=== PATIENT | male | born 1940 | race Caucasian/White ===

== ENCOUNTER → 2017-12-19 13:54 | Outpatient (CLI) | payer MEDICARE, OTHER, SELFPAY ==
--- NOTE | 2017-12-19 13:59 | CDU_ITS ---
Reason For Study: left carotid bruit Rt. Velocities/BP Lt. Velocities/BP Prox CCA 83.3/19.9 cm/sec. Prox CCA 85.6/28.3 cm/sec. Mid CCA 76.2/19.3 cm/sec. Mid CCA 76.8/21.7 cm/sec. Dist CCA 86.2/23.5 cm/sec. Dist CCA 83.8/25.2 cm/sec. Prox ICA 140/37.7 cm/sec. Prox ICA 73.3/24.0 cm/sec. Mid ICA 159/44.2 cm/sec. Mid ICA 142/48.7 cm/sec. Dist ICA 161/48.1 cm/sec. Dist ICA 139/47.1 cm/sec. Rt. ICA/CCA = 2.1. Lt. ICA/CCA = 1.8. Prox ECA 175/18.7 cm/sec. Prox ECA 297/29.9 cm/sec. Rt. Vert. 66.8/22.8 cm/sec. Lt. Vert. 66.8/25.2 cm/sec. Right Extracranial There is heterogeneous, irregular atherosclerotic plaque noted in the right common carotid artery. There is heterogeneous, irregular atherosclerotic plaque noted in the right internal carotid artery. There is heterogeneous, irregular atherosclerotic plaque noted in the right external carotid artery. Antegrade flow is noted in the right vertebral artery. Left Extracranial There is homogeneous, smooth atherosclerotic plaque noted in the left common carotid artery. There is homogeneous, smooth atherosclerotic plaque noted in the left internal carotid artery. There is homogeneous, smooth atherosclerotic plaque noted in the left external carotid artery. Antegrade flow is noted in the left vertebral artery. Procedure Carotid Duplex 96171. The exam was diagnostic. Exam performed in department. 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 Moderate disease right external carotid Widely patent left common carotid and proximal internal carotid with 50-69% stenosis of the internal carotid Severe stenosis left external carotid Patent and antegrade vertebrals bilaterally. Ordering Physician: Ward Pederson Performed By: Bill Nunez RVT
== END ==
PROVIDERS: Family Provider Family Medicine; PCP Family Medicine; Visit Provider Family Medicine
DX: R09.89 Other specified symptoms and signs involving the circulatory and respiratory systems (principal)
CPT/HCPCS: 93880

== ENCOUNTER 2017-12-24 09:31 | Emergency (ER) | payer MEDICARE, OTHER, SELFPAY ==
[2017-12-24 09:33] VITALS: BP 151/79; PULSE 76; RESP 16; TEMP 36.5; O2SAT 99; BMI 24.9
--- NOTE | 2017-12-24 09:43 | RAD_ITS ---
STUDY: X-RAY - LEFT HAND, ATTENTION THUMB FINGER REASON FOR EXAM: Male, 77 years old. Injury TECHNIQUE: 4 view(s) of the finger were obtained. COMPARISON: None. FINDINGS: There is irregularity of the lateral aspect of the first metacarpal head probably degenerative. Normal metacarpophalangeal joint. Normal proximal phalanx. Normal middle phalanx. Normal distal phalanx. There is a well-defined bony density on the dorsal aspect of the interphalangeal joint which could be due to old injury. There is no demonstrated acute fracture. RAD/Finger(s) Min 2 Views IMPRESSION: No demonstrated acute osseous injury. Electronically Signed: Adan Cobb MD at 10:34 EDT Tel , Service support ,
--- NOTE | 2017-12-24 10:39 | ED.DCSUM_ITS ---
- ER Visit Summary Date of Service: 12/24/17 Chief Complaint: [Laceration left thumb] History of Present Illness: The patient is a 77 M [presents to the emergency department after sustaining a laceration to his left thumb this morning. Patient was using a table saw to cut a piece of chair he would when he accidentally lacerated his left thumb. Patient is right-hand dominant. Patient is up-to-date on tetanus. Patient is not on any blood thinners other than a baby aspirin.] Physical Examination: [Left thumb-patient has a 4 cm flap-like laceration over the pulp of the thumb. Patient neurovascularly intact. There does not appear to be any bony involvement. There is no trauma to the nail. Small amount of venous oozing noted from the wound.] Test Results: [X-rays of the left thumb were obtained which did not show any osseous injury and there was no evidence of foreign body.] Emergency Department Course and Treatment: [Laceration repair-wound sterilely draped and prepped. Using 1% lidocaine a total of 8 cc used to perform a digital block. Wound was cleansed with Shur-Clens and irrigated with copious saline. The wound edges were quite irregular however using 5-0 nylon a total of 14 single interrupted sutures placed with good wound edge approximation. Patient tolerated procedure well. Clean dressing applied. Patient was given 1 dose of Keflex.] Treatment Plan: [Patient to follow-up with primary care physician in 10 days for suture removal. Patient will be given Keflex for 7 days.] Disposition: [Discharged to home in stable condition. Patient advised to return if increasing pain, redness, swelling, or condition should worsen in any way.] Impression: [Left thumb laceration 4 cm -simple repair] This note was generated with [employer] dictation software. It may contain incorrect words, spelling, and punctuation that were not noted in review of the chart prior to signing ED Disposition - Plan for ED Patient: Chief Complaint: Laceration Referrals: Ward Pederson MD [Primary Care Provider] -
--- NOTE | 2017-12-24 10:39 | ED.DEP ---
ED Disposition - Plan for ED Patient: Chief Complaint: Laceration Instructions: ED Laceration Hand Prescriptions: Cephalexin [Keflex] 500 mg PO Q8 #21 cap Referrals: Ward Pederson MD [Primary Care Provider] - 10-14 Days suture removal
[2017-12-24 10:44] VITALS: BP 147/60; PULSE 57; RESP 18; O2SAT 98
[2017-12-24] MEDS: Cephalexin 250 MG Capsule 500 MG PO (10:46)
== END 2017-12-24 10:56 | disposition home or self-care (01) ==
PROVIDERS: Emergency Provider Emergency Medicine; Family Provider Family Medicine; PCP Family Medicine
DX: S61.012A Laceration without foreign body of left thumb without damage to nail, initial encounter (principal); W27.0XXA Contact with workbench tool, initial encounter; Y93.9 Activity, unspecified; Y92.9 Unspecified place or not applicable; I25.10 Atherosclerotic heart disease of native coronary artery without angina pectoris; E78.00 Pure hypercholesterolemia, unspecified; I10 Essential (primary) hypertension; Z95.1 Presence of aortocoronary bypass graft; Z96.651 Presence of right artificial knee joint; Z79.82 Long term (current) use of aspirin; Z79.899 Other long term (current) drug therapy; Z72.0 Tobacco use
CPT/HCPCS: 12002; 73140; 99283

== ENCOUNTER → 2018-01-22 07:55 | Outpatient (CLI) | payer MEDICARE, OTHER, SELFPAY ==
--- NOTE | 2018-01-22 07:56 | AAAS_ITS ---
Reason For Study: AAA Aorta Measurements Aorta Doppler Measurements Proximal aorta measures1.82cm x 1.80cm. in cross-Peak systolic flow velocities within the proximal sectional axis. aorta measure 81 cm/sec. Proximal aorta measures1.63cm. in longitudinal Peak systolic flow velocities within the mid axis. aorta measure 85 cm/sec. Mid aorta measures1.45cm x 1.45cm. in cross- Peak systolic flow velocities within the distal sectional axis. aorta measure 99 cm/sec. Mid aorta measures1.45cm. in longitudinal axis. Distal aorta measures1.48cm x 1.57cm. in cross- sectional axis. Distal aorta measures1.47cm. in longitudinal axis. Left Iliac Artery Left iliac artery measures 1.27cm x 1.24 cm. in the cross-sectional axis. Left iliac artery measures 1.13 cm. in the longitudinal axis. Peak systolic velocity in the left iliac artery measures 100 cm/sec. Right Iliac Artery Right iliac artery measures 1.03cm x 1.05 cm. in the cross-sectional axis. Right iliac artery measures 1.07 cm. in the longitudinal axis. Peak systolic velocity in the right iliac artery measures 88 cm/sec. Procedure Exam performed in department. Interpretation Summary Maximal aortic dimension 1.82 x 1.8 cm proximally with normal flow Left iliac 1.27 x 1.24cm with normal velocity Right iliac 1.03 x 1.05cm with normal velocity Ordering Physician: Asif Torres Referring Physician: Ward Pederson Performed By: Cheli Fernández, TRACEE, RVT
== END ==
PROVIDERS: Family Provider Family Medicine; PCP Family Medicine; Visit Provider Surgery
DX: I71.4 Abdominal aortic aneurysm, without rupture (principal)
CPT/HCPCS: 76706

== ENCOUNTER → 2018-03-08 14:23 | Outpatient (CLI) | payer MEDICARE, OTHER, SELFPAY ==
[2018-03-08 17:05] LABS: Absolute Lymphocyte Count 1.69 X10^3/ul (0.83-4.51); Absolute Neutrophil Count 3.9 X10^3/uL (2.0-7.7); Basophil# 0.03 X10^3/uL; Basophil% 0.5 % (0-1); Eosinophil# 0.15 X10^3/uL; Eosinophils% 2.5 % (0-5); Hematocrit 33.5 % (40-54); Hemoglobin 11.4 g/dl (13.0-16.5); Lymphocyte # 1.69 X10^3/ul (4.0); Lymphocyte % 27.8 % (19-41); Mean Corpuscular Hgb 31.3 pg (27.0-32.0); Mean Platelet Vol. 10.3 fl (6.2-12.0); Monocyte# 0.35 X10^3/uL; Monocyte% 5.8 % (0-10); Neutrophil # 3.85 X10^3/uL (2.7-7.7); Neutrophil % 63.4 % (47-70); Platelet Count 214 K/mm3 (150-450); RBC Distribution Width CV 12.5 % (11.6-14.6); Red Blood Count 3.64 M/mm3 (4.6-6.2); White Blood Count 6.1 K/mm3 (4.4-11.0)
[2018-03-08 17:13] LABS: POSITIVE COUNT NO; POSITIVE DIFFERENTIAL NO; POSITIVE MORPHOLOGY NO
[2018-03-08 17:37] LABS: Vitamin B12 342 pg/mL (211-911)
[2018-03-08 17:49] LABS: ALB/GLOB Ratio 1.2 RATIO (0.9-2.4); AST(SGOT) 20 U/L (15-37); Alanine Aminotransfer ALT/SGPT 28 U/L (16-61); Albumin, Serum 4.2 g/dL (3.2-5.0); Alkaline Phosphatase 74 U/L (45-117); Anion Gap 9 (5-15); BUN 25 mg/dL (7-18); BUN/Creat Ratio 14.5 RATIO (10-20); Calcium,Total 8.9 mg/dL (8.5-10.1); Chloride 111 mmol/L (98-107); Creatinine, Serum 1.72 mg/dL (0.70-1.30); EST Glomerular Filtration Rate 41 mL/min (>60); Est Glom Filt Rate - Afr Amer 50 mL/min (>60); Globulin 3.5 g/dL (2.2-4.2); Glucose 77 mg/dL (74-106); Potassium 4.7 mmol/L (3.5-5.1); Protein, Total 7.7 g/dL (6.4-8.2); Sodium Level 141 mmol/L (136-145); Thyroid Stim Hormone (TSH) 1.18 uIU/mL (0.358-3.74)
[2018-03-09 05:02] LABS: Rapid Plasmin Reagin (RPR) NONREACTIVE (NONREACTIVE)
[2018-03-12 09:07] LABS: Hep C Antibodies <0.1 s/co ratio (0.0-0.9)
== END ==
PROVIDERS: Family Provider Family Medicine; PCP Family Medicine; Visit Provider Family Medicine Geriatric Medicine
DX: G30.9 Alzheimer's disease, unspecified (principal); I10 Essential (primary) hypertension; Z13.89 Encounter for screening for other disorder
CPT/HCPCS: 80053; 82607; 82746; 84443; 85025; 86592; 86803

== ENCOUNTER → 2018-03-13 10:45 | Outpatient (CLI) | payer MEDICARE, OTHER, SELFPAY ==
[2018-03-13 14:29] LABS: Homocysteine 16.3 umol/L (3.2-10.7)
== END ==
PROVIDERS: Family Provider Family Medicine; PCP Family Medicine; Visit Provider Family Medicine Geriatric Medicine
DX: E53.8 Deficiency of other specified B group vitamins (principal)
CPT/HCPCS: 36415; 83090; 83921

== ENCOUNTER → 2018-03-23 06:25 | Outpatient (CLI) | payer MEDICARE, OTHER, SELFPAY ==
--- NOTE | 2018-03-23 06:31 | CT_ITS ---
STUDY: LOW DOSE CT LUNG CANCER SCREENING REASON FOR EXAM: Male, 78 years old. Hx tobacco use, smoked less than 1 pack/day x 40 years, 185lbs, 3 vessel CABG, hypertension. RADIATION DOSAGE (If Supplied By Facility): CTDIvol = ( 3.02 ) mGy, DLP = ( 106.84 ) mGycm TECHNIQUE: No contrast was administered. Low dose technique was utilized (average mAS-38 and kVp 120). 1.25 mm axial source images with a slice interval of 1.25-mm were reconstructed in lung windows. 2.5 mm axial source images with a slice interval of 2.5-mm were reconstructed in lung windows. 5.0 mm axial source images with a slice interval of 5.0-mm were reconstructed in soft tissue windows. Nodule measured using lung windows on PACS and/or independent workstation with automated measurement of minimum and maximum diameter. Nodule measurement reported as average diameter rounded to the nearest whole number. Growth is defined as an increase ins size of greater than 1.5 mm. COMPARISON: None. NODULES: Calcified nodule is seen in the right middle lobe image #161 measures 5 mm consistent with benign granuloma. Segmental atelectasis are noted in the right and left lung bases. There is no demonstrated pleural abnormality. Normal heart and pericardium. Normal mediastinum. Normal hilar regions. Normal unenhanced pulmonary arteries. Normal aorta arch and descending thoracic aorta. There is demineralization of the thoracic spine. There is no demonstrated abnormality of the visualized upper abdomen. CT/Low Dose CT Lung Screening IMPRESSION: Lung-RADS category 2. Recommendation: Routine screening CT scan in one year. IMPORTANT NOTES FOR USE: ACR Lung-RADS Version 1.0 Assessment Categories Release Date: December 30, 2013 Category: Coded 0-4 bases on nodule(s) with highest degree of suspicion. Negative screen is defined as categories 1 and 2; a positive screen is defined as categories 3 and 4. Category 3 and 4A nodules that are unchanged on interval CT should be coded as category 2, and individuals returned to screening in 12 months. Category 4X: Category 3 or 4 nodules with additional imaging findings that increase the suspicion of lung cancer, such as spiculation, GGN that doubles in size in 1 year, enlarged lymph notes, etc. Category Modifiers: S (significant finding unrelated to lung cancer) and C (prior history of treated lung cancer) may be added to the 0-4 Lung-RADS Electronically Signed: Danny Lea MD at 8:14 EDT Tel , Service support ,
--- NOTE | 2018-03-23 06:31 | CT_ITS ---
STUDY: CT BRAIN WITHOUT CONTRAST REASON FOR EXAM: Male, 78 years old. Alzheimer's disease, hypertension, CABG. RADIATION DOSAGE (If Supplied By Facility): CTDIvol = ( 44.99 ) mGy, DLP = ( 745.49 ) mGycm TECHNIQUE: Transaxial CT imaging of the brain was performed without administration of intravenous contrast material. Individualized dose optimization techniques were used for this CT. COMPARISON: None. FINDINGS: Normal soft tissue structures. Normal calvarium. There is mild cerebral atrophy with widening of the extra-axial spaces and ventricular dilatation. There are areas of decreased attenuation within the white matter tracts of the supratentorial brain, consistent with microvascular disease changes. Normal basal ganglia and thalami. Normal brainstem. Normal cerebellum. There is no intracranial hemorrhage. There are no findings of an acute ischemic infarction. Normal visualized paranasal sinuses. CT/Brain/Head without Contrast IMPRESSION: Chronic involutional changes of the brain. Electronically Signed: Danny Lea MD at 7:48 EDT Tel , Service support ,
== END ==
PROVIDERS: Family Provider Family Medicine; PCP Family Medicine; Visit Provider Family Medicine Geriatric Medicine
DX: G30.9 Alzheimer's disease, unspecified (principal); Z87.891 Personal history of nicotine dependence
CPT/HCPCS: 70450; G0297

== ENCOUNTER → 2018-09-10 14:55 | Outpatient (CLI) | payer MEDICARE, OTHER, SELFPAY ==
[2018-01-03 15:22] VITALS: BMI 27.7
[2018-09-10 17:52] LABS: Absolute Lymphocyte Count 1.86 X10^3/ul (0.83-4.51); Basophil# 0.03 X10^3/uL; Basophil% 0.4 % (0-1); Eosinophil# 0.13 X10^3/uL; Eosinophils% 1.7 % (0-5); Hematocrit 37.1 % (40-54); Hemoglobin 12.6 g/dl (13.0-16.5); Lymphocyte # 1.86 X10^3/ul (4.0); Lymphocyte % 24.7 % (19-41); Mean Corpuscular Hgb 31.7 pg (27.0-32.0); Mean Corpuscular Volume 93.5 fL (80-94); Mean Platelet Vol. 9.9 fl (6.2-12.0); Monocyte# 0.52 X10^3/uL; Monocyte% 6.9 % (0-10); Neutrophil # 4.97 X10^3/uL (2.7-7.7); Neutrophil % 66.2 % (47-70); Platelet Count 204 K/mm3 (150-450); RBC Distribution Width CV 12.5 % (11.6-14.6); RBC Distribution Width SD 41.9 fl (35.1-43.9); Red Blood Count 3.97 M/mm3 (4.6-6.2); White Blood Count 7.5 K/mm3 (4.4-11.0)
[2018-09-10 18:13] LABS: Vitamin D,25 Hydroxy 31.6 ng/mL (29.95-100.01)
[2018-09-10 18:18] LABS: ALB/GLOB Ratio 1.3 RATIO (0.9-2.4); AST(SGOT) 24 U/L (15-37); Alanine Aminotransfer ALT/SGPT 54 U/L (16-61); Albumin, Serum 4.3 g/dL (3.2-5.0); Alkaline Phosphatase 70 U/L (45-117); Anion Gap 9 (5-15); BUN 31 mg/dL (7-18); BUN/Creat Ratio 16.6 RATIO (10-20); Calcium,Total 8.7 mg/dL (8.5-10.1); Chloride 107 mmol/L (98-107); Creatinine, Serum 1.87 mg/dL (0.70-1.30); EST Glomerular Filtration Rate 37 mL/min (>60); Est Glom Filt Rate - Afr Amer 45 mL/min (>60); Globulin 3.2 g/dL (2.2-4.2); Glucose 91 mg/dL (74-106); POSITIVE COUNT NO; POSITIVE DIFFERENTIAL NO; POSITIVE MORPHOLOGY NO; Potassium 4.6 mmol/L (3.5-5.1); Protein, Total 7.5 g/dL (6.4-8.2); Sodium Level 136 mmol/L (136-145); Thyroid Stim Hormone (TSH) 1.51 uIU/mL (0.358-3.74)
== END ==
PROVIDERS: Visit Provider Family Medicine Geriatric Medicine
DX: E55.9 Vitamin D deficiency, unspecified (principal); F52.8 Other sexual dysfunction not due to a substance or known physiological condition; I10 Essential (primary) hypertension
CPT/HCPCS: 36415; 80053; 82306; 84403; 84443; 85025

== ENCOUNTER → 2019-03-12 | Outpatient (CLI) | payer MEDICARE, OTHER, SELFPAY ==
[2019-03-12 12:56] LABS: Absolute Lymphocyte Count 1.59 X10^3/ul (0.83-4.51); Absolute Neutrophil Count 3.3 X10^3/uL (2.0-7.7); Basophil# 0.01 X10^3/uL; Basophil% 0.2 % (0-1); Eosinophil# 0.14 X10^3/uL; Eosinophils% 2.6 % (0-5); Hematocrit 33.4 % (40-54); Hemoglobin 11.3 g/dl (13.0-16.5); Lymphocyte # 1.59 X10^3/ul (4.0); Lymphocyte % 29.9 % (19-41); Mean Corp Hgb Conc 33.8 g/gl (32-36); Mean Corpuscular Hgb 30.7 pg (27.0-32.0); Mean Corpuscular Volume 90.8 fL (80-94); Mean Platelet Vol. 9.8 fl (6.2-12.0); Monocyte# 0.28 X10^3/uL; Monocyte% 5.3 % (0-10); Platelet Count 205 K/mm3 (150-450); RBC Distribution Width CV 12.6 % (11.6-14.6); RBC Distribution Width SD 41.7 fl (35.1-43.9); Red Blood Count 3.68 M/mm3 (4.6-6.2); White Blood Count 5.3 K/mm3 (4.4-11.0)
[2019-03-12 12:59] LABS: Vitamin D,25 Hydroxy 34.7 ng/mL (29.95-100.01)
[2019-03-12 13:06] LABS: ALB/GLOB Ratio 1.3 RATIO (0.9-2.4); AST(SGOT) 22 U/L (15-37); Alanine Aminotransfer ALT/SGPT 33 U/L (16-61); Albumin, Serum 4.1 g/dL (3.2-5.0); Alkaline Phosphatase 76 U/L (45-117); Anion Gap 8 (5-15); BUN 24 mg/dL (7-18); BUN/Creat Ratio 14.1 RATIO (10-20); Calcium,Total 8.8 mg/dL (8.5-10.1); Chloride 109 mmol/L (98-107); EST Glomerular Filtration Rate 42 mL/min (>60); Est Glom Filt Rate - Afr Amer 51 mL/min (>60); Globulin 3.1 g/dL (2.2-4.2); Glucose 98 mg/dL (74-106); Potassium 4.9 mmol/L (3.5-5.1); Protein, Total 7.2 g/dL (6.4-8.2); Sodium Level 139 mmol/L (136-145); Thyroid Stim Hormone (TSH) 1.33 uIU/mL (0.358-3.74)
[2019-03-12 13:07] LABS: POSITIVE COUNT NO; POSITIVE DIFFERENTIAL NO
[2019-03-12 13:08] LABS: POSITIVE MORPHOLOGY NO
== END | disposition home or self-care (01) ==
LOC: POLAB3 10:27
PROVIDERS: Visit Provider Family Medicine Geriatric Medicine
DX: E55.9 Vitamin D deficiency, unspecified (principal); F52.8 Other sexual dysfunction not due to a substance or known physiological condition; I10 Essential (primary) hypertension
CPT/HCPCS: 36415; 80053; 82306; 84403; 84443; 85025

== ENCOUNTER → 2019-03-19 | Outpatient (CLI) | payer MEDICARE, OTHER, SELFPAY ==
--- NOTE | 2019-03-19 | TISS_PTH ---
PATIENT: АННА GONCALVES LOC: [facility] U#:[id number] AGE/SX: 79/M ROOM: RE03/19/[address]: Dr. 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 Perineural invasion is not seen. LEIGH ANN:coleen 03/20/19 COMMENT Case has been reviewed in consultation with Dr. Urrutia who concurs with the above diagnosis. IDC:AM MICROSCOPIC DESCRIPTION Slides are reviewed. GROSS DESCRIPTION Received in fixative is one container labeled with the patient's name and designated right posterior ear. The specimen consists of a discoid fragment of light singh shaved skin measuring 1.2 x 1 x 0.1 cm. The specimen is inked, serially sectioned and totally submitted in one cassette. / AM:coleen 03/19/19 TC:0 CPT: 20150
== END | disposition home or self-care (01) ==
LOC: LABSPEC 12:55
PROVIDERS: Family Provider Family Medicine Geriatric Medicine; PCP Family Medicine Geriatric Medicine; Referring Provider Family Medicine Geriatric Medicine; Visit Provider Family Medicine Geriatric Medicine
DX: C44.222 Squamous cell carcinoma of skin of right ear and external auricular canal (principal)
CPT/HCPCS: 88305

== ENCOUNTER → 2019-09-10 13:13 | Outpatient (CLI) | payer MEDICARE, OTHER, SELFPAY ==
[2019-09-10 14:05] LABS: Absolute Lymphocyte Count 1.31 X10^3/uL (0.83-4.51); Absolute Neutrophil Count 3.7 X10^3/uL (2.0-7.7); Basophil# 0.02 X10^3/uL; Basophil% 0.4 % (0-1); Eosinophils% 3.5 % (0-5); Hematocrit 32.9 % (40-54); Hemoglobin 10.8 g/dL (13.0-16.5); Lymphocyte # 1.31 X10^3/ul (4.0); Lymphocyte % 23.1 % (19-41); Mean Corp Hgb Conc 32.8 g/dL (32-36); Mean Corpuscular Hgb 30.9 pg (27.0-32.0); Mean Corpuscular Volume 94.3 fL (80-94); Mean Platelet Vol. 9.9 fl (6.2-12.0); Monocyte# 0.41 X10^3/uL; Monocyte% 7.2 % (0-10); NRBC Flagged by Analyzer 0 % (0-5); Neutrophil % 65.4 % (47-70); Platelet Count 211 K/mm3 (150-450); RBC Distribution Width CV 12.1 % (11.6-14.6); RBC Distribution Width SD 41.7 fl (35.1-43.9); Red Blood Count 3.49 M/mm3 (4.6-6.2); White Blood Count 5.7 K/mm3 (4.4-11.0)
[2019-09-10 14:26] LABS: Vitamin D,25 Hydroxy 38.7 ng/mL (29.95-100.01)
[2019-09-10 14:32] LABS: ALB/GLOB Ratio 1.1 RATIO (0.9-2.4); AST(SGOT) 22 U/L (15-37); Alanine Aminotransfer ALT/SGPT 34 U/L (16-61); Albumin, Serum 3.9 g/dL (3.2-5.0); Alkaline Phosphatase 84 U/L (45-117); Anion Gap 3 (5-15); BUN 33 mg/dL (7-18); BUN/Creat Ratio 16.3 RATIO (10-20); Calcium,Total 9.3 mg/dL (8.5-10.1); Chloride 110 mmol/L (98-107); Creatinine, Serum 2.02 mg/dL (0.70-1.30); EST Glomerular Filtration Rate 34 mL/min (>60); Est Glom Filt Rate - Afr Amer 41 mL/min (>60); Globulin 3.4 g/dL (2.2-4.2); Glucose 98 mg/dL (74-106); Potassium 5.5 mmol/L (3.5-5.1); Protein, Total 7.3 g/dL (6.4-8.2); Sodium Level 138 mmol/L (136-145); Thyroid Stim Hormone (TSH) 2.04 uIU/mL (0.358-3.74)
== END ==
PROVIDERS: Family Provider Family Medicine Geriatric Medicine; PCP Family Medicine Geriatric Medicine; Visit Provider Family Medicine Geriatric Medicine
DX: E55.9 Vitamin D deficiency, unspecified (principal); I10 Essential (primary) hypertension; F52.8 Other sexual dysfunction not due to a substance or known physiological condition
CPT/HCPCS: 36415; 80053; 82306; 84403; 84443; 85025

== ENCOUNTER → 2019-10-15 13:15 | Outpatient (CLI) | payer MEDICARE, OTHER, SELFPAY ==
[2018-01-03 15:22] VITALS: BMI 27.7
[2019-10-15 17:36] LABS: Anion Gap 5 (5-15); BUN 31 mg/dL (7-18); Calcium,Total 8.8 mg/dL (8.5-10.1); Chloride 110 mmol/L (98-107); Creatinine, Serum 1.63 mg/dL (0.70-1.30); EST Glomerular Filtration Rate 44 mL/min (>60); Est Glom Filt Rate - Afr Amer 53 mL/min (>60); Glucose 113 mg/dL (74-106); Potassium 4.3 mmol/L (3.5-5.1); Sodium Level 138 mmol/L (136-145)
== END ==
PROVIDERS: Family Provider Family Medicine Geriatric Medicine; PCP Family Medicine Geriatric Medicine; Visit Provider Family Medicine Geriatric Medicine
DX: I10 Essential (primary) hypertension (principal)
CPT/HCPCS: 36415; 80048

== ENCOUNTER → 2019-11-13 14:19 | Outpatient (CLI) | payer MEDICARE, OTHER, SELFPAY ==
[2018-01-03 15:22] VITALS: BMI 27.7
[2019-11-13 17:56] LABS: Protein, Urine (Random) 54.1 mg/dL (<11.9); Protein:Creat Ratio 611 mg/g CRE (0-200)
== END ==
PROVIDERS: PCP Family Medicine Geriatric Medicine; Visit Provider Internal Medicine Nephrology
DX: N18.3 Chronic kidney disease, stage 3 (moderate) (principal)
CPT/HCPCS: 82570; 84156

== ENCOUNTER → 2019-12-25 10:50 | Outpatient (CLI) | payer MEDICARE, OTHER, SELFPAY ==
--- NOTE | 2019-12-25 12:25 | NEURO ---
NCS and/or EMG Patient Report Ordering Doctor: Geraldo Joseph Chi DATE OF SERVICE: 12/25/19 Dallin Cortes is a 79-year-old male who presents for electrodiagnostic testing of the upper limbs. He reports progressively worsening numbness and tingling in both hands. Electrodiagnostic findings: Median motor nerve demonstrates prolonged distal latency with normal amplitude and conduction velocity on the left side. Right median motor nerve demonstrates prolonged distal latency with reduced amplitude and conduction velocity. Ulnar motor response is normal bilaterally. Prolonged median sensory latency at the wrist bilaterally. Prolonged right median palmar latency. Ulnar and radial sensory responses within normal limits on needle EMG, muscles tested in upper limb showed no evidence of denervation with normal motor unit action potentials. Electrodiagnostic impression: This is an abnormal study in the upper limbs 1. Electrodiagnostic findings demonstrate bilateral median mononeuropathy. This is consistent with a mild left carpal tunnel syndrome and a moderate to advanced right carpal tunnel syndrome. If there are any further questions, please do not hesitate to contact me
== END ==
PROVIDERS: Family Provider Family Medicine Geriatric Medicine; PCP Family Medicine Geriatric Medicine; Referring Provider Family Medicine Geriatric Medicine; Visit Provider Family Medicine Geriatric Medicine
DX: R20.2 Paresthesia of skin (principal)
CPT/HCPCS: 95886; 95912

== ENCOUNTER → 2020-02-21 08:36 | Outpatient (CLI) | payer MEDICARE, OTHER, SELFPAY ==
--- NOTE | 2020-02-21 08:43 | CDU_ITS ---
Reason For Study: Stenosis Rt. Velocities/BP Lt. Velocities/BP Prox CCA 85.2/14.7 cm/sec. Prox CCA 77.7/20 cm/sec. Mid CCA 69.5/17.3 cm/sec. Mid CCA 70.4/17.6 cm/sec. Dist CCA 83.9/18.6 cm/sec. Dist CCA 74.1/16.3 cm/sec. Bulb, 133.9/22.5 cm/sec. Prox ICA 117.4/35.3 cm/sec. Prox ICA 91.9/15.2 cm/sec. Mid ICA 182.8/44.5 cm/sec. Mid ICA 197.6/42.2 cm/sec. Dist ICA 104.7/29.8 cm/sec. Dist ICA 176.9/31.9 cm/sec. Lt. ICA/CCA = 2.47. Rt. ICA/CCA = 2.36. Prox ECA 87.6/11.4 cm/sec. Prox ECA 207.9/7.4 cm/sec. Lt. Vert. 79.1/18.8 cm/sec. Rt. Vert. 51.2/8 cm/sec. Right Extracranial There is heterogeneous, irregular atherosclerotic plaque noted in the right common carotid artery. There is heterogeneous, irregular atherosclerotic plaque noted in the right internal carotid artery. There is heterogeneous, irregular atherosclerotic plaque noted in the right external carotid artery. Antegrade flow is noted in the right vertebral artery. There is heterogeneous, irregular atherosclerotic plaque noted in the right bulb. Left Extracranial There is homogeneous, smooth atherosclerotic plaque noted in the left common carotid artery. There is homogeneous, irregular atherosclerotic plaque noted in the left internal carotid artery. There is homogeneous, smooth atherosclerotic plaque noted in the left external carotid artery. Antegrade flow is noted in the left vertebral artery. Procedure Carotid Duplex [id number]. Exam performed in department. Interpretation Summary Irregular calcific plaque with shadowing at the proximal right external carotid with extensive plaque lining the right internal carotid. 50-69% stenosis right internal carotid with particular stenosis in the mid internal carotid. Irregular plaque with possibility of ulceration present. >50% stenosis right external carotid Images appear consistent with postoperative changes of the left carotid bulb and proximal internal carotid. Homogeneous plaque within the left carotid bulb 50-69% stenosis left internal carotid <50% stenosis left external carotid Patent and antegrade vertebrals bilaterally Ordering Physician: Geraldo Joseph Referring Physician: Geraldo Joseph Chi Performed By: Ana Laura Venegas RVT
--- NOTE | 2020-02-21 08:44 | ART_ITS ---
Reason For Study: PAOD Procedure A bilateral lower extremity continuous wave Doppler with analog waveform analysis and ankle brachial indexes. Left Segmental Pressures Left brachial= 177mmHg. Left posterior tibial artery = 202mmHg. Left dorsalis pedis artery = 178mmHg. The left dorsalis pedis waveforms are triphasic. The left posterior tibial artery waveforms are triphasic. Right Segmental Pressures Right brachial= 172mmHg. Right posterior tibial artery = 174mmHg. Right dorsalis pedis artery = 172mmHg. The right dorsalis pedis waveforms are biphasic. The right posterior tibial artery waveforms are triphasic. Indices The right ankle brachial index by the dorsalis pedis is 0.97. The right ankle brachial index by the posterior tibial artery is 0.98. The left ankle brachial index by the dorsalis pedis is 1.01. The left ankle brachial index by the posterior tibial artery is 1.14. 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 Biphasic waveform involving the right dorsalis pedis suggests disease involving the tibialis anterior. Normal left lower extremity resting indices and triphasic waveforms Ordering Physician: Geraldo Joseph Referring Physician: Geraldo Joseph Chi Performed By: Ana Laura Venegas RVT and Student
--- NOTE | 2020-02-21 09:16 | ART_ITS ---
Reason For Study: PAOD Procedure A bilateral upper extremity continuous wave Doppler with analog waveform analysis and wrist brachial indexes. Left Segmental Pressures Left brachial= 176mmHg. Left ulnar= 209mmHg. Left radial= 214mmHg. The left radial waveforms are triphasic. The left ulnar waveforms are triphasic. Right Segmental Pressures Right brachial= 167mmHg. Right ulnar= 201mmHg. Right radial= 186mmHg. The right radial waveforms are triphasic. The right ulnar waveforms are triphasic. Indices Right wrist brachial index by the radial artery is 1.06. Right wrist brachial index by the ulnar artery is 1.14. Left wrist brachial index by the radial artery is 1.22. Left wrist brachial index by the ulnar artery is 1.19. Interpretation Summary Resting ankle-brachial indices appear bilaterally normal. Bilateral upper extremity radial and ulnar Doppler waveforms are normal and triphasic Ordering Physician: Geraldo Joseph Referring Physician: Geraldo Joseph Chi Performed By: Ana Laura Venegas RVT
== END ==
PROVIDERS: PCP Family Medicine Geriatric Medicine; Referring Provider Family Medicine Geriatric Medicine; Visit Provider Family Medicine Geriatric Medicine
DX: I65.23 Occlusion and stenosis of bilateral carotid arteries (principal); I73.9 Peripheral vascular disease, unspecified
CPT/HCPCS: 93880; 93922

== ENCOUNTER → 2020-03-17 11:13 | Outpatient (CLI) | payer MEDICARE, OTHER, SELFPAY ==
[2020-03-17 12:13] LABS: Absolute Lymphocyte Count 1.42 X10^3/uL (0.83-4.51); Absolute Neutrophil Count 3.3 X10^3/uL (2.0-7.7); Basophil# 0.03 X10^3/uL; Basophil% 0.6 % (0-1); Eosinophils% 1.9 % (0-5); Hematocrit 32.4 % (40-54); Hemoglobin 10.5 g/dL (13.0-16.5); Lymphocyte # 1.42 X10^3/ul (4.0); Lymphocyte % 26.9 % (19-41); Mean Corp Hgb Conc 32.4 g/dL (32-36); Mean Corpuscular Hgb 31.6 pg (27.0-32.0); Mean Corpuscular Volume 97.6 fL (80-94); Monocyte# 0.39 X10^3/uL; Monocyte% 7.4 % (0-10); NRBC Flagged by Analyzer 0 % (0-5); Neutrophil # 3.32 X10^3/uL (2.7-7.7); Neutrophil % 62.8 % (47-70); Platelet Count 178 K/mm3 (150-450); RBC Distribution Width CV 13.3 % (11.6-14.6); RBC Distribution Width SD 47.5 fl (35.1-43.9); Red Blood Count 3.32 M/mm3 (4.6-6.2); White Blood Count 5.3 K/mm3 (4.4-11.0)
[2020-03-17 12:28] LABS: Vitamin D,25 Hydroxy 62.5 ng/mL
[2020-03-17 12:34] LABS: ALB/GLOB Ratio 1.2 RATIO (0.9-2.4); AST(SGOT) 17 U/L (15-37); Alanine Aminotransfer ALT/SGPT 29 U/L (16-61); Albumin, Serum 3.8 g/dL (3.2-5.0); Alkaline Phosphatase 63 U/L (45-117); Anion Gap 4 (5-15); BUN 26 mg/dL (7-18); BUN/Creat Ratio 13.1 RATIO (10-20); Calcium,Total 8.6 mg/dL (8.5-10.1); Chloride 111 mmol/L (98-107); Creatinine, Serum 1.99 mg/dL (0.70-1.30); EST Glomerular Filtration Rate 35 mL/min (>60); Est Glom Filt Rate - Afr Amer 42 mL/min (>60); Globulin 3.1 g/dL (2.2-4.2); Glucose 101 mg/dL (74-106); Potassium 4.6 mmol/L (3.5-5.1); Protein, Total 6.9 g/dL (6.4-8.2); Sodium Level 139 mmol/L (136-145); Thyroid Stim Hormone (TSH) 1.01 uIU/mL (0.358-3.74)
== END ==
PROVIDERS: PCP Family Medicine Geriatric Medicine; Visit Provider Family Medicine Geriatric Medicine
DX: I10 Essential (primary) hypertension (principal); E55.9 Vitamin D deficiency, unspecified; F52.8 Other sexual dysfunction not due to a substance or known physiological condition
CPT/HCPCS: 36415; 80053; 82306; 84403; 84443; 85025

== ENCOUNTER → 2020-04-28 08:35 | Outpatient (CLI) | payer MEDICARE, OTHER, SELFPAY ==
[2018-01-03 15:22] VITALS: BMI 27.7
[2020-03-23 08:04] VITALS: BMI 24.4
--- NOTE | 2020-04-28 08:53 | RDU_ITS ---
Reason For Study: hypertensive disorder Right Renal Artery Left Renal Artery Right renal artery ostium Left renal artery ostium 305.7/74.2 129.9/20.2 RSV/EDV. PSV/EDV. Right renal artery proximal Left renal artery proximal PSV/EDV 116.7/24.6 PSV/EDV. 199.3/38.6 . Right renal artery mid 158.4/18.0 Left renal artery mid 129.3/15.1 PSV/EDV. PSV/EDV . Right renal artery distal Left renal artery distal 140.3/21.7 135.0/16.3 PSV/EDV. PSV/EDV. Right RAR 1.7. Left RAR 3.3. Right Renal Parenchyma Left Renal Parenchyma Upper Pole Medula 47.8/10.2 Left upper pole medulla 47.1/7.6 PSV/EDV. PSV/EDV . Right upper pole medulla EDR .21 . Left upper pole medulla EDR .16 . Right upper pole medulla R.I. .79 . Left upper pole medulla R.I. .84 . Upper Jamari Cortx 37.3/8.1 PSV/EDV. UP Cortex 21.4/4.9 PSV/EDV. Right upper pole cortex EDR .22 . Left upper pole cortex EDR .23 . Right upper pole cortex R.I. .78 . Left upper pole cortex R.I. .77 . Right lower Pole medulla 52.9/9.0 Left lower Pole medulla 39.9/6.1 PSV/EDV . PSV/EDV . Right lower pole medulla EDR .17 . Left lower pole medulla EDR .15 . Right lower pole medulla R.I. .83 . Left lower pole medulla R.I. .85 . Lower Pole Cortex 31.9/9.0 PSV/EDV. Lower Pole Cortx 19.0/5.5 PSV/EDV. Right lower pole cortex EDR .28 . Left lower pole cortex EDR .29 . Right lower pole cortex R.I. .72 . Left lower pole cortex R.I. .71 . Right Renal Hilar Left Renal Hilar Right Hilar avg 22.6/8.1 PSV/EDV. LT Hilar avg 89.7/14.5 PSV/EDV . Right hilar acceleration time 60.0 Left hilar acceleration time 80.0 m/sec. m/sec. Right Renal Dimensions Left Renal Dimensions Right kidney size 11.5 cm . Left kidney size 11.6 cm . Right cortical dimension 1.66 cm . Left cortical dimension 1.69 cm . Aorta Proximal abdominal aorta 2.03 x 2.0 cm . Proximal abdominal aorta peak systolic velocity is 92.6 cm/sec . Distal abdominal aorta 1.43 x 1.47 cm . Distal abdominal aorta peak systolic velocity is 97.0 cm/sec . Normal renal veins bilat. Very difficult study due to bowel gas. Difficult to image renal arteries. Interpretation Summary Dimensions of the intra-abdominal aorta appear normal, without evidence of aneurysmal dilatation. Right renal artery velocities are normal. Left renal artery velocities are elevated. Acceleration times are normal bilaterally. Renal-aortic ratios are also bilaterally normal. There is no evidence of significant renal artery stenosis on the right. There is evidence of mild-moderate stenosis in the ostial and proximal segments of the left renal artery. Renovascular resistance appears to be bilaterally elevated . The right cortical dimension is increased. The left cortical dimension is increased. Kidneys appear normal in size bilaterally. Ordering Physician: Rebeca Cuevas Performed By: Bill Nunez RVT
[2020-04-28 10:02] LABS: Hematocrit 33.4 % (40-54); Hemoglobin 10.9 g/dL (13.0-16.5); Mean Corp Hgb Conc 32.6 g/dL (32-36); Mean Corpuscular Hgb 31.5 pg (27.0-32.0); Mean Corpuscular Volume 96.5 fL (80-94); Mean Platelet Vol. 9.9 fl (6.2-12.0); Platelet Count 220 K/mm3 (150-450); RBC Distribution Width CV 11.9 % (11.6-14.6); RBC Distribution Width SD 42.3 fl (35.1-43.9); Red Blood Count 3.46 M/mm3 (4.6-6.2); White Blood Count 6.1 K/mm3 (4.4-11.0)
[2020-04-28 11:06] LABS: Albumin, Serum 3.7 g/dL (3.2-5.0); BUN 17 mg/dL (7-18); BUN/Creat Ratio 9.6 RATIO (10-20); Calcium,Total 8.4 mg/dL (8.5-10.1); Chloride 111 mmol/L (98-107); Creatinine, Serum 1.78 mg/dL (0.70-1.30); EST Glomerular Filtration Rate 40 mL/min (>60); Est Glom Filt Rate - Afr Amer 48 mL/min (>60); Ferritin 264 ng/mL (26-388); Glucose 94 mg/dL (74-106); Iron 63 ug/dL (65-175); Iron Binding Capacity,Total 319 ug/dL (250-450); Potassium 4.2 mmol/L (3.5-5.1); Sodium Level 140 mmol/L (136-145)
== END ==
PROVIDERS: PCP Family Medicine Geriatric Medicine; Referring Provider Internal Medicine Nephrology; Visit Provider Internal Medicine Nephrology
DX: N17.9 Acute kidney failure, unspecified (principal); D64.9 Anemia, unspecified; D63.8 Anemia in other chronic diseases classified elsewhere
CPT/HCPCS: 36415; 80069; 82728; 83540; 83550; 85027; 93975

== ENCOUNTER → 2020-07-27 11:04 | Outpatient (CLI) | payer MEDICARE, OTHER, SELFPAY ==
[2020-03-23 08:04] VITALS: BMI 24.4
[2020-05-14 09:10] VITALS: BMI 24.4
[2020-07-27 11:39] LABS: Hematocrit 35.7 % (40-54); Hemoglobin 11.5 g/dL (13.0-16.5); Mean Corp Hgb Conc 32.2 g/dL (32-36); Mean Corpuscular Hgb 30.8 pg (27.0-32.0); Mean Corpuscular Volume 95.7 fL (80-94); Mean Platelet Vol. 9.7 fl (6.2-12.0); Platelet Count 184 K/mm3 (150-450); RBC Distribution Width CV 12.1 % (11.6-14.6); RBC Distribution Width SD 42.7 fl (35.1-43.9); Red Blood Count 3.73 M/mm3 (4.6-6.2); White Blood Count 5.7 K/mm3 (4.4-11.0)
[2020-07-27 11:50] LABS: Protein, Urine (Random) 14.6 mg/dL (<11.9); Protein:Creat Ratio 197 mg/g CRE (0-200)
[2020-07-27 12:23] LABS: BUN 23 mg/dL (7-18); BUN/Creat Ratio 11.2 RATIO (10-20); Chloride 108 mmol/L (98-107); Creatinine, Serum 2.06 mg/dL (0.70-1.30); EST Glomerular Filtration Rate 33 mL/min (>60); Est Glom Filt Rate - Afr Amer 40 mL/min (>60); Ferritin 230 ng/mL (26-388); Glucose 96 mg/dL (74-106); Iron 67 ug/dL (65-175); Iron Binding Capacity,Total 279 ug/dL (250-450); Phosphorus 2.8 mg/dL (2.5-4.9); Potassium 4.2 mmol/L (3.5-5.1); Sodium Level 138 mmol/L (136-145)
== END ==
PROVIDERS: PCP Family Medicine Geriatric Medicine; Visit Provider Internal Medicine Nephrology
DX: N17.9 Acute kidney failure, unspecified (principal); N18.30 Chronic kidney disease, stage 3 unspecified; D63.8 Anemia in other chronic diseases classified elsewhere; R80.9 Proteinuria, unspecified
CPT/HCPCS: 36415; 80069; 82570; 82728; 83540; 83550; 84156; 85027

== ENCOUNTER → 2020-09-16 10:45 | Outpatient (CLI) | payer MEDICARE, OTHER, SELFPAY ==
[2020-05-14 09:10] VITALS: BMI 24.4
[2020-09-16 12:14] LABS: Absolute Lymphocyte Count 1.45 X10^3/uL (0.83-4.51); Absolute Neutrophil Count 3.2 X10^3/uL (2.0-7.7); Basophil# 0.02 X10^3/uL; Basophil% 0.4 % (0-1); Eosinophil# 0.21 X10^3/uL; Eosinophils% 4.1 % (0-5); Hematocrit 33.4 % (40-54); Hemoglobin 11.4 g/dL (13.0-16.5); Lymphocyte # 1.45 X10^3/ul (4.0); Mean Corp Hgb Conc 34.1 g/dL (32-36); Mean Corpuscular Hgb 31.4 pg (27.0-32.0); Monocyte# 0.32 X10^3/uL; Monocyte% 6.2 % (0-10); NRBC Flagged by Analyzer 0 % (0-5); Neutrophil # 3.17 X10^3/uL (2.7-7.7); Neutrophil % 61.1 % (47-70); Platelet Count 204 K/mm3 (150-450); RBC Distribution Width CV 12.1 % (11.6-14.6); RBC Distribution Width SD 40.9 fl (35.1-43.9); Red Blood Count 3.63 M/mm3 (4.6-6.2); White Blood Count 5.2 K/mm3 (4.4-11.0)
[2020-09-16 12:32] LABS: ALB/GLOB Ratio 1.2 RATIO (0.9-2.4); AST(SGOT) 22 U/L (15-37); Alanine Aminotransfer ALT/SGPT 30 U/L (16-61); Albumin, Serum 3.8 g/dL (3.2-5.0); Alkaline Phosphatase 62 U/L (45-117); Anion Gap 5 (5-15); BUN 24 mg/dL (7-18); BUN/Creat Ratio 12.3 RATIO (10-20); Calcium,Total 8.9 mg/dL (8.5-10.1); Chloride 110 mmol/L (98-107); Creatinine, Serum 1.95 mg/dL (0.70-1.30); EST Glomerular Filtration Rate 36 mL/min (>60); Est Glom Filt Rate - Afr Amer 43 mL/min (>60); Globulin 3.3 g/dL (2.2-4.2); Glucose 114 mg/dL (74-106); Potassium 4.2 mmol/L (3.5-5.1); Protein, Total 7.1 g/dL (6.4-8.2); Sodium Level 138 mmol/L (136-145); Thyroid Stim Hormone (TSH) 1.31 uIU/mL (0.358-3.74)
[2020-09-16 12:48] LABS: Vitamin D,25 Hydroxy 53.2 ng/mL
== END ==
PROVIDERS: PCP Family Medicine Geriatric Medicine; Visit Provider Family Medicine Geriatric Medicine
DX: I10 Essential (primary) hypertension (principal); E55.9 Vitamin D deficiency, unspecified; F52.8 Other sexual dysfunction not due to a substance or known physiological condition
CPT/HCPCS: 36415; 80053; 82306; 84403; 84443; 85025

== ENCOUNTER 2020-09-29 06:44 | Day surgery (SDC) | payer MEDICARE, OTHER, SELFPAY ==
[2020-05-14 09:10] VITALS: BMI 24.4
[2020-09-29 07:32] VITALS: BP 169/61; PULSE 59; RESP 16; TEMP 36.3; O2SAT 99; BMI 27.3
[2020-09-29] MEDS: Lactated Ringers 1,000 ML 100 ML IV (07:43)
--- NOTE | 2020-09-29 07:54 | HP.PCM_ITS ---
History and Physical Date of Admission: 09/29/20 Intake Intake Visit Reasons: LEFT WRIST Accompanied by: daughter Is patient in pain?: Yes Allergies No Known Allergies Allergy (Verified 05/14/20 09:11) Medications amlodipine 5 mg tablet 5 mg PO DAILY 03/23/20 [History Confirmed 09/23/20] doxepin 50 mg capsule 50 mg PO DAILY 03/23/20 [History Confirmed 09/23/20] losartan 100 mg tablet 100 mg PO DAILY 03/23/20 [History Confirmed 09/23/20] rivastigmine 9.5 mg TRANSDERMAL DAILY 03/23/20 [History Confirmed 09/23/20] cholecalciferol (vitamin D3) 10 mcg (400 unit) capsule 10 mcg PO DAILY 05/14/20 [History Confirmed 09/23/20] melatonin 10 mg capsule 20 mg PO HS cap 05/14/20 [History Confirmed 09/23/20] memantine 10 mg tablet 10 mg PO BID tab 05/14/20 [History Confirmed 09/23/20] multivitamin 1 tab PO DAILY 05/14/20 [History Confirmed 09/23/20] atorvastatin 40 mg tablet tab PO 09/23/20 [History Confirmed 09/23/20] divalproex 500 mg tablet,delayed release tab PO 09/23/20 [History Confirmed 09/23/20] ferrous sulfate 325 mg (65 mg iron) tablet 325 mg PO DAILY 09/23/20 [History Confirmed 09/23/20] sildenafil 100 mg tablet ea PO 09/23/20 [History Confirmed 09/23/20] [facility] Medical History (Updated 05/14/20 @ 09:[address] Asif Torres MD) Renal artery stenosis (Acute) Peripheral arterial occlusive disease (Acute) Carotid artery disease (Acute) HTN (hypertension) (Chronic) CAD (coronary artery disease) (Acute) Surgical History H/O cataract extraction (Acute) History of back surgery (Acute) History of knee replacement, total (Acute) H/O carotid endarterectomy (Acute) H/O heart artery stent (Acute) Family History Mother Diabetes Heart disease Hypertension Father Diabetes Kidney disease Social History (Updated 09/23/20 @ 11:[address] Tapan Flowers ) Smoking Status: Current every day smoker alcohol intake: current alcohol intake frequency: holidays/special occasions only substance use type: does not use caffeine: Yes what type of physical activity do you participate in: none frequency: does not exercise HPI LEFT WRIST: Details: Parts of this documentation were recorded by a scribe, this documentation accurately reflects the service provided and the decisions made by me, Dr. Tapan Flowers DO 09/23/20 0801Rishabh GONCALVES is a 80 year old M NEW patient here today for left wrist pain. He states he has had this pain for a few years. Referred by Dr. Joseph. Dr. Joseph has given him a injection in the left and right wrist which he states was helpful for about 1 year. He then had an EMG in 12/2019 which showed mild left carpal tunnel syndrome and a moderate to advanced right carpal tunnel syndrome. He states that the right hand is not very bad at this time. He states that he has a hard time holding pens and he has numbness and tingling in his BL 1st 2nd and 3rd fingers. He has been wearing a coper fit wrist sleeve at night which is not helpful. ROS Musc Denies joint pain, Denies joint swelling, Reports numbness, Denies radiating pain into limb, Reports tingling Skin/Breast Denies redness, Denies lesions, Denies itching, Denies rash, Denies skin swelling Neuro Yes numbness, Yes tingling Ortho Exam General General: Yes no acute distress Neurologic: Yes alert, Yes oriented x3 Psychologic: Yes reasonable and appropriate Right Wrist/Hand Skin/Wound: No Swelling, No Ecchymosis, Yes capillary refill normal Right Wrist: Yes Durken's Test, Phalen's and Thenar Atrophy; no Tinel's WRIST: significant thenar atrophy There is stiffness of the finger joints with some hypertrophy of the joints no sign of infection Left Wrist/Hand Skin/Wound: No Swelling, No Ecchymosis, Yes capillary refill normal, No erythema Left Wrist: Yes Durken's Test, Yes Phalen's and Yes Thenar Atrophy (mild); no Tinel's WRIST: stiffness of MP of 2nd and 3rd digits No thenar atrophy positive provocative maneuvers reproducing symptoms Supplemental Info 12/25/2019 EMG bilateral upper extremities 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 Bilateral carpal tunnel syndrome G56.03 Plan Patient educated that the EMG shows that he does have carpal tunnel syndrome of the BL wrists. Educated that the study shows that the right hand is actually worse then the left but his symptoms are worse in the left. Treatment options are do nothing or steroid injectionNight bracing with firm braces or carpal tunnel release. Educated that the carpal tunnel release releases the nerve and prevents worsening of carpal tunnel syndrome and there is a chance that the numbness may not subside after surgery. Patient educated that if he goes with conservative treatment options then the Disease can progress and worsen. Recommended a right carpal tunnel release at this time d/t the atrophy of the right handAnd already permanent damage resulting. Reviewed the pre-operative plans with the patient. Risks and benefits of the procedure were fully explaine d, including but not limited to infection, neurovascular injury, continued pain, arthritis, stiffness, need for further surgery, re-injury, DVT, PE, general risks of anesthesia, and loss of limb or life. The patient understands all the risks and does wish to proceed with written consent for right carpal tunnel release, left carpal tunnel injection, brace at this time. Follow up 2 weeks post op or sooner if pain, swelling, numbness or associated symptoms, or concerns develop. All questions answered. Patient in agreement of plan. Will forward a copy to Dr. Joseph. Thank you for this consultation Coding Level of Care Code 63051 Diagnoses Bilateral carpal tunnel syndrome G56.03 I have re-examined the patient. There are no clinical changes since date of exam Procedure Criteria Procedure Type: Elective COVID Risk Discussion: The surgeon/proceduralist and patient have discussed in detail the risk of exposure to and/or potential harm posed by the COVID-19 virus with having a surgery/procedure at this time versus the risk of delaying the surgery/procedure . It is not possible to know either the risk of delaying the surgery or procedure or chance of getting an infection with perfect accuracy, but a joint decision was made between the patient and the surgeon/proceduralist to proceed at this time with the scheduled surgery/procedure as indicated on the consent form.
[2020-09-29] MEDS: Cefazolin 2 GM in 0.9% Normal Saline 100 ML IV (08:15)
[2020-09-29] MEDS: Bupiv/Epi 0.5% Mpf 30 ML Vial (08:23)
[2020-09-29] MEDS: MethylPREDNISolone Acetate 40 MG/ML Vial IM (08:37)
[2020-09-29] MEDS: Bupivacaine Mpf 0.5% 30 ML VIAL (08:37)
--- NOTE | 2020-09-29 08:39 | DCINST_ITS ---
Discharge Diet: No Restrictions Call your doctor if you observe: Shortness of breath, Chest pain Additional Instructions: Ice and elevate operative extremity next 72 hours. Keep dressing on clean and dry for 48 hours then may remove and allow warm soapy water to rinse over incision but do not submerge until sutures are out. Then apply bandaid over incision and change daily. encourage finger range of motion. Not lift more than 1/2 pound. Allergies/Adverse Reactions: Allergies No Known Allergies Allergy (Verified 09/25/20 09:07) Medications to take at Discharge amlodipine 5 mg tablet 5 mg PO DAILY 03/23/20 doxepin 50 mg capsule 50 mg PO QHS 03/23/20 losartan 100 mg tablet 100 mg PO DAILY 03/23/20 rivastigmine 9.5 mg TRANSDERMAL DAILY 03/23/20 cholecalciferol (vitamin D3) 10 mcg (400 unit) capsule 10 mcg PO DAILY 05/14/20 memantine 10 mg tablet 10 mg PO BID tab 05/14/20 multivitamin 1 tab PO DAILY 05/14/20 ferrous sulfate 325 mg (65 mg iron) tablet 325 mg PO DAILY 09/23/20 Primary Care Physician: Geraldo Joseph Chi, MD [Primary Care Provider] - Test Results: Test results from this visit will be discussed in further detail at your follow- up appointment, if applicable. Please Follow Up With: Tapan Flowers DO - 2 weeks
--- NOTE | 2020-09-29 08:40 | OP.PCM_ITS ---
Report of Operation Date of Procedure: 09/29/20 Description of Surgical Findings:: Preoperative diagnosis; right carpal tunnel syndrome Postoperative diagnosis; same Procedure: Right open carpal tunnel release Anesthesia: Local with MAC Tourniquet time; [10] minutes 250 mm Hg Complications: None Indication for procedure; This is a 80-year-old no with long-standing symptoms consistent with carpal tunnel syndrome advanced degree with thenar wasting the patient did have electrodiagnostic evidence of this and has failed conservative treatment. Risks benefits and alternatives were reviewed including risks of bleeding infection nerve artery tissue damage need for further surgery and continued pain and symptoms, hypersensitivity to scar and Pillar pain. Procedure; The patient was met in the preoperative holding area the operative extremity was identified by both patient and physician and was marked the p atient was met by anesthesia and brought back to the operating room and transferred to the operating table in the supine position. Aanesthesia was started. A well-padded tourniquet was placed on the operative upper extremity. The patient was prepped and draped in the usual sterile fashion. A timeout was called to ensure the proper patient procedure and extremity were being contemplated. 0.5 percent Marcaine with epinephrine was injected into the incisional area. An Esmarch was used to exsanguinate the extremity. The tourniquet was inflated to 250 mmHg. A midline incision was made with a 15 blade scalpel between the thenar and hypothenar eminence. This was carried down through the skin and subcutaneous tissue. Alejandro retractors were then used, a deep blade scalpel was used to make a deep incision in the palmar aponeurosis. The alejandro retractors were then placed deep to this and the transverse carpal ligament was identified a perforation was made with a scalpel and a Littler scissors were used to complete the release of the transverse carpal ligament distally under direct visualization with the tips facing ulnarly until the perivascular fat was reached. Then turning our attention proximally using a tension slide technique the proximal extent of the transverse carpal ligament was released . There was noted to be significant thickening of the transverse carpal ligament with flattening of the median nerve. The wound was thoroughly irrigated and was closed with 4-0 nylon vertical mattress stitches. Dressing was applied in the form of xeroform 4 x 4, web roll and an delmis wrap. Tourniquet was let down there is no intraoperative complications patient tolerated the procedure well and was transferred to the PACU. All counts were correct.
[2020-09-29 08:45] VITALS: BP 124/74; BP 169/61; PULSE 59; RESP 16; TEMP 36.2; O2SAT 99
[2020-09-29 08:50] VITALS: BP 118/79; BP 169/61; PULSE 58; RESP 16; O2SAT 99
[2020-09-29 08:55] VITALS: BP 147/71; BP 169/61; PULSE 51; RESP 16; O2SAT 100
[2020-09-29 09:00] VITALS: BP 137/77; BP 169/61; PULSE 50; RESP 16; TEMP 36.1; O2SAT 99
[2020-09-29 09:57] VITALS: BP 169/61
== END 2020-09-29 09:58 | disposition home or self-care (01) ==
LOC: SDC 06:45 → AC 06:46
PROVIDERS: PCP Family Medicine Geriatric Medicine; Referring Provider Orthopaedic Surgery; Visit Provider Orthopaedic Surgery
PROC: (CPT 64721; principal; 2020-09-29 10:00)
DX: G56.03 Carpal tunnel syndrome, bilateral upper limbs (principal); Z20.822 Contact with and (suspected) exposure to COVID-19; I12.9 Hypertensive chronic kidney disease with stage 1 through stage 4 chronic kidney disease, or unspecified chronic kidney disease; N18.30 Chronic kidney disease, stage 3 unspecified; I25.10 Atherosclerotic heart disease of native coronary artery without angina pectoris; D64.9 Anemia, unspecified; F17.200 Nicotine dependence, unspecified, uncomplicated; Z79.899 Other long term (current) drug therapy; Z95.1 Presence of aortocoronary bypass graft; Z95.5 Presence of coronary angioplasty implant and graft
CPT/HCPCS: 64721; 87426; C9803; J7120; J2405

== ENCOUNTER → 2021-01-14 09:58 | Outpatient (CLI) | payer MEDICARE, OTHER, SELFPAY ==
[2020-05-14 09:10] VITALS: BMI 24.4
[2021-01-14 12:29] LABS: Hematocrit 35.9 % (40-54); Hemoglobin 11.7 g/dL (13.0-16.5); Mean Corp Hgb Conc 32.6 g/dL (32-36); Mean Corpuscular Hgb 30.5 pg (27.0-32.0); Mean Corpuscular Volume 93.5 fL (80-94); Mean Platelet Vol. 9.8 fl (6.2-12.0); Platelet Count 207 K/mm3 (150-450); RBC Distribution Width CV 12.3 % (11.6-14.6); RBC Distribution Width SD 42.3 fl (35.1-43.9); Red Blood Count 3.84 M/mm3 (4.6-6.2); White Blood Count 5.4 K/mm3 (4.4-11.0)
[2021-01-14 12:45] LABS: Albumin, Serum 3.9 g/dL (3.2-5.0); BUN 22 mg/dL (7-18); BUN/Creat Ratio 10.9 RATIO (10-20); Calcium,Total 8.8 mg/dL (8.5-10.1); Chloride 108 mmol/L (98-107); Creatinine, Serum 2.01 mg/dL (0.70-1.30); EST Glomerular Filtration Rate 34 mL/min (>60); Est Glom Filt Rate - Afr Amer 41 mL/min (>60); Ferritin 234 ng/mL (26-388); Glucose 106 mg/dL (74-106); Iron 94 ug/dL (65-175); Iron Binding Capacity,Total 256 ug/dL (250-450); PERCENT IRON SATURATION 36.7 % (15.0-55.0); Phosphorus 2.5 mg/dL (2.5-4.9); Potassium 4.4 mmol/L (3.5-5.1); Sodium Level 137 mmol/L (136-145)
[2021-01-14 12:49] LABS: PTHIN 86.6 pg/mL (18.4-80.1)
== END ==
PROVIDERS: PCP Family Medicine Geriatric Medicine; Visit Provider Internal Medicine Nephrology
DX: N18.32 Chronic kidney disease, stage 3b (principal); D50.9 Iron deficiency anemia, unspecified
CPT/HCPCS: 36415; 80069; 82728; 83540; 83550; 83970; 85027

== ENCOUNTER → 2021-03-10 09:25 | Outpatient (CLI) | payer MEDICARE, OTHER, SELFPAY ==
[2021-01-22 09:09] VITALS: BMI 24.4
--- NOTE | 2021-03-10 09:29 | CDU_ITS ---
Reason For Study: Carotid Stenosis Rt. Velocities/BP Lt. Velocities/BP Prox CCA 79/16 cm/sec. Prox CCA 86/20 cm/sec. Mid CCA 75/16 cm/sec. Mid CCA 80/19 cm/sec. Dist CCA 86/13 cm/sec. Dist CCA 72/15 cm/sec. Prox ICA 131/16 cm/sec. Prox ICA 109/29 cm/sec. Mid ICA 296/67 cm/sec. Mid ICA 186/41 cm/sec. Dist ICA 167/35 cm/sec. Dist ICA 124/29 cm/sec. Rt. ICA/CCA = 3.9. Lt. ICA/CCA = 2.3. Prox ECA 293/25 cm/sec. Prox ECA 410/23 cm/sec. Rt. Vert. 74/9 cm/sec. Lt. Vert. 100/16 cm/sec. Right Extracranial There is heterogeneous, irregular atherosclerotic plaque noted in the right common carotid artery. There is heterogeneous, irregular atherosclerotic plaque noted in the right internal carotid artery. There is heterogeneous, irregular atherosclerotic plaque noted in the right external carotid artery. Antegrade flow is noted in the right vertebral artery. Left Extracranial There is heterogeneous, irregular atherosclerotic plaque noted in the left common carotid artery. There is heterogeneous, irregular atherosclerotic plaque noted in the left internal carotid artery. There is heterogeneous, irregular atherosclerotic plaque noted in the left external carotid artery. Antegrade flow is noted in the left vertebral artery. Procedure Carotid Duplex 76226. This is a Carotid Duplex examination using B-mode, color flow and specral Doppler. Prelim given to Ewa BOUCHER. Exam performed in department. VL/Carotid Duplex Ultrasound Interpretation Summary Irregular calcific plaque right common carotid and proximal internal and ultrasonic hand solderer al carotid arteries. Greater than 70% stenosis right internal carotid artery Greater than 50% stenosis right external carotid artery Irregular calcific plaque left carotid bulb and proximal internal carotid arter y 50 to 69% stenosis left internal carotid artery Greater than 50% stenosis left external carotid artery Patent and antegrade vertebral arteries bilaterally Findings suggest progression of right internal carotid artery stenosis from the previous examination of February 21, 2020 Ordering Physician: Asif Torres Referring Physician: Geraldo Joseph Chi Performed By: Cheli Fernández, TRACEE, RVT
== END ==
PROVIDERS: PCP Family Medicine Geriatric Medicine; Referring Provider Surgery; Visit Provider Surgery
DX: I65.23 Occlusion and stenosis of bilateral carotid arteries (principal)
CPT/HCPCS: 93880

== ENCOUNTER → 2021-03-18 09:02 | Outpatient (CLI) | payer MEDICARE, OTHER, SELFPAY ==
[2021-03-15 05:58] VITALS: BMI 24.4
[2021-03-18 12:22] LABS: Absolute Lymphocyte Count 1.37 X10^3/uL (0.83-4.51); Absolute Neutrophil Count 3.5 X10^3/uL (2.0-7.7); Basophil# 0.03 X10^3/uL; Basophil% 0.6 % (0-1); Eosinophil# 0.18 X10^3/uL; Eosinophils% 3.3 % (0-5); Hematocrit 33.2 % (40-54); Hemoglobin 11.1 g/dL (13.0-16.5); Lymphocyte # 1.37 X10^3/ul (0.83-4.51); Lymphocyte % 25.1 % (19-41); Mean Corp Hgb Conc 33.4 g/dL (32-36); Mean Corpuscular Hgb 31.4 pg (27.0-32.0); Mean Corpuscular Volume 93.8 fL (80-94); Mean Platelet Vol. 10.4 fl (6.2-12.0); Monocyte# 0.37 X10^3/uL; Monocyte% 6.8 % (0-10); NRBC Flagged by Analyzer 0 % (0-5); Neutrophil # 3.48 X10^3/uL (2.7-7.7); Neutrophil % 63.8 % (47-70); Platelet Count 200 K/mm3 (150-450); RBC Distribution Width CV 11.9 % (11.6-14.6); RBC Distribution Width SD 40.9 fl (35.1-43.9); Red Blood Count 3.54 M/mm3 (4.6-6.2); White Blood Count 5.5 K/mm3 (4.4-11.0)
[2021-03-18 12:40] LABS: Vitamin D,25 Hydroxy 67.2 ng/mL
[2021-03-18 12:42] LABS: ALB/GLOB Ratio 1.1 RATIO (0.9-2.4); AST(SGOT) 21 U/L (15-37); Alanine Aminotransfer ALT/SGPT 24 U/L (16-61); Albumin, Serum 3.8 g/dL (3.2-5.0); Alkaline Phosphatase 66 U/L (45-117); Anion Gap 6 (5-15); BUN 22 mg/dL (7-18); BUN/Creat Ratio 11.2 RATIO (10-20); Calcium,Total 8.7 mg/dL (8.5-10.1); Chloride 109 mmol/L (98-107); Creatinine, Serum 1.96 mg/dL (0.70-1.30); EST Glomerular Filtration Rate 35 mL/min (>60); Est Glom Filt Rate - Afr Amer 43 mL/min (>60); Globulin 3.4 g/dL (2.2-4.2); Glucose 111 mg/dL (74-106); Potassium 4.4 mmol/L (3.5-5.1); Protein, Total 7.2 g/dL (6.4-8.2); Sodium Level 137 mmol/L (136-145); Thyroid Stim Hormone (TSH) 1.57 uIU/mL (0.358-3.74)
== END ==
PROVIDERS: PCP Family Medicine Geriatric Medicine; Visit Provider Family Medicine Geriatric Medicine
DX: I10 Essential (primary) hypertension (principal); E55.9 Vitamin D deficiency, unspecified
CPT/HCPCS: 36415; 80053; 82306; 84443; 85025

== ENCOUNTER → 2021-05-04 | Outpatient (CLI) | payer MEDICARE, OTHER, SELFPAY ==
[2021-05-04 15:08] LABS: M R Staph aureus DNA By PCR Negative (Negative); Probe Check PASS; Specimen Processing Control PASS; Staph aureus DNA By PCR POSITIVE (Negative)
== END | disposition home or self-care (01) ==
LOC: LABSPEC 12:38
PROVIDERS: PCP Family Medicine Geriatric Medicine; Referring Provider Family Medicine Geriatric Medicine; Visit Provider Family Medicine Geriatric Medicine
DX: L03.119 Cellulitis of unspecified part of limb (principal)
CPT/HCPCS: 87070; 87077; 87186; 87205; 87640

== ENCOUNTER → 2021-07-07 10:09 | Outpatient (CLI) | payer MEDICARE, OTHER, SELFPAY ==
[2021-01-22 09:09] VITALS: BMI 24.4
[2021-07-07 10:45] LABS: Hematocrit 32.9 % (40-54); Hemoglobin 11.2 g/dL (13.0-16.5); Mean Corpuscular Hgb 32.1 pg (27.0-32.0); Mean Corpuscular Volume 94.3 fL (80-94); Mean Platelet Vol. 9.6 fl (6.2-12.0); Platelet Count 199 K/mm3 (150-450); RBC Distribution Width CV 12.4 % (11.6-14.6); RBC Distribution Width SD 43.1 fl (35.1-43.9); Red Blood Count 3.49 M/mm3 (4.6-6.2); White Blood Count 6.4 K/mm3 (4.4-11.0)
[2021-07-07 11:00] LABS: PTHIN 73.7 pg/mL (18.4-80.1)
[2021-07-07 11:07] LABS: BUN 21 mg/dL (7-18); BUN/Creat Ratio 11.3 RATIO (10-20); Calcium,Total 9.4 mg/dL (8.5-10.1); Chloride 108 mmol/L (98-107); Creatinine, Serum 1.86 mg/dL (0.70-1.30); EST Glomerular Filtration Rate 37 mL/min (>60); Est Glom Filt Rate - Afr Amer 45 mL/min (>60); Ferritin 311 ng/mL (26-388); Glucose 98 mg/dL (74-106); Iron 116 ug/dL (65-175); Iron Binding Capacity,Total 307 ug/dL (250-450); Phosphorus 3.6 mg/dL (2.5-4.9); Potassium 4.5 mmol/L (3.5-5.1); Sodium Level 137 mmol/L (136-145)
== END ==
PROVIDERS: PCP Family Medicine Geriatric Medicine; Referring Provider Internal Medicine Nephrology; Visit Provider Internal Medicine Nephrology
DX: N18.32 Chronic kidney disease, stage 3b (principal); D50.9 Iron deficiency anemia, unspecified
CPT/HCPCS: 36415; 80069; 82728; 83540; 83550; 83970; 85027

== ENCOUNTER 2021-09-22 10:17 | Outpatient (CLI) | payer MEDICARE, OTHER, SELFPAY ==
[2021-09-22 12:02] LABS: Absolute Lymphocyte Count 1.54 X10^3/uL (0.83-4.51); Basophil# 0.05 X10^3/uL; Basophil% 0.8 % (0-1); Eosinophil# 0.32 X10^3/uL; Eosinophils% 5.1 % (0-5); Hematocrit 33.8 % (40-54); Hemoglobin 11.3 g/dL (13.0-16.5); Lymphocyte # 1.54 X10^3/ul (0.83-4.51); Lymphocyte % 24.3 % (19-41); Mean Corp Hgb Conc 33.4 g/dL (32-36); Mean Corpuscular Hgb 31.7 pg (27.0-32.0); Mean Corpuscular Volume 94.9 fL (80-94); Mean Platelet Vol. 9.9 fl (6.2-12.0); Monocyte# 0.44 X10^3/uL; NRBC Flagged by Analyzer 0 % (0-5); Neutrophil # 3.97 X10^3/uL (2.7-7.7); Neutrophil % 62.6 % (47-70); Platelet Count 219 K/mm3 (150-450); RBC Distribution Width CV 11.9 % (11.6-14.6); RBC Distribution Width SD 41.3 fl (35.1-43.9); Red Blood Count 3.56 M/mm3 (4.6-6.2); White Blood Count 6.3 K/mm3 (4.4-11.0)
[2021-09-22 12:22] LABS: Vitamin D,25 Hydroxy 44.8 ng/mL
[2021-09-22 12:29] LABS: ALB/GLOB Ratio 1.2 RATIO (0.9-2.4); AST(SGOT) 22 U/L (15-37); Alanine Aminotransfer ALT/SGPT 38 U/L (16-61); Alkaline Phosphatase 67 U/L (45-117); Anion Gap 4 (5-15); BUN 26 mg/dL (7-18); BUN/Creat Ratio 10.9 RATIO (10-20); Calcium,Total 9.4 mg/dL (8.5-10.1); Chloride 109 mmol/L (98-107); Creatinine, Serum 2.38 mg/dL (0.70-1.30); EST Glomerular Filtration Rate 28 mL/min (>60); Est Glom Filt Rate - Afr Amer 34 mL/min (>60); Globulin 3.4 g/dL (2.2-4.2); Glucose 102 mg/dL (74-106); Protein, Total 7.4 g/dL (6.4-8.2); Sodium Level 140 mmol/L (136-145); Thyroid Stim Hormone (TSH) 1.22 uIU/mL (0.358-3.74)
== END 2021-09-22 23:59 | disposition short-term general hospital (02) ==
LOC: POLAB3 10:18
PROVIDERS: PCP Family Medicine Geriatric Medicine; Visit Provider Family Medicine Geriatric Medicine
DX: E55.9 Vitamin D deficiency, unspecified (principal); F52.8 Other sexual dysfunction not due to a substance or known physiological condition; I10 Essential (primary) hypertension
CPT/HCPCS: 36415; 80053; 82306; 84403; 84443; 85025

== ENCOUNTER 2022-01-11 12:17 | Day surgery (SDC) | payer MEDICARE, OTHER, SELFPAY ==
[2022-01-11] VITALS (7 sets, daily range): BP systolic 138–168; BP diastolic 54–82; PULSE 51–71; RESP 16; TEMP 35.8–37.1; O2SAT 95–100; BMI 25.6
[2022-01-11] MEDS: Lactated Ringers 1,000 ML 15 ML IV (13:02)
[2022-01-11] MEDS: Cefazolin 2 GM in 0.9% Normal Saline 100 ML IV (14:27)
[2022-01-11] MEDS: Lidocaine 1% /Epi 1:100 (50ml) 50 ML VIAL (14:54)
--- NOTE | 2022-01-11 15:01 | PCM.HP.BLA ---
History and Physical Date of Admission: 01/11/22 Date of Service: 12/29/21 MR#:[id number]:[id number]: АННА GONCALVES [facility] #:[id number]:[id number] Provider:Dr. Tapan Flowers DOAge/Sex: 81/M [facility] [place] Intake Intake Visit Reasons: LEFT HAND Allergies No Known Allergies Allergy (Verified 12/29/21 14:21) Medications amlodipine 5 mg tablet 5 mg PO DAILY 03/23/20 [History Confirmed 12/29/21] doxepin 50 mg capsule 50 mg PO QHS 03/23/20 [History Confirmed 12/29/21] losartan 100 mg tablet 100 mg PO DAILY 03/23/20 [History Confirmed 12/29/21] rivastigmine 9.5 mg/24 hour transdermal patch 9.5 mg TD DAILY 03/23/20 [History Confirmed 12/29/21] cholecalciferol (vitamin D3) 10 mcg (400 unit) capsule 10 mcg PO DAILY 05/14/20 [History Confirmed 12/29/21] memantine 10 mg tablet 10 mg PO BID tab 05/14/20 [History Confirmed 12/29/21] multivitamin 1 tab PO DAILY 05/14/20 [History Confirmed 12/29/21] atorvastatin 40 mg tablet 40 mg PO QHS 12/29/21 [History Confirmed 12/29/21] [facility] Medical History (Updated 12/29/21 @ 16:[address] Tapan Flowers DO) CAD (coronary artery disease) Carotid artery disease HTN (hypertension) Peripheral arterial occlusive disease Renal artery stenosis Surgical History H/O carotid endarterectomy H/O cataract extraction H/O heart artery stent History of back surgery History of knee replacement, total Family History Mother Diabetes Heart disease Hypertension Father Diabetes Kidney disease Social History Smoking Status: Current every day smoker alcohol intake: current alcohol intake frequency: holidays/special occasions only substance use type: does not use caffeine: Yes what type of physical activity do you participate in: none frequency: does not exercise HPI LEFT HAND Details: Parts of this documentation were recorded by a scribe, this documentation accurately reflects the service provided and the decisions made by me, Dr. Tapan Flowers DO 12/29/21 0892. АННА GONCALVES is a 81 year old M here today for left hand pain. Pt states his hand pain keeps him up at night time. Pain is mostly in his thumb, pointer finger, and middle fingers are the worst. Pt states he has been using Voltaren gel, wearing a fingerless glove, and another glove over top which is ineffective. Pt also states he has numbness and tingling in his hand. Pt denies any injuries or surgeries. He did have an EMG in 2019 of the left hand as well. Pt states he had right CTR. Ortho Exam General General: Yes no acute distress Neurologic: Yes alert and Yes oriented x3 Psychologic: Yes reasonable and appropriate Left Wrist/Hand Left Wrist: Yes Durken's Test and Yes Phalen's; No Tinel's and No Thenar Atrophy WRIST: 45 wrist flexion 40 extension 85 supination 88 pronation 2cm tip to palm full extension of fingers Left Elbow Skin/Wound: No eccymosis, No erythema and No Swelling Test: No Tinel's ELBOW: direct compression hyperflexion is negative at the elbow Supplemental Info R Coding Level of Care Code Off vis,est,level 3 Diagnoses Left carpal tunnel syndrome G56.02 Assessment and Plan Assessment and Plan (1) Left carpal tunnel syndrome: Status: Acute Plan - Dr. Tapan Flowers, DO: reviewed patients EMG from 2019 and patient educated that he did have mild carpal tunnel at that time which has more than likely progressed. Recommended a carpal tunnel release. Reviewed the pre-operative plans with the patient. He states it feels just like his right hand did prior to his surgery and he is very happy with the right hand. Risks and benefits of the procedure were fully explained, including but not limited to infection, neurovascular injury, continued pain, arthritis, stiffness, need for further surgery, re-injury, DVT, PE, general risks of anesthesia, and loss of limb or life. The patient understands all the risks and does wish to proceed with written consent for left carpal tunnel release. He can still have symptoms after surgery, the goal of surgery is to prevent the symptoms from worsening. Do not take any ibuprofen or aleve 7 days prior to surgery. Will need medial clearence from Dr. Joseph. Follow up 2 weeks post op or sooner if pain, swelling, numbness or associated symptoms, or concerns develop. All questions answered. Patient in agreement of plan. 12/29/21 1602<Electronically signed by Tapan Flowers DO>Date Tapan Flowers DO I have re-examined the patient. There are no clinical changes since date of exam
--- NOTE | 2022-01-11 15:02 | PCM.OPRPT ---
Report of Operation Date of Procedure: 01/11/22 Description of Surgical Findings:: Preoperative diagnosis; left carpal tunnel syndrome Postoperative diagnosis; same Procedure: Left open carpal tunnel release Anesthesia: Local with MAC Tourniquet time; 10 minutes 250 mm Hg Complications: None Indication for procedure; This is a 81-year-old male with long-standing symptoms consistent with carpal tunnel syndrome the patient did have electrodiagnostic evidence of this and has failed conservative treatment. Risks benefits and alternatives were reviewed including risks of bleeding infection nerve artery tissue damage need for further surgery and continued pain and symptoms, hypersensitivity to scar and Pillar pain. Procedure; The patient was met in the preoperative holding area the operative extremity was identified by both patient and physician and was marked the patient was met by anesthesia and brought back to the operating room and transferred to the operating table in the supine position. Anesthesia was started. A well-padded tourniquet was placed on the operative upper extremity. The patient was prepped and draped in the usual sterile fashion. A timeout was called to ensure the proper patient procedure and extremity were being contemplated. 0.5 percent lidocaine with epinephrine was injected into the incisional area. An Esmarch was used to exsanguinate the extremity. The tourniquet was inflated to 250 mmHg. A midline incision was made with a 15 blade scalpel between the thenar and hypothenar eminence. This was carried down through the skin and subcutaneous tissue. Alejandro retractors were then used, a deep blade scalpel was used to make a deep incision in the palmar aponeurosis. The alejandro retractors were then placed deep to this and the transverse carpal ligament was identified a perforation was made with a scalpel and a Littler scissors were used to complete the release of the transverse carpal ligament distally under direct visualization with the tips facing ulnarly until the perivascular fat was reached. Then turning our attention proximally using a tension slide technique the proximal extent of the transverse carpal ligament was released . There was noted to be hourglass configuration to the median nerve and hypertrophy of the transverse carpal ligament without other findings. The wound was thoroughly irrigated and was closed with 4-0 nylon vertical mattress stitches. Dressing was applied in the form of xeroform 4 x 4, web roll and an delmis wrap. Tourniquet was let down there is no intraoperative complications patient tolerated the procedure well and was transferred to the PACU. All counts were correct.
--- NOTE | 2022-01-11 15:03 | EX.PCM.DISCH ---
Discharge Instructions Dressing / Incision Additional Dressing/Incision Instructions:: Ice and elevate operative extremity next 72 hours. Keep dressing on clean and dry for 48 hours then may remove and allow warm soapy water to rinse over incision but do not submerge until sutures are out. Then apply bandaid over incision and change daily. encourage finger range of motion. Not lift more than 1/2 pound. Minimize narcotic use only as needed and directed, may use OTC NSAID and Tylenol to supplement/substitute for pain control. Follow Up Care Please Follow Up With: Tapan Flowers DO When: 2 weeks Test Results: Test results from this visit will be discussed in further detail at your follow-up appointment, if applicable. Discharge Plan Admission Primary Reason for Your Visit: Left carpal tunnel Attending Provider: Tapan Flowers Primary Care Provider: Geraldo Joseph Chi Discharge Orders/Prescriptions Prescriptions: New oxycodone 5 mg tablet 2.5 - 5 mg PO Q4H PRN (Reason: pain) 5 Days Qty: 10 RF: 0 No Action losartan 100 mg tablet 100 mg PO DAILY RF: 0 doxepin 50 mg capsule 50 mg PO QHS RF: 0 amlodipine 5 mg tablet 5 mg PO DAILY RF: 0 memantine 10 mg tablet 10 mg PO BID RF: 0 cholecalciferol (vitamin D3) 10 mcg (400 unit) capsule 10 mcg PO DAILY RF: 0 multivitamin Tablet 1 tab PO DAILY RF: 0 lidocaine 5 % Adhesive Patch,Medicated 1 patch TOPICAL PRN PRN (Reason: Pain) RF: 0 melatonin 10 mg Tablet 10 mg PO QHS RF: 0 Referrals / Follow Up: Geraldo Joseph Chi, MD [Primary Care Provider] - Disposition Disposition (needs filled in before D/C Order can be placed): Home, Self Care
== END 2022-01-11 16:34 | disposition home or self-care (01) ==
LOC: SDC 12:18 → AC 12:18
PROVIDERS: PCP Family Medicine Geriatric Medicine; Referring Provider Orthopaedic Surgery; Visit Provider Orthopaedic Surgery
PROC: (CPT 64721; principal; 2022-01-11 13:55)
DX: G56.02 Carpal tunnel syndrome, left upper limb (principal); I10 Essential (primary) hypertension; I25.10 Atherosclerotic heart disease of native coronary artery without angina pectoris; F17.200 Nicotine dependence, unspecified, uncomplicated; Z79.899 Other long term (current) drug therapy; Z95.5 Presence of coronary angioplasty implant and graft
CPT/HCPCS: 64721; 01810; 87426; C9803; J7120; J2405

== ENCOUNTER → 2022-03-24 | Outpatient (CLI) | payer MEDICARE, OTHER, SELFPAY ==
[2022-03-24 12:34] LABS: Absolute Lymphocyte Count 1.57 X10^3/uL (0.83-4.51); Absolute Neutrophil Count 3.3 X10^3/uL (2.0-7.7); Basophil# 0.04 X10^3/uL; Basophil% 0.7 % (0-1); Eosinophil# 0.17 X10^3/uL; Hematocrit 32.2 % (40-54); Hemoglobin 10.5 g/dL (13.0-16.5); Lymphocyte # 1.57 X10^3/ul (0.83-4.51); Lymphocyte % 28.1 % (19-41); Mean Corp Hgb Conc 32.6 g/dL (32-36); Mean Corpuscular Hgb 31.5 pg (27.0-32.0); Mean Corpuscular Volume 96.7 fL (80-94); Mean Platelet Vol. 10.4 fl (6.2-12.0); Monocyte# 0.44 X10^3/uL; Monocyte% 7.9 % (0-10); NRBC Flagged by Analyzer 0 % (0-5); Neutrophil # 3.34 X10^3/uL (2.7-7.7); Neutrophil % 59.9 % (47-70); Platelet Count 195 K/mm3 (150-450); RBC Distribution Width CV 12.1 % (11.6-14.6); Red Blood Count 3.33 M/mm3 (4.6-6.2); White Blood Count 5.6 K/mm3 (4.4-11.0)
[2022-03-24 12:49] LABS: Vitamin D,25 Hydroxy 59.9 ng/mL
[2022-03-24 13:14] LABS: ALB/GLOB Ratio 1.2 RATIO (0.9-2.4); AST(SGOT) 21 U/L (15-37); Alanine Aminotransfer ALT/SGPT 29 U/L (16-61); Albumin, Serum 4.1 g/dL (3.2-5.0); Alkaline Phosphatase 83 U/L (45-117); Anion Gap 5 (5-15); BUN 22 mg/dL (7-18); BUN/Creat Ratio 10.1 RATIO (10-20); Chloride 109 mmol/L (98-107); Creatinine, Serum 2.18 mg/dL (0.70-1.30); EST Glomerular Filtration Rate 31 mL/min (>60); Est Glom Filt Rate - Afr Amer 38 mL/min (>60); Globulin 3.3 g/dL (2.2-4.2); Glucose 101 mg/dL (74-106); Potassium 4.9 mmol/L (3.5-5.1); Protein, Total 7.4 g/dL (6.4-8.2); Sodium Level 138 mmol/L (136-145); Thyroid Stim Hormone (TSH) 1.32 uIU/mL (0.358-3.74); Uric Acid 6.3 mg/dL (3.5-7.2)
== END | disposition home or self-care (01) ==
PROVIDERS: PCP Family Medicine Geriatric Medicine; Visit Provider Family Medicine Geriatric Medicine
DX: I10 Essential (primary) hypertension (principal); E55.9 Vitamin D deficiency, unspecified; M10.9 Gout, unspecified
CPT/HCPCS: 36415; 80053; 82306; 84443; 84550; 85025

== ENCOUNTER → 2022-07-21 | Outpatient (CLI) | payer MEDICARE, OTHER, SELFPAY ==
[2022-07-21 17:15] LABS: Absolute Lymphocyte Count 1.52 X10^3/uL (0.83-4.51); Absolute Neutrophil Count 4.3 X10^3/uL (2.0-7.7); Basophil# 0.05 X10^3/uL; Basophil% 0.8 % (0-1); Eosinophils% 3.1 % (0-5); Hemoglobin 10.8 g/dL (13.0-16.5); Lymphocyte # 1.52 X10^3/ul (0.83-4.51); Lymphocyte % 23.6 % (19-41); Mean Corp Hgb Conc 32.7 g/dL (32-36); Mean Corpuscular Hgb 31.4 pg (27.0-32.0); Mean Corpuscular Volume 95.9 fL (80-94); Mean Platelet Vol. 10.1 fl (6.2-12.0); Monocyte# 0.37 X10^3/uL; Monocyte% 5.7 % (0-10); NRBC Flagged by Analyzer 0 % (0-5); Neutrophil # 4.29 X10^3/uL (2.7-7.7); Neutrophil % 66.5 % (47-70); Platelet Count 221 K/mm3 (150-450); RBC Distribution Width CV 12.4 % (11.6-14.6); RBC Distribution Width SD 43.3 fl (35.1-43.9); Red Blood Count 3.44 M/mm3 (4.6-6.2); White Blood Count 6.5 K/mm3 (4.4-11.0)
[2022-07-21 17:37] LABS: Anion Gap 6 (5-15); BUN 24 mg/dL (7-18); BUN/Creat Ratio 11.5 RATIO (10-20); Calcium,Total 8.7 mg/dL (8.5-10.1); Chloride 109 mmol/L (98-107); Creatinine, Serum 2.08 mg/dL (0.70-1.30); EST Glomerular Filtration Rate 33 mL/min (>60); Est Glom Filt Rate - Afr Amer 40 mL/min (>60); Glucose 111 mg/dL (74-106); Potassium 4.6 mmol/L (3.5-5.1); Sodium Level 141 mmol/L (136-145)
[2022-07-23 22:40] LABS: CPK Total, Creatine Kinase 161 U/L (39-308)
[2022-07-24 07:49] LABS: Myoglobin, Serum 142 ng/mL (28-72)
== END | disposition home or self-care (01) ==
LOC: POLAB3 15:11
PROVIDERS: PCP Family Medicine Geriatric Medicine; Visit Provider Family Medicine Geriatric Medicine
DX: R07.9 Chest pain, unspecified (principal)
CPT/HCPCS: 36415; 80048; 82550; 83874; 85025

== ENCOUNTER → 2022-08-11 | Outpatient (CLI) | payer MEDICARE, OTHER, SELFPAY ==
--- NOTE | 2022-08-11 06:55 | ECHOCS_ITS ---
Reason For Study: tachycardia Procedure This was a 2D Doppler, Color Flow transthoracic echocardiogram. The study was technically difficult. Due to body habitus. Contrast injection was performed. Exam performed in department. Left Ventricle Normal LV size. The estimated ejection fraction is 70 %. Normal diastololic function. No regional wall motion abnormalities noted. Right Ventricle Normal RV size. Normal systolic function. Atria The left atrium is mildly enlarged. Normal right atrium. No doppler evidence for ASD. Mitral Valve There is no mitral valve stenosis. Trivial mitral valve insufficiency. Tricuspid Valve There is no tricuspid stenosis. No tricuspid valve insufficiency. Unable to estimate RV systolic pressure due to insufficient tricuspid regurgitant envelope. Aortic Valve Aortic sclerosis, no stenosis. There is no aortic stenosis. No aortic valve insufficiency. Pulmonic Valve There is no pulmonic valvular stenosis. No pulmonic valve insufficiency. Great Vessels Normal aortic root. Pericardium/Pleural No pericardial effusion. Medication Diluted definity 4.0ml given slow IV push to enhance endocardial definition. MMode/2D Measurements & Calculations LVIDd: 4.6 cm IVSd: 1.1 cm Ao root diam: 3.5 cm LVIDs: 3.0 cm LVPWd: 0.95 cm RVDd: 2.8 cm FS: 34.0 % LAV(MOD-bp): 81.3 ml LA A4 area: 23.6 cm2 LA dimension(2D): 4.3 cm LAV(MOD-bp) Indexed: 39.0 ml/m2 LAV(MOD-sp2): 89.6 ml LAV(MOD-sp4): 74.6 ml RA A4 area: 17.3 cm2 Time Measurements MV dec time: 0.23 sec Doppler Measurements & Calculations MV E max art: 87.4 cm/sec Lat Peak E' Art: 8.3 cm/sec Med Peak E' Art: 9.4 cm/sec MV A max art: 70.6 cm/sec E/E' lat: 10.5 E/E' med: 9.3 MV E/A: 1.2 MV dec slope: 383.2 cm/sec2 Ao V2 max: 142.4 cm/sec LV V1 max: 143.4 cm/sec Ao max P.1 mmHg LV V1 max P.3 mmHg Ao V2 mean: 91.4 cm/sec Ao mean P.9 mmHg Ao V2 VTI: 32.4 cm PA V2 max: 112.7 cm/sec ECHO/Echo Complete W/ Contrast Interpretation Summary The estimated ejection fraction is 70 %. Trivial mitral valve insufficiency. The left atrium is mildly enlarged. Ordering Physician: Geraldo Joseph Chi Referring Physician: Geraldo Joseph Chi Performed By: Di Whittington RDCS, RVT
--- NOTE | 2022-08-11 15:10 | STRESSREP_ITS ---
Stress Test Report Date: 08/11/2022 Procedure: Exercise tolerance test/imaging study Indications: Tachycardia Consent: Per the patient Procedure: The patient exercised on a Grover protocol for 4 minutes and 34 seconds achieving a peak heart rate of 127 bpm (90% predicted maximal heart rate) with a peak blood pressure 190/78 mmHg and a peak MET capacity of 7 METs. The baseline ECG demonstrated normal sinus rhythm . The peak exercise ECG demonstrated sinus tachycardia with frequent PVCs and about [address] depression in the inferior and lateral leads. EKG during recovery revealed return of ST segments to baseline The functional capacity was considered average for age. There was [no complaint of chest discomfort during exercise or recovery]. The examination was discontinued secondary to leg fatigue. Impression: 1. Technically adequate (percent predicted maximal heart rate greater than 85%) exercise tolerance test 2. Stress test is positive for exercise-induced EKG changes of ischemia 3. The test test is negative for exercise-induced chest pain 4. Functional capacity is average for age 5. Nuclear images pending Myocardial perfusion imaging study: Technique: The patient was injected with 10.7 mCi of technetium 99m Cardiolite and subsequently rest SPECT Cardiolite nuclear imaging was obtained in the hori zontal long, vertical long, and short axis views. The patient exercised on a Grover protocol. Please see above for details. The patient was injected with 32.3 mCi of technetium 99m Cardiolite and subsequently stress SPECT Cardiolite nuclear imaging was obtained in the horizontal long, vertical long, and short axis views. A gated Cardiolite study at peak stress was obtained. Interpretation: Rest and stress SPECT Cardiolite nuclear imaging status post realignment, normalization, and attenuation correction, demonstrates normal myocardial radioisotope uptake at rest. On the stress images there is mild decrease in radioisotope uptake in the distal anterior wall suggestive of ischemia in this region. The gated Cardiolite study demonstrates no significant regional wall motion abnormalities. The reported LVEF is 60%. Impression: 1. There is evidence of mild ischemia involving the distal anterior wall. No evidence of significant infarction. 2. The gated Cardiolite study reports an LVEF of 60%. This note was generated with [employer] software. It may contain incorrect words, spelling, and punctuation that were not noted in checking the note before signing.
== END | disposition home or self-care (01) ==
LOC: CVS 06:53
PROVIDERS: PCP Family Medicine Geriatric Medicine; Visit Provider Family Medicine Geriatric Medicine
DX: R06.02 Shortness of breath (principal); R00.0 Tachycardia, unspecified
CPT/HCPCS: 78452; 93017; 93306; A9500; Q9957; A4216; C8929

== ENCOUNTER → 2022-09-15 | Outpatient (CLI) | payer MEDICARE, OTHER, SELFPAY ==
[2022-09-15 10:41] LABS: Absolute Lymphocyte Count 1.96 X10^3/uL (0.83-4.51); Absolute Neutrophil Count 5.8 X10^3/uL (2.0-7.7); Basophil# 0.07 X10^3/uL; Basophil% 0.8 % (0-1); Eosinophil# 0.32 X10^3/uL; Eosinophils% 3.7 % (0-5); Hematocrit 35.2 % (40-54); Hemoglobin 11.7 g/dL (13.0-16.5); Lymphocyte # 1.96 X10^3/ul (0.83-4.51); Lymphocyte % 22.5 % (19-41); Mean Corp Hgb Conc 33.2 g/dL (32-36); Mean Corpuscular Hgb 31.5 pg (27.0-32.0); Mean Corpuscular Volume 94.6 fL (80-94); Mean Platelet Vol. 9.6 fl (6.2-12.0); Monocyte# 0.57 X10^3/uL; Monocyte% 6.6 % (0-10); NRBC Flagged by Analyzer 0 % (0-5); Neutrophil # 5.76 X10^3/uL (2.7-7.7); Neutrophil % 66.2 % (47-70); Platelet Count 251 K/mm3 (150-450); RBC Distribution Width SD 41.9 fl (35.1-43.9); Red Blood Count 3.72 M/mm3 (4.6-6.2); White Blood Count 8.7 K/mm3 (4.4-11.0)
[2022-09-15 10:56] LABS: Vitamin D,25 Hydroxy 51.4 ng/mL
[2022-09-15 11:03] LABS: ALB/GLOB Ratio 1.2 RATIO (0.9-2.4); AST(SGOT) 20 U/L (15-37); Alanine Aminotransfer ALT/SGPT 25 U/L (16-61); Albumin, Serum 4.4 g/dL (3.2-5.0); Alkaline Phosphatase 77 U/L (45-117); Anion Gap 5 (5-15); BUN 27 mg/dL (7-18); BUN/Creat Ratio 11.8 RATIO (10-20); Calcium,Total 9.5 mg/dL (8.5-10.1); Chloride 110 mmol/L (98-107); Creatinine, Serum 2.29 mg/dL (0.70-1.30); EST Glomerular Filtration Rate 29 mL/min (>60); Est Glom Filt Rate - Afr Amer 36 mL/min (>60); Globulin 3.7 g/dL (2.2-4.2); Glucose 111 mg/dL (74-106); Potassium 4.5 mmol/L (3.5-5.1); Protein, Total 8.1 g/dL (6.4-8.2); Sodium Level 138 mmol/L (136-145); Thyroid Stim Hormone (TSH) 1.75 uIU/mL (0.358-3.74)
== END | disposition home or self-care (01) ==
LOC: POLAB3 09:03
PROVIDERS: PCP Family Medicine Geriatric Medicine; Visit Provider Family Medicine Geriatric Medicine
DX: I10 Essential (primary) hypertension (principal); E55.9 Vitamin D deficiency, unspecified
CPT/HCPCS: 36415; 80053; 82306; 84443; 85025

== ENCOUNTER → 2022-10-19 | Outpatient (CLI) | payer MEDICARE, OTHER, SELFPAY ==
[2022-10-19 13:04] LABS: Hematocrit 31.1 % (40-54); Hemoglobin 10.4 g/dL (13.0-16.5); Mean Corp Hgb Conc 33.4 g/dL (32-36); Mean Corpuscular Hgb 31.6 pg (27.0-32.0); Mean Corpuscular Volume 94.5 fL (80-94); Mean Platelet Vol. 10.1 fl (6.2-12.0); Platelet Count 184 K/mm3 (150-450); RBC Distribution Width CV 12.1 % (11.6-14.6); Red Blood Count 3.29 M/mm3 (4.6-6.2); White Blood Count 5.4 K/mm3 (4.4-11.0)
[2022-10-19 13:38] LABS: Albumin, Serum 3.9 g/dL (3.2-5.0); BUN 21 mg/dL (7-18); BUN/Creat Ratio 9.9 RATIO (10-20); Calcium,Total 8.7 mg/dL (8.5-10.1); Chloride 111 mmol/L (98-107); Creatinine, Serum 2.13 mg/dL (0.70-1.30); EST Glomerular Filtration Rate 32 mL/min (>60); Est Glom Filt Rate - Afr Amer 39 mL/min (>60); Ferritin 361 ng/mL (26-388); Glucose 121 mg/dL (74-106); Iron 64 ug/dL (65-175); Iron Binding Capacity,Total 239 ug/dL (250-450); PERCENT IRON SATURATION 26.8 % (15.0-55.0); Phosphorus 3.5 mg/dL (2.5-4.9); Potassium 4.7 mmol/L (3.5-5.1); Sodium Level 142 mmol/L (136-145)
[2022-10-19 13:45] LABS: PTHIN 113.6 pg/mL (18.4-80.1)
== END | disposition home or self-care (01) ==
PROVIDERS: PCP Family Medicine Geriatric Medicine; Visit Provider Internal Medicine Nephrology
DX: N18.32 Chronic kidney disease, stage 3b (principal)
CPT/HCPCS: 36415; 80069; 82728; 83540; 83550; 83970; 85027

== ENCOUNTER 2022-11-23 09:42 | Day surgery (SDC) | payer MEDICARE, OTHER, SELFPAY ==
--- NOTE | 2022-11-16 10:45 | RAD_ITS ---
STUDY: X-RAY CHEST REASON FOR EXAM: Male, 82 years old. Fever and cough TECHNIQUE: PA and 2 lateral views of the chest. COMPARISON: None. FINDINGS: The lungs are clear and expanded. There is no demonstrated pleural abnormality. Sternal cerclage wires and vascular clips are present from a prior sternotomy and coronary artery bypass graft procedure (CABG). Normal mediastinum and laquita. Normal visualized pulmonary arteries. Normal visualized aortic arch and descending thoracic aorta. There are diffuse degenerative changes of the visualized thoracic spine. Normal visualized ribs, clavicles, and shoulders. There is no demonstrated abnormality of the visualized soft tissue structures of the upper abdomen. RAD/Chest PA and Lateral IMPRESSION: No acute pulmonary process Electronically Signed: Marvin Oropeza MD at 11:10 EDT ,
[2022-11-16 12:34] LABS: Absolute Lymphocyte Count 1.65 X10^3/uL (0.83-4.51); Absolute Neutrophil Count 4.4 X10^3/uL (2.0-7.7); Basophil# 0.05 X10^3/uL; Basophil% 0.7 % (0-1); Eosinophil# 0.23 X10^3/uL; Eosinophils% 3.4 % (0-5); Hematocrit 33.9 % (40-54); Hemoglobin 11.2 g/dL (13.0-16.5); Lymphocyte # 1.65 X10^3/ul (0.83-4.51); Lymphocyte % 24.4 % (19-41); Mean Corpuscular Hgb 31.3 pg (27.0-32.0); Mean Corpuscular Volume 94.7 fL (80-94); Mean Platelet Vol. 9.9 fl (6.2-12.0); Monocyte# 0.41 X10^3/uL; Monocyte% 6.1 % (0-10); NRBC Flagged by Analyzer 0 % (0-5); Neutrophil # 4.42 X10^3/uL (2.7-7.7); Neutrophil % 65.3 % (47-70); Platelet Count 223 K/mm3 (150-450); RBC Distribution Width CV 12.4 % (11.6-14.6); RBC Distribution Width SD 42.5 fl (35.1-43.9); Red Blood Count 3.58 M/mm3 (4.6-6.2); White Blood Count 6.8 K/mm3 (4.4-11.0)
[2022-11-16 13:12] LABS: AST(SGOT) 21 U/L (15-37); Alanine Aminotransfer ALT/SGPT 27 U/L (16-61); Albumin, Serum 4.2 g/dL (3.2-5.0); Alkaline Phosphatase 67 U/L (45-117); Anion Gap 8 (5-15); BUN 22 mg/dL (7-18); BUN/Creat Ratio 10.1 RATIO (10-20); Bilirubin, Direct 0.12 mg/dL (0.00-0.30); Calcium,Total 9.1 mg/dL (8.5-10.1); Chloride 109 mmol/L (98-107); Cholesterol 126 mg/dL (200); Creatinine, Serum 2.17 mg/dL (0.70-1.30); EST Glomerular Filtration Rate 31 mL/min (>60); Est Glom Filt Rate - Afr Amer 38 mL/min (>60); Globulin 3.2 g/dL (2.2-4.2); Glucose 91 mg/dL (74-106); High Density Lipoprotein 40 mg/dL; Potassium 4.3 mmol/L (3.5-5.1); Protein, Total 7.4 g/dL (6.4-8.2); Sodium Level 140 mmol/L (136-145); Triglycerides 137 mg/dL; Very Low Density Lipoprotein 27 mg/dL (5-40)
[2022-11-22 07:20] VITALS: BMI 25.2
--- NOTE | 2022-11-23 12:38 | CL.D_ITS ---
Patient Name: АННА GONCALVES Study Date: 11/23/2022 Performing: Jay Uriostegui MD Ht: 72 inches 182.88 cm : 1940 Wt: 186 lbs 84.37 kg Age: 82 Gender: male BSA: 2.07 PROCEDURE(S) PERFORMED DC04-(64812)LHC/COR/CABG CLINICAL PROFILE AND INDICATIONS Indications: Suspected CAD Heart Failure: None Stress/Imaging Date: 08/11/22Stress Test with SPECT MPI: Positive Intermediate Risk CAD Presentations: Stable angina. CONCLUSIONS Triple-vessel disease status post coronary bypass surgery with VELIZ to LAD patent, saphenous vein graft to obtuse marginal branch patent, and saphenous vein graft to the right coronary artery patent. Preserved left ventricular systolic function noted. RECOMMENDATIONS Medical therapy and aggressively treat blood pressure. DESCRIPTION OF PROCEDURE The patient arrived to the procedure lab. The risks and benefits of the procedure as well as a full description of our services here and current unavailability of surgical backup were fully explained to the patient and/or their significant other prior to the catheterization. The Timeout was completed, verifying the correct patient and procedure. The patient's procedural site was prepped and draped in the usual fashion. Local anesthetic was given subcutaneously to left radial region with Lidocaine 2%. Using a modified Seldinger technique, arterial access was obtained via the left radial artery, a 6 Fr fistula sheath was inserted. Left internal mammary artery graft to the LAD selective angiography was performed in multiple views using a 5 Fr. IM catheter. Left Coronary Artery selective angiography was performed in multiple views using a 5 Fr. JL3.5 catheter. Right Coronary Artery selective angiography was then performed in multiple views using a 5 Fr. JR 4 catheter. Saphenous Vein graft to the OM 1 selective angiography was performed in multiple views using a 5 Fr. AR MOD catheter. Saphenous Vein graft to the RCA selective angiography was performed in multiple views using a 5 Fr. AR MOD catheter.The arterial sheath was flushed and pulled and a TR Band was applied for hemostasis CORONARY ANGIOGRAPHY DOMINANCE: Right Dominant LEFT HEART ASSESSMENT Left Ventricular Ejection Fraction: by Echo 70 % Normal LV wall motion Normal Left Ventricular systolic function LEFT MAIN: Distal 90% stenosis LEFT ANTERIOR DESCENDING ARTERY: PROX LAD: is occluded DIAGONAL 1: Proximal - Mild luminal irregularities less than 30% CIRCUMFLEX ARTERY: PROX CIRC: is occluded RIGHT CORONARY ARTERY: Dominant vessel with moderately severe mid segment disease and then the vessel continues to the posterior descending artery and a posterolateral vessel with collateral filling via the saphenous vein graft GRAFTS: VELIZ graft to the Mid LAD is patent Saphenous Vein graft to the 1st OM is patent Saphenous Vein graft to the RCA Is patent and then continues to fill the posterolateral vessel. COMPLICATIONS No Complications PROCEDURE MEDICATIONS Fentanyl 50 mcg IV Versed 1 mg IV Oxygen: 2 L/min via nasal cannula Heparin given IA 11/23/2022 11:58:27 Verapamil 2.5mg, Ntg 100mcgs, 3000 units of Heparin given IA 11/23/2022 11:58:27 IV Fluids: .9 NaCl IV started @ 100 ml/hr 11/23/2022 10:34:58 IV Fluids: .9 NaCl increased to 150 ml/hr 11/23/2022 12:33:34 SUMMARY OF HEMODYNAMIC DATA Time AIR REST ECG 10:13:07 AO 161/58 (93) SA 12:09:55 Signed By Jay Uriostegui MD On 11/23/2022 12:37:18 Jay Uriostegui MD
== END 2022-11-23 14:15 | disposition home or self-care (01) ==
PROVIDERS: PCP Family Medicine Geriatric Medicine; Referring Provider Internal Medicine Cardiovascular Disease; Visit Provider Internal Medicine Cardiovascular Disease
DX: I25.119 Atherosclerotic heart disease of native coronary artery with unspecified angina pectoris (principal); Z95.1 Presence of aortocoronary bypass graft; Z95.5 Presence of coronary angioplasty implant and graft; F17.210 Nicotine dependence, cigarettes, uncomplicated; I10 Essential (primary) hypertension; E78.5 Hyperlipidemia, unspecified; R94.39 Abnormal result of other cardiovascular function study
CPT/HCPCS: 36415; 71046; 80048; 80061; 80076; 85025; 93455; 99152; 99153; C1894; J7040; C1769; Q9967

== ENCOUNTER → 2023-02-03 | Outpatient (CLI) | payer MEDICARE, OTHER, SELFPAY ==
--- NOTE | 2023-02-03 12:22 | RAD_ITS ---
INDICATION: CELLULITIS OF FINGER R HAND EXAMINATION/TECHNIQUE: X-RAY - RIGHT XR Hand Min 3 Views 4 VIEWS COMPARISON: FINDINGS: SOFT TISSUES: No soft tissue swelling or gas. No radiopaque foreign body. BONES/JOINTS: No acute fracture or subluxation.. Normal alignment. There are degenerative changes throughout the wrist and hand. No sclerotic or destructive changes observed. RAD/Hand Min 3 Views IMPRESSION: Degenerative changes. Electronically Signed: Yolanda Crowley MD at 13:24 EDT ,
== END | disposition home or self-care (01) ==
LOC: RAD 12:15
PROVIDERS: PCP Family Medicine Geriatric Medicine; Referring Provider Family Medicine Geriatric Medicine; Visit Provider Family Medicine Geriatric Medicine
DX: L03.011 Cellulitis of right finger (principal); M79.5 Residual foreign body in soft tissue; M79.644 Pain in right finger(s)
CPT/HCPCS: 73130

== ENCOUNTER → 2023-03-30 | Outpatient (CLI) | payer MEDICARE, OTHER, SELFPAY ==
[2023-03-30 15:30] LABS: Absolute Lymphocyte Count 1.37 X10^3/uL (0.83-4.51); Absolute Neutrophil Count 6.7 X10^3/uL (2.0-7.7); Basophil# 0.05 X10^3/uL; Basophil% 0.6 % (0-1); Eosinophil# 0.13 X10^3/uL; Eosinophils% 1.5 % (0-5); Hemoglobin 9.5 g/dL (13.0-16.5); Lymphocyte # 1.37 X10^3/ul (0.83-4.51); Lymphocyte % 15.7 % (19-41); Mean Corp Hgb Conc 32.8 g/dL (32-36); Mean Corpuscular Hgb 31.1 pg (27.0-32.0); Mean Corpuscular Volume 95.1 fL (80-94); Mean Platelet Vol. 10.5 fl (6.2-12.0); Monocyte# 0.42 X10^3/uL; Monocyte% 4.8 % (0-10); NRBC Flagged by Analyzer 0 % (0-5); Neutrophil # 6.73 X10^3/uL (2.7-7.7); Neutrophil % 77.1 % (47-70); Platelet Count 249 K/mm3 (150-450); RBC Distribution Width CV 12.9 % (11.6-14.6); RBC Distribution Width SD 44.4 fl (35.1-43.9); Red Blood Count 3.05 M/mm3 (4.6-6.2); White Blood Count 8.7 K/mm3 (4.4-11.0)
[2023-03-30 15:44] LABS: Vitamin D,25 Hydroxy 54.6 ng/mL
[2023-03-30 15:53] LABS: AST(SGOT) 22 U/L (15-37); Alanine Aminotransfer ALT/SGPT 27 U/L (16-61); Albumin, Serum 3.6 g/dL (3.2-5.0); Alkaline Phosphatase 75 U/L (45-117); Anion Gap 6 (5-15); BUN 20 mg/dL (7-18); BUN/Creat Ratio 10.2 RATIO (10-20); Calcium,Total 8.6 mg/dL (8.5-10.1); Chloride 109 mmol/L (98-107); Creatinine, Serum 1.97 mg/dL (0.70-1.30); EST Glomerular Filtration Rate 35 mL/min (>60); Est Glom Filt Rate - Afr Amer 42 mL/min (>60); Globulin 3.6 g/dL (2.2-4.2); Glucose 120 mg/dL (74-106); Potassium 4.1 mmol/L (3.5-5.1); Protein, Total 7.2 g/dL (6.4-8.2); Sodium Level 140 mmol/L (136-145); Thyroid Stim Hormone (TSH) 1.08 uIU/mL (0.358-3.74)
== END | disposition home or self-care (01) ==
PROVIDERS: PCP Family Medicine Geriatric Medicine; Visit Provider Family Medicine Geriatric Medicine
DX: I10 Essential (primary) hypertension (principal); E55.9 Vitamin D deficiency, unspecified
CPT/HCPCS: 36415; 80053; 82306; 84443; 85025

== ENCOUNTER → 2023-04-03 | Outpatient (CLI) | payer MEDICARE, OTHER, SELFPAY ==
[2023-04-03 12:36] LABS: Absolute Lymphocyte Count 1.26 X10^3/uL (0.83-4.51); Absolute Neutrophil Count 3.5 X10^3/uL (2.0-7.7); Basophil# 0.03 X10^3/uL; Basophil% 0.6 % (0-1); Eosinophil# 0.16 X10^3/uL; Hemoglobin 9.9 g/dL (13.0-16.5); Lymphocyte # 1.26 X10^3/ul (0.83-4.51); Lymphocyte % 23.8 % (19-41); Mean Corp Hgb Conc 31.9 g/dL (32-36); Mean Corpuscular Hgb 30.6 pg (27.0-32.0); Mean Corpuscular Volume 95.7 fL (80-94); Mean Platelet Vol. 10.6 fl (6.2-12.0); Monocyte# 0.35 X10^3/uL; Monocyte% 6.6 % (0-10); NRBC Flagged by Analyzer 0 % (0-5); Neutrophil # 3.47 X10^3/uL (2.7-7.7); Neutrophil % 65.6 % (47-70); Platelet Count 213 K/mm3 (150-450); RBC Distribution Width CV 12.7 % (11.6-14.6); RBC Distribution Width SD 44.8 fl (35.1-43.9); RET-HE 32.6 pg (30-35); Red Blood Count 3.24 M/mm3 (4.6-6.2); White Blood Count 5.3 K/mm3 (4.4-11.0)
[2023-04-03 12:52] LABS: Vitamin B12 488 pg/mL (211-911)
[2023-04-03 14:56] LABS: Ferritin 502 ng/mL (26-388); Iron 80 ug/dL (65-175); Iron Binding Capacity,Total 227 ug/dL (250-450)
== END | disposition home or self-care (01) ==
PROVIDERS: PCP Family Medicine Geriatric Medicine; Visit Provider Family Medicine Geriatric Medicine
DX: D50.9 Iron deficiency anemia, unspecified (principal)
CPT/HCPCS: 36415; 82607; 82728; 82746; 83540; 83550; 85025; 85045

== ENCOUNTER → 2023-04-18 | Outpatient (CLI) | payer MEDICARE, OTHER, SELFPAY ==
[2023-04-18 12:46] LABS: Hematocrit 32.5 % (40-54); Hemoglobin 10.2 g/dL (13.0-16.5); Mean Corp Hgb Conc 31.4 g/dL (32-36); Mean Corpuscular Hgb 30.7 pg (27.0-32.0); Mean Corpuscular Volume 97.9 fL (80-94); Mean Platelet Vol. 10.3 fl (6.2-12.0); Platelet Count 232 K/mm3 (150-450); RBC Distribution Width CV 13.3 % (11.6-14.6); Red Blood Count 3.32 M/mm3 (4.6-6.2)
[2023-04-18 13:30] LABS: BUN 22 mg/dL (7-18); BUN/Creat Ratio 10.3 RATIO (10-20); Calcium,Total 8.8 mg/dL (8.5-10.1); Chloride 109 mmol/L (98-107); Creatinine, Serum 2.13 mg/dL (0.70-1.30); EST Glomerular Filtration Rate 32 mL/min (>60); Est Glom Filt Rate - Afr Amer 39 mL/min (>60); Ferritin 412 ng/mL (26-388); Glucose 117 mg/dL (74-106); Iron 55 ug/dL (65-175); Iron Binding Capacity,Total 277 ug/dL (250-450); Phosphorus 3.6 mg/dL (2.5-4.9); Potassium 4.5 mmol/L (3.5-5.1); Sodium Level 138 mmol/L (136-145)
== END | disposition home or self-care (01) ==
LOC: POLAB3 09:17
PROVIDERS: PCP Family Medicine Geriatric Medicine; Visit Provider Internal Medicine Nephrology
DX: N18.32 Chronic kidney disease, stage 3b (principal); D50.9 Iron deficiency anemia, unspecified
CPT/HCPCS: 36415; 80069; 82728; 83540; 83550; 85027

== ENCOUNTER → 2023-09-26 | Outpatient (CLI) | payer MEDICARE, SELFPAY ==
--- NOTE | 2023-09-26 12:49 | CDU_ITS ---
Reason For Study: Carotid artery disease Rt. Velocities/BP Lt. Velocities/BP Prox CCA 40/6.9 cm/sec. Prox CCA 75.3/20.3 cm/sec. Mid CCA 39/7.8 cm/sec. Mid CCA 71.8/18.6 cm/sec. Dist CCA 34.3/6.4 cm/sec. Dist CCA 70/18.6 cm/sec. Right ICA, No Flow. Prox ICA 118.2/26.2 cm/sec. Prox ECA 152.1/15.2 cm/sec. Mid ICA 279/65.6 cm/sec. Rt. Vert. 45.6/11.6 cm/sec. Dist ICA 179.6/37.1 cm/sec. Lt. ICA/CCA = 3.89. Prox ECA 82.5/7.8 cm/sec. Lt. Vert. 372.8/94.2 cm/sec. Right Extracranial There is heterogeneous, irregular atherosclerotic plaque noted in the right common carotid artery. There is heterogeneous, irregular atherosclerotic plaque noted in the right internal carotid artery. The right internal carotid artery is occluded. There is heterogeneous, irregular atherosclerotic plaque noted in the right external carotid artery. Antegrade flow is noted in the right vertebral artery. Left Extracranial There is heterogeneous, irregular atherosclerotic plaque noted in the left common carotid artery. There is heterogeneous, irregular atherosclerotic plaque noted in the left internal carotid artery. There is heterogeneous, irregular atherosclerotic plaque noted in the left external carotid artery. Antegrade flow is noted in the left vertebral artery. Procedure Carotid Duplex 38471. This is a Carotid Duplex examination using B-mode, color flow and specral Doppler. Preliminary report given to Dieudonne KATE. Exam performed in department. VL/Carotid Duplex Ultrasound Interpretation Summary Significant irregular calcific plaque with shadowing involving the right analytics intern al carotid artery with no flow identified in the internal carotid Less than 50% stenosis right external carotid Irregular calcific plaque at the proximal left internal carotid artery with gre ater than 70% stenosis Less than 50% stenosis left external carotid artery Patent and antegrade right vertebral artery Greater than 50% stenosis left vertebral artery From a previous examination of March 10, 2021 there is new occlusion of the right internal carotid artery and increased stenosis of the left internal carotid artery from previous ly 50 to 69% stenosis to now greater than 70% stenosis. Increased stenosis involving the left vertebral artery as well Ordering Physician: Dieudonne Fernández Referring Physician: Geraldo Joseph Chi Performed By: Ana Laura Venegas RVT
--- OUTSIDE RECORDS SUMMARY | 2023-09-26 13:18 | XMS RPT_ITS | CCD ---
Author Name Unknown Address [address] [place] [address] Organization [facility] Results Test Name Value Interpretation Reference Range Facil ity Progress note 03-25-2021 Note Date & Type Note Facility 03-25-2021 Note HNO ID: [id number] Author: Adam Farr MD Service: Vascular Surgery Author Type: Physician Type: Progress Notes Filed: 03/29/2021 8:54 AM Note Text: NAME: DALLIN CORTES CLINIC NO: [id number] DATE OF SERVICE: 03/25/2021 DATE OF : 1940 It was my pleasure to see Dallin Cortes in consultation today. Physical Examination: He has good pulses in his femoral, popliteal and down his legs. He has no other abnormalities on his review of systems and is otherwise quite healthy. I talked with he, his and his daughter. We also discussed that he has had some early onset Alzheimer's. Otherwise, I reviewed and updated his history. There was nothing else contributory on his review of systems. He has not symptomatic from his heart. We talked about currently, with a less than 80% recurrent stenosis, which is our threshold to treat, his stroke risk is less than 1% per year. He should have his hypercholesterolemia treated to get his fasting low-density lipoprotein, or LDL, to less than 70. I have recommended that he start a baby aspirin a day. I am going to ask his practitioner check an EKG to make sure he is not in AFib. I bet he probably had AFib after his open heart and it has never been deleted from his chart. I do not think he is in AFib now. If he is in AFib, he should probably be on an oral anticoagulant to help that. Based on the fact that he has not changed criteria, but has a little bit increase in his velocity, I am going to recommend he sees me in one year's time with another carotid ultrasound. Impression: Bilateral recurrent carotid stenosis 60-79%, tighter on the right than left. The right is probably closer to 70% and the left is probably closer to 60%. Plan: 1. I will see him one year with a carotid duplex. 2. Have his PCP check an EKG to make sure he is not in AFib. If so, consider an oral anticoagulant. 3. Follow-up with his mixed hyperlipidemia to get his goal LDL to less than 70. Adam Farr M.D. SPL/089 Audio #: [id number] Date Dictated: 03/25/2021 09:25:44 Date Typed: 03/26/2021 09:23:25 Date Revised: 03/26/2021 09:36:28 [facility] Progress note 03-25-2021 Note Date & Type Note Facility 03-25-2021 Note HNO ID: [id number] Author: Adam Farr MD Service: ? Author Type: Physician Type: Progress Notes Filed: 03/25/2021 9:34 AM Note Text: Heart, V[facility] DEPARTMENT OF VASCULAR SURGERY OUTPATIENT VISIT DATE March 25, 2021 OUTPATIENT VISIT TYPE CONSULTATION SERVICE DATE: 03/25/2021 SERVICE TIME: 8:01 AM PRIMARY CARE PHYSICIAN: Geraldo Joseph MD REFERRING PROVIDER: Asif Torres [address] [facility] [address] Consult requested for an opinion regarding the evaluation and treatment of the above. My final impression and recommendations will be communicated back to the requesting physician by way of the shared medical record or letter via [place] mail. CHIEF COMPLAINT: carotid disease HISTORY OF PRESENT ILLNESS: Vascular consultation at the request of Dr. Asif Torres. A copy of this consultation note will be provided to the requesting physician by way of shared Medical record or letter to requesting physician via [place] mail. Mr. Cortes is a 81 year old male who is seen today for recurrent carotid aso R CEA 2004 L CEA 2013. Hx CABG. Outside carotid c/w R 60-79% and L 60-79% stenosis no tia, cva or amarosis. PAST MEDICAL HISTORY Diagnosis Date - Atrial fibrillation (HCC) - Bilateral carotid artery stenosis 03/25/2021 - CAD (coronary artery disease) - CKD (chronic kidney disease) stage 3, GFR 30-59 ml/min ([facility]) - Coronary artery disease involving coronary bypass graft of [place] heart without angina pectoris 03/25/2021 - Hypercholesterolemia - Hypertension - Insomnia - PVD (peripheral vascular disease) ([facility]) 03/25/2021 - Testicular hypogonadism PAST SURGICAL HISTORY Procedure Laterality Date - Excision, basal cell cancer Face, Dr> Ousmane Torres - PAST SURGICAL HISTORY OF CABG TRIPLE - PAST SURGICAL HISTORY OF Back Surgery x 2 - PAST SURGICAL HISTORY OF Right 2004 CEA - PAST SURGICAL HISTORY OF Left 2013 cea - TOTAL KNEE REPLACEMENT Right 12/2014 - TRANSCATH STENT INIT VESSEL,PERCUT Transcath stent init vessel percut SOCIAL HISTORY: Social History Tobacco Use - Smoking status: Current Every Day Smoker Packs/day: 1.00 Years: 50.00 Pack years: 50.00 Types: Cigarettes - Smokeless tobacco: Never Used - Tobacco comment: Pt has cut back to 3/4 pack daily. Substance Use Topics - Alcohol use: Yes Comment: socially - Drug use: No FAMILY HISTORY Problem Relation Age of Onset - Diabetes Mother - Lipids Mother - Hypertension Mother - Kidney Disease Father - Heart Father - other (Lung Cancer) Sister - Diabetes Sister MEDICATIONS: rivastigmine (RIVASTIGMINE) 9.5 mg/24 hour patch Apply 1 Patch as directed once daily. memantine (NAMENDA) 10 mg tablet Take 10 mg by mouth twice daily. losartan (COZAAR) 50 mg tablet Take 50 mg by mouth once daily. amLODIPine (NORVASC) 5 mg tablet Take by mouth once daily. doxepin capsule 50 mg Take 50 mg by mouth daily at bedtime. ferrous sulfate (IRON) 325 mg (65 mg iron) tablet Take 325 mg by mouth twice daily with meals. multivit-min/FA/lycopen/lutein (CENTRUM SILVER MEN ORAL) Take by mouth once daily. atorvastatin (LIPITOR) 40 mg tablet Take 40 mg by mouth once daily. naproxen-diphenhydramine (ALEVE PM) 220-25 mg tab Take 1 tablet by mouth at bedtime as needed. sildenafil citrate(VIAGRA 100 MG TAB) Take one(1) tablet 30-60 minutes before sexual intercourse as needed. pyridoxine, vitamin B6, (VITAMIN B6) 100 mg tablet Take 1 tablet by mouth once daily. donepezil (ARICEPT) 10 mg tablet Take 10 mg by mouth once daily. mirtazapine (REMERON) 15 mg tablet Take 15 mg by mouth daily at bedtime. valsartan (DIOVAN) 160 mg tablet Take 160 mg by mouth once daily. zolpidem tartrate(AMBIEN CR 12.5 MG TAB) Take one(1) tablet daily at bedtime. rosuvastatin calcium(CRESTOR 10 MG TAB) Take one(1) tablet daily. valsartan/hydrochlorothiazide(DIOVAN HCT 160 MG-25 MG TAB) Take one(1) tablet daily. ASPIRIN 81 MG TAB Take one(1) tablet daily. TYLENOL PM 25 MG-500 MG TAB Take one(1) tablet daily at bedtime. ALLERGIES: ALLERGIES Allergen Reactions - Pollen - Seasonal [Other] REVIEW of SYSTEM: Constitutional: No weight loss, malaise or fevers. HEENT: Negative for frequent or significant headaches Respiratory: Negative for cough, wheezing, or shortness of breath Cardiovascular: Negative for chest pain, leg swelling or palpitations Gatrointestinal: Negative for abdominal discomfort, blood in stools or black stools or change in bowel habits Genitourinary: No history of dysuria, frequency, or incontinence Musculoskeletal: Negative for joint pain or swelling, back pain or muscle pain Endocrine: Negative for cold or heat intolerance, polyuria, polydipsia and goiter Hematology/Lymphatic: Negative for prolonged bleeding, bruising easily or swollen nodes Neurologic: No history or headaches, syncope, paralysis, seizures or tremors Integumentary: Negative for l (more content not included)... [facility] Progress note 03-17-2021 Note Date & Type Note Facility 03-17-2021 Note HNO ID: [id number] Author: Jessica Mims Coord Service: ? Author Type: ? Type: Progress Notes Filed: 03/17/2021 12:23 PM Note Text: Dallin Cortes appointments have been scheduled accordingly. Patient has been notified via telephone and appointment schedule ([employer] tracking [id number] Jessica Mims Coord March 17, 2021 12:21 PM [facility] Summary Purpose Family History No Family History Records Found Advance Directives No Advanced Directives Records Found Additional Source Comments (unrecognized sect ion and content) No Status Records Found INFORMATION SOURCE (unrecogn ized section and content) FOR RECORDS PERTAINING TO PATIENTS WHO ARE OR HAVE BEEN ENROLLED IN A CHEMICAL DEPENDENCY/SUBSTANCEABUSE PROGRAM, SOME INFORMATION MAY BE OMITTED. This clinical summary was aggregated from multiple sources. Caution should be exercised in using it in the provision of clinical care. This summary normalizes information from multiple sources, and as a consequence, information in this document may materially change the coding, format and clinical context of patient data. In addition, data may be omitted in some cases. CLINICAL DECISIONS SHOULD BE BASED ON THE PRIMARY CLINICAL RECORDS. [facility]. provides no warranty or guarantee of the accuracy or completeness of information in this document.
== END | disposition home or self-care (01) ==
LOC: CVS 12:49
PROVIDERS: PCP Family Medicine Geriatric Medicine; Referring Provider Nurse Practitioner Family; Visit Provider Nurse Practitioner Family
DX: I65.23 Occlusion and stenosis of bilateral carotid arteries (principal); I10 Essential (primary) hypertension; E78.5 Hyperlipidemia, unspecified; Z95.1 Presence of aortocoronary bypass graft
CPT/HCPCS: 93880

== ENCOUNTER → 2023-10-03 | Outpatient (CLI) | payer MEDICARE, SELFPAY ==
--- OUTSIDE RECORDS SUMMARY | 2023-10-03 11:10 | XMS RPT_ITS | CCD ---
Author Name Unknown Address [address] [place] [address] Organization [facility] Care Team Providers Care Master Sonar Technician Name Role Phone GERALDO JO[facility]PH [facility] Primary [facility] Unavailable ADAM FARR Attending Unavailable [facility]ALDO [facility] Unavailable Allergies Allergy Classification Reported Allergen(s) Allergy Type Date of Onset Reaction(s) Facility (1 source) Poll[place]; Translations: [POLLEN] Propensity to adverse reactions (disorder) 7 [facility] Repository (1 source) OTHER; Translations: [OTHER] Propensity to adverse reactions (disorder) 7 [facility] Rep[facility] Problems Problem Classification Problem Date Documented Da te Episodic/Chronic Disorders of lipid metabolism (1 source) Mixed hyperlipidemia; Translations: [Mixed hyperlipidemia] Onset: 03-25-2021 Chronic Essential hypertension (1 source) Essential (primary) hypertension; Translations: [Essential hypertension, benign] Onset: 05-23-2006 Chronic Occlusion or stenosis of precerebral arteries (3 sources) Occlusion and stenosis of bilateral carotid arteries; Translations: [Occlusion and stenosis of right carotid artery] Onset: 10-02-2023 Chronic Other circulatory disease (1 source) Unspecified disorder of circulatory system; Translations: [Vasculopathy] Onset: 10-02-2023 Episodic Results Test Name Value Interpretation Reference Range Facil ity Encounters Encounter Date Encounter Type Care Provider Facility Start: 10-02-2023 End: 10-02-2023 ambulatory GERALDO JORGEOK Facility:[facility] Payers Date Payer Category Payer Medicare [id number] Progress note 10-02-2023 Note Date & Type Note Facility 10-02-2023 Note HNO ID: [id number] Author: ADAM FARR MD Service: ? Author Type: Physician Type: Progress Notes Filed: 10/02/2023 11:35 Note Text: Bilateral recurrent carotid stenosis 60-79%, tighter on the right than left. The right is probably closer to 70% and the left is probably closer to 60%. Seen in March 2021 and requested one year f/u. Since last visit he has not returned in over a year. he had Duplex 09/26/23 at [place] showing SHANDA now occluded and LICA still 60-70%. [facility] [place] DEPARTMENT OF VASCULAR SURGERY OUTPATIENT VISIT DATE October 02, 2023 OUTPATIENT VISIT TYPE ESTABLISHED SERVICE DATE: 10/02/2023 SERVICE TIME: 11:02 AM PRIMARY CARE PHYSICIAN: Geraldo Joseph MD HISTORY OF PRESENT ILLNESS: Mr. Cortes is a 83 year old male who presents today for a vascular surgery follow-up visit. PAST MEDICAL HISTORY Diagnosis Date Alzheimer's disease ([facility]) Atrial fibrillation ([facility]) Bilateral carotid artery stenosis 03/25/2021 CAD (coronary artery disease) Carotid disease, bilateral ([facility]) CKD (chronic kidney disease) stage 3, GFR 30-59 ml/min ([facility]) Coronary artery disease involving coronary bypass graft of [place] heart without angina pectoris 03/25/2021 Hypercholesterolemia Hypertension Insomnia Left carotid stenosis 03/25/2021 PVD (peripheral vascular disease) ([facility]) 03/25/2021 Right carotid artery occlusion 10/02/2023 Testicular hypogonadism PAST SURGICAL HISTORY Procedure Laterality Date Excision, basal cell cancer Face, Dr> Ousmane Torres PAST SURGICAL HISTORY OF 2013 CABG TRIPLE PAST SURGICAL HISTORY OF Back Surgery x 2 PAST SURGICAL HISTORY OF Right 1998 CEA PAST SURGICAL HISTORY OF Left 2013 cea TOTAL KNEE REPLACEMENT Right 12/2014 TRANSCATH STENT INIT VESSEL,PERCUT Transcath stent init vessel percut SOCIAL HISTORY Social History Tobacco Use Smoking status: Every Day Packs/day: 1.00 Years: 50.00 Additional pack years: 0.00 Total pack years: 50.00 Types: Cigarettes Smokeless tobacco: Never Tobacco comments: Pt has cut back to 3/4 pack daily. Substance Use Topics Alcohol use: Yes Comment: socially Drug use: No MEDICATIONS: clopidogrel (PLAVIX) 75 mg tablet Take 1 tablet by mouth every afternoon. metoprolol succinate ER (TOPROL XL) 25 mg 24 hr tablet Take 1 tablet by mouth every afternoon. Lactase 3,000 unit chew Take by mouth. cetirizine (ZYRTEC) 10 mg tablet Take by mouth. rivastigmine (RIVASTIGMINE) 9.5 mg/24 hour patch Apply [...] tablet by mouth at bedtime as needed. ASPIRIN 81 MG TAB Take by mouth. TYLENOL PM 25 MG-500 MG TAB Take by mouth. pyridoxine, vitamin B6, (VITAMIN B6) 100 mg tablet Take 1 tablet by mouth once daily. (Patient not taking: Reported on 03/25/2021) donepezil (ARICEPT) 10 mg tablet Take 10 mg by mouth once daily. (Patient not taking: Reported on 03/25/2021) mirtazapine (REMERON) 15 mg tablet Take 15 mg by mouth daily at bedtime. (Patient not taking: Reported on 03/25/2021 ) valsartan (DIOVAN) 160 mg tablet Take 160 mg by mouth once daily. (Patient not taking: Reported on 03/25/2021 ) zolpidem tartrate(AMBIEN CR 12.5 MG TAB) Take one(1) tablet daily at bedtime. (Patient not taking: No sig reported) sildenafil citrate(VIAGRA 100 MG TAB) Take one(1) tablet 30-60 minutes before sexual intercourse as needed. rosuvastatin calcium(CRESTOR 10 MG TAB) Take one(1) tablet daily. valsartan/hydrochlorothiazide(DIOVAN HCT 160 MG-25 MG TAB) Take one(1) tablet daily. (Patient not taking: Reported on 03/25/2021) ALLERGIES: ALLERGIES Allergen Reactions Pollen Seasonal [Other] Diagnostic tests reviewed for today's visit: Most recent imaging Dr. Adam Farr MD notified with the results. RIGHT SIDE Common carotid artery: Plaque visualized without evidence of hemodynamically significant stenosis. Internal carotid artery: Occluded. External carotid artery: Elevated velocities and plaque noted. Vertebral artery: Patent and antegrade flow noted. Abnormal signal suggests more proximal stenosis. Innominate artery: Turbulent flow noted; unable to rule out more proximal stenosis. Subclavian artery: 50-99% stenosis. LEFT SIDE Common carotid artery: Plaque visualized without evidence of hemodynamically significant stenosis. Internal carotid artery: 60-79% stenosis. Findings may be over (more content not included)... [facility] Progress note 10-02-2023 Note Date & Type Note Facility 10-02-2023 Note HNO ID: [id number] Author: ?, ?, ? Service: ? Author Type: ? Type: Progress Notes Filed: 10/02/2023 11:37 Note Text: Summary: RESEARCH DOCUMENTATION OF INFORMED CONSENT Study TItle: Risk Assessment of Stroke Using Non-Invasive Ultrasonic Backscatter from Carotid Plaque (RUNUP) IRB#: [id number] PI: Adenike Marie, PhD Phone#: [phone] COORDINATOR/Research Nurse/Thermal Molder: Lee Dye, PhD or Juani Mena or [phone] Pager: [phone] Discussed above research protocol with the subject. (Consent form had been previously sent to patient and it was reviewed prior to visit). The research purpose, requirements and follow up procedures were reviewed and the importance of follow up compliance was stressed. The risks, benefits, alternatives, privacy, confidentiality and costs were discussed. Subject has read and understands the study procedures and requirements. Subject demonstrated understanding of the research study and their questions were addressed and answered. Subject has AGREED to proceed with trial participation. Copy of the signed consent was provided to the subject. Inclusion and Exclusion Criteria for CEA Group: Inclusion Criteria A patient is eligible for the study if all of the following criteria are met: - Age greater than or equal to 40years - 40% or greater carotid stenosis as determined by duplex ultrasound - Evidence of carotid plaque Exclusion Criteria and Contraindications A patient is not eligible for the study if any one of the following is present: - Prior surgery or intervention involving the carotid artery (including CEA and SIRISHA) - Non-atherosclerotic vascular disease (e.g. fibromuscular dysplasia or systemic vasculitis) - Unable to provide informed consent - Unable to understand Kyrgyz language. Research Ultrasound performed following standard of care ultrasound. Amanda Mohan [facility] Summary Purpose Family History No Family History [...] BE BASED ON THE PRIMARY CLINICAL RECORDS. [employer] [facility]. provides no warranty or guarantee of the accuracy or completeness of information in this document.
[2023-10-03 11:22] LABS: Absolute Lymphocyte Count 1.59 X10^3/uL (0.83-4.51); Basophil# 0.06 X10^3/uL; Basophil% 0.7 % (0-1); Eosinophil# 0.43 X10^3/uL; Hematocrit 30.2 % (40-54); Hemoglobin 10.1 g/dL (13.0-16.5); Lymphocyte # 1.59 X10^3/ul (0.83-4.51); Lymphocyte % 18.6 % (19-41); Mean Corp Hgb Conc 33.4 g/dL (32-36); Mean Corpuscular Hgb 31.6 pg (27.0-32.0); Mean Corpuscular Volume 94.4 fL (80-94); Mean Platelet Vol. 10.2 fl (6.2-12.0); Monocyte# 0.45 X10^3/uL; Monocyte% 5.3 % (0-10); NRBC Flagged by Analyzer 0 % (0-5); Neutrophil # 6.01 X10^3/uL (2.7-7.7); Neutrophil % 70.2 % (47-70); Platelet Count 226 K/mm3 (150-450); RBC Distribution Width CV 12.2 % (11.6-14.6); White Blood Count 8.6 K/mm3 (4.4-11.0)
[2023-10-03 11:42] LABS: ALB/GLOB Ratio 1.2 RATIO (0.9-2.4); AST(SGOT) 12 U/L (15-37); Alanine Aminotransfer ALT/SGPT 20 U/L (16-61); Alkaline Phosphatase 83 U/L (45-117); Anion Gap 4 (5-15); BUN 47 mg/dL (7-18); BUN/Creat Ratio 12.6 RATIO (10-20); Calcium,Total 8.8 mg/dL (8.5-10.1); Chloride 109 mmol/L (98-107); Creatinine, Serum 3.73 mg/dL (0.70-1.30); EST Glomerular Filtration Rate 17 mL/min (>60); Est Glom Filt Rate - Afr Amer 20 mL/min (>60); Globulin 3.2 g/dL (2.2-4.2); Glucose 103 mg/dL (74-106); Potassium 4.3 mmol/L (3.5-5.1); Protein, Total 7.2 g/dL (6.4-8.2); Sodium Level 135 mmol/L (136-145); Thyroid Stim Hormone (TSH) 1.04 uIU/mL (0.358-3.74)
[2023-10-03 12:44] LABS: Vitamin D,25 Hydroxy 83.8 ng/mL
== END | disposition home or self-care (01) ==
LOC: POLAB3 10:31
PROVIDERS: PCP Family Medicine Geriatric Medicine; Visit Provider Family Medicine Geriatric Medicine
DX: I10 Essential (primary) hypertension (principal); E55.9 Vitamin D deficiency, unspecified
CPT/HCPCS: 36415; 80053; 82306; 84443; 85025

== ENCOUNTER → 2023-10-04 | Outpatient (CLI) | payer MEDICARE, SELFPAY ==
--- NOTE | 2023-10-04 17:19 | US_ITS ---
INDICATION: CK EXAMINATION: Ultrasound US Kidney(s) complete (eg, kidneys and bladder) TECHNIQUE: Hagen scale and color doppler images were obtained of the kidneys. COMPARISON: FINDINGS: RIGHT KIDNEY: 10.3 x 4.4 x 5.4 cm. The cortex is 15 mm. There is no hydronephrosis. No shadowing calculus, focal lesion or perinephric collection is demonstrated. LEFT KIDNEY: 11.8 x 4.1 x 5.1 cm. The cortex is 12 mm. There is no hydronephrosis. No shadowing calculus, focal lesion or perinephric collection is demonstrated. URINARY BLADDER: Incompletely distended with a volume 92 cc. Postvoid volume is 23 cc. US/Kidney and Bladder IMPRESSION: Post void residual of the urinary bladder. Electronically Signed: Ramírez Almeida DO at 18:37 EST ,
--- OUTSIDE RECORDS SUMMARY | 2023-10-04 17:20 | XMS RPT_ITS | CCD ---
Author Name Unknown Address [address] [place] [address] Organization [facility] Care Team Providers Care Cotton Dispatcher Name Role Phone [facility] Unavailable ADAM FARR Attending Unavailable GERALDO [facility] Unavailable Allergies Allergy Classification Reported Allergen(s) Allergy Type Date of Onset Reaction(s) Facility (1 source) Pollen; Translations: [POLLEN] Propensity to adverse reactions (disorder) 7 [facility] Repository (1 source) OTHER; Translations: [OTHER] Propensity to adverse reactions (disorder) 7 [facility] Repository Problems Problem Classification Problem Date Documented [...] Start: 10-02-2023 End: 10-02-2023 ambulatory GERALDO JORGEOK Facility:[facility] Payers Date Payer Category Payer Medicare [id number] Progress note 10-02-2023 Note Date & Type Note Facility 10-02-2023 Note HNO ID: [id number] Author: ADAM FARR MD Service: ? Author [...] a year. he had Duplex 09/26/23 at [place] showing SHANDA now occluded and LICA still 60-70%. Heart , Vascular and Thoracic [place] DEPARTMENT OF VASCULAR SURGERY OUTPATIENT VISIT DATE October 02, 2023 OUTPATIENT VISIT TYPE ESTABLISHED SERVICE DATE: 10/02/2023 SERVICE TIME: 11:02 AM PRIMARY CARE PHYSICIAN: Geraldo Joseph MD HISTORY OF PRESENT ILLNESS: Mr. Cortes is a 83 year old male who presents today for a vascular surgery follow-up visit. PAST MEDICAL HISTORY Diagnosis Date Alzheimer's disease ([facility]) Atrial fibrillation ([facility]) Bilateral carotid artery stenosis 03/25/2021 CAD (coronary artery disease) Carotid disease, bilateral ([facility]) CKD (chronic kidney disease) stage 3, GFR 30-59 ml/min ([facility]) Coronary artery disease involving coronary bypass graft of [place] heart without angina pectoris 03/25/2021 Hypercholesterolemia Hypertension Insomnia Left carotid stenosis 03/25/2021 PVD (peripheral vascular disease) ([facility]) 03/25/2021 Right carotid artery occlusion 10/02/2023 Testicular [...] may be over (more content not included)... [facility] Progress note 10-02-2023 Note Date & Type Note Facility 10-02-2023 Note HNO ID: [id number] Author: ?, ?, ? Service: ? Author Type: ? Type: Progress Notes Filed: 10/02/2023 11:37 Note Text: Summary: RESEARCH DOCUMENTATION OF INFORMED CONSENT Study TItle: Risk Assessment of Stroke Using Non-Invasive Ultrasonic Backscatter from Carotid Plaque (RUNUP) IRB#: [id number] PI: Adenike Marie, PhD Phone#: [phone] COORDINATOR/Research Nurse/Rehab Tech: Lee Dye, PhD or Juani Mena or [phone] Pager: [phone] Discussed above research protocol with the subject. [...] provide informed consent - Unable to understand Tajik language. Research Ultrasound performed following standard of care ultrasound. Amanda Mohan [facility] Summary Purpose Family History No Family [...] BE BASED ON THE PRIMARY CLINICAL RECORDS. [employer] [facility]. provides no warranty or guarantee of the accuracy or completeness of information in this document.
== END | disposition home or self-care (01) ==
PROVIDERS: PCP Family Medicine Geriatric Medicine; Referring Provider Family Medicine Geriatric Medicine; Visit Provider Family Medicine Geriatric Medicine
DX: N18.31 Chronic kidney disease, stage 3a (principal)
CPT/HCPCS: 76770

== ENCOUNTER 2023-10-05 10:18 | Emergency (ER) | payer MEDICARE, SELFPAY ==
[2023-10-05 10:19] VITALS: BP 147/56; PULSE 81; RESP 16; TEMP 36.5; O2SAT 100; BMI 25.2
--- NOTE | 2023-10-05 11:06 | EX.ED.DYSGE1 ---
HPI History of Present Illness Chief Complaint: Abn Labs Informant: patient and family Narrative Narrative: Patient comes in with intermittent diarrhea and some elevated creatinine above his baseline. The patient states he has had some off-and-on diarrhea. He cannot eat cheese because of lactose intolerance. Sometimes he forgets to take the Lactaid tablet. His daughter states she thinks he had a bit of a viral type illness last week where he had some diarrhea and was not eating as much. He saw his doctor couple days ago but was not having diarrhea at that time. They did blood work that showed elevated creatinine. His normal creatinine is a little over 2 and he was up to 3.73. They did a renal ultrasound yesterday. I reviewed the results of his outpatient renal ultrasound yesterday that is not showing any acute abnormality. Patient has never had pain with this. No blood with this. He states he is eating and drinking fine and has never had nausea. He feels good. He did not want to come in the hospital but was convinced by his family. [facility] Medical History Alcohol use Alzheimer disease Anemia Arthritis Asthma Atherosclerosis of coronary artery of [place] heart without angina pectoris Carotid artery disease Essential hypertension Forgetfulness Hyperlipidemia Injury of back Insomnia Iron deficiency Left carpal tunnel syndrome Peripheral arterial occlusive disease Racing heart beat Renal artery stenosis Smoker Stage 3a chronic kidney disease (CKD) Vitamin D deficiency Wears dentures Wears glasses Home Medications doxepin 50 mg capsule 50 mg PO QHS 03/23/20 [History Last Taken Unknown] multivitamin 1 tab PO DAILY 05/14/20 [History Last Taken 01/11/22] lidocaine 5 % topical patch 1 patch topical PRN PRN Pain 01/05/22 [History Last Taken Unknown] aspirin 81 mg tablet,delayed release 81 mg PO DAILY 11/03/22 [History Last Taken 11/23/22] atorvastatin 40 mg tablet 40 mg PO DAILY 11/03/22 [History Last Taken Unknown] cholecalciferol (vitamin D3) 125 mcg (5,000 unit) capsule 125 mcg PO DAILY 11/03/22 [History Last Taken Unknown] lactase 3,000 unit tablet (Lactaid) 3,000 unit PO ONCE 11/03/22 [History Last Taken Unknown] losartan 50 mg tablet 50 mg PO DAILY 11/03/22 [History Last Taken 11/23/22] ascorbic acid (vitamin C) 500 mg tablet (Vitamin C) 500 mg PO DAILY 09/14/23 [History Last Taken Unknown] cetirizine 10 mg tablet (All Day Allergy (cetirizine)) 10 mg PO DAILY PRN 09/14/23 [History Last Taken Unknown] melatonin 5 mg tablet 5 mg PO HS PRN 09/14/23 [History Last Taken Unknown] memantine 10 mg tablet 20 mg PO QPM 09/14/23 [History Last Taken Unknown] polysaccharide iron complex 150 mg iron capsule (iFerex 150) 150 mg PO DAILY 09/14/23 [History Last Taken Unknown] amlodipine 10 mg tablet See Rx Instructions .Route .COMPLEX #90 tabs 09/22/23 [Rx Last Taken Unknown] metoprolol succinate 25 mg tablet,extended release 24 hr (Toprol XL) 25 mg PO DAILY #90 tabs 09/22/23 [Rx Last Taken Unknown] clopidogrel 75 mg tablet (Plavix) 75 mg PO QDAY #30 tabs 09/26/23 [Rx Last Taken Unknown] rivastigmine tartrate 4.5 mg capsule mg 10/05/23 [History Last Taken Unknown] Allergy/AdvReac Type Severity Reaction Status Date / Time No Known Allergies Allergy Verified 10/05/23 10:21 Family History Mother Diabetes Heart disease Hypertension Myocardial infarction Father Diabetes Kidney disease Myocardial infarction Heart failure Sister Diabetes Cancer Lung Heart disease Scleroderma Surgical History H/O carotid endarterectomy H/O cataract extraction History of back surgery History of cardiac catheterization History of carpal tunnel surgery of right wrist History of coronary artery bypass surgery (12/16/13) History of coronary artery stent placement (~1995) History of knee replacement, total History of lumbar laminectomy Social History Smoking Status: Current every day smoker tobacco type: cigarettes alcohol intake: current alcohol intake frequency: holidays/special occasions only substance use type: does not use caffeine: Yes Type: coffee Number of servings: 4 what type of physical activity do you participate in: none frequency: does not exercise ROS ROS ED ROS Narrative A complete review of systems was performed and is negative except as documented in the history of present illness. Some specific details below. Constitutional: No recent fevers or chills. He does not feel bad or have any malaise. EYE: No visual complaints or pain. ENT: No difficulty swallowing. No swelling. No pain. No GERD. CV: No chest pain or palpitations. Respiratory: No dyspnea. No hemoptysis. No difficulty taking breaths. GI: Please see history of present illness. : No frequency dysuria or hematuria. He denies any change in his urine. Musculoskeletal: No recent trauma. No pains. Skin: No rash. Nondiaphoretic. Neuro: No weakness or numbness. Endocrine: No polyuria or polydipsia. EXAM Physical Exam Narrative Exam Narrative: CONSTITUTIONAL: Patient is nontoxic in appearance. The patient looks comfortable. HEENT: No notable trauma. Mucous membranes do look mildly dry. No exudate ulcers or lesions. EYES: No conjunctival injection. No proptosis. CARDIOVASCULAR: Regular rate. Regular rhythm. He does have a 1?2/6 systolic murmur. Well-healed median sternotomy scar. No JVD. He is not tachycardic but does take metoprolol. RESPIRATORY: No respiratory distress. Breathing is unlabored. No wheezes. No rhonchi. No rales. No pain with a deep breath. GASTROINTESTINAL: Not distended. Bowel sounds are normal. No tenderness. No guarding. No rebound. No palpable mass. No bruit. Overall very benign abdomen GENITOURINARY: No tenderness over the bladder. No CVA tenderness. MUSCULOSKELETAL: Atraumatic. No peripheral edema. NEUROLOGICAL: Patient is alert and appropriate. No focal deficit noted. SKIN: No noted rashes. No diaphoresis. PSYCHIATRIC: Patient is calm. Mood is appropriate. Const Vital Signs: 10/05/23 10:19 10/05/23 10:18 Temperature 97.7 F L Temperature Source Temporal Pulse Rate 81 Respiratory Rate 16 Respiratory Effort Normal Non-Labored Respiratory Pattern Normal Blood Pressure 147/56 H Blood Pressure Mean 86 Pulse Ox 100 Oxygen Delivery Method Room Air [facility] MDM Narrative Medical decision making narrative: Patient's CBC shows mild anemia. White count platelets are normal though. Patient's electrolytes show minimally elevated chloride. His creatinine is elevated at 3.19. This is fair amount above his baseline and does represent acute kidney injury. However, it is lower than his tract from 2 days ago. It does show improvement. Patient's glucose level is minimally up at 116. I rechecked the patient. He is gotten a little bit of fluids. No episodes of diarrhea here. It sounds like he had worse diarrhea before and it is improved. It is now only if he eats cheese. He forgets sometimes to take Lactaid tablets before eating cheese. I think we can get him home. He does not want to stay in the hospital. Although he has an ZANDRA, it is improving from outpatient. Lab Data Attestation: I reviewed the patient's lab results. Labs: Laboratory Results - last 24 hr 10/05/23 11:07 WBC 7.7 RBC 3.21 L Hgb 10.2 L Hct 30.8 L MCV 96.0 H MCH 31.8 MCHC 33.1 RDW Std Deviation 42.4 RDW Coeff of Gabriel 12.1 Plt Count 209 MPV 10.0 Immature Gran % (Auto) 0.300 Neut % (Auto) 72.5 H Lymph % (Auto) 15.1 L [place] % (Auto) 5.8 Eos % (Auto) 5.7 H Baso % (Auto) 0.6 Absolute Neuts (auto) 5.6 Absolute Lymphs (auto) 1.16 Nucleated RBC % 0 Sodium 139 Potassium 5.0 Chloride 113 H Carbon Dioxide 23.0 Anion Gap 3 L BUN 44 H Creatinine 3.19 H Estim Creat Clear Calc 19.93 Est GFR (MDRD) Af Amer 24 L Est GFR (MDRD) Non-Af 20 L BUN/Creatinine Ratio 13.8 Glucose 116 H Calcium 9.2 Discharge Plan Triage Chief Complaint: Abn Labs ED Provider: Carlos Dave Dx/Rx/DC Orders Clinical Impression: ZANDRA (acute kidney injury), Hx of diarrhea, Dehydration Instructions: ED Dehydration (Adult) Prescriptions: No Action doxepin 50 mg capsule 50 mg PO QHS memantine 10 mg tablet 20 mg PO QPM multivitamin Tablet 1 tab PO DAILY cholecalciferol (vitamin D3) 125 mcg (5,000 unit) capsule 125 mcg PO DAILY aspirin 81 mg tablet,delayed release (DR/EC) 81 mg PO DAILY atorvastatin 40 mg tablet 40 mg PO DAILY Patient Comments: TAKE 1 TABLET BY MOUTH ONCE DAILY FOR 30 DAYS TAKE AT BEDTIME lactase [Lactaid] 3,000 unit tablet 3,000 unit PO ONCE Rx Instructions: administer with meals and/or snacks losartan 50 mg tablet 50 mg PO DAILY cetirizine [All Day Allergy (cetirizine)] 10 mg tablet 10 mg PO DAILY PRN polysaccharide iron complex [iFerex 150] 150 mg iron capsule 150 mg PO DAILY ascorbic acid (vitamin C) [Vitamin C] 500 mg tablet 500 mg PO DAILY melatonin 5 mg tablet 5 mg PO HS PRN lidocaine 5 % Adhesive Patch,Medicated 1 patch TOPICAL PRN PRN (Reason: Pain) rivastigmine tartrate 4.5 mg capsule metoprolol succinate [Toprol XL] 25 mg tablet extended release 24 hr 25 mg PO DAILY Qty: 90 3RF amlodipine 10 mg tablet See Rx Instructions .ROUTE .COMPLEX Qty: 90 3RF Dose Instruction: TAKE 1 TABLET BY MOUTH EVERY DAY Rx Instructions: TAKE 1 TABLET BY MOUTH EVERY DAY clopidogrel [Plavix] 75 mg tablet 75 mg PO QDAY Qty: 30 11RF Primary Care Provider: Geraldo Joseph Chi Referrals: Geraldo Joseph Chi, MD [Primary Care Provider] - 3-5 Days Disposition Disposition: Home, Self Care
[2023-10-05] MEDS: 0.9% Normal Saline (1000mL) 1,000 ML 1000 ML IV (11:13)
[2023-10-05 11:18] LABS: Absolute Lymphocyte Count 1.16 X10^3/uL (0.83-4.51); Absolute Neutrophil Count 5.6 X10^3/uL (2.0-7.7); Basophil# 0.05 X10^3/uL; Basophil% 0.6 % (0-1); Eosinophil# 0.44 X10^3/uL; Eosinophils% 5.7 % (0-5); Hematocrit 30.8 % (40-54); Hemoglobin 10.2 g/dL (13.0-16.5); Lymphocyte # 1.16 X10^3/ul (0.83-4.51); Lymphocyte % 15.1 % (19-41); Mean Corp Hgb Conc 33.1 g/dL (32-36); Mean Corpuscular Hgb 31.8 pg (27.0-32.0); Monocyte# 0.45 X10^3/uL; Monocyte% 5.8 % (0-10); NRBC Flagged by Analyzer 0 % (0-5); Neutrophil # 5.58 X10^3/uL (2.7-7.7); Neutrophil % 72.5 % (47-70); Platelet Count 209 K/mm3 (150-450); RBC Distribution Width CV 12.1 % (11.6-14.6); RBC Distribution Width SD 42.4 fl (35.1-43.9); Red Blood Count 3.21 M/mm3 (4.6-6.2); White Blood Count 7.7 K/mm3 (4.4-11.0)
[2023-10-05 11:32] LABS: Anion Gap 3 (5-15); BUN 44 mg/dL (7-18); BUN/Creat Ratio 13.8 RATIO (10-20); Calcium,Total 9.2 mg/dL (8.5-10.1); Chloride 113 mmol/L (98-107); Creatinine, Serum 3.19 mg/dL (0.70-1.30); EST Glomerular Filtration Rate 20 mL/min (>60); Est Glom Filt Rate - Afr Amer 24 mL/min (>60); Estimated Creatinine Clearance 19.93 ml/min; Glucose 116 mg/dL (74-106); Sodium Level 139 mmol/L (136-145)
[2023-10-05 12:18] VITALS: RESP 18
--- OUTSIDE RECORDS SUMMARY | 2023-10-05 13:27 | XMS RPT_ITS | CCD ---
Author Name Unknown Address [address] [place] [address] Organization [facility] Care Team Providers Care Roll Tube Setter Name Role Phone [facility]ALDO JO[facility]PH [facility] Unavailable ADAM FARR Attending Unavailable G[facility] Unavailable Allergies Allergy Classification Reported Allergen(s) Allergy Type Date of Onset Reaction(s) Facility (1 source) Pollen; Translations: [POLLEN] Propensity to adverse reactions (disorder) 7 [facility] Repository (1 source) OTHER; Translations: [OTHER] Propensity to adverse reactions (disorder) 7 [facility] Repository Problems Problem Classification Problem Date Documented [...] Start: 10-02-2023 End: 10-02-2023 ambulatory GERALDO JORGEOK Facility:[facility] Payers Date Payer Category Payer Medicare [id number] Progress note 10-02-2023 Note Date & Type Note Facility 10-02-2023 Note HNO ID: [id number] Author: ADAM FARR MD Service: ? Author [...] a year. he had Duplex 09/26/23 at [place] showing SHANDA now occluded and LICA still 60-70%. [facility] V[facility] Thor[facility] [place] DEPARTMENT OF VASCULAR SURGERY OUTPATIENT VISIT DATE October 02, 2023 OUTPATIENT VISIT TYPE ESTABLISHED SERVICE DATE: 10/02/2023 SERVICE TIME: 11:02 AM PRIMARY CARE PHYSICIAN: Geraldo Joseph MD HISTORY OF PRESENT ILLNESS: Mr. Cortes is a 83 year old male who presents today for a vascular surgery follow-up visit. PAST MEDICAL HISTORY Diagnosis Date Alzheimer's disease ([facility]) Atrial fibrillation ([facility]) Bilateral carotid artery stenosis 03/25/2021 CAD (coronary artery disease) Carotid disease, bilateral ([facility]) CKD (chronic kidney disease) stage 3, GFR 30-59 ml/min ([facility]) Coronary artery disease involving coronary bypass graft of [place] heart without angina pectoris 03/25/2021 Hypercholesterolemia Hypertension Insomnia Left carotid stenosis 03/25/2021 PVD (peripheral vascular disease) ([facility]) 03/25/2021 Right carotid artery occlusion [...] may be over (more content not included)... [facility] Progress note 10-02-2023 Note Date & Type Note Facility 10-02-2023 Note HNO ID: [id number] Author: ?, ?, ? Service: ? Author Type: ? Type: Progress Notes Filed: 10/02/2023 11:37 Note Text: Summary: RESEARCH DOCUMENTATION OF INFORMED CONSENT Study TItle: Risk Assessment of Stroke Using Non-Invasive Ultrasonic Backscatter from Carotid Plaque ([facility]UP) IRB#: [id number] PI: Adenike Marie, PhD Phone#: [phone] COORDINATOR/Research Nurse/Plumbing Inspector: Lee Dye, PhD or Juani Mena or [phone] Pager: [phone] Discussed above research protocol with the subject. [...] provide informed consent - Unable to understand Mongolian language. Research Ultrasound performed following standard of care ultrasound. Amanda Mohan [facility] Summary Purpose Family History No Family [...] BE BASED ON THE PRIMARY CLINICAL RECORDS. [employer] [facility]. provides no warranty or guarantee of the accuracy or completeness of information in this document.
== END 2023-10-05 13:04 | disposition home or self-care (01) ==
PROVIDERS: Emergency Provider Emergency Medicine; PCP Family Medicine Geriatric Medicine; Visit Provider Emergency Medicine
DX: N17.9 Acute kidney failure, unspecified (principal); G30.9 Alzheimer's disease, unspecified; F02.80 Dementia in other diseases classified elsewhere, unspecified severity, without behavioral disturbance, psychotic disturbance, mood disturbance, and anxiety; N18.31 Chronic kidney disease, stage 3a; R19.7 Diarrhea, unspecified; E73.9 Lactose intolerance, unspecified; I12.9 Hypertensive chronic kidney disease with stage 1 through stage 4 chronic kidney disease, or unspecified chronic kidney disease; E86.0 Dehydration; D64.9 Anemia, unspecified; I25.10 Atherosclerotic heart disease of native coronary artery without angina pectoris; E78.5 Hyperlipidemia, unspecified; F17.210 Nicotine dependence, cigarettes, uncomplicated; Z79.82 Long term (current) use of aspirin; Z79.899 Other long term (current) drug therapy; Z95.1 Presence of aortocoronary bypass graft; Z95.5 Presence of coronary angioplasty implant and graft
CPT/HCPCS: 80048; 85025; 96360; 99283; J7030; A4216

== ENCOUNTER → 2023-10-12 | Outpatient (CLI) | payer MEDICARE, SELFPAY ==
[2023-10-12 10:34] LABS: Absolute Lymphocyte Count 1.15 X10^3/uL (0.83-4.51); Absolute Neutrophil Count 5.8 X10^3/uL (2.0-7.7); Basophil# 0.07 X10^3/uL; Basophil% 0.9 % (0-1); Eosinophils% 2.6 % (0-5); Hematocrit 30.1 % (40-54); Lymphocyte # 1.15 X10^3/ul (0.83-4.51); Lymphocyte % 15.1 % (19-41); Mean Corp Hgb Conc 33.2 g/dL (32-36); Mean Corpuscular Hgb 31.8 pg (27.0-32.0); Mean Corpuscular Volume 95.9 fL (80-94); Mean Platelet Vol. 9.9 fl (6.2-12.0); Monocyte# 0.41 X10^3/uL; Monocyte% 5.4 % (0-10); NRBC Flagged by Analyzer 0 % (0-5); Neutrophil # 5.75 X10^3/uL (2.7-7.7); Neutrophil % 75.6 % (47-70); Platelet Count 211 K/mm3 (150-450); RBC Distribution Width SD 41.6 fl (35.1-43.9); Red Blood Count 3.14 M/mm3 (4.6-6.2); White Blood Count 7.6 K/mm3 (4.4-11.0)
--- OUTSIDE RECORDS SUMMARY | 2023-10-12 11:18 | XMS RPT_ITS | CCD ---
Author Name Unknown Address [address] [place] [address] Organization [facility] Care Team Providers Care Home Manager Name Role Phone [facility]DO [facility] Unavailable ADAM FARR Attending Unavailable [facility]DO [facility] Unavailable Allergies Allergy Classification Reported Allergen(s) Allergy Type Date of Onset Reaction(s) Facility (1 source) Pollen; Translations: [POLLEN] Propensity to adverse reactions (disorder) 7 [facility] Repository (1 source) OTHER; Translations: [OTHER] Propensity to adverse reactions (disorder) 7 [facility] Repository Problems Problem Classification Problem [...] Start: 10-02-2023 End: 10-02-2023 ambulatory GERALDO JORGEOK Facility:[facility] Payers Date Payer Category Payer Medicare [id number] Progress note 10-02-2023 Note Date & Type Note Facility 10-02-2023 Note HNO ID: [id number] Author: ADAM FARR MD Service: ? Author [...] a year. he had Duplex 09/26/23 at [place] showing SHANDA now occluded and LICA still 60-70%. Heart , Vascular and Thoracic [place] DEPARTMENT OF VASCULAR SURGERY OUTPATIENT VISIT DATE October 02, 2023 OUTPATIENT VISIT TYPE ESTABLISHED SERVICE DATE: 10/02/2023 SERVICE TIME: 11:02 AM PRIMARY CARE PHYSICIAN: Geraldo Joseph MD HISTORY OF PRESENT ILLNESS: Mr. Cortes is a 83 year old male who presents today for a vascular surgery follow-up visit. PAST MEDICAL HISTORY Diagnosis Date Alzheimer's disease ([facility]) Atrial fibrillation ([facility]) Bilateral carotid artery stenosis 03/25/2021 CAD (coronary artery disease) Carotid disease, bilateral ([facility]) CKD (chronic kidney disease) stage 3, GFR 30-59 ml/min ([facility]) Coronary artery disease involving coronary bypass graft of [place] heart without angina pectoris 03/25/2021 Hypercholesterolemia Hypertension Insomnia Left carotid stenosis 03/25/2021 PVD (peripheral vascular disease) ([facility]) 03/25/2021 Right carotid artery occlusion 10/02/2023 Testicular [...] may be over (more content not included)... [facility] Progress note 10-02-2023 Note Date & Type Note Facility 10-02-2023 Note HNO ID: [id number] Author: ?, ?, ? Service: ? Author Type: ? Type: Progress Notes Filed: 10/02/2023 11:37 Note Text: Summary: RESEARCH DOCUMENTATION OF INFORMED CONSENT Study TItle: Risk Assessment of Stroke Using Non-Invasive Ultrasonic Backscatter from Carotid Plaque ([facility]UP) IRB#: [id number] PI: Adenike Marie, PhD Phone#: [phone] COORDINATOR/Research Nurse/Oil Well Perforator Operator: Lee Dye, PhD or Juani Mena or [phone] Pager: [phone] Discussed above research protocol with the subject. [...] provide informed consent - Unable to understand [place]ish language. Research Ultrasound performed following standard of care ultrasound. Amanda Mohan [facility] Summary Purpose Family History No Family [...] BE BASED ON THE PRIMARY CLINICAL RECORDS. [employer] [facility]. provides no warranty or guarantee of the accuracy or completeness of information in this document.
[2023-10-12 11:35] LABS: Anion Gap 7 (5-15); BUN 26 mg/dL (7-18); BUN/Creat Ratio 9.9 RATIO (10-20); Calcium,Total 9.4 mg/dL (8.5-10.1); Chloride 109 mmol/L (98-107); Creatinine, Serum 2.62 mg/dL (0.70-1.30); EST Glomerular Filtration Rate 25 mL/min (>60); Est Glom Filt Rate - Afr Amer 30 mL/min (>60); Glucose 107 mg/dL (74-106); Sodium Level 138 mmol/L (136-145)
== END | disposition home or self-care (01) ==
LOC: POLAB3 09:56
PROVIDERS: PCP Family Medicine Geriatric Medicine; Visit Provider Family Medicine Geriatric Medicine
DX: D64.9 Anemia, unspecified (principal); E78.5 Hyperlipidemia, unspecified
CPT/HCPCS: 36415; 80048; 85025

== ENCOUNTER → 2024-04-02 | Outpatient (CLI) | payer MEDICARE, SELFPAY ==
[2024-04-02 10:25] LABS: Absolute Lymphocyte Count 1.57 X10^3/uL (0.83-4.51); Absolute Neutrophil Count 4.6 X10^3/uL (2.0-7.7); Basophil# 0.04 X10^3/uL; Basophil% 0.6 % (0-1); Eosinophil# 0.28 X10^3/uL; Hematocrit 28.6 % (40-54); Hemoglobin 9.5 g/dL (13.0-16.5); Lymphocyte # 1.57 X10^3/ul (0.83-4.51); Lymphocyte % 22.5 % (19-41); Mean Corp Hgb Conc 33.2 g/dL (32-36); Mean Corpuscular Hgb 32.1 pg (27.0-32.0); Mean Corpuscular Volume 96.6 fL (80-94); Mean Platelet Vol. 9.3 fl (6.2-12.0); Monocyte# 0.46 X10^3/uL; Monocyte% 6.6 % (0-10); NRBC Flagged by Analyzer 0 % (0-5); Neutrophil % 65.9 % (47-70); Platelet Count 237 K/mm3 (150-450); RBC Distribution Width CV 11.9 % (11.6-14.6); RBC Distribution Width SD 41.6 fl (35.1-43.9); Red Blood Count 2.96 M/mm3 (4.6-6.2)
[2024-04-02 10:45] LABS: PTHIN 87.1 pg/mL (18.4-80.1)
[2024-04-02 10:47] LABS: Phosphorus 3.6 mg/dL (2.5-4.9)
[2024-04-02 10:51] LABS: Vitamin D,25 Hydroxy 91.5 ng/mL
[2024-04-02 10:55] LABS: ALB/GLOB Ratio 1.3 RATIO (0.9-2.4); AST(SGOT) 14 U/L (15-37); Alanine Aminotransfer ALT/SGPT 11 U/L (16-61); Albumin, Serum 3.9 g/dL (3.2-5.0); Alkaline Phosphatase 76 U/L (45-117); Anion Gap 7 (5-15); BUN 27 mg/dL (7-18); BUN/Creat Ratio 8.9 RATIO (10-20); Calcium,Total 9.1 mg/dL (8.5-10.1); Chloride 107 mmol/L (98-107); Creatinine, Serum 3.03 mg/dL (0.70-1.30); EST Glomerular Filtration Rate 21 mL/min (>60); Est Glom Filt Rate - Afr Amer 26 mL/min (>60); Globulin 3.1 g/dL (2.2-4.2); Glucose 122 mg/dL (74-106); Sodium Level 139 mmol/L (136-145); Thyroid Stim Hormone (TSH) 1.55 uIU/mL (0.358-3.74)
== END | disposition home or self-care (01) ==
LOC: POLAB3 10:05
PROVIDERS: Internal Medicine Nephrology; PCP Family Medicine Geriatric Medicine; Visit Provider Family Medicine Geriatric Medicine
DX: I12.9 Hypertensive chronic kidney disease with stage 1 through stage 4 chronic kidney disease, or unspecified chronic kidney disease (principal); N18.32 Chronic kidney disease, stage 3b; E55.9 Vitamin D deficiency, unspecified
CPT/HCPCS: 36415; 80053; 82306; 83970; 84100; 84443; 85025

== ENCOUNTER 2024-05-19 03:29 | Emergency (ER) | payer MEDICARE, SELFPAY ==
[2024-05-19 03:30] VITALS: BP 160/69; PULSE 70; RESP 18; TEMP 36.7; O2SAT 98; BMI 23.9
[2024-05-19 03:38] VITALS: O2SAT 97
--- NOTE | 2024-05-19 03:53 | CT_ITS ---
EXAM: CT HEAD WITHOUT INTRAVENOUS CONTRAST CLINICAL INDICATION: head injury TECHNIQUE: Multiple axial images were obtained of the head without intravenous contrast. CTDIvol = ( 44.99 ) mGy, DLP = ( 832.67 ) mGycm This CT exam was performed using one or more of the following dose reduction techniques: automated exposure control, adjustment of the mA and/or kV according to patient size, and/or use of iterative reconstruction technique. COMPARISON: No relevant prior studies available. FINDINGS: BRAIN AND EXTRA-AXIAL SPACES: Periventricular small vessel ischemic change. No midline shift or hydrocephalus. Diffuse parenchymal atrophy. Posterior fossa structures are unremarkable. Basal cisterns are patent. No acute intracranial hemorrhage, mass effect or edema. No evidence of acute cortical stroke. BONES/JOINTS: Unremarkable. No discrete lytic or blastic abnormalities. VASCULATURE: Atherosclerotic calcifications of the carotid siphons and vertebrobasilar arteries. SINUSES: Unremarkable as visualized. Clear. MASTOID AIR CELLS: Visualized sinuses and mastoid air cells are clear. ORBITS: Visualized globes, extraocular muscles, optic nerves and retrobulbar fat appear unremarkable. CT/Brain/Head without Contrast IMPRESSION: 1. No evidence of acute intracranial pathology. 2. Diffuse involutional changes and chronic ischemic small vessel white matter disease. AIDOC was utilized to assist in identifying pertinent positive findings. Electronically Signed: Adalberto Garcia MD at 5:02 EDT ,
--- NOTE | 2024-05-19 03:53 | CT_ITS ---
EXAM: CT CERVICAL SPINE WITHOUT INTRAVENOUS CONTRAST CLINICAL INDICATION: pain TECHNIQUE: Helically acquired images were obtained of the cervical spine without intravenous contrast. 2D reformatted images were reviewed. CTDIvol = ( 18.78 ) mGy, DLP = ( 432.67 ) mGycm This CT exam was performed using one or more of the following dose reduction techniques: automated exposure control, adjustment of the mA and/or kV according to patient size, and/or use of iterative reconstruction technique. COMPARISON: No relevant prior studies available. FINDINGS: VERTEBRAE: Acute nondisplaced fracture involving the right C7 lateral mass/posterior elements. No traumatic subluxation. No discrete lytic or blastic abnormality. Normal craniocervical junction and cervicothoracic junction. No evidence of acute or healing fracture or malalignment. DISCS/SPINAL CANAL/NEURAL FORAMINA: Multilevel spine degenerative changes with degenerative disc disease worse at C5-6. No critical central canal stenosis. SOFT TISSUES: Unremarkable. No prevertebral soft tissue swelling. VASCULATURE: Atherosclerotic calcifications of the internal carotid arteries of the neck. LYMPH NODES: Unremarkable. No cervical adenopathy. LUNG APICES: Unremarkable as visualized. Clear. PLEURAL SPACE: Unremarkable. No significant effusion. No or apical pneumothorax. CT/Spine Cervical without Contras IMPRESSION: 1. Acute nondisplaced fracture involving the right C7 lateral mass/posterior elements. No other acute or healing fracture or malalignment. 2. Multilevel spine degenerative changes with degenerative disc disease worse at C5-6. AIDOC was utilized to assist in identifying pertinent positive findings. Electronically Signed: Adalberto Garcia MD at 5:09 EDT ,
--- NOTE | 2024-05-19 03:53 | RAD_ITS ---
EXAM: XR LEFT RIBS AND AP CHEST, 3 OR MORE VIEWS CLINICAL INDICATION: pain TECHNIQUE: Frontal and oblique views of the left ribs and frontal view of the chest. COMPARISON: PA lateral chest 11/16/2022 FINDINGS: LUNGS AND PLEURAL SPACES: Unremarkable. No consolidation or edema. No pneumothorax. No effusion. HEART: Unremarkable. Cardiac silhouette not enlarged. MEDIASTINUM: Surgical changes of the mediastinum. BONES/JOINTS: Unremarkable. No evidence of displaced rib fractures. RAD/Ribs Uni Min 3V w/PA Chest IMPRESSION: No acute findings in the chest or left ribs. Electronically Signed: Adam Morales MD at 5:15 EDT ,
--- NOTE | 2024-05-19 04:23 | RAD_ITS ---
EXAM: XR LEFT SHOULDER COMPLETE, 2 OR MORE VIEWS CLINICAL INDICATION: pain TECHNIQUE: Two or more views of the left shoulder. COMPARISON: No relevant prior studies available. FINDINGS: BONES/JOINTS: Up to moderate degenerative changes of the acromioclavicular joint and glenohumeral joint. Diffuse osteopenia. Type II acromion. Intact appearing sternotomy wires. No sclerotic or destructive changes observed. No subacromial enthesophyte. No acute or healing fracture or malalignment. SOFT TISSUES: Surgical clips at the base of the left neck. No radiopaque foreign body. No soft tissue gas or any other focal soft tissue abnormalities. RAD/Shoulder min 2 Views IMPRESSION: No acute or healing fracture or malalignment Electronically Signed: Adalberto Garcia MD at 4:55 EDT ,
--- NOTE | 2024-05-19 04:23 | RAD_ITS ---
EXAM: XR PELVIS, 1 OR 2 VIEWS CLINICAL INDICATION: pain TECHNIQUE: Frontal view of the pelvis. COMPARISON: No relevant prior studies available. FINDINGS: Prominent atherosclerotic calcifications of the common femoral arteries. Phlebolith in the pelvis. Lower lumbar spine posterior decompression and L3-L5 posterior osteometallic fusion with no gross complications. Incompletely imaged nonspecific bowel gas pattern with gas-filled small bowel identified. No acute or healing fracture or malalignment. No other unusual lytic or sclerotic lesions of bone. 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 RAD/Pelvis 1 or 2 Views IMPRESSION: 1. No acute or healing fracture or malalignment. 2. Incompletely imaged nonspecific bowel gas pattern with bowel ileus not excluded. Consider acute abdominal series if concerned. Electronically Signed: Adalberto Garcia MD at 5:00 EDT ,
[2024-05-19 05:29] VITALS: PULSE 60; RESP 18; O2SAT 99
[2024-05-19] MEDS: oxyCODONE 5 MG Tablet PO (05:44)
[2024-05-19 06:22] VITALS: BP 152/59; PULSE 65; RESP 18; O2SAT 99
[2024-05-19] MEDS: LORazepam 2 MG/ML Syringe 0.5 MG IV (06:22)
[2024-05-19] MEDS: Morphine 2 MG/ML Syringe IV (06:23)
[2024-05-19] MEDS: Ondansetron 4 MG/2 ML Vial IV (06:25)
--- NOTE | 2024-05-19 06:30 | NURSING ---
ISAIAH BURDEN ER TO ER NURSE TO NURSE [phone]
--- NOTE | 2024-05-19 06:31 | EDS_ITS ---
HPI History of Present Illness Chief Complaint: Fall Informant: patient and spouse/S.O. Narrative Narrative: Patient is an 84-year-old male with past medical history of hypertension hyperlipidemia and dementia. He is a DNR DNI. states that they were sleeping when he must of got up in the middle the night and he was walking and fell down the stairs. She states she awoke to the thud of the patient falling. She states she found him laying on his left side at the bottom of the stairs. She states he was awake and at his baseline mental status but just complaining of shoulder pain and the inability to get back up. states that she believes he fell down 12 steps and that these were carpeted. She states he does not take any blood thinner or have a history of bleeding disorder however because of the trauma there is concern for underlying injury and he was brought in for evaluation [facility] Medical History Anemia in chronic kidney disease (CKD) Racing heart beat Hyperlipidemia Stage 3a chronic kidney disease (CKD) Essential hypertension Atherosclerosis of coronary artery of [place] heart without angina pectoris Iron deficiency Insomnia Vitamin D deficiency Alzheimer disease Anemia Wears glasses Wears dentures Forgetfulness Alcohol use Arthritis Injury of back Asthma Smoker Left carpal tunnel syndrome Renal artery stenosis Peripheral arterial occlusive disease Carotid artery disease Home Medications ?Medication ?Instructions ?Recorded ?Last Taken ?Type doxepin 50 mg capsule 50 mg PO QHS 03/23/20 10/04/23 History lidocaine 5 % topical patch 1 patch topical PRN PRN Pain 01/05/22 10/04/23 History atorvastatin 40 mg tablet 40 mg PO QHS 11/03/22 10/04/23 History lactase 3,000 unit tablet (Lactaid) 3,000 unit PO ONCE 11/03/22 10/05/23 History losartan 50 mg tablet 50 mg PO DAILY 11/03/22 10/04/23 History ascorbic acid (vitamin C) 500 mg 500 mg PO DAILY 09/14/23 10/04/23 History tablet (Vitamin C) cetirizine 10 mg tablet (All Day 10 mg PO DAILY PRN allergy 09/14/23 10/04/23 History Allergy (cetirizine)) memantine 10 mg tablet 10 mg PO BID 09/14/23 10/04/23 History polysaccharide iron complex 150 mg 150 mg PO DAILY 09/14/23 10/04/23 History iron capsule (iFerex 150) metoprolol succinate 25 mg 25 mg PO DAILY #90 tabs 09/22/23 10/04/23 Rx tablet,extended release 24 hr (Toprol XL) rivastigmine tartrate 4.5 mg 9 mg PO QHS 10/05/23 Unknown History capsule amlodipine 10 mg tablet 5 mg .Route .COMPLEX 04/08/24 Unknown History ferrous sulfate 325 mg (65 mg 325 mg PO DAILY 04/08/24 Unknown History iron) tablet,delayed release sildenafil 100 mg tablet 100 mg PO DAILY 04/08/24 Unknown History cholecalciferol (vitamin D3) 25 25 mcg PO DAILY 04/09/24 Unknown History mcg (1,000 unit) capsule clopidogrel 75 mg tablet (Plavix) 75 mg PO DAILY 04/09/24 Unknown History lactase 9,000 unit tablet (Lactose 9,000 unit PO ONCE 04/09/24 Unknown History Fast Acting Relief) melatonin 5 mg capsule 5 mg PO QHS 04/09/24 Unknown History aspirin 81 mg chewable tablet 1 tab PO DAILY 05/19/24 Unknown History (Aspirin Childrens) Allergy/AdvReac Type Severity Reaction Status Date / Time No Known Allergies Allergy Verified 05/19/24 03:33 Family History Mother Diabetes Heart disease Hypertension Myocardial infarction Father Diabetes Kidney disease Myocardial infarction Heart failure Sister Diabetes Cancer Lung Heart disease Scleroderma Surgical History History of coronary artery stent placement (~1995) History of coronary artery bypass surgery (12/16/13) History of lumbar laminectomy History of cardiac catheterization History of carpal tunnel surgery of right wrist H/O cataract extraction History of back surgery History of knee replacement, total H/O carotid endarterectomy Social History Smoking Status: Current every day smoker tobacco type: cigarettes Tobacco: How many years used: 50 alcohol intake: current alcohol intake frequency: holidays/special occasions only substance use type: does not use caffeine: Yes Type: coffee Number of servings: 4 what type of physical activity do you participate in: none frequency: does not exercise ROS ROS ED Constitutional Constitutional ED: Denies chills or fever(s) Eyes Eyes: Denies blurry vision, change in vision or diplopia ENT ENT ED: Denies sore throat Cardiovascular Cardiovascular: Denies chest pain Respiratory/Chest Respiratory/Chest: Denies cough or dyspnea Gastrointestinal Gastrointestinal: Denies abdominal pain, diarrhea, nausea or vomiting Genitourinary Genitourinary ED: Denies dysuria Musculoskeletal Musculoskeletal: Reports back pain and other Details: Positive left shoulder pain Integumentary Reports Abrasions Neurologic Neurologic: Denies headache(s), paresthesias or weakness Hematologic/Lymphatic Hematologic/Lymphatic: Denies easy bleeding or easy bruising EXAM Physical Exam Const Vital Signs: 05/19/24 03:30 05/19/24 03:38 05/19/24 05:29 Temperature 98.1 F Temperature Source Oral Pulse Rate 70 60 Respiratory Rate 18 18 Respiratory Effort Normal Non-Labored Respiratory Depth Normal Respiratory Pattern Normal Blood Pressure 160/69 H Blood Pressure Mean 99 Pulse Ox 98 97 99 Oxygen Delivery Method Room Air Room Air Room Air 05/19/24 06:22 Temperature Temperature Source Pulse Rate 65 Respiratory Rate 18 Respiratory Effort Respiratory Depth Respiratory Pattern Blood Pressure 152/59 H Blood Pressure Mean 90 Pulse Ox 99 Oxygen Delivery Method Positive well nourished and well developed General Appearance ED: well developed HEENT HEENT Narrative: Patient has a superficial dermal layer linear abrasion along the left parietal portion of his scalp with minimal ooze of blood and no retained foreign body. There is a small surrounding one by one hematoma. Otherwise no signs of depressed or basilar skull fracture. No septal hematoma Eyes PERRL and EOMs intact bilaterally Eyes Narrative: No hyphema noted Neck supple Neck Narrative: No bony deformity or step-off of the cervical spine no midline tenderness to palpation Chest Wall Chest Narrative: There is pain on palpation along the left scapula and posterior rib cage rib regions 4-6 without bony deformity or crepitance, Resp normal respiratory effort and clear to auscultation bilaterally Cardio regular rate and regular rhythm GI normal to inspection, nondistended, normoactive bowel sounds, non-tender, non- distended and no masses GI Narrative: No voluntary guarding or rigidity or pulsatile mass Auscultation: normoactive bowel sounds Palpation: soft Back/Spine Back/Spine Narrative: No bony deformity or step-off of the thoracic or lumbar spine no midline tenderness to palpation. Extremity Extremity Narrative: Pelvis is stable there is no shortening or external rotation of either lower extremity Bilateral upper extremities are neurovascularly intact; AIN/PIN are intact and normal. There is no obvious bony deformity or joint effusion or sulcus sign noted of the left shoulder. There is diffuse pain on palpation. However patient still has full active and passive range of motion. Compartments are soft and compressible going against compartment syndrome Neuro CN's II-XII intact bilaterally and no sensory deficits noted Neuro Narrative: Patient is at his baseline mental status with history of dementia without focal neurologic findings Sensorium / Orientation: alert Psych mental status grossly normal Skin Skin Narrative: Hematoma and superficial abrasion/laceration along the scalp as documented above MDM MDM MDM Narrative Medical decision making narrative: Patient presented to the ER hypertensive but has a past medical history of this and at his baseline mental status with history of dementia. Based on the patient's fall down approximately 12 stairs there is concern for traumatic brain injury such as skull fracture versus traumatic subarachnoid or subdural hemorrhage. There is concern for cervical compression fracture or spondylolisthesis. With pain in the left shoulder and posterior back there is concern for rib fracture versus pneumothorax versus shoulder fracture or dislocation. Secondary to this multiple imaging studies were obtained. Imaging revealed a C7 right lateral mass/posterior elements fracture. Based on the cervical fracture on CT scan he was placed in a c-collar and the case was discussed with neurosurgeon Dr. Jimenez. He feels that based on the patient's trauma and fracture he would be better served at a trauma center. The plan of care was discussed with the patient and his and they are agreeable to a transfer for further evaluation of his cervical fracture. Therefore [facility] was contacted and the case was discussed with Dr. White. She agrees to accept the patient at this time based on his cervical spine injury. As he is hemodynamically stable and neurovascularly intact he can go by ground transport and there is no need for emergent [facility]. History & Record Review Discussion w/independent historian: Patient and Significant other Radiography Diagnostic Testing: Clinical Impression(s) from Imaging Studies Brain CT 05/19/24 03:53 IMPRESSION: 1. No evidence of acute intracranial pathology. 2. Diffuse involutional changes and chronic ischemic small vessel white matter disease. [facility] was utilized to assist in identifying pertinent positive findings. Electronically Signed: Adalberto Garcia MD at 5:02 EDT , Cervical Spine CT 05/19/24 03:53 IMPRESSION: 1. Acute nondisplaced fracture involving the right C7 lateral mass/posterior elements. No other acute or healing fracture or malalignment. 2. Multilevel spine degenerative changes with degenerative disc disease worse at C5-6. [facility] was utilized to assist in identifying pertinent positive findings. Electronically Signed: Adalberto Garcia MD at 5:09 EDT , Ribs w/Chest X-Ray 05/19/24 03:53 IMPRESSION: No acute findings in the chest or left ribs. Electronically Signed: Adam Morales MD at 5:15 EDT , Pelvis X-Ray 05/19/24 04:23 IMPRESSION: 1. No acute or healing fracture or malalignment. 2. Incompletely imaged nonspecific bowel gas pattern with bowel ileus not excluded. Consider acute abdominal series if concerned. Electronically Signed: Adalberto Garcia MD at 5:00 EDT , Shoulder X-Ray 05/19/24 04:23 IMPRESSION: No acute or healing fracture or malalignment Electronically Signed: Adalberto Garcia MD at 4:55 EDT , 1 view pelvis x-ray as interpreted by the emergency medicine physician reveals no acute fracture or dislocation Left shoulder x-ray as interpreted by the emergency medicine physician reveals no acute fracture dislocation or joint effusion Left rib series with 1 view chest as interpreted by the emergency medicine physician reveals no acute rib fracture or pneumothorax Management Discussion w/another healthcare provider: Donor Specialist Discharge Plan Triage Chief Complaint: Fall ED Provider: Adalberto Welch Dx/Rx/DC Orders Clinical Impression: Closed C7 fracture, Essential hypertension, Hyperlipidemia, Dementia Prescriptions: No Action doxepin 50 mg capsule 50 mg PO QHS memantine 10 mg tablet 10 mg PO BID atorvastatin 40 mg tablet 40 mg PO QHS lactase [Lactaid] 3,000 unit tablet 3,000 unit PO ONCE Rx Instructions: administer with meals and/or snacks losartan 50 mg tablet 50 mg PO DAILY cetirizine [All Day Allergy (cetirizine)] 10 mg tablet 10 mg PO DAILY PRN (Reason: allergy) polysaccharide iron complex [iFerex 150] 150 mg iron capsule 150 mg PO DAILY ascorbic acid (vitamin C) [Vitamin C] 500 mg tablet 500 mg PO DAILY clopidogrel [Plavix] 75 mg tablet 75 mg PO DAILY lactase [Lactose Fast Acting Relief] 9,000 unit tablet 9,000 unit PO ONCE Rx Instructions: administer with meals and/or snacks cholecalciferol (vitamin D3) 25 mcg (1,000 unit) capsule 25 mcg PO DAILY melatonin 5 mg capsule 5 mg PO QHS sildenafil 100 mg tablet 100 mg PO DAILY ferrous sulfate 325 mg (65 mg iron) tablet,delayed release (DR/EC) 325 mg PO DAILY amlodipine 10 mg tablet 5 mg .ROUTE .COMPLEX Rx Instructions: 5 mg; lidocaine 5 % Adhesive Patch,Medicated 1 patch TOPICAL PRN PRN (Reason: Pain) rivastigmine tartrate 4.5 mg capsule 9 mg PO QHS Patient Comments: pt switched to pill from patch by . pt will start this week aspirin [Aspirin Childrens] 81 mg tablet,chewable 1 tab PO DAILY metoprolol succinate [Toprol XL] 25 mg tablet extended release 24 hr 25 mg PO DAILY Qty: 90 3RF Primary Care Provider: Geraldo Joseph Chi Referrals: eGraldo Joseph Chi, MD [Primary Care Provider] - Print Language: [place] Disposition Disposition: Acute Care Hospital Discharge Location: [facility]
[2024-05-19 06:37] LABS: Absolute Lymphocyte Count 1.13 X10^3/uL (0.83-4.51); Absolute Neutrophil Count 13.6 X10^3/uL (2.0-7.7); Basophil# 0.05 X10^3/uL; Basophil% 0.3 % (0-1); Eosinophil# 0.06 X10^3/uL; Eosinophils% 0.4 % (0-5); Hematocrit 30.1 % (40-54); Hemoglobin 10.2 g/dL (13.0-16.5); Lymphocyte # 1.13 X10^3/ul (0.83-4.51); Lymphocyte % 7.3 % (19-41); Mean Corp Hgb Conc 33.9 g/dL (32-36); Mean Corpuscular Hgb 32.8 pg (27.0-32.0); Mean Corpuscular Volume 96.8 fL (80-94); Mean Platelet Vol. 9.7 fl (6.2-12.0); Monocyte# 0.65 X10^3/uL; Monocyte% 4.2 % (0-10); NRBC Flagged by Analyzer 0 % (0-5); Neutrophil % 87.2 % (47-70); Platelet Count 263 K/mm3 (150-450); RBC Distribution Width CV 12.4 % (11.6-14.6); RBC Distribution Width SD 43.8 fl (35.1-43.9); Red Blood Count 3.11 M/mm3 (4.6-6.2); White Blood Count 15.6 K/mm3 (4.4-11.0)
[2024-05-19 06:50] LABS: International Normalized Ratio 1.1; Partial Thromboplast Time 30.1 Seconds (24.1-36.2); Prothrombin Time (Protime)PT. 14.1 SECONDS (11.7-14.9)
[2024-05-19 07:01] LABS: Anion Gap 8 (5-15); BUN 26 mg/dL (7-18); BUN/Creat Ratio 11.2 RATIO (10-20); Calcium,Total 9.3 mg/dL (8.5-10.1); Chloride 108 mmol/L (98-107); Creatinine, Serum 2.32 mg/dL (0.70-1.30); EST Glomerular Filtration Rate 29 mL/min (>60); Est Glom Filt Rate - Afr Amer 35 mL/min (>60); Estimated Creatinine Clearance 26.94 ml/min; Glucose 128 mg/dL (74-106); Potassium 4.1 mmol/L (3.5-5.1); Sodium Level 138 mmol/L (136-145)
[2024-05-19 07:08] VITALS: BP 115/50; PULSE 57; RESP 18; TEMP 36.7; O2SAT 96
[2024-05-19] MEDS: HYDROmorphone 0.5 MG/0.5 ML SYRINGE IV (07:08)
== END 2024-05-19 07:24 | disposition short-term general hospital (02) ==
PROVIDERS: Emergency Provider Emergency Medicine; PCP Family Medicine Geriatric Medicine; Visit Provider Emergency Medicine
DX: S12.601A Unspecified nondisplaced fracture of seventh cervical vertebra, initial encounter for closed fracture (principal); F02.80 Dementia in other diseases classified elsewhere, unspecified severity, without behavioral disturbance, psychotic disturbance, mood disturbance, and anxiety; G30.9 Alzheimer's disease, unspecified; N18.31 Chronic kidney disease, stage 3a; S00.03XA Contusion of scalp, initial encounter; I25.10 Atherosclerotic heart disease of native coronary artery without angina pectoris; E78.5 Hyperlipidemia, unspecified; W10.9XXA Fall (on) (from) unspecified stairs and steps, initial encounter; I12.9 Hypertensive chronic kidney disease with stage 1 through stage 4 chronic kidney disease, or unspecified chronic kidney disease; M25.512 Pain in left shoulder; F17.210 Nicotine dependence, cigarettes, uncomplicated; Z66 Do not resuscitate; Z79.02 Long term (current) use of antithrombotics/antiplatelets; Z79.82 Long term (current) use of aspirin; Z79.899 Other long term (current) drug therapy; Z95.1 Presence of aortocoronary bypass graft; Z95.5 Presence of coronary angioplasty implant and graft
CPT/HCPCS: 70450; 71101; 72125; 72170; 73030; 80048; 85025; 85610; 85730; 96374; 96375; 99284; A4216; J2405

== ENCOUNTER 2024-05-23 18:20 | Inpatient (IN) | payer MEDICARE, SELFPAY ==
[2024-05-23 19:30] VITALS: BP 107/86; PULSE 59; RESP 18; TEMP 36.9; O2SAT 99; BMI 22.4
[2024-05-23] MEDS: Memantine Hydrochloride 10 MG Tablet PO (20:07)
[2024-05-23] MEDS: DOXEPIN HCL 50 MG CAPSULE PO (20:07)
[2024-05-23] MEDS: Senna/Docusate Sodium 1 Tablet PO (20:08)
--- NOTE | 2024-05-23 20:24 | PCM.HP.STD ---
HPI - General General Date of Admission: 05/23/24 Date of Service: 05/24/24 Chief Complaint: Here for rehabilitation. HPI Narrative 05/19/2024 АННА GONCALVES, is a 84 Male who presents to [facility] ED with fall. Got OOB, fell down stairs (12 steps). CT showed C7 lateral mass fracture, C-collar applied. Transfer to [facility] for trauma. 05/19/2024 Admit to [facility]. C7 lateral mass fracture, patient complained of left shoulder pain. 05/20/2024 No acute events overnight, Feeling well. CT abdomen/pelvis negative for traumatic injury. C-Collar for now. PT/OT/ST. Carotid doppler, Echo, EKG for syncope evaluation. 05/21/2024 No acute events overnight, feels well. Hold aspirin, plavix until surgery not recommended. 05/22/2024 PT/OT for SNF. 05/23/2024 Admit to TCU with debility, here for rehabilitation, strengthening, prior to discharge home with . [facility] Medical History (Updated 05/23/24 @ 20:[address] Geraldo Joseph MD) Anemia in chronic kidney disease (CKD) Racing heart beat Hyperlipidemia Stage 3a chronic kidney disease (CKD) Essential hypertension Atherosclerosis of coronary artery of [place] heart without angina pectoris Iron deficiency Insomnia Vitamin D deficiency Alzheimer disease Anemia Wears glasses Wears dentures Forgetfulness Alcohol use Arthritis Injury of back Asthma Smoker Left carpal tunnel syndrome Renal artery stenosis Peripheral arterial occlusive disease Carotid artery disease Home Medications ?Medication ?Instructions ?Recorded ?Last Taken ?Type doxepin 50 mg capsule 50 mg PO QHS sleep 03/23/20 05/22/24 History atorvastatin 40 mg tablet 40 mg PO DAILY cholestrol 11/03/22 05/23/24 History lactase 3,000 unit tablet (Lactaid) 3,000 unit PO ONCE supplement 11/03/22 10/05/23 History losartan 50 mg tablet 50 mg PO DAILY BP 11/03/22 10/04/23 History cetirizine 10 mg tablet (All Day 10 mg PO DAILY PRN allergy 09/14/23 10/04/23 History Allergy (cetirizine)) memantine 10 mg tablet 10 mg PO BID memory 09/14/23 05/23/24 History metoprolol succinate 25 mg 25 mg PO DAILY BP #90 tabs 09/22/23 05/23/24 Rx tablet,extended release 24 hr (Toprol XL) amlodipine 10 mg tablet 10 mg PO DAILY BP 04/08/24 05/23/24 History ferrous sulfate 325 mg (65 mg 325 mg PO BID supplement 04/08/24 Unknown History iron) tablet,delayed release aspirin 81 mg chewable tablet 1 tab PO DAILY Heart health 05/19/24 Unknown History (Aspirin Childrens) donepezil 10 mg tablet (Aricept) 10 mg PO DAILY memory 05/23/24 Unknown History oleyyjpv-mu-keegi 300 mcg-K 60 1 tab PO DAILY supplement 05/23/24 Unknown History mcg-lycop 600 mcg-lutein 300 mcg tablet (Centrum Silver Men) oxycodone 5 mg capsule 5 mg PO Q6H pain 05/23/24 05/23/24 History pyridoxine (vitamin B6) 100 mg 100 mg PO DAILY supplement 05/23/24 Unknown History tablet (Vitamin B-6) rivastigmine 9.5 mg/24 hour 1 patch transdermal DAILY memory 05/23/24 Unknown History transdermal patch zolpidem 10 mg tablet (Ambien) 10 mg PO QHS PRN sleep 05/23/24 Unknown History zolpidem 12.5 mg tablet,extended 12.5 mg PO QHS sleep 05/23/24 Unknown History release,multiphase (Ambien CR) Allergy/AdvReac Type Severity Reaction Status Date / Time No Known Allergies Allergy Verified 05/19/24 03:33 Family History Mother Diabetes Heart disease Hypertension Myocardial infarction Father Diabetes Kidney disease Myocardial infarction Heart failure Sister Diabetes Cancer Lung Heart disease Scleroderma Surgical History History of coronary artery stent placement (~1995) History of coronary artery bypass surgery (12/16/13) History of lumbar laminectomy History of cardiac catheterization History of carpal tunnel surgery of right wrist H/O cataract extraction History of back surgery History of knee replacement, total H/O carotid endarterectomy Social History (Updated 05/23/24 @ 20:[address] Geraldo Joseph MD) household members: spouse Smoking Status: Current every day smoker tobacco type: cigarettes Tobacco: How many years used: 50 alcohol intake: current alcohol intake frequency: holidays/special occasions only substance use type: does not use caffeine: Yes Type: coffee Number of servings: 4 what type of physical activity do you participate in: none frequency: does not exercise ROS Constitutional Constitutional: Denies chills, fever(s) or weight gain ENT HEENT: Denies headache(s), nasal congestion or nasal discharge Cardiovascular Cardiovascular: Denies chest pain or palpitations Respiratory/Chest Respiratory/Chest: Denies cough, excessive phlegm production or shortness of breath with exertion Gastrointestinal Gastrointestinal: Denies abdominal pain, nausea or vomiting Genitourinary Genitourinary: Denies dysuria Musculoskeletal Musculoskeletal: Denies joint pain or joint swelling Integumentary Integumentary: Denies rash or wounds Neurologic Neurologic: Denies focal weakness, numbness or tingling Psychiatric Psychiatric: Denies anxiety, auditory hallucinations, depression, homicidal ideation or suicidal ideation Vital Signs Vital Signs Vital Signs: 05/23/24 19:30 Temperature 98.4 F Temperature Source Temporal Pulse Rate 59 L Respiratory Rate 18 Blood Pressure 107/86 H Blood Pressure Mean 93 Blood Pressure Source Monitor Blood Pressure Position Semi-Fowlers Blood Pressure Location Right Arm Pulse Ox 99 Oxygen Delivery Method Room Air Weight Weight: 74.984 kg Body Mass Index (BMI) 22.4 Physical Exam Const alert General Appearance: cooperative HEENT normocephalic HEENT Narrative: Cervical collar. Eyes PERRL and EOMs intact bilaterally Neck supple, no JVD and no carotid bruits Resp normal respiratory effort, normal air movement and clear to auscultation bilaterally Cardio regular rate and regular rhythm GI normal to inspection, nondistended, normoactive bowel sounds, non-tender and non-distended Extremity normal capillary refill General Extremity: Negative for edema Skin no rashes or lesions noted General Skin Exam: no breakdown Psych affect normal Appearance: appropriate Assessment & Plan Assessment/Plan (1) Debility: (2) Fall down stairs: (3) Closed C7 fracture: (4) Essential hypertension: (5) Hyperlipidemia: QUALIFIERS: Hyperlipidemia type: mixed hyperlipidemia Qualified Code(s): E78.2 - Mixed hyperlipidemia (6) Alzheimer disease: (7) Insomnia: (8) Iron deficiency anemia: (9) Coronary artery disease: PLAN: Plan 84 year old male with below past medical history hospitalized for fall, C7 lateral mass fracture, treated non-operatively, admitted to TCU with debility, here for rehabilitation, strengthening, prior to discharge home with . Debility - PT/OT. Pain - Tylenol 1000mg q6 prn pain (1-5), Oxycodone 5mg q4 prn pain (6-10). Bowel - senna/colace 1 tablet bid, Magnesium citrate 300ml po daily prn. Adult immunization - Administer pneumonia vaccine, covid vaccine, flu vaccine as appropriate. DVT prophylaxis - Lovenox 30mg sc daily. Hypertension - Metoprolol succinate 25mg daily, Losartan 100mg daily, Amlodipine 10mg daily. Coronary Artery Disease - Metoprolol succinate 25mg daily, Losartan 50mg daily, Aspirin 81mg daily. Hyperlipidemia - Atorvastatin 40mg qhs. Insomnia - Doxepin 50mg qhs. Nutrition - Ensure Plus High 120ml tidcm. Iron deficiency anemia - Ferrex 150mg daily. Alzheimer Disease - Rivastigmine 9mg qhs, Memantine 10mg bid.
[2024-05-23] MEDS: oxyCODONE 5 MG Tablet PO (20:27)
[2024-05-23] MEDS: Atorvastatin Calcium 40 MG Tablet PO (21:29)
[2024-05-23] MEDS: Rivastigmine Tartrate 1.5 MG Capsule 9 MG PO (21:29)
--- NOTE | 2024-05-23 21:35 | PCA ---
This LAB MANAGER was helping another patient when they heard the patient alarm going off in TCU 13. LAB MANAGER went to Patient room and LAB MANAGER Deborah was already in the room assisting patient who was standing at the bedside without walker and was very unsteady.
--- NOTE | 2024-05-23 21:50 | NURSING ---
Patient rep Jojo Cortes calls unit,speaks with this nurse, states out of state in [place] and will bring POA paperwork on Monday. Also states Dr. Joseph is patient's PCP. No concerns voiced at this time.
[2024-05-24] MEDS: Acetaminophen 500 MG Tablet 1000 MG PO ×2 (03:11→21:54)
[2024-05-24 03:55] VITALS: BP 162/69; PULSE 71; RESP 16; O2SAT 98
--- NOTE | 2024-05-24 03:57 | NURSING ---
Patient expressed discomfort in chest, states he gets it at home if he lays on his back to long, assisted up to recliner, voices relief in chest discomfort, VS: BP 163/69, P 71, R 16, POX 98% RA, Denies any c/o or needs at time, call light left within reach, alarms and camera continue for safety,
[2024-05-24] MEDS: Enoxaparin 30 MG/0.3 ML Syringe SC (05:26)
[2024-05-24] MEDS: oxyCODONE 5 MG Tablet PO ×2 (05:28→10:27)
--- NOTE | 2024-05-24 08:16 | RAD_ITS ---
STUDY: X-RAY - RIGHT RADIUS AND ULNA REASON FOR EXAM: Male, 84 years old. Pain following a fall. TECHNIQUE: 2 view(s) of the forearm. COMPARISON: None. FINDINGS: There is no demonstrated soft tissue swelling. Normal visualized radius. Normal visualized ulna. RAD/Forearm 2 Views IMPRESSION: Normal x-ray examination of the radius and ulna. Electronically Signed: Jacek Baez MD at 10:02 EDT ,
--- NOTE | 2024-05-24 08:16 | RAD_ITS ---
STUDY: X-RAY - RIGHT HUMERUS REASON FOR EXAM: Male, 84 years old. Pain following a fall. TECHNIQUE: 2 view(s) of the humerus. COMPARISON: None. FINDINGS: Normal visualized humerus. There is no demonstrated fracture or osseous destructive process. Degenerative changes of the acromioclavicular joint. There is no demonstrated soft tissue abnormality. RAD/Humerus min 2 Views IMPRESSION: No acute abnormality is seen. Electronically Signed: Jacek Baez MD at 10:04 EDT ,
--- NOTE | 2024-05-24 08:16 | RAD_ITS ---
STUDY: X-RAY - RIGHT WRIST REASON FOR EXAM: Male, 84 years old. Pain following a fall. TECHNIQUE: 2 view(s) of the wrist were obtained. COMPARISON: None. FINDINGS: Normal visualized distal radius and ulna. Normal radiocarpal articulation. Normal distal radioulnar articulation. Normal carpal bones. Normal carpal articulations. Normal carpometacarpal articulation of the thumb. Normal second through fifth carpometacarpal articulations. Normal visualized metacarpal bones. Soft tissue swelling. RAD/Wrist 2 Views IMPRESSION: Soft tissue swelling. No fracture or dislocation. Electronically Signed: Jacek Baez MD at 10:04 EDT ,
[2024-05-24 08:23] LABS: Absolute Lymphocyte Count 1.21 X10^3/uL (0.83-4.51); Absolute Neutrophil Count 7.4 X10^3/uL (2.0-7.7); Basophil# 0.04 X10^3/uL; Basophil% 0.4 % (0-1); Eosinophil# 0.09 X10^3/uL; Hematocrit 28.4 % (40-54); Hemoglobin 9.5 g/dL (13.0-16.5); Lymphocyte # 1.21 X10^3/ul (0.83-4.51); Mean Corp Hgb Conc 33.5 g/dL (32-36); Mean Corpuscular Hgb 31.9 pg (27.0-32.0); Mean Corpuscular Volume 95.3 fL (80-94); Mean Platelet Vol. 9.2 fl (6.2-12.0); Monocyte# 0.57 X10^3/uL; Monocyte% 6.1 % (0-10); NRBC Flagged by Analyzer 0 % (0-5); Neutrophil # 7.36 X10^3/uL (2.7-7.7); Neutrophil % 79.1 % (47-70); Platelet Count 300 K/mm3 (150-450); RBC Distribution Width CV 12.3 % (11.6-14.6); RBC Distribution Width SD 43.3 fl (35.1-43.9); Red Blood Count 2.98 M/mm3 (4.6-6.2); White Blood Count 9.3 K/mm3 (4.4-11.0)
[2024-05-24] MEDS: traMADol 50 MG Tablet PO (08:38)
[2024-05-24] MEDS: Aspirin 81 MG TAB.CHEW PO (08:40)
[2024-05-24] MEDS: Iron Polysaccharide Complex 150 MG CAPSULE PO (08:40)
[2024-05-24] MEDS: Memantine Hydrochloride 10 MG Tablet PO ×2 (08:41→21:54)
[2024-05-24] MEDS: amLODIPine 10 MG Tablet PO (08:41)
[2024-05-24] MEDS: Senna/Docusate Sodium 1 Tablet PO ×2 (08:41→21:54)
[2024-05-24 08:44] VITALS: BP 136/74; PULSE 74
[2024-05-24] MEDS: Metoprolol(XL)Succ 25 MG Tablet PO (08:44)
[2024-05-24] MEDS: Tuberculin,Purif.prot.deriv. 50 TU/ML Vial 0.1 ML ID (08:44)
[2024-05-24] MEDS: Ensure Plus High Protein 120 ML LIQUID PO ×2 (08:47→17:27)
[2024-05-24 08:49] LABS: Anion Gap 9 (5-15); BUN 29 mg/dL (7-18); BUN/Creat Ratio 16.5 RATIO (10-20); Calcium,Total 9.6 mg/dL (8.5-10.1); Chloride 110 mmol/L (98-107); Creatinine, Serum 1.76 mg/dL (0.70-1.30); EST Glomerular Filtration Rate 40 mL/min (>60); Est Glom Filt Rate - Afr Amer 48 mL/min (>60); Estimated Creatinine Clearance 34.32 ml/min; Glucose 113 mg/dL (74-106); Potassium 3.8 mmol/L (3.5-5.1); Sodium Level 139 mmol/L (136-145)
--- NOTE | 2024-05-24 09:10 | RAD_ITS ---
STUDY: X-RAY - RIGHT ELBOW REASON FOR EXAM: Male, 84 years old. Pain following a recent fall. TECHNIQUE: 3 view(s) of the elbow. COMPARISON: None. FINDINGS: Normal visualized humerus, radius and ulna. There is degenerative arthrosis of the radiocapitellar and ulnotrochlear articulations. The soft tissue structures are unremarkable. RAD/Elbow 2 Views IMPRESSION: Mild degree of degenerative changes. No fracture is seen. Electronically Signed: Jacek Baez MD at 10:02 EDT ,
[2024-05-24] MEDS: Losartan Potassium 100 MG Tablet PO (10:29)
--- NOTE | 2024-05-24 10:39 | NURSING ---
Tip Mender Note; Activity Asset: Ambreen Zamarripa is independent in his choice of daily activities. He prefers in room activities at this time due to his pain and not able to move much of his right arm. He will read, watch tv and visit with his family and friends. Staff will remind him of weekly activities and respect his right to say no.
--- NOTE | 2024-05-24 10:48 | NURSING ---
Resident complaining of 10/10 pain to right arm. Xrays completed this morning to evaluate, updated Dr. Joseph of results. Order to increase oxy to 10mg and add gabapentin 100mg TID.
[2024-05-24] MEDS: Gabapentin 100 MG Capsule PO ×2 (11:14→16:48)
[2024-05-24] MEDS: Menthol/Lanolin/Calamine/Znox 113 GM Tube 1 APPLIC TOPICAL ×2 (11:14→21:50)
[2024-05-24] MEDS: oxyCODONE 5 MG Tablet 10 MG PO ×3 (11:14→21:59)
--- NOTE | 2024-05-24 13:36 | CASEMGMT ---
Social Work SW phoned to complete initial assessment d/t pt being a poor historian. Introduced self and role. Verified contacts. inquired about code status options. SW educated to and wishes to change to DNR-CCA, no intubation. SW confirmed is HCPOA and documents on file. Nursing notified. SW educated to [facility] insurance with NRD 05/27 and continued stay is not guaranteed with each review. SW obtained prior history, LOF, likes/dislikes - see SW assessment for details. noted pt does have high pain tolerance and is highly tolerant to pain medication, meaning pt will need more medication than the average person. SW to notify nursing/Dr. SW will continue to follow for DC planning assistance. Jazzy Junior, MARIA ESTHER PERRYW
[2024-05-24 16:00] VITALS: BP 136/74; PULSE 74; RESP 18; TEMP 36.4; O2SAT 97
[2024-05-24] MEDS: morphine (oral solution) 10MG/0.5ML Syringe 10 MG SL/PO ×2 (16:48→20:15)
--- NOTE | 2024-05-24 19:06 | NURSING ---
C/O severe pain in right shoulde this AM.Dr. Joseph made aware and NO for X-rays to right arm. X-rays negative for fx. NO for oxycodone 10mg, morphine, tramadol and scheduled Tylenol. Patient and made aware. Pain medication has been effective and patient has been able to move and use arm. Daughter requesting patient receive an MRI to right arm to r/u rotator cuff tear. Dr. Joseph made aware.
[2024-05-24 20:00] VITALS: PULSE 70; RESP 16; O2SAT 95
[2024-05-24] MEDS: DOXEPIN HCL 50 MG CAPSULE PO (21:51)
[2024-05-24] MEDS: Rivastigmine Tartrate 1.5 MG Capsule 9 MG PO (21:52)
[2024-05-24] MEDS: Atorvastatin Calcium 40 MG Tablet PO (21:53)
[2024-05-25] MEDS: Acetaminophen 500 MG Tablet 1000 MG PO ×3 (06:45→23:04)
[2024-05-25] MEDS: Enoxaparin 30 MG/0.3 ML Syringe SC (06:45)
[2024-05-25] MEDS: Ensure Plus High Protein 120 ML LIQUID PO ×3 (09:14→17:51)
[2024-05-25] MEDS: Gabapentin 100 MG Capsule PO ×3 (09:14→17:49)
[2024-05-25 09:15] VITALS: PULSE 71
[2024-05-25] MEDS: Iron Polysaccharide Complex 150 MG CAPSULE PO (09:15)
[2024-05-25] MEDS: amLODIPine 10 MG Tablet PO (09:15)
[2024-05-25] MEDS: Senna/Docusate Sodium 1 Tablet PO ×2 (09:15→23:04)
[2024-05-25] MEDS: Metoprolol(XL)Succ 25 MG Tablet PO (09:15)
[2024-05-25] MEDS: Menthol/Lanolin/Calamine/Znox 113 GM Tube 1 APPLIC TOPICAL ×2 (09:15→23:02)
[2024-05-25] MEDS: oxyCODONE 5 MG Tablet 10 MG PO (09:15)
[2024-05-25] MEDS: Aspirin 81 MG TAB.CHEW PO (09:15)
[2024-05-25] MEDS: Memantine Hydrochloride 10 MG Tablet PO ×2 (09:15→23:03)
[2024-05-25] MEDS: Losartan Potassium 100 MG Tablet PO (09:15)
[2024-05-25] MEDS: morphine (oral solution) 10MG/0.5ML Syringe 10 MG SL/PO (12:08)
[2024-05-25 15:26] VITALS: BP 120/55; PULSE 71; RESP 16; TEMP 36.3; O2SAT 98
--- NOTE | 2024-05-25 16:34 | NURSING ---
Call placed to spouse to update on new order for MRI of right shoulder. Informed her it may take a few days, due to needing to pre-cert by insurance. Spouse verbalized understanding and very appreciative of call.
[2024-05-25] MEDS: Rivastigmine Tartrate 1.5 MG Capsule 9 MG PO (23:03)
[2024-05-25] MEDS: Atorvastatin Calcium 40 MG Tablet PO (23:03)
[2024-05-25] MEDS: DOXEPIN HCL 50 MG CAPSULE PO (23:03)
[2024-05-26] MEDS: traMADol 50 MG Tablet PO (00:39)
[2024-05-26] MEDS: Enoxaparin 30 MG/0.3 ML Syringe SC (05:44)
[2024-05-26] MEDS: Acetaminophen 500 MG Tablet 1000 MG PO (05:44)
[2024-05-26 09:23] VITALS: BP 103/59; PULSE 63; RESP 16; TEMP 36.3; O2SAT 94
[2024-05-26] MEDS: Ensure Plus High Protein 120 ML LIQUID PO (09:27)
[2024-05-26] MEDS: Gabapentin 100 MG Capsule PO (09:27)
[2024-05-26] MEDS: amLODIPine 10 MG Tablet PO (09:28)
[2024-05-26] MEDS: Aspirin 81 MG TAB.CHEW PO (09:28)
[2024-05-26] MEDS: Iron Polysaccharide Complex 150 MG CAPSULE PO (09:28)
[2024-05-26] MEDS: Losartan Potassium 100 MG Tablet PO (09:28)
[2024-05-26] MEDS: Menthol/Lanolin/Calamine/Znox 113 GM Tube 1 APPLIC TOPICAL (09:28)
[2024-05-26 09:29] VITALS: PULSE 63
[2024-05-26] MEDS: Senna/Docusate Sodium 1 Tablet PO (09:29)
[2024-05-26] MEDS: Memantine Hydrochloride 10 MG Tablet PO (09:29)
[2024-05-26] MEDS: Metoprolol(XL)Succ 25 MG Tablet PO (09:29)
--- NOTE | 2024-05-26 09:51 | NURSING ---
Patient sent to ED for stroke alert. Left side deficit, slurred speech noted. Call placed to spouse, message left to return call.
[2024-05-26 09:57] LABS: Bedside Glucose 116 mg/dL (74-106)
--- NOTE | 2024-05-26 09:59 | NURSING ---
Noted by staff during AM care patient was unsteady with ambulation, needing x2 assist to transfer. Change from previous day. Nursing entered patient's room to assess, obtain vitals, and administer morning medications. Patient answers questions appropriately and vitals WNL. Nursing noted speech slightly slurred, left sided weakness, and left facial droop. BGT obtained. Patient transferred to the bed. Transfer difficult, patient's balance unsteady, and patient leaning far to the left. Stoke alert called. Patient exited the unit at 0950.
--- NOTE | 2024-05-26 13:38 | DS.PCM_ITS ---
Providers Date of Admission: 05/23/24 Primary Care Physician: Dr. Geraldo Joseph MD Reason For Visit: FALL, C7 FRACTURE Diagnosis Discharge Diagnosis (1) Debility: Status: Acute Code(s): R53.81 - Other malaise (2) Fall down stairs: Status: Acute Code(s): W10.8XXA - Fall (on) (from) other stairs and steps, initial encounter (3) Closed C7 fracture: Status: Acute Code(s): S12.600A - Unspecified displaced fracture of seventh cervical vertebra, initial encounter for closed fracture (4) Essential hypertension: Status: Chronic Code(s): I10 - Essential (primary) hypertension (5) Hyperlipidemia: Status: Chronic Code(s): E78.5 - Hyperlipidemia, unspecified Qualifiers: Hyperlipidemia type: mixed hyperlipidemia Qualified Code(s): E78.2 - Mixed hyperlipidemia (6) Alzheimer disease: Status: Acute Code(s): G30.9 - Alzheimer's disease, unspecified; F02.80 - Dementia in other diseases classified elsewhere, unspecified severity, without behavioral disturbance, psychotic disturbance, mood disturbance, and anxiety (7) Insomnia: Status: Acute Code(s): G47.00 - Insomnia, unspecified (8) Iron deficiency anemia: Status: Acute Code(s): D50.9 - Iron deficiency anemia, unspecified (9) Coronary artery disease: Status: Acute Code(s): I25.10 - Atherosclerotic heart disease of [place] coronary artery without angina pectoris Plan 84 year old male with below past medical history hospitalized for fall, C7 lateral mass fracture, treated non-operatively, admitted to TCU with debility, here for rehabilitation, strengthening, prior to discharge home with . * Debility - PT/OT. * Pain - Tylenol 1000mg q6 prn pain (1-5), Oxycodone 5mg q4 prn pain (6-10). * Bowel - senna/colace 1 tablet bid, Magnesium citrate 300ml po daily prn. * Adult immunization - Administer pneumonia vaccine, covid vaccine, flu vaccine as appropriate. * DVT prophylaxis - Lovenox 30mg sc daily. * Hypertension - Metoprolol succinate 25mg daily, Losartan 100mg daily, Amlodipine 10mg daily. * Coronary Artery Disease - Metoprolol succinate 25mg daily, Losartan 50mg daily, Aspirin 81mg daily. * Hyperlipidemia - Atorvastatin 40mg qhs. * Insomnia - Doxepin 50mg qhs. * Nutrition - Ensure Plus High 120ml tidcm. * Iron deficiency anemia - Ferrex 150mg daily. * Alzheimer Disease - Rivastigmine 9mg qhs, Memantine 10mg bid. Medications at Discharge Home Medications doxepin 50 mg capsule 50 mg PO QHS sleep 03/23/20 atorvastatin 40 mg tablet 40 mg PO DAILY cholestrol 11/03/22 lactase 3,000 unit tablet (Lactaid) 3,000 unit PO ONCE supplement 11/03/22 losartan 50 mg tablet 50 mg PO DAILY BP 11/03/22 cetirizine 10 mg tablet (All Day Allergy (cetirizine)) 10 mg PO DAILY PRN allergy 09/14/23 memantine 10 mg tablet 10 mg PO BID memory 09/14/23 metoprolol succinate 25 mg tablet,extended release 24 hr (Toprol XL) 25 mg PO DAILY BP #90 tabs 09/22/23 amlodipine 10 mg tablet 10 mg PO DAILY BP 04/08/24 ferrous sulfate 325 mg (65 mg iron) tablet,delayed release 325 mg PO BID supplement 04/08/24 aspirin 81 mg chewable tablet (Aspirin Childrens) 1 tab PO DAILY Heart health 05/19/24 donepezil 10 mg tablet (Aricept) 10 mg PO DAILY memory 05/23/24 [id number] 300 mcg-K 60 mcg-lycop 600 mcg-lutein 300 mcg tablet (Centrum Silver Men) 1 tab PO DAILY supplement 05/23/24 oxycodone 5 mg capsule 5 mg PO Q6H pain 05/23/24 pyridoxine (vitamin B6) 100 mg tablet (Vitamin B-6) 100 mg PO DAILY supplement 05/23/24 rivastigmine 9.5 mg/24 hour transdermal patch 1 patch transdermal DAILY memory 05/23/24 zolpidem 10 mg tablet (Ambien) 10 mg PO QHS PRN sleep 05/23/24 zolpidem 12.5 mg tablet,extended release,multiphase (Ambien CR) 12.5 mg PO QHS sleep 05/23/24 clopidogrel 75 mg tablet 75 mg PO DAILY 05/26/24 Hospital Course Operations None Procedures None Summary of Care Provided Minutes Spent on Discharge: 15 Hospital Course: 84 year old male with below past medical history hospitalized for fall, C7 lateral mass fracture, treated non-operatively, admitted to TCU with debility, here for rehabilitation, strengthening, prior to discharge home with . 05/26/2024 Stroke Alert. Discharge to [facility] ED 05/26/2024 with stroke alert. Weight / BMI Weight Weight: 74.984 kg Body Mass Index (BMI) 22.4 ABG / Lab / Microbiology Data 05/24/24 08:08 05/24/24 08:08 Laboratory: Laboratory Results - last 24 hr 05/26/24 09:36: POC Glucose 116 H D/C Instructions Discharge Diet: No restrictions Discharge Activity: Return to Normal Activity, May Shower and Use Walker Weight Bearing Status: Weight bearing as tolerated Call your doctor if you observe: Fever of 101 or Higher, Inability to urinate, Inability to have a bowel movement, Shortness of breath, Dizziness, Fainting spells, Swelling in the ankles, Chest pain and Uncontrolled pain Additional Instructions: Discharge to [facility] ED 05/26/2024 with stroke alert. Meaningful Use Info Meaningful Use Meaningful Use Diagnoses (Choose all that apply): None applicable Ischemic Stroke Statin Dosing Therapy Reference: STATIN DOSE THERAPY REFERENCE: * Patients > 75 years receive moderate or high dose statin therapy. * Patients 75 years or YOUNGER should receive HIGH intensity statin dose unless contraindicated. You will be required to document reason for non-treatment if statin daily dose does not meet guidelines. HIGH DOSE STATIN THERAPY DAILY Atorvastatin > than or = to 40 mg Rosuvastatin > than or = to 20 mg Amlodipine + Atorvastatin > than or = to 2.5/40 mg Ezetimibe + Simvastatin 10/80 mg Simvastatin 80mg Discharge Plan Admission Admit Date/Time: 05/23/24 18:20 Primary Reason for Your Visit: Debility. Attending Provider: Geraldo Joseph Chi Primary Care Provider: Geraldo Joseph Chi Instructions Additional Instructions / Restrictions: Discharge to [facility] ED 05/26/2024 with stroke alert. Discharge Orders/Prescriptions Prescriptions: No Action doxepin 50 mg capsule 50 mg PO QHS memantine 10 mg tablet 10 mg PO BID atorvastatin 40 mg tablet 40 mg PO DAILY lactase [Lactaid] 3,000 unit tablet 3,000 unit PO ONCE Rx Instructions: administer with meals and/or snacks losartan 50 mg tablet 50 mg PO DAILY cetirizine [All Day Allergy (cetirizine)] 10 mg tablet 10 mg PO DAILY PRN (Reason: allergy) ferrous sulfate 325 mg (65 mg iron) tablet,delayed release (DR/EC) 325 mg PO BID amlodipine 10 mg tablet 10 mg PO DAILY oxycodone 5 mg capsule 5 mg PO Q6H rivastigmine 9.5 mg/24 hour patch 24 hour 1 patch transdermal DAILY zolpidem [Ambien CR] 12.5 mg tablet,ext release multiphase 12.5 mg PO QHS pyridoxine (vitamin B6) [Vitamin B-6] 100 mg tablet 100 mg PO DAILY Centrum Silver Men [id number] mcg tablet 1 tab PO DAILY zolpidem [Ambien] 10 mg tablet 10 mg PO QHS PRN (Reason: sleep) donepezil [Aricept] 10 mg tablet 10 mg PO DAILY clopidogrel 75 mg tablet 75 mg PO DAILY aspirin [Aspirin Childrens] 81 mg tablet,chewable 1 tab PO DAILY metoprolol succinate [Toprol XL] 25 mg tablet extended release 24 hr 25 mg PO DAILY Qty: 90 3RF Referrals / Follow Up: Joy Sanchez [Other] (3 month f/u) Geraldo Joseph Chi, MD [Primary Care Provider] - Disposition Disposition (needs filled in before D/C Order can be placed): Acute Care Hospital [facility]
== END 2024-05-26 13:33 | disposition short-term general hospital (02) | DRG 561 ==
PROVIDERS: Admitting Provider Family Medicine Geriatric Medicine; PCP Family Medicine Geriatric Medicine; Visit Provider Family Medicine Geriatric Medicine
DX: S12.600D Unspecified displaced fracture of seventh cervical vertebra, subsequent encounter for fracture with routine healing (principal); D63.1 Anemia in chronic kidney disease; F02.80 Dementia in other diseases classified elsewhere, unspecified severity, without behavioral disturbance, psychotic disturbance, mood disturbance, and anxiety; E78.2 Mixed hyperlipidemia; D50.9 Iron deficiency anemia, unspecified; F17.210 Nicotine dependence, cigarettes, uncomplicated; N18.31 Chronic kidney disease, stage 3a; I12.9 Hypertensive chronic kidney disease with stage 1 through stage 4 chronic kidney disease, or unspecified chronic kidney disease; I25.10 Atherosclerotic heart disease of native coronary artery without angina pectoris; G30.9 Alzheimer's disease, unspecified; G47.00 Insomnia, unspecified; Z79.82 Long term (current) use of aspirin; Z95.5 Presence of coronary angioplasty implant and graft; Z79.899 Other long term (current) drug therapy; R29.818 Other symptoms and signs involving the nervous system
CPT/HCPCS: 73060; 73070; 73090; 73100; 80048; 82962; 85025; 92507; 92523; 97110; 97116; 97162; 97166; 97530; 97535; 97802

== ENCOUNTER 2024-05-26 09:53 | Inpatient (IN) | payer MEDICARE, SELFPAY ==
[2024-05-26] VITALS (14 sets, daily range): BP systolic 110–148; BP diastolic 47–101; PULSE 58–74; RESP 16–18; TEMP 35.8–37; O2SAT 96–98; BMI 23.8; BMI 3435.5; BMI 22.9
--- NOTE | 2024-05-26 09:54 | ED.RN ---
[facility] contacted at this time for stroke alert
--- NOTE | 2024-05-26 09:57 | EKG12_ITS ---
Test Reason : STROKE ALERET Blood Pressure : / mmHG Vent. Rate : 062 BPM Atrial Rate : 062 BPM P-R Int : 184 ms QRS Dur : 074 ms QT Int : 398 ms P-R-T Axes : 040 -43 075 degrees QTc Int : 403 ms Normal sinus rhythm Left axis deviation Abnormal ECG Confirmed by Carlos Valverde ([id number]), international editorial producer ALIREZA BREAUX ([id number]) on 05/28/2024 9:27:27 AM Referred By: Confirmed By:Carlos Valverde
--- NOTE | 2024-05-26 09:57 | CT_ITS ---
We are attempting to reach an attending provider to discuss findings. An addendum with communication details will be sent when the communication is complete. HISTORY: Neuro deficit, acute, stroke suspected. TECHNIQUE: Multiple axial images were obtained of the head without intravenous contrast. A radiation dose optimization technique was used for this scan. 251 images. COMPARISON: 05/19/2024. FINDINGS: BRAIN PARENCHYMA: Multiple foci and zones of low attenuation in the bilateral cerebral white matter compatible with chronic small vessel ischemic gliosis. No acute intra-axial hemorrhage identified. CSF SPACES: Chronic mild volume loss. No midline shift or other significant mass effect. No acute extra-axial hemorrhage seen. OTHER: Intact calvarium. No significant air fluid levels in the paranasal sinuses or mastoid air cells. Bilateral lens resections. ASPECTS Score for Acute Strokes: 10 CT/STROKE Brain/Head without Cont IMPRESSION: No acute intracranial process identified. Chronic involutional and white matter changes. Electronically Signed: Adriana Martinez MD at 10:11 EDT ,
--- NOTE | 2024-05-26 09:57 | CT_ITS ---
HISTORY: Neuro deficit, acute, stroke suspected. TECHNIQUE: [place] of [place]/head and carotid CT angiogram protocol was performed after the intravenous administration of 100 mL Isovue 370. NASCET criteria using the distal ICAs for comparison were used for evaluation of stenoses. 3D reconstructions were reviewed. A radiation dose optimization technique was used for this scan. 2164 images. COMPARISON: CT head same day. FINDINGS: AORTIC ARCH AND BRANCHES: Mild calcified plaque of the aortic arch. Moderate calcified plaque with approximately 60% stenosis of the right brachiocephalic origin. RIGHT CCA: No occlusion, significant stenosis or dissection. Very mild stenosis at the bifurcation. RIGHT ICA: Tapering of the origin and then long segment of complete occlusion extending into the cavernous portion. LEFT CCA: No occlusion, significant stenosis or dissection. Mild calcified and noncalcified plaque at the bifurcation with less than 30% stenosis. LEFT ICA: Severe approximately 70% stenosis with calcified and noncalcified plaque at the origin. Otherwise patent. RIGHT VERTEBRAL ARTERY: Hypoplastic with occlusion extending from its origin to the mid vessel. Moderate stenoses noted. Mild calcified plaque distally. LEFT VERTEBRAL ARTERY: Calcified plaque with greater than 80% stenosis proximally. Mild calcified plaque mid to distally. ICAs: Occlusion of the petrous right internal carotid artery extending to the proximal cavernous portion with reconstitution of flow distally. Mild calcified plaque at the left carotid siphon without significant stenosis. ACAs: No significant stenosis at the visualized segments. Hypoplastic right A1 segment. No anterior communicating artery aneurysm. MCAs: No significant stenosis, occlusion, or vascular malformation at the visualized segments. farm operations technical director: No significant stenosis, occlusion, or vascular malformation at the visualized segments. BASILAR ARTERY: No significant stenosis, occlusion, or aneurysm. VERTEBRAL ARTERIES: Dominant and patent intracranial left vertebral artery with mild calcified plaque. Hypoplastic and patent intracranial right vertebral artery. 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 Severe stenosis in the proximal cervical left internal carotid artery. Occlusion of the proximal to mid right vertebral artery in the neck with reconstitution of flow distally. Severe stenosis in the proximal left vertebral artery in the neck. Moderate stenosis of the origin of the right brachiocephalic artery. N.B. : The above Results were Read Back by Adriana Martinez MD to Brennan Epsp, , DO, and understanding confirmed on 05/26/2024 10:37:25 (ET). Electronically Signed: Adriana Martinez MD at 10:38 EDT ,
--- NOTE | 2024-05-26 10:25 | RAD_ITS ---
HISTORY: Neuro deficit, acute, stroke suspected. TECHNIQUE: XR Chest 1 View. COMPARISON: 05/19/2024. FINDINGS: CARDIOMEDIASTINAL BORDERS: Cardiac silhouette within normal limits in size. Mediastinal contour also unchanged with calcification of the aortic knob and midline sternotomy. Surgical clips in the left neck LUNGS: Radiographically clear. PLEURA: No pleural effusion or pneumothorax seen. OSSEOUS STRUCTURES: Degenerative change. RAD/Chest 1 View IMPRESSION: No acute cardiopulmonary process identified. Electronically Signed: Adriana Martinez MD at 11:04 EDT ,
[2024-05-26 10:33] LABS: Absolute Lymphocyte Count 1.13 X10^3/uL (0.83-4.51); Absolute Neutrophil Count 8.8 X10^3/uL (2.0-7.7); Basophil# 0.05 X10^3/uL; Basophil% 0.5 % (0-1); Eosinophil# 0.17 X10^3/uL; Eosinophils% 1.6 % (0-5); Hemoglobin 8.9 g/dL (13.0-16.5); Lymphocyte # 1.13 X10^3/ul (0.83-4.51); Lymphocyte % 10.3 % (19-41); Mean Corpuscular Hgb 32.1 pg (27.0-32.0); Mean Corpuscular Volume 97.5 fL (80-94); Mean Platelet Vol. 9.3 fl (6.2-12.0); Monocyte# 0.72 X10^3/uL; Monocyte% 6.6 % (0-10); NRBC Flagged by Analyzer 0 % (0-5); Neutrophil # 8.78 X10^3/uL (2.7-7.7); Neutrophil % 80.4 % (47-70); Platelet Count 277 K/mm3 (150-450); RBC Distribution Width CV 12.9 % (11.6-14.6); RBC Distribution Width SD 45.8 fl (35.1-43.9); Red Blood Count 2.77 M/mm3 (4.6-6.2); White Blood Count 10.9 K/mm3 (4.4-11.0)
[2024-05-26 10:38] LABS: International Normalized Ratio 1.1; Partial Thromboplast Time 35.6 Seconds (24.1-36.2); Prothrombin Time (Protime)PT. 14.1 SECONDS (11.7-14.9)
[2024-05-26 10:45] LABS: Anion Gap 5 (5-15); BUN 54 mg/dL (7-18); Calcium,Total 9.1 mg/dL (8.5-10.1); Chloride 109 mmol/L (98-107); Creatinine, Serum 2.57 mg/dL (0.70-1.30); EST Glomerular Filtration Rate 26 mL/min (>60); Est Glom Filt Rate - Afr Amer 31 mL/min (>60); Estimated Creatinine Clearance 19.41 ml/min; Glucose 105 mg/dL (74-106); Potassium 4.2 mmol/L (3.5-5.1); Sodium Level 138 mmol/L (136-145); Troponin-I HS 25 pg/mL (3.0-78.0)
--- NOTE | 2024-05-26 11:30 | CM.ED ---
Social Work: Date of referral: 05/26/2024 Reason for referral: Stroke Alert Referred by: Social Work identification Patient provided consent for social work visit. fibreglass lay up worker checked in with patient to see how he was doing/feeling. Patient was alone in his room. Patient was sitting upright and was experiencing some confusion with his cell phone patient was attempting to make an outbound call to his . Patient identified his daughter Ceci Novoa as someone manager social work could call for him and manager social work also offered to call patient's which patient was agreeable to. (Jojo Cortes, ) Patient also reported he has a son Berry who lives in [place]. ([phone]) that manager social work can call if needed. Patient reported his has been out of town however believed she returned home on 05/25. Patient appeared to be doing good in spirit and manager social work left to make calls for patient. Adamaris Juárez, REGULATORY PRODUCT MANAGER, BRUSH STAINER
--- NOTE | 2024-05-26 11:35 | CM.ED ---
Social Work: sawmill production worker attempted to make phone contact with patient's however the number never rang. sawmill production worker then called patient's daughter Ceci Novoa ([phone]). No answer. sawmill production worker left a message with her name and number and requested a return call. Adamaris Juárez, DELIVER DRIVER, METAL CEILING BUILDER
--- NOTE | 2024-05-26 12:40 | EDS_ITS ---
HPI History of Present Illness Chief Complaint: Stroke Alert Narrative Narrative: Patient is a 84-year-old male past medical history of CKD, hypertension, Alzheimer's disease, carotid artery disease who presented to the emergency department with a chief complaint of being a stroke alert from TCU. According to staff upstairs last known well was unknown and he had left-sided facial droop left arm drift and favoring his left side. They also noted that his speech was off. They then called a stroke alert and brought him down to the emergency department further evaluation management. Patient has no complaints at this point time. [facility] Medical History Anemia in chronic kidney disease (CKD) Racing heart beat Hyperlipidemia Stage 3a chronic kidney disease (CKD) Essential hypertension Atherosclerosis of coronary artery of [place] heart without angina pectoris Iron deficiency Insomnia Vitamin D deficiency Alzheimer disease Anemia Wears glasses Wears dentures Forgetfulness Alcohol use Arthritis Injury of back Asthma Smoker Left carpal tunnel syndrome Renal artery stenosis Peripheral arterial occlusive disease Carotid artery disease Home Medications ?Medication ?Instructions ?Recorded ?Last Taken ?Type doxepin 50 mg capsule 50 mg PO QHS sleep 03/23/20 05/22/24 History atorvastatin 40 mg tablet 40 mg PO DAILY cholestrol 11/03/22 05/23/24 History lactase 3,000 unit tablet (Lactaid) 3,000 unit PO ONCE supplement 11/03/22 10/05/23 History losartan 50 mg tablet 50 mg PO DAILY BP 11/03/22 10/04/23 History cetirizine 10 mg tablet (All Day 10 mg PO DAILY PRN allergy 09/14/23 10/04/23 History Allergy (cetirizine)) memantine 10 mg tablet 10 mg PO BID memory 09/14/23 05/23/24 History metoprolol succinate 25 mg 25 mg PO DAILY BP #90 tabs 09/22/23 05/23/24 Rx tablet,extended release 24 hr (Toprol XL) amlodipine 10 mg tablet 10 mg PO DAILY BP 04/08/24 05/23/24 History ferrous sulfate 325 mg (65 mg 325 mg PO BID supplement 04/08/24 Unknown History iron) tablet,delayed release aspirin 81 mg chewable tablet 1 tab PO DAILY Heart health 05/19/24 Unknown History (Aspirin Childrens) donepezil 10 mg tablet (Aricept) 10 mg PO DAILY memory 05/23/24 Unknown History [id number]-ms-[id number] 300 mcg-K 60 1 tab PO DAILY supplement 05/23/24 Unknown History mcg-lycop 600 mcg-lutein 300 mcg tablet (Centrum Silver Men) oxycodone 5 mg capsule 5 mg PO Q6H pain 05/23/24 05/23/24 History pyridoxine (vitamin B6) 100 mg 100 mg PO DAILY supplement 05/23/24 Unknown History tablet (Vitamin B-6) rivastigmine 9.5 mg/24 hour 1 patch transdermal DAILY memory 05/23/24 Unknown History transdermal patch zolpidem 10 mg tablet (Ambien) 10 mg PO QHS PRN sleep 05/23/24 Unknown History zolpidem 12.5 mg tablet,extended 12.5 mg PO QHS sleep 05/23/24 Unknown History release,multiphase (Ambien CR) clopidogrel 75 mg tablet 75 mg PO DAILY 05/26/24 Unknown History Allergy/AdvReac Type Severity Reaction Status Date / Time No Known Allergies Allergy Verified 05/26/24 10:02 Family History Mother Diabetes Heart disease Hypertension Myocardial infarction Father Diabetes Kidney disease Myocardial infarction Heart failure Sister Diabetes Cancer Lung Heart disease Scleroderma Surgical History History of coronary artery stent placement (~1995) History of coronary artery bypass surgery (12/16/13) History of lumbar laminectomy History of cardiac catheterization History of carpal tunnel surgery of right wrist H/O cataract extraction History of back surgery History of knee replacement, total H/O carotid endarterectomy Social History household members: spouse Smoking Status: Current every day smoker tobacco type: cigarettes Tobacco: How many years used: 50 alcohol intake: current alcohol intake frequency: holidays/special occasions only substance use type: does not use caffeine: Yes Type: coffee Number of servings: 4 what type of physical activity do you participate in: none frequency: does not exercise ROS ROS ED ROS Narrative Constitutional: Denies headaches, fevers, chills, lightness, dizziness Eyes: Denies change in vision double vision blurry vision Cardiovascular: Denies chest pain or palpitations Respiratory: Denies coughing wheezing shortness of breath Abdomen: Denies any abdominal pain nausea vomit diarrhea : Denies any urinary symptoms Neurological: States that he feels completely fine at this point time has no complaints Musculoskeletal: Denies back pain Skin: Denies rashes or lesions EXAM Physical Exam Narrative Exam Narrative: General: Patient lying in bed rest comfortably did not appear to be in acute di stress Head: Atraumatic, normocephalic Eyes: PERRL bilateral, EOMI bilateral, no conjunctival injection noted Neck: Soft, supple, trach midline Cardiovascular: Regular rate and rhythm no murmurs gallops rubs noted Respiratory: Clear to auscultation bilaterally no rales rhonchi or wheeze noted Abdomen: Soft, nondistended, nontender to palpation Extremities: +5/5 strength noted in the bilateral upper and lower extremities, no pedal edema on exam, radial pulses +2/4 in the bilateral per extremities Neurological: Patient following commands knew that he was at [facility] there is 2023. NIH of 0 GCS 15 all his symptoms have resolved at time of my exam Skin: Warm, dry, tact Const Vital Signs: 05/26/24 09:59 05/26/24 10:21 05/26/24 10:23 Temperature 96.4 F L 98.6 F Temperature Source Temporal Oral Pulse Rate 71 Respiratory Rate 16 Blood Pressure 139/50 H Blood Pressure Mean 79 Pulse Ox 97 96 Oxygen Delivery Method Room Air Room Air 05/26/24 10:27 05/26/24 10:30 05/26/24 11:00 Temperature 98.6 F Temperature Source Oral Pulse Rate 60 67 58 L Respiratory Rate 16 16 16 Blood Pressure 112/47 L 110/48 L 123/49 H Blood Pressure Mean 68 68 73 Pulse Ox 97 98 97 Oxygen Delivery Method Room Air Room Air Room Air 05/26/24 12:00 05/26/24 12:31 Temperature 98.5 F Temperature Source Pulse Rate 71 74 Respiratory Rate 16 16 Blood Pressure 119/55 L 134/70 H Blood Pressure Mean 76 91 Pulse Ox 97 98 Oxygen Delivery Method Room Air MDM MDM MDM Narrative Medical decision making narrative: Patient is a 84-year-old male who presented to the Emergency Department as a stroke alert from TCU. Patient will have workup performed here on the differential diagnose includes but not limited to ischemic stroke, hemorrhagic stroke, TIA, ACS. Once workup is obtained reviewed he will be reevaluated. Patient is not a tenecteplase candidate as his symptoms have resolved and his la st known well was unknown. Patient's CBC reviewed showed no evidence of leukocytosis white blood count normal at 10.9, hemoglobin stable at 8.9, platelet count normal at 227. Patient INR normal at 1.1, sodium normal at 138, potassium 4.2, creatinine was noted to be 2.57 he does have chronic kidney disease. Patient's troponin normal at 25, EKG reviewed showed sinus rhythm with a rate of [address] without contrast was reviewed showed no acute intracranial processes with chronic involutional white matter changes. Patient CTA head and neck reviewed and showed a long occluded segment of the cervical and intracranial right internal carotid artery with reconstitution of the flow in the distal intracranial portion. Severe stenosis in the proximal cervical left internal carotid artery occlusion of the proximal to mid right vertebral artery in the neck with reconstitution flow distally. Severe stenosis in the proximal left vertebral artery of the neck. Moderate stenosis of the origin of the right brachiocephalic artery. Patient's chest x-ray reviewed and showed no acute cardiopulmonary processes identified. Patient's case discussed with teleneurologist at [facility] Dr. Will who states that there is no acute intervention and once again is not a tenecteplase candidate. Did discuss case with Dr. Lazo and vascular surgeon who states that the patient can be admitted here to the hospital for further workup. Did discuss case with hospitalist Dr. Snyder who accept patient for admission. Patient notified with all question concerns answered bedside. Critical care time 37 minutes Lab Data Labs: Laboratory Results - last 24 hr 05/26/24 10:13 WBC 10.9 RBC 2.77 L Hgb 8.9 L Hct 27.0 L MCV 97.5 H MCH 32.1 H MCHC 33.0 RDW Std Deviation 45.8 H RDW Coeff of Gabriel 12.9 Plt Count 277 MPV 9.3 Immature Gran % (Auto) 0.600 Neut % (Auto) 80.4 H Lymph % (Auto) 10.3 L [place] % (Auto) 6.6 Eos % (Auto) 1.6 Baso % (Auto) 0.5 Absolute Neuts (auto) 8.8 H Absolute Lymphs (auto) 1.13 Nucleated RBC % 0 PT 14.1 INR 1.1 APTT 35.6 Sodium 138 Potassium 4.2 Chloride 109 H Carbon Dioxide 24.0 Anion Gap 5 BUN 54 H Creatinine 2.57 H Estim Creat Clear Calc 19.41 Est GFR (MDRD) Af Amer 31 L Est GFR (MDRD) Non-Af 26 L BUN/Creatinine Ratio 21.0 H Glucose 105 Calcium 9.1 Troponin I High Sens 25 Radiography Diagnostic Testing: Clinical Impression(s) from Imaging Studies Brain CT 05/26/24 09:57 IMPRESSION: No acute intracranial process identified. Chronic involutional and white matter changes. Electronically Signed: Adriana Martinez MD at 10:11 EDT Reading Location ID and State: [facility] / [place] Tel , Service support , ADDENDUM: 05/26/24 1020 IMPRESSION: No acute intracranial process identified. Chronic involutional and white matter changes. N.B. : The above Results were Read Back by Adriana Martinez MD to Brennan Epps DO, and understanding confirmed on 05/26/2024 10:13:33 (ET). 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 Severe stenosis in the proximal cervical left internal carotid artery. Occlusion of the proximal to mid right vertebral artery in the neck with reconstitution of flow distally. Severe stenosis in the proximal left vertebral artery in the neck. Moderate stenosis of the origin of the right brachiocephalic artery. N.B. : The above Results were Read Back by Adriana Martinez MD to Brennan Epps DO, and understanding confirmed on 05/26/2024 10:37:25 (ET). Electronically Signed: Adriana Martinez MD at 10:38 EDT , ADDENDUM: 05/26/24 1045 IMPRESSION: Long occluded segment of the cervical and intracranial right internal carotid artery with reconstitution of flow in the distal intracranial portion. Severe stenosis in the proximal cervical left internal carotid artery. Occlusion of the proximal to mid right vertebral artery in the neck with reconstitution of flow distally. Severe stenosis in the proximal left vertebral artery in the neck. Moderate stenosis of the origin of the right brachiocephalic artery. N.B. : The above Results were Read Back by Adriana Martinez MD to Brennan Epps, DO, and understanding confirmed on 05/26/2024 10:37:25 (ET). Electronically Signed: Adriana Martinez MD at 10:38 EDT , Chest X-Ray 05/26/24 10:25 IMPRESSION: No acute cardiopulmonary process identified. Electronically Signed: Adriana Martinez MD at 11:04 EDT , Discharge Plan Triage Chief Complaint: Stroke Alert ED Provider: Brennan Epps Dx/Rx/DC Orders Clinical Impression: Brain TIA, Carotid artery disease Prescriptions: No Action doxepin 50 mg capsule 50 mg PO QHS memantine 10 mg tablet 10 mg PO BID atorvastatin 40 mg tablet 40 mg PO DAILY lactase [Lactaid] 3,000 unit tablet 3,000 unit PO ONCE Rx Instructions: administer with meals and/or snacks losartan 50 mg tablet 50 mg PO DAILY cetirizine [All Day Allergy (cetirizine)] 10 mg tablet 10 mg PO DAILY PRN (Reason: allergy) ferrous sulfate 325 mg (65 mg iron) tablet,delayed release (DR/EC) 325 mg PO BID amlodipine 10 mg tablet 10 mg PO DAILY oxycodone 5 mg capsule 5 mg PO Q6H rivastigmine 9.5 mg/24 hour patch 24 hour 1 patch transdermal DAILY zolpidem [Ambien CR] 12.5 mg tablet,ext release multiphase 12.5 mg PO QHS pyridoxine (vitamin B6) [Vitamin B-6] 100 mg tablet 100 mg PO DAILY Centrum Silver Men [id number] mcg tablet 1 tab PO DAILY zolpidem [Ambien] 10 mg tablet 10 mg PO QHS PRN (Reason: sleep) donepezil [Aricept] 10 mg tablet 10 mg PO DAILY clopidogrel 75 mg tablet 75 mg PO DAILY aspirin [Aspirin Childrens] 81 mg tablet,chewable 1 tab PO DAILY metoprolol succinate [Toprol XL] 25 mg tablet extended release 24 hr 25 mg PO DAILY Qty: 90 3RF Primary Care Provider: Geraldo Joseph Chi Referrals: Geraldo Joseph Chi, MD [Primary Care Provider] - Print Language: Iranian
--- NOTE | 2024-05-26 15:36 | PCM.HP.STD ---
HPI - General General Date of Admission: 05/26/24 HPI Narrative АННА GONCALVES, is a 84 M who presents to the hospital from the transitional care unit with concerns of a stroke. Staff noticed that he had left-sided weakness and the left facial droop. He is currently in rehab secondary to mechanical fall leading to a C7 fracture. He cannot recall the events surrounding his stroke he cannot tell me whether or not he was lightheaded or dizzy prior to the event. And the only documentation I can find from the transitional care unit is the discharge summary that states that he was a stroke alert. He currently appears that his symptoms are completely resolved. CTA of the head and neck demonstrates an occluded segment of the cervical and intracranial right internal carotid artery with reconstitution in the distal intracranial portion as well as severe stenosis in the proximal cervical left internal carotid artery and occlusion of the proximal to mid right vertebral artery in the neck with reconstitution of flow distally severe stenosis in the proximal left vertebral artery in the neck and moderate stenosis of the origin of the right brachiocephalic artery, these findings were discussed with vascular surgery who felt that he was stable to stay at this institution for possible intervention. [facility] Medical History Anemia in chronic kidney disease (CKD) Racing heart beat Hyperlipidemia Stage 3a chronic kidney disease (CKD) Essential hypertension Atherosclerosis of coronary artery of [place] heart without angina pectoris Iron deficiency Insomnia Vitamin D deficiency Alzheimer disease Anemia Wears glasses Wears dentures Forgetfulness Alcohol use Arthritis Injury of back Asthma Smoker Left carpal tunnel syndrome Renal artery stenosis Peripheral arterial occlusive disease Carotid artery disease Home Medications ?Medication ?Instructions ?Recorded ?Last Taken ?Type doxepin 50 mg capsule 50 mg PO QHS sleep 03/23/20 05/22/24 History atorvastatin 40 mg tablet 40 mg PO DAILY cholestrol 11/03/22 05/25/24 History losartan 50 mg tablet 100 mg PO DAILY BP 11/03/22 05/26/24 History memantine 10 mg tablet 10 mg PO BID memory 09/14/23 05/26/24 History metoprolol succinate 25 mg 25 mg PO DAILY BP #90 tabs 09/22/23 05/23/24 Rx tablet,extended release 24 hr (Toprol XL) amlodipine 10 mg tablet 10 mg PO DAILY BP 04/08/24 05/23/24 History aspirin 81 mg chewable tablet 1 tab PO DAILY Heart health 05/19/24 05/26/24 History (Aspirin Childrens) oxycodone 5 mg capsule 10 mg PO Q4H PRN pain (scale score 05/23/24 05/23/24 History 4-5) rivastigmine 9.5 mg/24 hour 1 patch transdermal DAILY memory 05/23/24 Unknown History transdermal patch acetaminophen 500 mg tablet 1,000 mg PO Q8 pain 05/26/24 Unknown History clopidogrel 75 mg tablet 75 mg PO DAILY 05/26/24 Unknown History enoxaparin 30 mg/0.3 mL 30 mg subcut DAILY 05/26/24 Unknown History subcutaneous syringe (Lovenox) gabapentin 100 mg capsule 100 mg PO TID 05/26/24 05/26/24 History menthol 0.44 %-zinc oxide 20.6 % 1 applic topical BID 05/26/24 05/26/24 History topical ointment (Calmoseptine) polysaccharide iron complex 150 mg 150 mg PO DAILY 05/26/24 05/26/24 History iron capsule sennosides 8.6 mg-docusate sodium 1 tab-cap PO BID 05/26/24 Unknown History 50 mg tablet (Senna-S) tramadol 50 mg tablet 50 mg PO Q6H PRN pain (scale score 05/26/24 Unknown History 1-3) Allergy/AdvReac Type Severity Reaction Status Date / Time No Known Allergies Allergy Verified 05/26/24 10:02 Family History Mother Diabetes Heart disease Hypertension Myocardial infarction Father Diabetes Kidney disease Myocardial infarction Heart failure Sister Diabetes Cancer Lung Heart disease Scleroderma Surgical History History of coronary artery stent placement (~1995) History of coronary artery bypass surgery (12/16/13) History of lumbar laminectomy History of cardiac catheterization History of carpal tunnel surgery of right wrist H/O cataract extraction History of back surgery History of knee replacement, total H/O carotid endarterectomy Social History household members: spouse Smoking Status: Current every day smoker tobacco type: cigarettes Tobacco: How many years used: 50 alcohol intake: current alcohol intake frequency: holidays/special occasions only substance use type: does not use caffeine: Yes Type: coffee Number of servings: 4 what type of physical activity do you participate in: none frequency: does not exercise ROS Constitutional Constitutional: Denies chills, fatigue, fever(s) or malaise Eyes Eyes: Denies blurry vision ENT HEENT: Denies headache(s) or nasal discharge Cardiovascular Cardiovascular: Denies chest pain, dyspnea on exertion or syncope Respiratory/Chest Respiratory/Chest: Denies cough, shortness of breath at rest or shortness of breath with exertion Gastrointestinal Gastrointestinal: Denies constipation, diarrhea, nausea or vomiting Genitourinary Genitourinary: Denies dysuria Neurologic Neurologic: Denies focal weakness, numbness or tremor(s) Psychiatric Psychiatric: Denies anxiety or depression Vital Signs Vital Signs Vital Signs: 05/26/24 09:59 05/26/24 10:21 05/26/24 10:23 Temperature 96.4 F L 98.6 F Temperature Source Temporal Oral Pulse Rate 71 Respiratory Rate 16 Blood Pressure 139/50 H Blood Pressure Mean 79 Blood Pressure Source Blood Pressure Position Blood Pressure Location Pulse Ox 97 96 Oxygen Delivery Method Room Air Room Air 05/26/24 10:27 05/26/24 10:30 05/26/24 11:00 Temperature 98.6 F Temperature Source Oral Pulse Rate 60 67 58 L Respiratory Rate 16 16 16 Blood Pressure 112/47 L 110/48 L 123/49 H Blood Pressure Mean 68 68 73 Blood Pressure Source Blood Pressure Position Blood Pressure Location Pulse Ox 97 98 97 Oxygen Delivery Method Room Air Room Air Room Air 05/26/24 12:00 05/26/24 12:31 05/26/24 13:00 Temperature 98.5 F Temperature Source Pulse Rate 71 74 67 Respiratory Rate 16 16 16 Blood Pressure 119/55 L 134/70 H 123/86 H Blood Pressure Mean 76 91 98 Blood Pressure Source Blood Pressure Position Blood Pressure Location Pulse Ox 97 98 97 Oxygen Delivery Method Room Air Room Air 05/26/24 14:00 05/26/24 15:20 Temperature 97.8 F Temperature Source Temporal Pulse Rate 65 71 Respiratory Rate 18 Blood Pressure 130/57 H 142/89 H Blood Pressure Mean 81 106 Blood Pressure Source Monitor Blood Pressure Position Semi-Fowlers Blood Pressure Location Left Arm Pulse Ox 98 Oxygen Delivery Method Room Air Weight Weight: 169 lb 1.513 oz Body Mass Index (BMI) 22.9 Physical Exam Narrative General: Alert, Oriented x3, Cooperative, No apparent distress HEENT: Atraumatic, PERRLA, EOMI, Normocephalic Oral: Moist Mucosa Neck: Supple, No JVD, c-collar in place Lungs: Diminished, Normal air movement, No rhonchi, No wheeze, No rales Cardiovascular: Regular rate, Regular Rhythm, Normal S1, Normal S2, No murmurs Abdomen: Soft, Non Tender, Non-Distended, No Hepato-splenomegaly Extremities: No edema, Capillary Refill Less than 3 Seconds Skin: Multiple areas of contusions and lacerations in various stages of healing from his mechanical fall Musculoskeletal: No Tenderness to Palpation of Joints or Extremities Neurological: No focal neurological deficits, Motor Exam 5/5 strength throughout, Sensory exam intact to light touch and pain, NIH of 0 Psych/Mental Status: Normal Affect, Appropriate Results Lab / Micro Data 05/26/24 10:13 05/26/24 10:13 Labs: Laboratory Results - last 24 hr 05/26/24 10:13: WBC 10.9, RBC 2.77 L, Hgb 8.9 L, Hct 27.0 L, MCV 97.5 H, MCH 32.1 H, MCHC 33.0, RDW Std Deviation 45.8 H, RDW Coeff of Gabriel 12.9, Plt Count 277, MPV 9.3, Immature Gran % (Auto) 0.600, Neut % (Auto) 80.4 H, Lymph % (Auto) 10.3 L, [place] % (Auto) 6.6, Eos % (Auto) 1.6, Baso % (Auto) 0.5, Absolute Neuts (auto) 8.8 H, Absolute Lymphs (auto) 1.13, Nucleated RBC % 0, PT 14.1, INR 1.1, APTT 35.6, Sodium 138, Potassium 4.2, Chloride 109 H, Carbon Dioxide 24.0, Anion Gap 5, BUN 54 H, Creatinine 2.57 H, Estim Creat Clear Calc 19.41, Est GFR (MDRD) Af Amer 31 L, Est GFR (MDRD) Non-Af 26 L, BUN/Creatinine Ratio 21.0 H, Glucose 105, Calcium 9.1, Troponin I High Sens 25 Imaging Radiology Impression Brain CT 05/26/24 09:57 IMPRESSION: No acute intracranial process identified. Chronic involutional and white matter changes. Electronically Signed: Adriana Martinez MD at 10:11 EDT , ADDENDUM: 05/26/24 1020 IMPRESSION: No acute intracranial process identified. Chronic involutional and white matter changes. N.B. : The above Results were Read Back by Adriana Martniez MD to Brennan Epps , , and understanding confirmed on 05/26/2024 10:13:33 (ET). 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 Severe stenosis in the proximal cervical left internal carotid artery. Occlusion of the proximal to mid right vertebral artery in the neck with reconstitution of flow distally. Severe stenosis in the proximal left vertebral artery in the neck. Moderate stenosis of the origin of the right brachiocephalic artery. N.B. : The above Results were Read Back by Adriana Martinez MD to Brennan Epps, , DO, and understanding confirmed on 05/26/2024 10:37:25 (ET). Electronically Signed: Adriana Martinez MD at 10:38 EDT , ADDENDUM: 05/26/24 1045 IMPRESSION: Long occluded segment of the cervical and intracranial right internal carotid artery with reconstitution of flow in the distal intracranial portion. Severe stenosis in the proximal cervical left internal carotid artery. Occlusion of the proximal to mid right vertebral artery in the neck with reconstitution of flow distally. Severe stenosis in the proximal left vertebral artery in the neck. Moderate stenosis of the origin of the right brachiocephalic artery. N.B. : The above Results were Read Back by Adriana Martinez MD to Brennan Epps, , DO, and understanding confirmed on 05/26/2024 10:37:25 (ET). Electronically Signed: Adriana Martinez MD at 10:38 EDT , Chest X-Ray 05/26/24 10:25 IMPRESSION: No acute cardiopulmonary process identified. Electronically Signed: Adriana Martinez MD at 11:04 EDT , Assessment & Plan Assessment/Plan (1) Brain TIA: PLAN: Plan 1. TIA/essential HTN/HLD/significant carotid artery disease/CAD status post CABG ? Will consult vascular surgery for evaluation ? Continue with stroke protocol ? Will obtain MRI in the morning if the MRI is positive we will proceed with further workup with an echo ? Continue with statin as well as aspirin and Plavix ? Will allow permissive hypertension especially given the severity of his occlusions ? He is a vasculopath he also has renal artery stenosis and PAD 2. 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 Renal function does appear to be at baseline but he is borderline in severity ? Iron studies in the beginning of April were unremarkable ? Will continue to monitor 3. Alzheimer's dementia ? Continue with his home medications ? Stable DVT: SCDs 75 minutes was spent on direct patient care, including documentation as well as chart review and collaboration with colleagues Charges/Coding Visit Charges Inpatient E&M: 19512 Init Hosp L3
[2024-05-26] MEDS: Atorvastatin Calcium 40 MG Tablet PO (20:54)
[2024-05-26] MEDS: Memantine Hydrochloride 10 MG Tablet PO (20:54)
[2024-05-27] VITALS (7 sets, daily range): BP systolic 110–160; BP diastolic 50–65; PULSE 61–86; RESP 16–18; TEMP 36.4–37.3; O2SAT 96–100
[2024-05-27] MEDS: Acetaminophen 325 MG Tablet 650 MG PO ×4 (00:32→22:23)
[2024-05-27 07:16] LABS: Absolute Lymphocyte Count 1.04 X10^3/uL (0.83-4.51); Absolute Neutrophil Count 6.1 X10^3/uL (2.0-7.7); Basophil# 0.02 X10^3/uL; Basophil% 0.3 % (0-1); Eosinophil# 0.18 X10^3/uL; Eosinophils% 2.3 % (0-5); Hematocrit 23.8 % (40-54); Hemoglobin 7.8 g/dL (13.0-16.5); Lymphocyte # 1.04 X10^3/ul (0.83-4.51); Lymphocyte % 13.2 % (19-41); Mean Corp Hgb Conc 32.8 g/dL (32-36); Mean Corpuscular Hgb 32.1 pg (27.0-32.0); Mean Corpuscular Volume 97.9 fL (80-94); Mean Platelet Vol. 9.8 fl (6.2-12.0); Monocyte# 0.49 X10^3/uL; Monocyte% 6.2 % (0-10); NRBC Flagged by Analyzer 0 % (0-5); Neutrophil # 6.11 X10^3/uL (2.7-7.7); Neutrophil % 77.6 % (47-70); Platelet Count 238 K/mm3 (150-450); RBC Distribution Width CV 12.5 % (11.6-14.6); RBC Distribution Width SD 45.3 fl (35.1-43.9); Red Blood Count 2.43 M/mm3 (4.6-6.2); White Blood Count 7.9 K/mm3 (4.4-11.0)
[2024-05-27 07:59] LABS: Anion Gap 8 (5-15); BUN 59 mg/dL (7-18); BUN/Creat Ratio 25.4 RATIO (10-20); Chloride 109 mmol/L (98-107); Cholesterol 91 mg/dL (200); Creatinine, Serum 2.32 mg/dL (0.70-1.30); EST Glomerular Filtration Rate 29 mL/min (>60); Est Glom Filt Rate - Afr Amer 35 mL/min (>60); Estimated Creatinine Clearance 26.63 ml/min; Glucose 89 mg/dL (74-106); High Density Lipoprotein 36 mg/dL; Potassium 4.2 mmol/L (3.5-5.1); Sodium Level 137 mmol/L (136-145); Triglycerides 163 mg/dL; Very Low Density Lipoprotein 33 mg/dL (5-40)
[2024-05-27] MEDS: Clopidogrel Bisulfate 75 MG Tablet PO (08:56)
[2024-05-27] MEDS: Iron Polysaccharide Complex 150 MG CAPSULE PO (08:56)
[2024-05-27] MEDS: Aspirin 81 MG TAB.CHEW PO (08:56)
[2024-05-27] MEDS: Memantine Hydrochloride 10 MG Tablet PO ×2 (08:56→22:07)
[2024-05-27] MEDS: Rivastigmine 9.5mg Patch 1 PATCH TD (09:03)
--- NOTE | 2024-05-27 11:06 | PCM.PN.HOSP ---
Subjective Subjective No issues overnight, NIH of 1 and that is because of his Alzheimer's dementia Objective Data Objective Data Vital Signs: Vital Signs Temp Pulse Resp BP Pulse Ox O2 Del Method 98.4 F 63 18 126/61 H 96 Room Air 05/27/24 06:20 05/27/24 06:20 05/27/24 06:20 05/27/24 06:20 05/27/24 10:36 05/27/24 10:36 Oxygen Delivery Method Room Air Weight: 169 lb 1.513 oz Body Mass Index (BMI) 22.9 Intake & Output: Intake and Output for Last 24 Hours 05/26/24 05/27/24 05/28/24 03:59 03:59 03:59 Intake Total 240 / 240 Output Total 700 / 700 0 / 0 Balance -460 / -460 0 / 0 Lab / Micro Data 05/27/24 06:06 05/27/24 06:06 Labs: Laboratory Results - last 24 hr 05/27/24 06:06: WBC 7.9, RBC 2.43 L, Hgb 7.8 L, Hct 23.8 L, MCV 97.9 H, MCH 32.1 H, MCHC 32.8, RDW Std Deviation 45.3 H, RDW Coeff of Gabriel 12.5, Plt Count 238, MPV 9.8, Immature Gran % (Auto) 0.400, Neut % (Auto) 77.6 H, Lymph % (Auto) 13.2 L, [place] % (Auto) 6.2, Eos % (Auto) 2.3, Baso % (Auto) 0.3, Absolute Neuts (auto) 6.1, Absolute Lymphs (auto) 1.04, Nucleated RBC % 0, Sodium 137, Potassium 4.2, Chloride 109 H, Carbon Dioxide 20.0 L, Anion Gap 8, BUN 59 H, Creatinine 2.32 H, Estim Creat Clear Calc 26.63, Est GFR (MDRD) Af Amer 35 L, Est GFR (MDRD) Non-Af 29 L, BUN/Creatinine Ratio 25.4 H, Glucose 89, Calcium 9.0, Triglycerides 163, Cholesterol 91, LDL Cholesterol 22, VLDL Cholesterol 33, HDL Cholesterol 36 L Physical Exam Narrative General: Alert, Oriented x2, Cooperative, No apparent distress HEENT: Atraumatic, PERRLA, EOMI, Normocephalic Oral: Moist Mucosa Neck: Supple, No JVD, c-collar in place Lungs: Diminished, Normal air movement, No rhonchi, No wheeze, No rales Cardiovascular: Regular rate, Regular Rhythm, Normal S1, Normal S2, No murmurs Abdomen: Soft, Non Tender, Non-Distended, No Hepato-splenomegaly Extremities: No edema, Capillary Refill Less than 3 Seconds Skin: Multiple areas of contusions and lacerations in various stages of healing from his mechanical fall Musculoskeletal: No Tenderness to Palpation of Joints or Extremities Neurological: No focal neurological deficits, Motor Exam 5/5 strength throughout, Sensory exam intact to light touch and pain, NIH of 0 Psych/Mental Status: Normal Affect, Appropriate Assessment & Plan Assessment/Plan (1) Brain TIA: PLAN: Plan 1. TIA/essential HTN/HLD/significant carotid artery disease/CAD status post CABG ? Will consult vascular surgery for evaluation ? Continue with stroke protocol ? MRI pending ? Continue with statin as well as aspirin and Plavix ? Will allow permissive hypertension especially given the severity of his occlusions ? He is a vasculopath he also has renal artery stenosis and PAD 2. 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 Renal function does appear to be at baseline but he is borderline in severity ? Iron studies in the beginning of April were unremarkable ? Will continue to monitor ? Hemoglobin continues to drop will obtain a fecal occult if negative may need repeat iron studies 3. Alzheimer's dementia ? Continue with his home medications ? Stable DVT: SCDs Charges/Coding Visit Charges Inpatient E&M: 59677 Subs Hosp L2
--- NOTE | 2024-05-27 11:36 | CASEMGMT ---
Social Work [facility] JORJE met with pt and . Pt's confirms plan is for pt to return to TCU when medically ready. SW spoke with Claribel in TCU and they can accept pt back. Precert will be needed for pt return. SW requested precert be started. Plan: TCU, pending precert DELGADO Cooney
--- NOTE | 2024-05-27 13:00 | MRI_ITS ---
STUDY: MRI BRAIN WITHOUT CONTRAST REASON FOR EXAM: Male, 84 years old. tia Patient could not hold still, motion due to RT shoulder pain, fall, confusion, fx''d C7 TECHNIQUE: Standardized multiplanar fat and water weighted pulse sequences were obtained. COMPARISON: Head CT dated May 26, 2024 FINDINGS: A tiny acute infarct is present in the right periventricular white matter/posterior aspect of the right frontal lobe see image series 4. No additional acute infarcts are present. There is mild cerebral atrophy with widening of the extra-axial spaces and ventricular dilatation. There are multiple white matter hyperintensities, distributed throughout the deep white matter tracts of the cerebral hemispheres, consistent with moderate chronic white matter ischemic changes. Normal T2* images of the brain without demonstrated susceptibility artifact. There is no demonstrated hemosiderin stain. Normal bilateral basal ganglia. Normal thalami. There is no extra-axial fluid accumulation. Normal flow voids within the major intracranial circulation suggesting patency by spin echo criteria. Normal sella turcica, pituitary gland, infundibular stalk, optic chiasm and hypothalamus. Normal tectal plate and pineal gland. Normal midbrain, piotr and medulla. Normal cerebellum. Normal basal cisterns. Normal bilateral temporal bones. Normal bilateral internal auditory canals. No demonstrated orbital abnormality, within the constraints of a routine brain study. Normal visualized paranasal sinuses. Normal calvarium and skull base. Normal visualized soft tissue structures. Normal visualized upper cervical spine. MRI/Brain without Contrast IMPRESSION: 1. A tiny acute infarct is present in the right periventricular white matter/posterior aspect of the right frontal lobe see image series 4. No additional acute infarcts are present. Electronically Signed: John Granados MD at 14:59 EDT ,
[2024-05-27] MEDS: 0.9% Saline Lock 10 ML Syringe IV (13:08)
[2024-05-27] MEDS: Morphine 2 MG/ML Syringe IV (13:08)
[2024-05-27] MEDS: LORazepam 0.5 MG Tablet PO (13:08)
--- NOTE | 2024-05-27 15:56 | CASEMGMT ---
Met with patient to complete BUSTILLOS form. BUSTILLOS form explained to patient who voiced understanding and signed form. Original form placed in pt?s chart and copy provided to patient. Elena Weeks, Discharge Planning Asst
--- NOTE | 2024-05-27 16:24 | ECHOCS_ITS ---
Reason For Study: TIA/CVA Procedure This was a 2D Doppler, Color Flow transthoracic echocardiogram. The study was technically difficult. Contrast injection was performed. Exam performed portable in patient room. Left Ventricle Normal LV size. The estimated ejection fraction is 70 %. No evidence for diastolic dysfunction. No regional wall motion abnormalities noted. Right Ventricle Normal RV size. Normal systolic function. Atria The left and right atria are normal. No doppler evidence for ASD. Bubble contrast study negative for right to left interatrial shunt. Mitral Valve There is no mitral valve stenosis. No mitral valve insufficiency. Tricuspid Valve There is no tricuspid stenosis. Unable to estimate RV systolic pressure due to inadequate jet, pulmonary artery pressure probably normal. Aortic Valve Trisinus/trileaflet aortic valve. There is no aortic stenosis. No aortic valve insufficiency. Pulmonic Valve There is no pulmonic valvular stenosis. No pulmonic valve insufficiency. Great Vessels Normal aortic root. Pericardium/Pleural No pericardial effusion. Medication Diluted definity 1.5ml given slow IV push to enhance endocardial definition. Performed a rapid injection of agitated mix of 9 cc saline and 1cc air to assess for atrial septal defect. MMode/2D Measurements & Calculations LVIDd: 4.2 cm IVSd: 1.1 cm Ao root diam: 3.6 cm LVIDs: 2.6 cm LVPWd: 1.0 cm FS: 38.5 % LAV(MOD-bp): 61.4 ml LA A4 area: 21.8 cm2 LA dimension(2D): 3.7 cm LAV(MOD-bp) Indexed: 31.0 ml/m2 LAV(MOD-sp2): 57.8 ml LAV(MOD-sp4): 63.6 ml TAPSE: 1.8 cm Time Measurements MV dec time: 0.21 sec Doppler Measurements & Calculations MV E max art: 55.5 cm/sec Lat Peak E' Art: 10.9 cm/sec Med Peak E' Rat: 6.6 cm/sec MV A max art: 76.2 cm/sec E/E' lat: 5.1 E/E' med: 8.4 MV E/A: 0.73 MV V2 max: 91.5 cm/sec MV P1/2t max art: 81.9 cm/sec Ao V2 max: 161.1 cm/sec MV max P.3 mmHg MV P1/2t: 87.5 msec Ao max P.4 mmHg MV V2 mean: 52.8 cm/sec MV dec slope: 274.3 cm/sec2 MV mean P.3 mmHg MVA(P1/2t): 2.5 cm2 MV V2 VTI: 23.5 cm LV V1 max: 140.9 cm/sec TR max art: 157.1 cm/sec LV V1 max P.9 mmHg TR max P.9 mmHg ECHO/Echo Complete W/ Contrast Interpretation Summary The estimated ejection fraction is 70 %. No evidence for diastolic dysfunction. Ordering Physician: Jesus Snyder Performed By: Lane Hyman RCS
--- NOTE | 2024-05-27 17:19 | CASEMGMT ---
Social Work PHQ9 completed due to positive for stroke. Score of 1. DELGADO Cooney
--- NOTE | 2024-05-27 19:10 | CON.PCM.SX_ITS ---
Assessment & Plan Assessment/Plan (1) Carotid artery disease: QUALIFIERS: Carotid artery disease type: stenosis Laterality: l eft Qualified Code(s): I65.22 - Occlusion and stenosis of left carotid artery PLAN: -Right hemispheric symptoms with chronic total occlusion of the right ICA -Patient also has significant left ICA disease as well as vertebral artery disease -Per report patient's blood pressure was low to low normal at time of his symptoms and it is possible that he had relative hypoperfusion the watershed areas of the right hemisphere due to this -By my measurements the CTA revealed 76% stenosis by ECST, and the lesion is fairly long making NASCET potentially inaccurate. Of note his most recent duplex revealed velocities consistent with greater than 70% stenosis. -Since this is not truly a classically symptomatic carotid lesion there are options to either treat with stent either via TCAR or transfemoral or to treat medically and avoid dehydration and hypotension. -Given the patient's recent cervical spine injury and need for c-collar at the very least we need to wait until these restrictions and collar are lifted in order to perform any intervention -If he were to have classic left hemispheric TIA or stroke then transfemoral stent would be feasible even with the c-collar -Will discuss with patient's daughter tomorrow in an effort to come up with a plan that they are agreeable to, but no immediate plans for any intervention at this time HPI Consult Data Date of Consult: 05/27/24 HPI Narrative HPI Narrative: АННА GONCALVES, is a 84 M who presents from the TCU with left upper extremity weakness and drift, left lower extremity weakness, left facial droop. He was transferred to the emergency room to assess for possible stroke however symptoms improved shortly thereafter. He has a history of known right ICA occlusion severe left ICA stenosis. He also is not known to have vertebral vessel disease as well. In the past he had been referred to [facility] prior to his right ICA occlusion. Of note he has had carotid endarterectomies bilaterally in the remote past. Also, he was admitted to the TCU after a fall with multiple injuries including cervical spine fracture for which he wears a rigid neck brace. The patient is uncertain of any the details of his injury or fall nor the plan for his cervical spine fracture. He has a history of dementia and he states that his daughter helps significantly with his medications and medical care. [facility] Medical History Anemia in chronic kidney disease (CKD) Racing heart beat Hyperlipidemia Stage 3a chronic kidney disease (CKD) Essential hypertension Atherosclerosis of coronary artery of [place] heart without angina pectoris Iron deficiency Insomnia Vitamin D deficiency Alzheimer disease Anemia Wears glasses Wears dentures Forgetfulness Alcohol use Arthritis Injury of back Asthma Smoker Left carpal tunnel syndrome Renal artery stenosis Peripheral arterial occlusive disease Carotid artery disease Home Medications ?Medication ?Instructions ?Recorded ?Last Taken ?Type doxepin 50 mg capsule 50 mg PO QHS sleep 03/23/20 05/22/24 History atorvastatin 40 mg tablet 40 mg PO DAILY cholestrol 11/03/22 05/25/24 History losartan 50 mg tablet 100 mg PO DAILY BP 11/03/22 05/26/24 History memantine 10 mg tablet 10 mg PO BID memory 09/14/23 05/26/24 History metoprolol succinate 25 mg 25 mg PO DAILY BP #90 tabs 09/22/23 05/23/24 Rx tablet,extended release 24 hr (Toprol XL) amlodipine 10 mg tablet 10 mg PO DAILY BP 04/08/24 05/23/24 History aspirin 81 mg chewable tablet 1 tab PO DAILY Heart health 05/19/24 05/26/24 History (Aspirin Childrens) oxycodone 5 mg capsule 10 mg PO Q4H PRN pain (scale score 05/23/24 05/23/24 History 4-5) rivastigmine 9.5 mg/24 hour 1 patch transdermal DAILY memory 05/23/24 Unknown History transdermal patch acetaminophen 500 mg tablet 1,000 mg PO Q8 pain 05/26/24 Unknown History clopidogrel 75 mg tablet 75 mg PO DAILY 05/26/24 Unknown History enoxaparin 30 mg/0.3 mL 30 mg subcut DAILY 05/26/24 Unknown History subcutaneous syringe (Lovenox) gabapentin 100 mg capsule 100 mg PO TID 05/26/24 05/26/24 History menthol 0.44 %-zinc oxide 20.6 % 1 applic topical BID 05/26/24 05/26/24 History topical ointment (Calmoseptine) polysaccharide iron complex 150 mg 150 mg PO DAILY 05/26/24 05/26/24 History iron capsule sennosides 8.6 mg-docusate sodium 1 tab-cap PO BID 05/26/24 Unknown History 50 mg tablet (Senna-S) tramadol 50 mg tablet 50 mg PO Q6H PRN pain (scale score 05/26/24 Unknown History 1-3) Allergy/AdvReac Type Severity Reaction Status Date / Time No Known Allergies Allergy Verified 05/26/24 10:02 Family History Mother Diabetes Heart disease Hypertension Myocardial infarction Father Diabetes Kidney disease Myocardial infarction Heart failure Sister Diabetes Cancer Lung Heart disease Scleroderma Surgical History History of coronary artery stent placement (~1995) History of coronary artery bypass surgery (12/16/13) History of lumbar laminectomy History of cardiac catheterization History of carpal tunnel surgery of right wrist H/O cataract extraction History of back surgery History of knee replacement, total H/O carotid endarterectomy Social History household members: spouse Smoking Status: Current every day smoker tobacco type: cigarettes Tobacco: How many years used: 50 alcohol intake: current alcohol intake frequency: holidays/special occasions only substance use type: does not use caffeine: Yes Type: coffee Number of servings: 4 what type of physical activity do you participate in: none frequency: does not exercise ROS Review of Systems ROS Unobtainable: due to mental status Constitutional Constitutional: Reports frequent falls; Denies chills, fever(s), lethargy or weakness Eyes Eyes: Denies blind spots, change in vision or loss of vision ENT HEENT: Denies bleeding gums, hoarseness or sore throat Cardiovascular Cardiovascular: Denies abdominal pain, bluish discoloration of hand/feet, chest pain with activity, claudication, cold extremities, cyanosis, dyspnea on exertion, erythema on extremities, irregular heart rhythm, leg edema, leg ulcers, numbness in extremities or weakness in extremities Respiratory/Chest Respiratory/Chest: Denies cough, excessive phlegm production, shortness of breath at rest, shortness of breath with exertion or wheezing Gastrointestinal Gastrointestinal: Denies anorexia, change in stool character, constipation, diarrhea, melena or rectal bleeding Genitourinary Genitourinary: Denies dysuria or hematuria Musculoskeletal Musculoskeletal: Reports extremity pain and joint pain Integumentary Integumentary: Denies erythema, non-healing lesions or wounds Neurologic Neurologic: Denies abnormal speech, focal weakness, headache(s), loss of vision, numbness, paresthesias or sensory deficit Hematologic/Lymphatic Hematologic/Lymphatic: Denies easy bleeding, easy bruising or lymphadenopathy Physical Exam Const alert, no apparent distress and healthy appearing General Appearance: cooperative; Negative for combative or lethargic Orientation / Consciousness: awake Exam Limitations: no limitations HEENT Head and Scalp: normocephalic and atraumatic Eyes EOMs intact bilaterally General Eye: normal appearance of both eyes Neck full ROM Neck Narrative: c-collar in place General: trachea midline Resp normal respiratory effort and no use of accessory muscles Effort and Inspection: Negative for labored, stridor or audible wheezes Cardio regular rate and regular rhythm Peripheral Pulses: brachial pulses present and radial pulses present; Negative for posterior tibial pulses present or dorsalis pedis pulses present Back/Spine Back/Spine Narrative: c-collar Cervical Spine: Negative for cervical ROM normal Extremity full ROM, normal capillary refill and no clubbing, cyanosis or edema Skin no rashes or lesions noted and no wounds Neuro CN's II-XII intact bilaterally, no focal motor deficits and no sensory deficits noted Psych thought process normal, cooperative, affect normal, speech normal and activity/motor behavior normal Medical Records Data Medical Nutrition Assessment Dietitian: Malnutrition Criteria Met Start: 05/27/24 15:33 Freq: Status: Active Protocol: Document 05/27/24 15:34 SB (Rec: 05/27/24 15:34 [id number]) Nutrition Malnutrition Evidence of Malnutrition Exists Yes Malnutrition (severe): Acute Illness/Injury Evidenced By Suboptimal Energy Intake ( Severe),Weight Loss (Severe) Clinical Problem Acute Disease or Injury Related Malnutrition Etiology related to recent fall, need for cervical collar and inadequate oral intake Signs/Symptoms as evidenced by 6.2% weight loss and PO meeting <75% of estimated nutritional needs x 8 days. Status Active Problem Recommendation Dietitian Recommendations/Changes Recommend liberal regular diet d/t signs and symptoms of malnutrition. Will order 120ml chocolate ensure plus high protein TID with medpass for increased nutrition if consumed. Will monitor weight, as available. Reviewed and approved by Radha Andrade RD, ALEJANDRO. Lab / Micro Data 05/27/24 06:06 05/27/24 06:06 Labs: Laboratory Results - last 24 hr 05/27/24 06:06: WBC 7.9, RBC 2.43 L, Hgb 7.8 L, Hct 23.8 L, MCV 97.9 H, MCH 32.1 H, MCHC 32.8, RDW Std Deviation 45.3 H, RDW Coeff of Gabriel 12.5, Plt Count 238, MPV 9.8, Immature Gran % (Auto) 0.400, Neut % (Auto) 77.6 H, Lymph % (Auto) 13.2 L, Gregory % (Auto) 6.2, Eos % (Auto) 2.3, Baso % (Auto) 0.3, Absolute Neuts (auto) 6.1, Absolute Lymphs (auto) 1.04, Nucleated RBC % 0, Sodium 137, Potassium 4.2, Chloride 109 H, Carbon Dioxide 20.0 L, Anion Gap 8, BUN 59 H, Creatinine 2.32 H, Estim Creat Clear Calc 26.63, Est GFR (MDRD) Af Amer 35 L, Est GFR (MDRD) Non-Af 29 L, BUN/Creatinine Ratio 25.4 H, Glucose 89, Calcium 9.0, Triglycerides 163, Cholesterol 91, LDL Cholesterol 22, VLDL Cholesterol 33, HDL Cholesterol 36 L Imaging Radiology Impression Brain MRI 05/27/24 13:00 IMPRESSION: 1. A tiny acute infarct is present in the right periventricular white matter/posterior aspect of the right frontal lobe see image 20/58 series 4. No additional acute infarcts are present. Electronically Signed: John Granados MD at 14:59 EDT , ADDENDUM: 05/27/24 1747 IMPRESSION: 1. A tiny acute infarct is present in the right periventricular white matter/posterior aspect of the right frontal lobe see image 20/58 series 4. No additional acute infarcts are present. N.B. : Tila Soto RN, confirmed on 05/27/2024 17:46:11 (ET) that the healthcare facility has received the radiology report. Electronically Signed: John Granados MD at 14:59 EDT , Charges/Coding Visit Charges Inpatient E&M: 84151 Init Hosp L3
[2024-05-27 19:22] LABS: Hemoglobin 8.7 g/dL (13.0-16.5)
[2024-05-27] MEDS: Atorvastatin Calcium 40 MG Tablet PO (22:07)
[2024-05-27] MEDS: MELATONIN 3 MG TABLET 6 MG PO (23:47)
[2024-05-28] VITALS (7 sets, daily range): BP systolic 135–178; BP diastolic 55–92; PULSE 72–96; RESP 16–18; TEMP 36.2–37.1; O2SAT 97–100; BMI 22.9
[2024-05-28] MEDS: Acetaminophen 325 MG Tablet 650 MG PO ×3 (02:34→23:09)
[2024-05-28] MEDS: 0.9% Saline Lock 10 ML Syringe IV ×2 (04:44→21:03)
[2024-05-28] MEDS: Morphine 2 MG/ML Syringe IV (04:45)
[2024-05-28 07:27] LABS: Absolute Lymphocyte Count 1.37 X10^3/uL (0.83-4.51); Absolute Neutrophil Count 8.2 X10^3/uL (2.0-7.7); Basophil# 0.05 X10^3/uL; Basophil% 0.5 % (0-1); Eosinophil# 0.43 X10^3/uL; Hematocrit 27.2 % (40-54); Hemoglobin 9.1 g/dL (13.0-16.5); Lymphocyte # 1.37 X10^3/ul (0.83-4.51); Lymphocyte % 12.7 % (19-41); Mean Corp Hgb Conc 33.5 g/dL (32-36); Mean Corpuscular Hgb 32.3 pg (27.0-32.0); Mean Corpuscular Volume 96.5 fL (80-94); Mean Platelet Vol. 9.8 fl (6.2-12.0); Monocyte# 0.74 X10^3/uL; Monocyte% 6.8 % (0-10); NRBC Flagged by Analyzer 0 % (0-5); Neutrophil % 75.6 % (47-70); Platelet Count 318 K/mm3 (150-450); RBC Distribution Width CV 12.4 % (11.6-14.6); RBC Distribution Width SD 43.7 fl (35.1-43.9); Red Blood Count 2.82 M/mm3 (4.6-6.2); White Blood Count 10.8 K/mm3 (4.4-11.0)
[2024-05-28 08:05] LABS: Anion Gap 6 (5-15); BUN 67 mg/dL (7-18); BUN/Creat Ratio 29.1 RATIO (10-20); Calcium,Total 9.5 mg/dL (8.5-10.1); Chloride 108 mmol/L (98-107); EST Glomerular Filtration Rate 29 mL/min (>60); Est Glom Filt Rate - Afr Amer 35 mL/min (>60); Estimated Creatinine Clearance 26.86 ml/min; Glucose 121 mg/dL (74-106); Potassium 3.9 mmol/L (3.5-5.1); Sodium Level 136 mmol/L (136-145)
[2024-05-28] MEDS: Aspirin 81 MG TAB.CHEW PO (10:15)
[2024-05-28] MEDS: Iron Polysaccharide Complex 150 MG CAPSULE PO (10:15)
[2024-05-28] MEDS: Memantine Hydrochloride 10 MG Tablet PO ×2 (10:15→21:05)
[2024-05-28] MEDS: Clopidogrel Bisulfate 75 MG Tablet PO (10:15)
[2024-05-28] MEDS: Rivastigmine 9.5mg Patch 1 PATCH TD (12:45)
--- NOTE | 2024-05-28 13:43 | PN.HOSP_ITS ---
Subjective Subjective Doing well, no issues overnight. No residual stroke symptoms Objective Data Objective Data Vital Signs: Vital Signs Temp Pulse Resp BP Pulse Ox O2 Del Method 97.8 F 76 17 142/92 H 98 Room Air 05/28/24 10:00 05/28/24 10:00 05/28/24 10:00 05/28/24 10:00 05/28/24 10:00 05/28/24 10:00 Oxygen Delivery Method Room Air Weight: 169 lb 1.513 oz Body Mass Index (BMI) 22.9 Intake & Output: Intake and Output for Last 24 Hours 05/27/24 05/28/24 05/29/24 03:59 03:59 03:59 Intake Total 240 / 240 600 / 600 200 / 200 Output Total 700 / 700 360 / 360 500 / 500 Balance -460 / -460 240 / 240 -300 / -300 Medical Nutrition Assessment Dietitian: Malnutrition Criteria Met Start: 05/27/24 15:33 Freq: Status: Active Protocol: Document 05/27/24 15:34 SB (Rec: 05/27/24 15:34 SB [id number]) Nutrition Malnutrition Evidence of Malnutrition Exists Yes Malnutrition (severe): Acute Illness/Injury Evidenced By Suboptimal Energy Intake ( Severe),Weight Loss (Severe) Clinical Problem Acute Disease or Injury Related Malnutrition Etiology related to recent fall, need for cervical collar and inadequate oral intake Signs/Symptoms as evidenced by 6.2% weight loss and PO meeting <75% of estimated nutritional needs x 8 days. Status Active Problem Recommendation Dietitian Recommendations/Changes Recommend liberal regular diet d/t signs and symptoms of malnutrition. Will order 120ml chocolate ensure plus high protein TID with medpass for increased nutrition if consumed. Will monitor weight, as available. Reviewed and approved by Radha Andrade, RD, LD. Lab / Micro Data 05/28/24 06:33 05/28/24 06:33 Labs: Laboratory Results - last 24 hr 05/27/24 19:12: Hgb 8.7 L, Hct 26.0 L 05/28/24 06:33: WBC 10.8, RBC 2.82 L, Hgb 9.1 L, Hct 27.2 L, MCV 96.5 H, MCH 32.3 H, MCHC 33.5, RDW Std Deviation 43.7, RDW Coeff of Gabriel 12.4, Plt Count 318, MPV 9.8, Immature Gran % (Auto) 0.400, Neut % (Auto) 75.6 H, Lymph % (Auto) 12.7 L, [place] % (Auto) 6.8, Eos % (Auto) 4.0, Baso % (Auto) 0.5, Absolute Neuts (auto) 8.2 H, Absolute Lymphs (auto) 1.37, Nucleated RBC % 0, Sodium 136, Potassium 3.9, Chloride 108 H, Carbon Dioxide 22.0, Anion Gap 6, BUN 67 H, Creatinine 2.30 H, Estim Creat Clear Calc 26.86, Est GFR (MDRD) Af Amer 35 L, Est GFR (MDRD) Non-Af 29 L, BUN/Creatinine Ratio 29.1 H, Glucose 121 H, Calcium 9.5 Radiography Diagnostic Testing: Radiology Impression Brain MRI 05/27/24 13:00 IMPRESSION: 1. A tiny acute infarct is present in the right periventricular white matter/posterior aspect of the right frontal lobe see image 20/58 series 4. No additional acute infarcts are present. Electronically Signed: John Granados MD at 14:59 EDT , ADDENDUM: 05/27/24 1753 IMPRESSION: 1. A tiny acute infarct is present in the right periventricular white matter/posterior aspect of the right frontal lobe see image 20/58 series 4. No additional acute infarcts are present. N.B. : Tila Soto RN, confirmed on 05/27/2024 17:46:11 (ET) that the healthcare facility has received the radiology report. Electronically Signed: John Granados MD at 14:59 EDT , Physical Exam Narrative General: Alert, Oriented x2, Cooperative, No apparent distress HEENT: Atraumatic, PERRLA, EOMI, Normocephalic Oral: Moist Mucosa Neck: Supple, No JVD, c-collar in place Lungs: Diminished, Normal air movement, No rhonchi, No wheeze, No rales Cardiovascular: Regular rate, Regular Rhythm, Normal S1, Normal S2, No murmurs Abdomen: Soft, Non Tender, Non-Distended, No Hepato-splenomegaly Extremities: No edema, Capillary Refill Less than 3 Seconds Skin: Multiple areas of contusions and lacerations in various stages of healing from his mechanical fall Musculoskeletal: No Tenderness to Palpation of Joints or Extremities Neurological: No focal neurological deficits, Motor Exam 5/5 strength throughout, Sensory exam intact to light touch and pain, NIH of 0 Psych/Mental Status: Normal Affect, Appropriate Assessment & Plan Assessment/Plan (1) Brain TIA: PLAN: Plan 1. CVA of the right wu radiata/essential HTN/HLD/significant carotid artery disease/CAD status post CABG ?No plan for intervention at this time especially while he is still in a c- collar ? Continue with stroke protocol ? MRI with CVA in the right wu radiata ? Continue with statin as well as aspirin and Plavix ? Will allow permissive hypertension especially given the severity of his occlusions ? He is a vasculopath he also has renal artery stenosis and PAD 2. 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 Renal function does appear to be at baseline but he is borderline in severity ? Iron studies in the beginning of April were unremarkable ? Will continue to monitor ?Hemoglobin has improved 3. Alzheimer's dementia ? Continue with his home medications ? Stable DVT: SCDs Charges/Coding Visit Charges Inpatient E&M: 92022 Subs Hosp L2
--- NOTE | 2024-05-28 15:31 | NURSING ---
Spouse, Jojo, notified that patient had taken his c-collar off and is refusing to allow us to put it back on
--- NOTE | 2024-05-28 15:51 | NURSING ---
Patient's spouse, Jojo, notified at 1531 that patient had taken his c-collar off and refusing to allow us to put it back on.
[2024-05-28] MEDS: oxyCODONE 5 MG Tablet 10 MG PO ×2 (17:49→23:09)
--- NOTE | 2024-05-28 19:31 | CON.PCM.NE_ITS ---
Assessment and Plan: Stroke Assessment/Plan #R CR stroke- ?chronically occluded R ICA. L ICA is severely stenotic. Complex case given it is possible L ICA stenosis could be the culprit for current stroke. However ccurrent stroke could very well be due to small vessel disease or stump embolism. Would be helpful to characterize R MCA supply with a dynamic assessment of vasculature to see if L ICA supplies the R MCA. If not, then would opt to consider L ICA assymptomatic and continue medical management. However, if symptomatic then would consider carotid stent which may be ideal form of revascularization given patient's comorbidiites. -continue patient on ASA 81 and plavix 75 -increase atorvastatin to 40 -avoid hypotension, hypovolemia. Avoid aggressive antihypertensive use. Maintain SBJP 120-160 -recommend discussion with vascular surgery if able to perform DSA locally vs transfer to tertiary [facility]. If symptomatic carotid, best avialble evidence suggest revascularization exerts maximal benefit when performed within 2 weeks form stroke/tia. 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 Symptoms now resolved. CTA showed occluded R ICA with distal reconstitution, L side with severe stenosis. Does not recall any left side weakness. Only recalls fall and neck pain with radiation down arm. No current complaints PFSH Medical History Anemia in chronic kidney disease (CKD) Racing heart beat Hyperlipidemia Stage 3a chronic kidney disease (CKD) Essential hypertension Atherosclerosis of coronary artery of [place] heart without angina pectoris Iron deficiency Insomnia Vitamin D deficiency Alzheimer disease Anemia Wears glasses Wears dentures Forgetfulness Alcohol use Arthritis Injury of back Asthma Smoker Left carpal tunnel syndrome Renal artery stenosis Peripheral arterial occlusive disease Carotid artery disease Home Medications ?Medication ?Instructions ?Recorded ?Last Taken ?Type doxepin 50 mg capsule 50 mg PO QHS sleep 03/23/20 05/22/24 History atorvastatin 40 mg tablet 40 mg PO DAILY cholestrol 11/03/22 05/25/24 History losartan 50 mg tablet 100 mg PO DAILY BP 11/03/22 05/26/24 History memantine 10 mg tablet 10 mg PO BID memory 09/14/23 05/26/24 History metoprolol succinate 25 mg 25 mg PO DAILY BP #90 tabs 09/22/23 05/23/24 Rx tablet,extended release 24 hr (Toprol XL) amlodipine 10 mg tablet 10 mg PO DAILY BP 04/08/24 05/23/24 History aspirin 81 mg chewable tablet 1 tab PO DAILY Heart health 05/19/24 05/26/24 History (Aspirin Childrens) oxycodone 5 mg capsule 10 mg PO Q4H PRN pain (scale score 05/23/24 05/23/24 History 4-5) rivastigmine 9.5 mg/24 hour 1 patch transdermal DAILY memory 05/23/24 Unknown History transdermal patch acetaminophen 500 mg tablet 1,000 mg PO Q8 pain 05/26/24 Unknown History clopidogrel 75 mg tablet 75 mg PO DAILY 05/26/24 Unknown History enoxaparin 30 mg/0.3 mL 30 mg subcut DAILY 05/26/24 Unknown History subcutaneous syringe (Lovenox) gabapentin 100 mg capsule 100 mg PO TID 05/26/24 05/26/24 History menthol 0.44 %-zinc oxide 20.6 % 1 applic topical BID 05/26/24 05/26/24 History topical ointment (Calmoseptine) polysaccharide iron complex 150 mg 150 mg PO DAILY 05/26/24 05/26/24 History iron capsule sennosides 8.6 mg-docusate sodium 1 tab-cap PO BID 05/26/24 Unknown History 50 mg tablet (Senna-S) tramadol 50 mg tablet 50 mg PO Q6H PRN pain (scale score 05/26/24 Unknown History 1-3) rivastigmine tartrate 4.5 mg 9 mg PO QHS dementia 05/28/24 Unknown History capsule Allergy/AdvReac Type Severity Reaction Status Date / Time No Known Allergies Allergy Verified 05/26/24 10:02 Family History Mother Diabetes Heart disease Hypertension Myocardial infarction Father Diabetes Kidney disease Myocardial infarction Heart failure Sister Diabetes Cancer Lung Heart disease Scleroderma Surgical History History of coronary artery stent placement (~1995) History of coronary artery bypass surgery (12/16/13) History of lumbar laminectomy History of cardiac catheterization History of carpal tunnel surgery of right wrist H/O cataract extraction History of back surgery History of knee replacement, total H/O carotid endarterectomy Social History household members: spouse Smoking Status: Unknown if ever smoked Tobacco: How many years used: 50 alcohol intake: current alcohol intake frequency: holidays/special occasions only substance use type: does not use caffeine: Yes Type: coffee Number of servings: 4 what type of physical activity do you participate in: none frequency: does not exercise Vital Signs Vital Signs Vital Signs: 05/27/24 22:00 05/27/24 22:00 05/28/24 02:00 Temperature 97.5 F L 97.2 F L Temperature Source Oral Temporal Pulse Rate 86 72 Respiratory Rate 16 16 Respiratory Effort Normal Non-Labored Respiratory Depth Normal Respiratory Pattern Normal Blood Pressure 151/65 H 135/55 H Blood Pressure Mean 93 81 Blood Pressure Source Monitor Monitor Blood Pressure Position Supine Supine Blood Pressure Location Left Arm Left Arm Pulse Ox 97 97 Oxygen Delivery Method Room Air Room Air Room Air 05/28/24 02:15 05/28/24 06:00 05/28/24 07:09 Temperature 97.1 F L Temperature Source Temporal Pulse Rate 72 Respiratory Rate 16 Respiratory Effort Normal Non-Labored Respiratory Depth Normal Respiratory Pattern Normal Blood Pressure 146/69 H Blood Pressure Mean 94 Blood Pressure Source Monitor Blood Pressure Position Supine Blood Pressure Location Left Arm Pulse Ox 100 97 Oxygen Delivery Method Room Air Room Air Room Air 05/28/24 10:00 05/28/24 10:00 05/28/24 14:00 Temperature 97.8 F 98.7 F Temperature Source Oral Oral Pulse Rate 76 83 Respiratory Rate 17 17 Respiratory Effort Normal Non-Labored Respiratory Depth Normal Respiratory Pattern Normal Blood Pressure 142/92 H 155/69 H Blood Pressure Mean 108 97 Blood Pressure Source Monitor Monitor Blood Pressure Position Semi-Fowlers Semi-Fowlers Blood Pressure Location Left Arm Left Arm Pulse Ox 98 99 Oxygen Delivery Method Room Air Room Air Room Air 05/28/24 14:39 05/28/24 17:50 Temperature 98.5 F Temperature Source Oral Pulse Rate 96 Respiratory Rate 17 Respiratory Effort Respiratory Depth Respiratory Pattern Blood Pressure 162/67 H Blood Pressure Mean 98 Blood Pressure Source Monitor Blood Pressure Position Semi-Fowlers Blood Pressure Location Left Arm Pulse Ox 99 Oxygen Delivery Method Room Air Room Air Weight Weight: 76.7 kg Body Mass Index (BMI) 22.9 EEG Results Procedure Details EEG Procedure Details: АННА GONCALVES is a 84 year old M with a past medical history of , who presents for evaluation of Electroencephalogram on DATE at TIME NIHSS NIHSS Nursing Documentation NIHSS Nursing Documentation: NIHSS: Ischemic Stroke/TIA Start: 05/26/24 14:53 Text: For PCU Patients: NIH and Neuro Check every 4 Status: Active hours, PRN and with change in RN caregiver. Freq: [id number] Protocol: Activity Type Activity Date Activity User E-sign Co-sign Detail Recorded Client Recorded Date Recorded By Document 05/28/24 17:50 desktop 05/28/24 17:51 05/28/24 17:50 NIH Stroke Scale [NIHSS] A score of 0 is normal or asymptomatic . Total possible score is 42. Inpatient: RN or Physician to activate a stroke alert for onset of new stroke symptoms or with NIHSS increase >/= 3 points. Following change in neurological status, NIHSS will be performed per physician order or more frequently PRN. -1a. Level of Consciousness Alert; keenly responsive -1b. LOC Questions Answers one question correctly. -1c. LOC Commands Performs both tasks correctly . -2. Best Gaze Normal -3. Visual No visual loss -4. Facial Palsy Normal symmetrical movements -5a. Left Arm No drift; arm holds 90 (or 45 ) degrees for full 10 seconds -5b. Right Arm No drift; arm holds 90 (or 45 ) degrees for full 10 seconds -6a. Left Leg No drift; leg holds 30-degree position for full 5 seconds -6b. Right Leg No drift; leg holds 30-degree position for full 5 seconds -7. Limb Ataxia Absent -8. Sensory Normal; no sensory loss -9. Best Language No aphasia; normal -10. Dysarthria Normal -11. Extinction and Inattention No abnormality -Total 1 Query Text:A score of 0 is normal or asymptomatic. Total possible score is 42 . ED: Notify Physician for NIHSS increase by > / = 3 points. Inpatient: RN or Physician to activate a stroke alert for NIHSS increase of > / = 3 points. Coma Scale [Assess] -Eye Opening Spontaneous -Motor Obeys Commands -Verbal Confused [Total] -Coma Scale Total 14 Physical Exam Narrative MS: awake, alert, oriented x 3, follows commands, able to name, no aphasia, no dysarthria, poor memory CN: VFF, EOMI , no facial weakness, nml facial sensation M:? Antigravity in all extremities, no drift. S: nml to LT in all extremities C: ?No gross ataxia Medical Records Data Medical Nutrition Assessment Dietitian: Malnutrition Criteria Met Start: 05/27/24 15:33 Freq: Status: Active Protocol: Document 05/27/24 15:34 SB (Rec: 05/27/24 15:34 SB [id number]) Nutrition Malnutrition Evidence of Malnutrition Exists Yes Malnutrition (severe): Acute Illness/Injury Evidenced By Suboptimal Energy Intake ( Severe),Weight Loss (Severe) Clinical Problem Acute Disease or Injury Related Malnutrition Etiology related to recent fall, need for cervical collar and inadequate oral intake Signs/Symptoms as evidenced by 6.2% weight loss and PO meeting <75% of estimated nutritional needs x 8 days. Status Active Problem Recommendation Dietitian Recommendations/Changes Recommend liberal regular diet d/t signs and symptoms of malnutrition. Will order 120ml chocolate ensure plus high protein TID with medpass for increased nutrition if consumed. Will monitor weight, as available. Reviewed and approved by Radha Andrade RD, LD. Lab / Micro Data 05/28/24 06:33 05/28/24 06:33 Labs: Laboratory Results - last 24 hr 05/28/24 06:33: WBC 10.8, RBC 2.82 L, Hgb 9.1 L, Hct 27.2 L, MCV 96.5 H, MCH 32.3 H, MCHC 33.5, RDW Std Deviation 43.7, RDW Coeff of Gabriel 12.4, Plt Count 318, MPV 9.8, Immature Gran % (Auto) 0.400, Neut % (Auto) 75.6 H, Lymph % (Auto) 12.7 L, Collin % (Auto) 6.8, Eos % (Auto) 4.0, Baso % (Auto) 0.5, Absolute Neuts (auto) 8.2 H, Absolute Lymphs (auto) 1.37, Nucleated RBC % 0, Sodium 136, Potassium 3.9, Chloride 108 H, Carbon Dioxide 22.0, Anion Gap 6, BUN 67 H, C reatinine 2.30 H, Estim Creat Clear Calc 26.86, Est GFR (MDRD) Af Amer 35 L, Est GFR (MDRD) Non-Af 29 L, BUN/Creatinine Ratio 29.1 H, Glucose 121 H, Calcium 9.5 Imaging Radiology Impression Echocardiogram 05/27/24 16:24 Interpretation Summary The estimated ejection fraction is 70 %. No evidence for diastolic dysfunction. Ordering Physician: Jesus Snyder Performed By: Lane Hyman RCS Active Medications Active Medications Active Medications: Current Medications Generic Name Dose Route Start Last Admin Trade Name Freq PRN Reason Stop Dose Admin Acetaminophen 650 mg 05/26/24 22:11 05/28/24 15:21 Acetaminophen 325 Mg Tablet PO 650 mg Q4H PRN PRN Administration Pain 1-10 or Fever Aspirin 81 mg 05/27/24 08:00 05/28/24 10:15 Aspirin 81 Mg Tab.Chew PO 81 mg DAILYCM STUART Administration Atorvastatin Calcium 40 mg 05/26/24 22:00 05/27/24 22:07 Atorvastatin Calcium 40 Mg Tablet PO 40 mg QHS STUART Administration Clopidogrel Bisulfate 75 mg 05/27/24 10:00 05/28/24 10:15 Clopidogrel Bisulfate 75 Mg Tablet PO 75 mg DAILY STUART Administration Doxepin HCl 50 mg 05/28/24 22:00 Doxepin Hcl 50 Mg Capsule PO QHS STUART Gabapentin 100 mg 05/28/24 22:00 Gabapentin 100 Mg Capsule PO TID STUART Memantine 10 mg 05/26/24 22:00 05/28/24 10:15 Memantine Hydrochloride 10 Mg Tablet PO 10 mg BID STUART Administration Oxycodone HCl 10 mg 05/28/24 17:26 05/28/24 17:49 Oxycodone 5 Mg Tablet PO 10 mg Q4H PRN Administration pain (scale score 4-10) Polysaccharide Iron Complex 150 mg 05/27/24 08:00 05/28/24 10:15 Iron Polysaccharide Complex 150 Mg Capsule PO 150 mg DAILYCM STUART Administration Rivastigmine Tartrate 6 mg 05/28/24 22:00 Rivastigmine Tartrate 6 Mg Capsule PO QHS STUART Rivastigmine Tartrate 3 mg 05/28/24 22:00 Rivastigmine Tartrate 1.5 Mg Capsule PO QHS [facility] Sodium Chloride 10 - 40 ml 05/26/24 15:07 05/28/24 04:44 0.9% Saline Lock 10 Ml Syringe IV 10 ml UD PRN Administration SALINE FLUSH
[2024-05-28] MEDS: DOXEPIN HCL 50 MG CAPSULE PO (21:04)
[2024-05-28] MEDS: RIVASTIGMINE TARTRATE 6 MG PO (21:04)
[2024-05-28] MEDS: Atorvastatin Calcium 40 MG Tablet PO (21:05)
[2024-05-28] MEDS: Rivastigmine Tartrate 1.5 MG Capsule 3 MG PO (21:05)
[2024-05-28] MEDS: Gabapentin 100 MG Capsule PO (21:10)
[2024-05-29 00:47] VITALS: BP 130/94; PULSE 79; RESP 18; TEMP 36.4; O2SAT 98
[2024-05-29 04:45] VITALS: BP 163/68; PULSE 74; RESP 18; TEMP 36.4; O2SAT 96
[2024-05-29] MEDS: Gabapentin 100 MG Capsule PO ×3 (06:00→20:48)
[2024-05-29 08:44] VITALS: BP 152/64; PULSE 93; RESP 17; TEMP 36.9; O2SAT 98
[2024-05-29] MEDS: Iron Polysaccharide Complex 150 MG CAPSULE PO (08:47)
[2024-05-29] MEDS: Memantine Hydrochloride 10 MG Tablet PO ×2 (08:48→20:47)
[2024-05-29] MEDS: Clopidogrel Bisulfate 75 MG Tablet PO (08:48)
[2024-05-29] MEDS: Aspirin 81 MG TAB.CHEW PO (08:48)
--- NOTE | 2024-05-29 10:44 | PN.HOSP_ITS ---
Subjective Subjective Doing well, no issues overnight Objective Data Objective Data Vital Signs: Vital Signs Temp Pulse Resp BP Pulse Ox O2 Del Method 98.5 F 93 17 152/64 H 98 Room Air 05/29/24 08:44 05/29/24 08:44 05/29/24 08:44 05/29/24 08:44 05/29/24 08:44 05/29/24 08:51 Oxygen Delivery Method Room Air Weight: 169 lb 1.513 oz Body Mass Index (BMI) 22.9 Intake & Output: Intake and Output for Last 24 Hours 05/28/24 05/29/24 05/30/24 03:59 03:59 03:59 Intake Total 600 / 600 320 / 320 120 / 120 Output Total 360 / 360 850 / 850 350 / 350 Balance 240 / 240 -530 / -530 -230 / -230 Medical Nutrition Assessment Dietitian: Malnutrition Criteria Met Start: 05/27/24 15:33 Freq: Status: Active Protocol: Document 05/27/24 15:34 SB (Rec: 05/27/24 15:34 SB [id number]) Nutrition Malnutrition Evidence of Malnutrition Exists Yes Malnutrition (severe): Acute Illness/Injury Evidenced By Suboptimal Energy Intake ( Severe),Weight Loss (Severe) Clinical Problem Acute Disease or Injury Related Malnutrition Etiology related to recent fall, need for cervical collar and inadequate oral intake Signs/Symptoms as evidenced by 6.2% weight loss and PO meeting <75% of estimated nutritional needs x 8 days. Status Active Problem Recommendation Dietitian Recommendations/Changes Recommend liberal regular diet d/t signs and symptoms of malnutrition. Will order 120ml chocolate ensure plus high protein TID with medpass for increased nutrition if consumed. Will monitor weight, as available. Reviewed and approved by Radha Andrade RD, LD. Lab / Micro Data 05/28/24 06:33 05/28/24 06:33 Radiography Diagnostic Testing: Radiology Impression Echocardiogram 05/27/24 16:24 Interpretation Summary The estimated ejection fraction is 70 %. No evidence for diastolic dysfunction. Ordering Physician: Jesus Snyder Performed By: Lane Hyman RCS Physical Exam Narrative General: Alert, Oriented x2, Cooperative, No apparent distress HEENT: Atraumatic, PERRLA, EOMI, Normocephalic Oral: Moist Mucosa Neck: Supple, No JVD, c-collar in place Lungs: Diminished, Normal air movement, No rhonchi, No wheeze, No rales Cardiovascular: Regular rate, Regular Rhythm, Normal S1, Normal S2, No murmurs Abdomen: Soft, Non Tender, Non-Distended, No Hepato-splenomegaly Extremities: No edema, Capillary Refill Less than 3 Seconds Skin: Multiple areas of contusions and lacerations in various stages of healing from his mechanical fall Musculoskeletal: No Tenderness to Palpation of Joints or Extremities Neurological: No focal neurological deficits, Motor Exam 5/5 strength throughout, Sensory exam intact to light touch and pain, NIH of 0 Psych/Mental Status: Normal Affect, Appropriate Assessment & Plan Assessment/Plan (1) Brain TIA: PLAN: Plan 1. CVA of the right wu radiata/essential HTN/HLD/significant carotid artery disease/CAD status post CABG ?No plan for intervention at this time especially while he is still in a c- collar ? MRI with CVA in the right wu radiata ? Continue with statin as well as aspirin and Plavix ? Will allow permissive hypertension especially given the severity of his occlusions ? He is a vasculopath he also has renal artery stenosis and PAD ? Will obtain pre-CERT to return to TCU for continued physical therapy after his C7 fracture from a fall 2. 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 Renal function does appear to be at baseline but he is borderline in severity ? Iron studies in the beginning of April were unremarkable ? Will continue to monitor ?Hemoglobin has improved 3. Alzheimer's dementia ? Continue with his home medications ? Stable DVT: SCDs Charges/Coding Visit Charges Inpatient E&M: 01653 Subs Hosp L2
[2024-05-29 11:08] LABS: Hematocrit 26.1 % (40-54); Hemoglobin 8.6 g/dL (13.0-16.5)
[2024-05-29] MEDS: oxyCODONE 5 MG Tablet 10 MG PO ×2 (11:21→22:17)
[2024-05-29] MEDS: Acetaminophen 325 MG Tablet 650 MG PO ×2 (11:22→22:18)
--- NOTE | 2024-05-29 12:47 | CASEMGMT ---
Pre-cert has been started for TCU. 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
[2024-05-29 13:10] VITALS: BMI 22.9
--- NOTE | 2024-05-29 13:15 | PN.NEURO_ITS ---
Objective Data Objective Data Vital Signs: Vital Signs Temp Pulse Resp BP Pulse Ox O2 Del Method 98.5 F 93 17 152/64 H 98 Room Air 05/29/24 08:44 05/29/24 08:44 05/29/24 08:44 05/29/24 08:44 05/29/24 08:44 05/29/24 08:51 Oxygen Delivery Method Room Air Weight: 76.7 kg Body Mass Index (BMI) 22.9 Intake & Output: Intake and Output for Last 24 Hours 05/27/24 05/28/24 05/29/24 23:59 23:59 23:59 Intake Total 360 / 600 560 / 560 120 / 120 Output Total 1060 / 1060 850 / 850 350 / 350 Balance -700 / -460 -290 / -290 -230 / -230 Medical Nutrition Assessment Dietitian: Malnutrition Criteria Met Start: 05/27/24 15:33 Freq: Status: Active Protocol: Document 05/27/24 15:34 SB (Rec: 05/27/24 15:34 SB [id number]) Nutrition Malnutrition Evidence of Malnutrition Exists Yes Malnutrition (severe): Acute Illness/Injury Evidenced By Suboptimal Energy Intake ( Severe),Weight Loss (Severe) Clinical Problem Acute Disease or Injury Related Malnutrition Etiology related to recent fall, need for cervical collar and inadequate oral intake Signs/Symptoms as evidenced by 6.2% weight loss and PO meeting <75% of estimated nutritional needs x 8 days. Status Active Problem Recommendation Dietitian Recommendations/Changes Recommend liberal regular diet d/t signs and symptoms of malnutrition. Will order 120ml chocolate ensure plus high protein TID with medpass for increased nutrition if consumed. Will monitor weight, as available. Reviewed and approved by Radha Andrade RD, LD. Lab / Micro Data 05/29/24 10:57 05/28/24 06:33 Labs: Laboratory Results - last 24 hr 05/29/24 10:57: Hgb 8.6 L, Hct 26.1 L Radiography Diagnostic Testing: Radiology Impression Echocardiogram 05/27/24 16:24 Interpretation Summary The estimated ejection fraction is 70 %. No evidence for diastolic dysfunction. Ordering Physician: Jesus Snyder Performed By: Lane Hyman RCS Physical Exam Narrative MS: awake, alert, oriented x 3, follows commands, able to name, no aphasia, no dysarthria, poor memory CN: VFF, EOMI , no facial weakness, nml facial sensation M:? Antigravity in all extremities, no drift. S: nml to LT in all extremities C: ?No gross ataxia Subject: Neurology Subjective No complaints today. Feels at baseline EEG Results Procedure Details EEG Procedure Details: АННА GONCALVES is a 84 year old M with a past medical history of , who presents for evaluation of Electroencephalogram on DATE at TIME Assessment and Plan: Stroke Assessment/Plan #R CR stroke- ?chronically occluded R ICA. L ICA is severely stenotic. Complex case given it is possible L ICA stenosis could be the culprit for current stroke. However ccurrent stroke could very well be due to small vessel disease or stump embolism. Would be helpful to characterize R MCA supply with a dynamic assessment of vasculature to see if L ICA supplies the R MCA. If not, then would opt to consider L ICA assymptomatic and continue medical management. However, if symptomatic then would consider carotid stent which may be ideal form of revascularization given patient's comorbidiites. -continue patient on ASA 81 and plavix 75 -increase atorvastatin to 80 -avoid hypotension, hypovolemia. Avoid aggressive antihypertensive use. Maintain SBP 120-160 -recommend discussion with vascular surgery if able to perform DSA locally vs transfer to tertiary medical center. If symptomatic carotid, best available evidence suggest revascularization exerts maximal benefit when performed within 2 weeks form stroke/tia. Provided my contact information if surgery would like to discuss. 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 Will sign off for now, but reach out if any changes or questions
[2024-05-29 14:57] VITALS: BP 127/63; PULSE 83; RESP 16; TEMP 36.8; O2SAT 97
--- NOTE | 2024-05-29 15:40 | CASEMGMT ---
Social Work Pt has a living will and HCPOA on file naming his Jojo Cortes as medical decision maker. DELGADO Cooney
[2024-05-29 16:05] LABS: Hemoglobin A1c 5.3 % (3.8-5.6)
[2024-05-29 20:35] VITALS: BP 151/75; PULSE 77; RESP 18; TEMP 36.9; O2SAT 98
[2024-05-29] MEDS: RIVASTIGMINE TARTRATE 6 MG PO (20:47)
[2024-05-29] MEDS: Rivastigmine Tartrate 1.5 MG Capsule 3 MG PO (20:47)
[2024-05-29] MEDS: Atorvastatin Calcium 80 MG Tablet PO (20:47)
[2024-05-29] MEDS: DOXEPIN HCL 50 MG CAPSULE PO (20:47)
[2024-05-30 02:34] VITALS: BP 142/65; PULSE 81; RESP 18; TEMP 36.8; O2SAT 98
[2024-05-30] MEDS: Acetaminophen 325 MG Tablet 650 MG PO (02:43)
[2024-05-30 05:35] VITALS: BP 154/59; PULSE 76; RESP 18; TEMP 36.8; O2SAT 100
[2024-05-30] MEDS: Gabapentin 100 MG Capsule PO (05:36)
--- NOTE | 2024-05-30 07:43 | CASEMGMT ---
Patient was approved for [facility]. SW will notify physician. Genevieve [place]
[2024-05-30] MEDS: Clopidogrel Bisulfate 75 MG Tablet PO (08:43)
[2024-05-30] MEDS: Memantine Hydrochloride 10 MG Tablet PO (08:43)
[2024-05-30] MEDS: Iron Polysaccharide Complex 150 MG CAPSULE PO (08:43)
[2024-05-30] MEDS: Aspirin 81 MG TAB.CHEW PO (08:43)
[2024-05-30] MEDS: 0.9% Saline Lock 10 ML Syringe IV (08:44)
[2024-05-30 08:49] VITALS: BP 145/67; PULSE 91; RESP 18; TEMP 36.7; O2SAT 100
--- NOTE | 2024-05-30 10:39 | TREXTCAR_ITS ---
Diet Diet Order/Speech Therapy: 05/27/24 07:48 Diet: Cardiac - Heart Healthy Type of Dietary Supplement:: Ensure Plus High Protein Diet Comments: 120 ml CHOCOLATE EPHP tid Routine Orders/Code Status Routine Lab Work: CBC and BMP Code Status: DNRCC-A Wound(s) left leg: Wound Type: Stabbing head: Wound Type: Abrasion Therapies Physical Therapy: Eval and Treat Occupational Therapy: Eval and Treat Problem/Diagnosis (1) Brain TIA: Status: Acute Code(s): G45.9 - Transient cerebral ischemic attack, unspecified Plan 1. CVA of the right wu radiata/essential HTN/HLD/significant carotid artery disease/CAD status post CABG ?No plan for intervention at this time especially while he is still in a c- collar ? MRI with CVA in the right wu radiata ? Continue with statin as well as aspirin and Plavix ? Will allow permissive hypertension especially given the severity of his occlusions ? He is a vasculopath he also has renal artery stenosis and PAD ? Will obtain pre-CERT to return to TCU for continued physical therapy after his C7 fracture from a fall 2. 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 Renal function does appear to be at baseline but he is borderline in severity ? Iron studies in the beginning of April were unremarkable ? Will continue to monitor ?Hemoglobin has improved 3. Alzheimer's dementia ? Continue with his home medications ? Stable DVT: SCDs Allergies/Procedures Done in Hospital Allergies No Known Allergies Allergy (Verified 05/26/24 10:02) Procedures: None Type of Care/Length of Stay Estimated LOS: Convalescent Care Less Than 30 days Type of Care Needed: Skilled Rehab Potential: Fair Prognosis: Fair Additional Orders/Day of Discharge Day of Discharge: 05/30/24 Dietary and Speech Recommendations Dietitian Recommendations/Changes: Recommend liberal regular diet d/t signs and symptoms of malnutrition. Will order 120ml chocolate ensure plus high protein TID with medpass for increased nutrition if consumed. Will monitor weight, as available. Reviewed and approved by Radha Andrade RD, LD. Discharge Plan Admission Admit Date/Time: 05/27/24 17:07 Attending Provider: Jesus Snyder Primary Care Provider: Geraldo Joseph Chi Consulting Providers: Marcelo Lazo; Trevor Trujillo; Tyra Araujo; Marci Salamanca; Juani Jin; Callie Godoy; Jose Celis; Jenny Tam; Ramírez Garcia; Júnior Oliver; Yaya Ariza; Julia Jc; Maurilio Will; Carine Yadav; Jyoti Morton; Rehanabijal Bradford; Carlos Pike; Gabriela Xie; Narendra Tavares; Joelle Cuevas; Rogelio Doan Discharge Orders/Prescriptions Prescriptions: New rivastigmine tartrate 1.5 mg Capsule 3 mg PO QHS Qty: 0 0RF atorvastatin 80 mg Tablet 80 mg PO QHS Qty: 0 0RF rivastigmine tartrate 6 mg Capsule 6 mg PO QHS Qty: 0 0RF Continued doxepin 50 mg capsule 50 mg PO QHS memantine 10 mg tablet 10 mg PO BID losartan 50 mg tablet 100 mg PO DAILY amlodipine 10 mg tablet 10 mg PO DAILY oxycodone 5 mg capsule 10 mg PO Q4H PRN (Reason: pain (scale score 4-5)) clopidogrel 75 mg tablet 75 mg PO DAILY menthol-zinc oxide [Calmoseptine] 0.44-20.6 % ointment 1 applic topical BID polysaccharide iron complex 150 mg iron capsule 150 mg PO DAILY enoxaparin [Lovenox] 30 mg/0.3 mL syringe 30 mg subcut DAILY gabapentin 100 mg capsule 100 mg PO TID sennosides-docusate sodium [Senna-S] 8.6-50 mg tablet 1 tab-cap PO BID acetaminophen 500 mg tablet 1,000 mg PO Q8 tramadol 50 mg tablet 50 mg PO Q6H PRN (Reason: pain (scale score 1-3)) rivastigmine tartrate 4.5 mg capsule 9 mg PO QHS aspirin [Aspirin Childrens] 81 mg tablet,chewable 1 tab PO DAILY metoprolol succinate [Toprol XL] 25 mg tablet extended release 24 hr 25 mg PO DAILY Qty: 90 3RF Discontinued rivastigmine 9.5 mg/24 hour patch 24 hour 1 patch transdermal DAILY No Action atorvastatin 40 mg tablet 40 mg PO DAILY Referrals / Follow Up: Marcelo Lazo MD [Med Staff - Active Staff] - Within 1 Month Geraldo Joseph Chi, MD [Primary Care Provider] - Disposition Disposition (needs filled in before D/C Order can be placed): Residential Facility
--- NOTE | 2024-05-30 11:18 | CASEMGMT ---
Patient is ready for discharge back to [facility]. SW notified patient and his . Plan: d/c back to [facility] under skilled level of care. Genevieve FR[place]
[2024-05-30 11:43] VITALS: BMI 22.9
--- NOTE | 2024-05-30 14:18 | PCM.DC.SUM ---
Providers Date of Admission: 05/27/24 Primary Care Physician: Dr. Geraldo Joseph MD Consultations 05/26/24 14:53 Consult: Vascular Surgery Routine Consulting Provider: Marcelo Lazo Reason for Consult: carotid stenosis EMERGENT Consult: No MD Notified: Yes Date Notified: 05/26/24 Time Notified: 12:25 Method of Notification: ED Physician Initiated 05/27/24 16:24 Consult: Tele-Neurology Routine Consulting Provider: [facility] Reason for Consult: CVA EMERGENT Consult: No MD Notified: Yes Date Notified: 05/27/24 Time Notified: 16:29 Method of Notification: Answering Service Nursing Unit Staff Notify [facility] of Tele-Neurology Consult: Yes Reason For Visit: TIA Diagnosis Discharge Diagnosis (1) Brain TIA: Status: Acute Code(s): G45.9 - Transient cerebral ischemic attack, unspecified Medications at Discharge Home Medications doxepin 50 mg capsule 50 mg PO QHS sleep 03/23/20 losartan 50 mg tablet 100 mg PO DAILY BP 11/03/22 memantine 10 mg tablet 10 mg PO BID memory 09/14/23 metoprolol succinate 25 mg tablet,extended release 24 hr (Toprol XL) 25 mg PO DAILY BP #90 tabs 09/22/23 amlodipine 10 mg tablet 10 mg PO DAILY BP 04/08/24 aspirin 81 mg chewable tablet (Aspirin Childrens) 1 tab PO DAILY Heart health 05/19/24 oxycodone 5 mg capsule 10 mg PO Q4H PRN pain (scale score 4-5) 05/23/24 acetaminophen 500 mg tablet 1,000 mg PO Q8 pain 05/26/24 clopidogrel 75 mg tablet 75 mg PO DAILY blood thinner 05/26/24 enoxaparin 30 mg/0.3 mL subcutaneous syringe (Lovenox) 30 mg subcut DAILY blood thinner 05/26/24 gabapentin 100 mg capsule 100 mg PO TID pain 05/26/24 menthol 0.44 %-zinc oxide 20.6 % topical ointment (Calmoseptine) 1 applic topical BID skin protectant 05/26/24 polysaccharide iron complex 150 mg iron capsule 150 mg PO DAILY supplement 05/26/24 sennosides 8.6 mg-docusate sodium 50 mg tablet (Senna-S) 1 tab-cap PO BID bowels 05/26/24 tramadol 50 mg tablet 50 mg PO Q6H PRN pain (scale score 1-3) 05/26/24 atorvastatin 80 mg tablet 80 mg PO QHS #0 tabs 05/30/24 rivastigmine tartrate 1.5 mg capsule 3 mg (2 x 1.5 mg) PO QHS dementia #0 caps 05/30/24 rivastigmine tartrate 6 mg capsule 6 mg PO QHS dementia #0 caps 05/30/24 Hospital Course Operations None Procedures 2-D Echocardiogram Summary of Care Provided Minutes Spent on Discharge: 37 Hospital Course: Per HPI: АННА GONCALVES, is a 84 M who presents to the hospital from the transitional care unit with concerns of a stroke. Staff noticed that he had left-sided weakness and the left facial droop. He is currently in rehab secondary to mechanical fall leading to a C7 fracture. He cannot recall the events surrounding his stroke he cannot tell me whether or not he was lightheaded or dizzy prior to the event. And the only documentation I can find from the transitional care unit is the discharge summary that states that he was a stroke alert. He currently appears that his symptoms are completely resolved. CTA of the head and neck demonstrates an occluded segment of the cervical and intracranial right internal carotid artery with reconstitution in the distal intracranial portion as well as severe stenosis in the proximal cervical left internal carotid artery and occlusion of the proximal to mid right vertebral artery in the neck with reconstitution of flow distally severe stenosis in the proximal left vertebral artery in the neck and moderate stenosis of the origin of the right brachiocephalic artery, these findings were discussed with vascular surgery who felt that he was stable to stay at this institution for possible intervention. Hospital Course: 1. CVA of the wu radiata/essential HTN/HLD/significant carotid artery disease/CAD status post CABG?84-year-old male presented to the hospital from the transitional care unit with signs consistent with stroke. There was concern that this was likely hypoperfusion due to significant carotid disease. MRI did demonstrate a CVA in the right wu radiata. Vascular surgery was consulted and did not feel that immediate revascularization was necessary especially given the c-collar being in place for his C7 fracture which necessitated his admission to TCU in the first place from an outside facility. He should follow-up with vascular surgery in a couple weeks to evaluate for the possibility of intervention. Will continue with Lipitor at 80 mg nightly as well as aspirin and Plavix. He was on Lovenox on the outpatient side secondary to immobility this can hopefully be weaned as necessary. While he does have a history of hypertension I did continue on discharge his Norvasc, losartan, and metoprolol as a reference however I would recommend initiating treatment stepwise depending on his systolic blood pressures which should remain between 130 and 160 systolic. Given his carotid disease we do want to avoid aggressive blood pressure management and he was not on his antihypertensives during his hospitalization. He is asymptomatic from his stroke currently and I discussed with him the plan for discharge and he expressed understanding of the risk benefits going back to the alf and would like to go today. 2. Anemia of chronic disease, CKD 3-4, Alzheimer's dementia are all chronic medical conditions which complicate his care. His home medications were continued where appropriate of note he was brought to us from the TCU with a rivastigmine patch however his said that he had been switched to the pills and it does appear that he takes 9 mg of rivastigmine nightly which is what he will be discharged on. Physical Exam Narrative General: Alert, Oriented x2, Cooperative, No apparent distress HEENT: Atraumatic, PERRLA, EOMI, Normocephalic Oral: Moist Mucosa Neck: Supple, No JVD, c-collar in place Lungs: Diminished, Normal air movement, No rhonchi, No wheeze, No rales Cardiovascular: Regular rate, Regular Rhythm, Normal S1, Normal S2, No murmurs Abdomen: Soft, Non Tender, Non-Distended, No Hepato-splenomegaly Extremities: No edema, Capillary Refill Less than 3 Seconds Skin: Multiple areas of contusions and lacerations in various stages of healing from his mechanical fall Musculoskeletal: No Tenderness to Palpation of Joints or Extremities Neurological: No focal neurological deficits, Motor Exam 5/5 strength throughout, Sensory exam intact to light touch and pain, NIH of 0 Psych/Mental Status: Normal Affect, Appropriate Weight / BMI Weight Weight: 169 lb 1.513 oz Body Mass Index (BMI) 22.9 ABG / Lab / Microbiology Data 05/29/24 10:57 05/28/24 06:33 Laboratory: Laboratory Results - last 24 hr 05/29/24 06:33: Hemoglobin A1c 5.3 Meaningful Use Info Meaningful Use Meaningful Use Diagnoses (Choose all that apply): None applicable Ischemic Stroke Statin Dosing Therapy Reference: STATIN DOSE THERAPY REFERENCE: * Patients > 75 years receive moderate or high dose statin therapy. * Patients 75 years or YOUNGER should receive HIGH intensity statin dose unless contraindicated. You will be required to document reason for non-treatment if statin daily dose does not meet guidelines. HIGH DOSE STATIN THERAPY DAILY Atorvastatin > than or = to 40 mg Rosuvastatin > than or = to 20 mg Amlodipine + Atorvastatin > than or = to 2.5/40 mg Ezetimibe + Simvastatin 10/80 mg Simvastatin 80mg Discharge Plan Admission Admit Date/Time: 05/27/24 17:07 Attending Provider: Jesus Snyder Primary Care Provider: Geraldo Joseph Chi Consulting Providers: Marcelo Lazo; Trevor Trujillo; Tyra Araujo; Marci Salamanca; Juani Jin; Callie Godoy; Jose Celis; Jenny Tam; Ramírez Garcia; Júnior Oliver; Yaya Ariza; Julia Jc; Maurilio Will; Carine Yadav; Jyoti Morton; Rehanabijal Sanchez; Carlos Pike; Gabriela Xie; Narendra Tavares; Joelle Cuevas; Rogelio Doan Discharge Orders/Prescriptions Prescriptions: New rivastigmine tartrate 1.5 mg Capsule 3 mg PO QHS Qty: 0 0RF atorvastatin 80 mg Tablet 80 mg PO QHS Qty: 0 0RF rivastigmine tartrate 6 mg Capsule 6 mg PO QHS Qty: 0 0RF Continued doxepin 50 mg capsule 50 mg PO QHS memantine 10 mg tablet 10 mg PO BID losartan 50 mg tablet 100 mg PO DAILY amlodipine 10 mg tablet 10 mg PO DAILY oxycodone 5 mg capsule 10 mg PO Q4H PRN (Reason: pain (scale score 4-5)) clopidogrel 75 mg tablet 75 mg PO DAILY menthol-zinc oxide [Calmoseptine] 0.44-20.6 % ointment 1 applic topical BID polysaccharide iron complex 150 mg iron capsule 150 mg PO DAILY enoxaparin [Lovenox] 30 mg/0.3 mL syringe 30 mg subcut DAILY gabapentin 100 mg capsule 100 mg PO TID sennosides-docusate sodium [Senna-S] 8.6-50 mg tablet 1 tab-cap PO BID acetaminophen 500 mg tablet 1,000 mg PO Q8 tramadol 50 mg tablet 50 mg PO Q6H PRN (Reason: pain (scale score 1-3)) aspirin [Aspirin Childrens] 81 mg tablet,chewable 1 tab PO DAILY metoprolol succinate [Toprol XL] 25 mg tablet extended release 24 hr 25 mg PO DAILY Qty: 90 3RF Discontinued atorvastatin 40 mg tablet 80 mg PO QHS rivastigmine 9.5 mg/24 hour patch 24 hour 1 patch transdermal DAILY rivastigmine tartrate 4.5 mg capsule 9 mg PO QHS Referrals / Follow Up: Marcelo Lazo MD [Med Staff - Active Staff] - Within 1 Month Geraldo Joseph Chi, MD [Primary Care Provider] - Disposition Disposition (needs filled in before D/C Order can be placed): Nursing Home Facility Charges/Coding Visit Charges Inpatient E&M: 52871 Disch Hosp >30min
== END 2024-05-30 11:53 | disposition skilled nursing facility (03) | DRG 65 ==
LOC: ED 12:46 → PCU 13:37
PROVIDERS: Admitting Provider Family Medicine; Emergency Provider Emergency Medicine; PCP Family Medicine Geriatric Medicine; Visit Provider Family Medicine
DX: I63.89 Other cerebral infarction (principal); G81.94 Hemiplegia, unspecified affecting left nondominant side; D63.1 Anemia in chronic kidney disease; F02.80 Dementia in other diseases classified elsewhere, unspecified severity, without behavioral disturbance, psychotic disturbance, mood disturbance, and anxiety; N18.31 Chronic kidney disease, stage 3a; I12.9 Hypertensive chronic kidney disease with stage 1 through stage 4 chronic kidney disease, or unspecified chronic kidney disease; I77.9 Disorder of arteries and arterioles, unspecified; I65.03 Occlusion and stenosis of bilateral vertebral arteries; I48.91 Unspecified atrial fibrillation; G30.9 Alzheimer's disease, unspecified; I25.10 Atherosclerotic heart disease of native coronary artery without angina pectoris; E78.5 Hyperlipidemia, unspecified; I70.1 Atherosclerosis of renal artery; I65.23 Occlusion and stenosis of bilateral carotid arteries; I73.9 Peripheral vascular disease, unspecified; F17.210 Nicotine dependence, cigarettes, uncomplicated; W19.XXXD Unspecified fall, subsequent encounter; R29.810 Facial weakness; R29.700 NIHSS score 0; S12.601D Unspecified nondisplaced fracture of seventh cervical vertebra, subsequent encounter for fracture with routine healing; Z68.22 Body mass index [BMI] 22.0-22.9, adult; Z66 Do not resuscitate; Z79.82 Long term (current) use of aspirin; Z79.02 Long term (current) use of antithrombotics/antiplatelets; Z79.891 Long term (current) use of opiate analgesic; Z79.899 Other long term (current) drug therapy; Z95.1 Presence of aortocoronary bypass graft; Z95.5 Presence of coronary angioplasty implant and graft
CPT/HCPCS: 36415; 70450; 70496; 70498; 70551; 71045; 80048; 80061; 83036; 84484; 85014; 85018; 85025; 85610; 85730; 92523; 92610; 93005; 93306; 94762; 97116; 97162; 97166; 97530; 97535; 97802; 99285; Q9957; Q9967; A4216; C8929

== ENCOUNTER 2024-05-30 12:08 | Inpatient (IN) | payer MEDICARE, SELFPAY ==
[2024-05-30 12:30] VITALS: BP 161/82; PULSE 86; RESP 16; TEMP 36.9; O2SAT 99; BMI 22.2
--- NOTE | 2024-05-30 12:56 | HP.PCM_ITS ---
HPI - General General Date of Admission: 05/30/24 Date of Service: 05/30/24 Chief Complaint: Here for rehabilitation. HPI Narrative АННА GONCALVES, is a 84 Male who presents with followin05/26/2024 [facility] ED TCU resident rehab after C7 fracture, presented with stroke alert. Left facial droop, left arm drift, favoring left side, speech off. CT brain negative, not TNP candidate because symptoms resolved. CTA head/neck showed left carotid artery severe stenosis, right carotid artery occlusion. Right brachiocephalic artery with moderate stenosis. 05/26/2024 Admit [facility]. Consult vascular surgery for bilateral carotid artery stenosis. MRI brain to rule out stroke. 05/27/2024 MRI brain showed tiny acute infract posterior right frontal lobe. Aspirin, Plavix, Statin for stroke. 05/27/2024 Dr. Lazo consider surgery once patient out of cervical collar for C7 lateral mass fracture. 05/28/2024 No issues overnight, no residual stroke symptoms. Aspirin, Plavix, Statin for stroke. 05/28/2024 Teleneurology recommends Aspirin 81mg daily, Plavix 75mg daily, Atorvastatin 40mg. Recommend carotid revascularization surgery. 05/29/2024 Doing well. Pre-CERT for TCU, no plan for surgery 2/2 recent C7 fracture, in cervical collar. 05/29/2024 Neurology recommends left ICA surgery, but unable 2/2 recent C7 fracture in c collar. 05/30/2024 Admit to TCU with debility, here for rehabilitation, strengthening, prior to discharge home with . [facility] Medical History Anemia in chronic kidney disease (CKD) Racing heart beat Hyperlipidemia Stage 3a chronic kidney disease (CKD) Essential hypertension Atherosclerosis of coronary artery of [place] heart without angina pectoris Iron deficiency Insomnia Vitamin D deficiency Alzheimer disease Anemia Wears glasses Wears dentures Forgetfulness Alcohol use Arthritis Injury of back Asthma Smoker Left carpal tunnel syndrome Renal artery stenosis Peripheral arterial occlusive disease Carotid artery disease Home Medications ?Medication ?Instructions ?Recorded ?Last Taken ?Type doxepin 50 mg capsule 50 mg PO QHS sleep 03/23/20 05/22/24 History losartan 50 mg tablet 100 mg PO DAILY BP 11/03/22 05/26/24 History memantine 10 mg tablet 10 mg PO BID memory 09/14/23 05/26/24 History metoprolol succinate 25 mg 25 mg PO DAILY BP #90 tabs 09/22/23 05/23/24 Rx tablet,extended release 24 hr (Toprol XL) amlodipine 10 mg tablet 10 mg PO DAILY BP 04/08/24 05/23/24 History aspirin 81 mg chewable tablet 1 tab PO DAILY Heart health 05/19/24 05/26/24 History (Aspirin Childrens) oxycodone 5 mg capsule 10 mg PO Q4H PRN pain (scale score 05/23/24 05/23/24 History 4-5) acetaminophen 500 mg tablet 1,000 mg PO Q8 pain 05/26/24 Unknown History clopidogrel 75 mg tablet 75 mg PO DAILY blood thinner 05/26/24 Unknown History enoxaparin 30 mg/0.3 mL 30 mg subcut DAILY blood thinner 05/26/24 Unknown History subcutaneous syringe (Lovenox) gabapentin 100 mg capsule 100 mg PO TID pain 05/26/24 05/26/24 History menthol 0.44 %-zinc oxide 20.6 % 1 applic topical BID skin 05/26/24 05/26/24 History topical ointment (Calmoseptine) protectant polysaccharide iron complex 150 mg 150 mg PO DAILY supplement 05/26/24 05/26/24 History iron capsule sennosides 8.6 mg-docusate sodium 1 tab-cap PO BID bowels 05/26/24 Unknown History 50 mg tablet (Senna-S) tramadol 50 mg tablet 50 mg PO Q6H PRN pain (scale score 05/26/24 Unknown History 1-3) atorvastatin 80 mg tablet 80 mg PO QHS #0 tabs 05/30/24 Unknown Rx rivastigmine tartrate 1.5 mg 3 mg (2 x 1.5 mg) PO QHS dementia 05/30/24 Unknown Rx capsule #0 caps rivastigmine tartrate 6 mg capsule 6 mg PO QHS dementia #0 caps 05/30/24 Unknown Rx Allergy/AdvReac Type Severity Reaction Status Date / Time No Known Allergies Allergy Verified 05/26/24 10:02 Family History Mother Diabetes Heart disease Hypertension Myocardial infarction Father Diabetes Kidney disease Myocardial infarction Heart failure Sister Diabetes Cancer Lung Heart disease Scleroderma Surgical History History of coronary artery stent placement (~1995) History of coronary artery bypass surgery (12/16/13) History of lumbar laminectomy History of cardiac catheterization History of carpal tunnel surgery of right wrist H/O cataract extraction History of back surgery History of knee replacement, total H/O carotid endarterectomy Social History household members: spouse Smoking Status: Former smoker Tobacco: How many years used: 50 alcohol intake: current alcohol intake frequency: holidays/special occasions only substance use type: does not use caffeine: Yes Type: coffee Number of servings: 4 what type of physical activity do you participate in: none frequency: does not exercise ROS Constitutional Constitutional: Reports weakness; Denies chills, fever(s) or weight gain ENT HEENT: Denies headache(s), nasal congestion or nasal discharge Cardiovascular Cardiovascular: Denies chest pain or palpitations Respiratory/Chest Respiratory/Chest: Denies cough, excessive phlegm production or shortness of breath with exertion Gastrointestinal Gastrointestinal: Denies abdominal pain, nausea or vomiting Genitourinary Genitourinary: Denies dysuria Musculoskeletal Musculoskeletal: Denies joint pain or joint swelling Integumentary Integumentary: Denies rash or wounds Neurologic Neurologic: Denies focal weakness, numbness or tingling Psychiatric Psychiatric: Denies anxiety, auditory hallucinations, depression, homicidal ideation or suicidal ideation Vital Signs Vital Signs Vital Signs: 05/30/24 12:30 Temperature 98.4 F Temperature Source Temporal Pulse Rate 86 Respiratory Rate 16 Blood Pressure 161/82 H Blood Pressure Mean 108 Blood Pressure Source Monitor Blood Pressure Position Semi-Fowlers Blood Pressure Location Right Arm Pulse Ox 99 Oxygen Delivery Method Room Air Weight Weight: 74.435 kg Body Mass Index (BMI) 22.2 Physical Exam Const alert General Appearance: cooperative HEENT normocephalic Eyes PERRL and EOMs intact bilaterally Neck supple, no JVD and no carotid bruits Neck Narrative: C-collar. Resp normal respiratory effort, normal air movement and clear to auscultation bilaterally Cardio regular rate and regular rhythm GI normal to inspection, nondistended, normoactive bowel sounds, non-tender and non-distended Extremity normal capillary refill General Extremity: Negative for edema Skin no rashes or lesions noted General Skin Exam: no breakdown Neuro moves all extremities Psych affect normal Appearance: appropriate Assessment & Plan Assessment/Plan (1) Debility: (2) Stroke: (3) Left carotid artery stenosis: (4) Right carotid artery occlusion: (5) C7 cervical fracture: (6) Essential hypertension: (7) Coronary artery disease: (8) Hyperlipidemia: QUALIFIERS: Hyperlipidemia type: mixed hyperlipidemia Qualified Code(s): E78.2 - Mixed hyperlipidemia (9) Insomnia: (10) Iron deficiency anemia: (11) Alzheimer disease: PLAN: Plan 84 year old male with recent C7 lateral mass fracture hospitalized for stroke, complicated by right carotid artery occlusion, left carotid artery severe stenosis, would benefit from left carotid artery revascularization, but unable due to C7 lateral mass fracture requiring cervical collar, admitted to TCU with debility, here for rehabilitation, strengthening, prior to discharge home with . * Debility - PT/OT. * Cognition - ST. * Pain - Tylenol 1000mg q8, Tramadol 50mg q6 prn, Oxycodone 10mg q4 prn. * Bowel - Miralax 17gm daily, Senna/colace 1 tablet bid, Magnesium citrate 300ml po x 1 prn, Dulcolax 10mg pr x 1 prn. * Adult immunization - Administer pneumonia vaccine, covid vaccine, flu vaccine as appropriate. * DVT prophylaxis - Lovenox 30mg sc daily. * Hyperlipidemia - Atorvastatin 80mg qhs. * Hypertension - Metoprolol succinate 25mg daily, Losartan 100mg daliy, amlodipine 10mg daily. * Stroke - Aspirin 81mg daily, Plavix 75mg daily. * Insomnia - Doxepin 50mg qhs. * Neuropathic pain - Gabapentin 100mg tid. * Iron deficiency anemia - Ferrex 150mg daily. * Alzheimer Disease - Rivastigmine 9mg qhs, Memantine 10mg bid. * Skin irritation - Calmoseptine topical bid. * Severe left carotid artery stenosis - Consider surgery once out of c collar.
[2024-05-30] MEDS: Acetaminophen 500 MG Tablet 1000 MG PO ×2 (13:45→21:43)
[2024-05-30] MEDS: Gabapentin 100 MG Capsule PO ×2 (13:45→21:42)
--- NOTE | 2024-05-30 15:45 | CASEMGMT ---
Social Work SW met with patient. Introduced self and role. Pt is a readmit. SW inquired about code status and provided explanation, as pt was giving conflicting answers. Pt wishes to be DNR-CCA, no intubation. Upon first admission, also elected DNR-CCA with no intubation. Purple bracelet already placed. SW updated nursing to change order. SW entered ST consult for TIA and cognitive deficits. SW will continue to follow for DC planning. 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
[2024-05-30] MEDS: oxyCODONE 5 MG Tablet 10 MG PO ×2 (16:58→21:47)
[2024-05-30] MEDS: Rivastigmine Tartrate 1.5 MG Capsule 3 MG PO (21:42)
[2024-05-30] MEDS: Atorvastatin Calcium 80 MG Tablet PO (21:43)
[2024-05-30] MEDS: DOXEPIN HCL 50 MG CAPSULE PO (21:44)
[2024-05-30] MEDS: RIVASTIGMINE TARTRATE 6 MG PO (21:44)
[2024-05-30] MEDS: Menthol/Lanolin/Calamine/Znox 113 GM Tube 1 APPLIC TOPICAL (21:44)
[2024-05-30] MEDS: Memantine Hydrochloride 10 MG Tablet PO (21:45)
[2024-05-30] MEDS: Senna/Docusate Sodium 1 Tablet PO (21:45)
[2024-05-31] MEDS: oxyCODONE 5 MG Tablet 10 MG PO (02:31)
[2024-05-31] MEDS: Gabapentin 100 MG Capsule PO ×3 (05:55→22:41)
[2024-05-31] MEDS: Acetaminophen 500 MG Tablet 1000 MG PO ×3 (05:55→22:45)
[2024-05-31 06:01] LABS: Absolute Lymphocyte Count 1.08 X10^3/uL (0.83-4.51); Absolute Neutrophil Count 4.8 X10^3/uL (2.0-7.7); Basophil# 0.03 X10^3/uL; Basophil% 0.4 % (0-1); Eosinophil# 0.29 X10^3/uL; Eosinophils% 4.2 % (0-5); Hematocrit 24.3 % (40-54); Lymphocyte # 1.08 X10^3/ul (0.83-4.51); Lymphocyte % 15.7 % (19-41); Mean Corp Hgb Conc 32.9 g/dL (32-36); Mean Corpuscular Volume 97.2 fL (80-94); Mean Platelet Vol. 8.8 fl (6.2-12.0); Monocyte# 0.67 X10^3/uL; Monocyte% 9.8 % (0-10); NRBC Flagged by Analyzer 0 % (0-5); Neutrophil # 4.77 X10^3/uL (2.7-7.7); Neutrophil % 69.5 % (47-70); Platelet Count 256 K/mm3 (150-450); RBC Distribution Width CV 12.5 % (11.6-14.6); RBC Distribution Width SD 44.7 fl (35.1-43.9); White Blood Count 6.9 K/mm3 (4.4-11.0)
[2024-05-31 06:25] LABS: Anion Gap 4 (5-15); BUN 43 mg/dL (7-18); BUN/Creat Ratio 22.4 RATIO (10-20); Chloride 111 mmol/L (98-107); Creatinine, Serum 1.92 mg/dL (0.70-1.30); EST Glomerular Filtration Rate 36 mL/min (>60); Est Glom Filt Rate - Afr Amer 43 mL/min (>60); Estimated Creatinine Clearance 31.23 ml/min; Glucose 97 mg/dL (74-106); Potassium 4.5 mmol/L (3.5-5.1); Sodium Level 137 mmol/L (136-145)
[2024-05-31] MEDS: Aspirin 81 MG TAB.CHEW PO (09:46)
[2024-05-31] MEDS: Losartan Potassium 100 MG Tablet PO (09:46)
[2024-05-31] MEDS: Iron Polysaccharide Complex 150 MG CAPSULE PO (09:46)
[2024-05-31] MEDS: Clopidogrel Bisulfate 75 MG Tablet PO (09:47)
[2024-05-31] MEDS: Memantine Hydrochloride 10 MG Tablet PO ×2 (09:47→22:45)
[2024-05-31] MEDS: amLODIPine 10 MG Tablet PO (09:47)
[2024-05-31] MEDS: Enoxaparin 30 MG/0.3 ML Syringe SC (09:47)
[2024-05-31] MEDS: Polyethylene Glycol 3350 17 GM PACKET PO (09:47)
[2024-05-31] MEDS: Senna/Docusate Sodium 1 Tablet PO ×2 (09:47→22:44)
[2024-05-31 09:48] VITALS: BP 132/67; PULSE 93
[2024-05-31] MEDS: Metoprolol(XL)Succ 25 MG Tablet PO (09:48)
[2024-05-31] MEDS: Menthol/Lanolin/Calamine/Znox 113 GM Tube 1 APPLIC TOPICAL ×2 (09:54→22:43)
[2024-05-31] MEDS: Tuberculin,Purif.prot.deriv. 50 TU/ML Vial 0.1 ML ID (11:29)
--- NOTE | 2024-05-31 11:55 | NURSING ---
Grease Worker Note; Activity Asset: Ambreen Zamarripa is independent in his choice of daily activities. His visits daily and brings him items he may need. He has returned for continued therapy and prefers to do independent activities in his room at this time. He read, watches tv, uses his smartphone and has word search puzzles. Staff will remind him of weekly activities and respect his right to say no.
[2024-05-31 16:00] VITALS: BP 132/67; PULSE 93; RESP 16; TEMP 36.8; O2SAT 98
[2024-05-31 22:00] VITALS: PULSE 82; O2SAT 95
--- NOTE | 2024-05-31 22:13 | PHA.CONS_ITS ---
Documented by User: Nancy Webb 05/31/24 22:43 TCU RX Drug Regimen Review Subjective/Objective Subjective/Objective: Subjective: TCU Admission. 84 YOM TCU resident presented to the ER with stroke symptoms. Hospitalized for stroke, complicated by right carotid artery occ lusion, left carotid artery severe stenosis, would benefit from left carotid artery revascularization, but unable due to C7 lateral mass fracture requiring cervical collar. Admitted to TCU with debility for strengthening and rehabilitation. Objective: Allergies No Known Allergies Allergy (Verified 05/26/24 10:02) Current Medications Generic Name Dose Route Start Last Admin Trade Name Freq PRN Reason Stop Dose Admin Acetaminophen 1,000 mg 05/30/24 14:00 05/31/24 13:46 Acetaminophen 500 Mg Tablet PO 1,000 mg Q8 STUART Administration Amlodipine Besylate 10 mg 05/31/24 10:00 05/31/24 09:47 Amlodipine 10 Mg Tablet PO 10 mg DAILY STUART Administration Protocol Aspirin 81 mg 05/31/24 08:00 05/31/24 09:46 Aspirin 81 Mg Tab.Chew PO 81 mg DAILYCM STUART Administration Atorvastatin Calcium 80 mg 05/30/24 22:00 05/30/24 21:43 Atorvastatin Calcium 80 Mg Tablet PO 80 mg QHS STUART Administration Bisacodyl 10 mg 05/30/24 12:32 Bisacodyl 10 Mg Suppository RC DAILY PRN PRN Constipation Calamine/Phenol 1 applic 05/30/24 22:00 05/31/24 09:54 Menthol/Lanolin/Calamine/Znox 113 Gm Tube TOPICAL 1 applic BID STUART Administration Protocol Clopidogrel Bisulfate 75 mg 05/31/24 10:00 05/31/24 09:47 Clopidogrel Bisulfate 75 Mg Tablet PO 75 mg DAILY STUART Administration Doxepin HCl 50 mg 05/30/24 22:00 05/30/24 21:44 Doxepin Hcl 50 Mg Capsule PO 50 mg QHS STUART Administration Enoxaparin Sodium 30 mg 05/31/24 10:00 05/31/24 09:47 Enoxaparin 30 Mg/0.3 Ml Syringe SC 30 mg DAILY STUART Administration Gabapentin 100 mg 05/30/24 14:00 05/31/24 13:46 Gabapentin 100 Mg Capsule PO 100 mg TID STUART Administration Losartan Potassium 100 mg 05/31/24 10:00 05/31/24 09:46 Losartan Potassium 100 Mg Tablet PO 100 mg DAILY [facility] Administration Protocol Magnesium Citrate 300 ml 05/30/24 12:32 Magnesium Citrate 300 Ml PO X1 PRN Constipation Memantine 10 mg 05/30/24 22:00 05/31/24 09:47 Memantine Hydrochloride 10 Mg Tablet PO 10 mg BID STUART Administration Metoprolol Succinate 25 mg 05/31/24 10:00 05/31/24 09:48 Metoprolol(Xl)Succ 25 Mg Tablet PO 25 mg DAILY [facility] Administration Protocol Oxycodone HCl 10 mg 05/30/24 12:24 05/31/24 02:31 Oxycodone 5 Mg Tablet PO 10 mg Q4H PRN Administration pain (scale score 4-10) Polyethylene Glycol 17 gm 05/31/24 10:00 05/31/24 09:47 Polyethylene Glycol 3350 17 Gm Packet PO 17 gm DAILY [facility] Administration Polysaccharide Iron Complex 150 mg 05/31/24 10:00 05/31/24 09:46 Iron Polysaccharide Complex 150 Mg Capsule PO 150 mg DAILY [facility] Administration Rivastigmine Tartrate 3 mg 05/30/24 22:00 05/30/24 21:42 Rivastigmine Tartrate 1.5 Mg Capsule PO 3 mg QHS [facility] Administration Rivastigmine Tartrate 6 mg 05/30/24 22:00 05/30/24 21:44 Rivastigmine Tartrate 6 Mg Capsule PO 6 mg QHS [facility] Administration Senna/Docusate Sodium 1 tablet 05/30/24 22:00 05/31/24 09:47 Senna/Docusate Sodium 1 Tablet PO 1 tablet BID [facility] Administration Tramadol HCl 50 mg 05/30/24 12:30 Tramadol 50 Mg Tablet PO Q6H PRN pain (scale score 1-3) Tuberculin PPD 0.1 ml 06/07/24 10:00 Tuberculin,Purif.Prot.Deriv. 50 Tu/Ml Vial ID 06/07/24 10:01 X1 ONE Problem List C7 cervical fracture (Acute) Right carotid artery occlusion (Acute) Left carotid artery stenosis (Acute) Stroke (Acute) Coronary artery disease (Acute) Iron deficiency anemia (Acute) Insomnia (Acute) Alzheimer disease (Acute) Debility (Acute) Hyperlipidemia (Chronic) Essential hypertension (Chronic) Vital Signs Temp Pulse Resp BP Pulse Ox O2 Del Method 98.2 F 93 16 132/67 H 98 Room Air 05/31/24 16:00 05/31/24 16:00 05/31/24 16:00 05/31/24 16:00 05/31/24 16:00 05/30/24 12:30 Oxygen Delivery Method Room Air Weight: 74.435 kg Body Mass Index (BMI) 22.2 Sodium 137 mmol/L (136-145) 05/31/24 05:46 Potassium 4.5 mmol/L (3.5-5.1) 05/31/24 05:46 Chloride 111 mmol/L (98-107) H 05/31/24 05:46 Carbon Dioxide 22.0 mmol/L (21.0-32.0) 05/31/24 05:46 Anion Gap 4 (5-15) L 05/31/24 05:46 BUN 43 mg/dL (7-18) H 05/31/24 05:46 Creatinine 1.92 mg/dL (0.70-1.30) H 05/31/24 05:46 Est GFR (MDRD) Af Amer 43 mL/min (>60) L 05/31/24 05:46 Est GFR (MDRD) Non-Af 36 mL/min (>60) L 05/31/24 05:46 BUN/Creatinine Ratio 22.4 RATIO (10-20) H 05/31/24 05:46 Glucose 97 mg/dL (74-106) 05/31/24 05:46 Assessment/Plan: 1. Pain: acetaminophen 1000mg PO Q8, tramadol 50mg PO Q6H PRN pain 1-3 and oxycodone 10mg PO Q4H PRN pain 4-10. Resident has had no doses of tramadol but 3 doses of oxycodone (pain scores of 5,8-9 for general/shoulder pain). Please continue to monitor for increased pain, PRN usage, constipation, renal function and respiratory depression. 2. Bowel: Miralax 17gm PO daily, senna/docusate 1T PO BID, magnesium citrate 300mL PO x1 PRN constipation and bisacodyl 10mg RC x1 PRN constipation. Resident has not had any PRN doses. Please continue to monitor for constipation, PRN usage. Last documented bowel movement was 05/27/24. 3. DVT prophylaxis: enoxaparin 30mg SC daily. Please continue to monitor for S/S of bleeding/DVT, hemoglobin (last 8g/dL), platelets (last 256,000) and renal function (CrCl 31 mL/min, variable SCr lately, did not change to 40mg as current renal function is borderline). 4. Hypertension: metoprolol succinate 25mg PO daily, losartan 100mg PO daily and amlodipine 10mg PO daily. Please continue to monitor BP (last 132/67), HR (last 93), potassium (last 4.5mmol/L), swelling and renal function. 5. Stroke: aspirin 81mg PO daily and clopidogrel 75mg PO daily. Please continue to monitor for S/S of bleeding/stroke/bruising and hemoglobin. 6. Hyperlipidemia: atorvastatin 80mg PO QHS. Please continue to monitor lipid panel (last 05/27/24), LFTs (last 04/02/24) and muscle pain. 7. Alzheimer disease: rivastigmine 9mg PO QHS and memantine 10mg PO BID. Please continue to monitor for anticholinergic side effects, GI side effects, rash, drowsiness and dyskinesias. 8. Iron deficiency anemia: Ferrex 150mg PO DAILYCM. Please continue to monitor hemoglobin (last 8 g/dL), dark stools, constipation and iron studies (last 04/09/24). 9. Skin irritation: Calmoseptine topical bid. Assessment/Plan for indications treated with psychotropic medications: 1. Insomnia: doxepin 50mg PO QHS. Please consider GDR by 11/2025 if clinically appropriate. Thanks. Please continue to monitor for dementia/delirium (BEERs), anticholinergic side effects (BEERs), falls/fractures (BEERs), excessive drowsiness, and sodium (last 137mmol/L). 2. Neuropathic pain: gabapentin 100mg PO TID. Please consider changing from TID to BID (based on CrCl of 31 mL/min) to minimize chance of side effects. Thanks. Please continue to monitor for confusion, renal function and falls/fractures (BEERs). Medical chart and medication regimen reviewed. The following medication irregularities or issues were identified: 1. Gabapentin 100mg PO TID. Please consider changing from TID to BID (based on CrCl of 31 mL/min) to minimize chance of side effects. Thanks. 2. Doxepin 50mg PO QHS. Please consider GDR by 11/2025 if clinically appropriate. Thanks. Date Date of Note:: 05/31/24 Documented by User: Dr. Geraldo Joseph MD 06/02/24 06:28 TCU RX Drug Regimen Review Provider Comments Provider responsibility Provider Comments to Recommendations by Pharmacy: Agree
[2024-05-31] MEDS: Atorvastatin Calcium 80 MG Tablet PO (22:43)
[2024-05-31] MEDS: DOXEPIN HCL 50 MG CAPSULE PO (22:43)
[2024-05-31] MEDS: Rivastigmine Tartrate 1.5 MG Capsule 3 MG PO (22:44)
[2024-05-31] MEDS: RIVASTIGMINE TARTRATE 6 MG PO (22:56)
[2024-05-31] MEDS: Magnesium Citrate 300 ML PO (23:00)
[2024-06-01] MEDS: Acetaminophen 500 MG Tablet 1000 MG PO ×3 (05:33→22:39)
[2024-06-01] MEDS: Gabapentin 100 MG Capsule PO ×3 (05:33→22:41)
[2024-06-01 09:15] VITALS: BP 150/63; PULSE 88; RESP 18; TEMP 36.6; O2SAT 98
[2024-06-01] MEDS: Enoxaparin 30 MG/0.3 ML Syringe SC (09:19)
[2024-06-01 09:20] VITALS: PULSE 88
[2024-06-01] MEDS: Losartan Potassium 100 MG Tablet PO (09:20)
[2024-06-01] MEDS: Menthol/Lanolin/Calamine/Znox 113 GM Tube 1 APPLIC TOPICAL ×2 (09:20→22:37)
[2024-06-01] MEDS: Aspirin 81 MG TAB.CHEW PO (09:20)
[2024-06-01] MEDS: amLODIPine 10 MG Tablet PO (09:20)
[2024-06-01] MEDS: Iron Polysaccharide Complex 150 MG CAPSULE PO (09:20)
[2024-06-01] MEDS: Memantine Hydrochloride 10 MG Tablet PO ×2 (09:20→22:38)
[2024-06-01] MEDS: Clopidogrel Bisulfate 75 MG Tablet PO (09:20)
[2024-06-01] MEDS: Metoprolol(XL)Succ 25 MG Tablet PO (09:20)
[2024-06-01 17:08] VITALS: PULSE 76; RESP 16
[2024-06-01] MEDS: oxyCODONE 5 MG Tablet 10 MG PO (20:09)
[2024-06-01] MEDS: Rivastigmine Tartrate 1.5 MG Capsule 3 MG PO (22:38)
[2024-06-01] MEDS: Atorvastatin Calcium 80 MG Tablet PO (22:38)
[2024-06-01] MEDS: RIVASTIGMINE TARTRATE 6 MG PO (22:38)
[2024-06-01] MEDS: DOXEPIN HCL 50 MG CAPSULE PO (22:38)
[2024-06-01] MEDS: Senna/Docusate Sodium 1 Tablet PO (22:39)
[2024-06-02] MEDS: Acetaminophen 500 MG Tablet 1000 MG PO ×3 (05:35→21:40)
[2024-06-02] MEDS: Gabapentin 100 MG Capsule PO ×3 (05:36→21:42)
[2024-06-02 07:34] LABS: Hematocrit 25.9 % (40-54); Hemoglobin 8.4 g/dL (13.0-16.5)
[2024-06-02] MEDS: oxyCODONE 5 MG Tablet 10 MG PO (07:39)
[2024-06-02 07:44] VITALS: BP 112/92; PULSE 86
[2024-06-02] MEDS: amLODIPine 10 MG Tablet PO (07:44)
[2024-06-02] MEDS: Iron Polysaccharide Complex 150 MG CAPSULE PO (07:44)
[2024-06-02] MEDS: Senna/Docusate Sodium 1 Tablet PO ×2 (07:44→21:39)
[2024-06-02] MEDS: Metoprolol(XL)Succ 25 MG Tablet PO (07:44)
[2024-06-02] MEDS: Clopidogrel Bisulfate 75 MG Tablet PO (07:44)
[2024-06-02] MEDS: Losartan Potassium 100 MG Tablet PO (07:45)
[2024-06-02] MEDS: Aspirin 81 MG TAB.CHEW PO (07:45)
[2024-06-02] MEDS: Enoxaparin 30 MG/0.3 ML Syringe SC (07:45)
[2024-06-02] MEDS: Memantine Hydrochloride 10 MG Tablet PO ×2 (07:45→21:39)
[2024-06-02 07:49] VITALS: BP 112/92; PULSE 81; RESP 16; TEMP 36.4; O2SAT 95
[2024-06-02] MEDS: Menthol/Lanolin/Calamine/Znox 113 GM Tube 1 APPLIC TOPICAL ×2 (11:47→21:36)
--- NOTE | 2024-06-02 15:59 | NURSING ---
entered room and noted pt had removed C collar, reminded pt that it needs to stay on per MD order. pt verbalized understanding but needed much assistance to apply it correctly.
[2024-06-02] MEDS: traMADol 50 MG Tablet PO (18:46)
[2024-06-02 20:00] VITALS: PULSE 68; O2SAT 96
[2024-06-02] MEDS: RIVASTIGMINE TARTRATE 6 MG PO (21:37)
[2024-06-02] MEDS: DOXEPIN HCL 50 MG CAPSULE PO (21:37)
[2024-06-02] MEDS: Atorvastatin Calcium 80 MG Tablet PO (21:39)
[2024-06-02] MEDS: Rivastigmine Tartrate 1.5 MG Capsule 3 MG PO (21:39)
[2024-06-03] MEDS: Acetaminophen 500 MG Tablet 1000 MG PO ×3 (05:37→21:47)
[2024-06-03] MEDS: Gabapentin 100 MG Capsule PO ×3 (05:37→21:47)
[2024-06-03 08:55] VITALS: BP 145/61; PULSE 64
[2024-06-03] MEDS: Aspirin 81 MG TAB.CHEW PO (08:55)
[2024-06-03] MEDS: Metoprolol(XL)Succ 25 MG Tablet PO (08:55)
[2024-06-03] MEDS: Losartan Potassium 100 MG Tablet PO (08:56)
[2024-06-03] MEDS: Clopidogrel Bisulfate 75 MG Tablet PO (08:56)
[2024-06-03] MEDS: Menthol/Lanolin/Calamine/Znox 113 GM Tube 1 APPLIC TOPICAL ×2 (08:57→21:47)
[2024-06-03] MEDS: Iron Polysaccharide Complex 150 MG CAPSULE PO (08:57)
[2024-06-03] MEDS: Senna/Docusate Sodium 1 Tablet PO ×2 (08:58→21:48)
[2024-06-03] MEDS: Memantine Hydrochloride 10 MG Tablet PO ×2 (08:58→21:48)
[2024-06-03] MEDS: amLODIPine 10 MG Tablet PO (08:58)
[2024-06-03] MEDS: Enoxaparin 30 MG/0.3 ML Syringe SC (09:03)
--- NOTE | 2024-06-03 12:19 | NURSING ---
Offered covid vaccine, VIS provided. Resident would like to receive, called and asked as well, she agrees, would like resident to have.
--- NOTE | 2024-06-03 15:55 | CHAPLAIN ---
Type of Pastoral Visit _x__ Initial Visit ___ Follow-up Visit ___ On-call Visit ___ General Patient Visit ___ Spiritual Assessment ___ Family Conference ___ Bereavement ___ Rapid Response ___ Code Blue ___ Other (describe below) Pastoral Care Referral From _x__ Patient ___ Family ___ Nurse ___ Physician ___ Geophysical Prospecting Surveyor ___ Plate Grainer ___ Other (describe below) Sacrament/Intervention _x__ Active listening ___ Anointing ___ Gnosticism ___ Bereavement ___ Communion _x__ Prema exploration ___ _x__ Life review _x__ Prayer ___ Reconciliation ___ Sacrament of Sick ___ Supportive presence ___ Wedding ___ Other (describe below) Pastoral Comments patient is very welcoming and talkative; pt expresses his perspective of many of life blessings and seeing that his heritage of prema and good values have paid off; pt speaks of his family mostly; pt is optimistic about his recovery and rejoices in that he could shave today and feel better; pt is member of a local mandaeism and welcomes prayer for support today
[2024-06-03 15:56] VITALS: BP 145/61; PULSE 64; RESP 16; TEMP 36.5; O2SAT 97
[2024-06-03] MEDS: COVID VAC 24-25 (12UP)(MODERNA)/PF 50 MCG/0.5 ML SYRINGE IM (17:24)
--- NOTE | 2024-06-03 20:53 | NURSING ---
Patient noted with Lactaid dairy relief at bedside, patient states that he is lactose intolerant, med put in med room, Dr. Joseph updated with request for med.
[2024-06-03] MEDS: Atorvastatin Calcium 80 MG Tablet PO (21:49)
[2024-06-03] MEDS: Rivastigmine Tartrate 1.5 MG Capsule 3 MG PO (21:49)
[2024-06-03] MEDS: RIVASTIGMINE TARTRATE 6 MG PO (21:49)
[2024-06-03] MEDS: DOXEPIN HCL 50 MG CAPSULE PO (21:50)
[2024-06-04] MEDS: Gabapentin 100 MG Capsule PO ×3 (06:09→21:27)
[2024-06-04] MEDS: Acetaminophen 500 MG Tablet 1000 MG PO ×3 (06:09→21:27)
[2024-06-04] MEDS: oxyCODONE 5 MG Tablet 10 MG PO (08:52)
[2024-06-04] MEDS: Aspirin 81 MG TAB.CHEW PO (08:52)
[2024-06-04 10:18] VITALS: BMI 22.0
[2024-06-04] MEDS: Losartan Potassium 100 MG Tablet PO (10:40)
[2024-06-04] MEDS: Memantine Hydrochloride 10 MG Tablet PO ×2 (10:40→21:27)
[2024-06-04] MEDS: Clopidogrel Bisulfate 75 MG Tablet PO (10:40)
[2024-06-04] MEDS: Enoxaparin 30 MG/0.3 ML Syringe SC (10:41)
[2024-06-04] MEDS: Iron Polysaccharide Complex 150 MG CAPSULE PO (10:41)
[2024-06-04] MEDS: amLODIPine 10 MG Tablet PO (10:41)
[2024-06-04 10:42] VITALS: BP 131/56; PULSE 63
[2024-06-04] MEDS: Senna/Docusate Sodium 1 Tablet PO ×2 (10:42→21:27)
[2024-06-04] MEDS: Metoprolol(XL)Succ 25 MG Tablet PO (10:42)
[2024-06-04] MEDS: Menthol/Lanolin/Calamine/Znox 113 GM Tube 1 APPLIC TOPICAL ×2 (10:44→21:29)
[2024-06-04 12:06] VITALS: BP 131/56; PULSE 63; RESP 16; TEMP 36.9; O2SAT 98
--- NOTE | 2024-06-04 13:27 | NURSING ---
Called micheline, was directed to Dr. Law's office. Left VM with Tianna about follow-up for resident. Requested return call.
[2024-06-04 13:52] VITALS: RESP 16
--- NOTE | 2024-06-04 15:04 | NURSING ---
Addendum entered by Maritza Peterosn 06/04/24 15:23: Updated resident and (via phone), they were both thankful to not have to travel to appt. Original Note: Call from Anyi at Dr. Law's office. She will fax over xray orders to be completed here instead of resident going to 2 week appt. Images need to be sent to [facility] system so physician can view them. After xrays completed, they usually see patient 4-6 weeks later for next follow-up.
[2024-06-04] MEDS: DOXEPIN HCL 50 MG CAPSULE PO (21:26)
[2024-06-04] MEDS: RIVASTIGMINE TARTRATE 6 MG PO (21:27)
[2024-06-04] MEDS: Rivastigmine Tartrate 1.5 MG Capsule 3 MG PO (21:27)
[2024-06-04] MEDS: Atorvastatin Calcium 80 MG Tablet PO (21:27)
[2024-06-05] MEDS: oxyCODONE 5 MG Tablet 10 MG PO ×2 (03:05→08:12)
[2024-06-05] MEDS: Acetaminophen 500 MG Tablet 1000 MG PO ×3 (05:24→21:27)
[2024-06-05] MEDS: Gabapentin 100 MG Capsule PO ×3 (05:24→21:29)
[2024-06-05 05:49] LABS: Hematocrit 22.8 % (40-54); Hemoglobin 7.4 g/dL (13.0-16.5)
--- NOTE | 2024-06-05 08:00 | RAD_ITS ---
STUDY: X-RAY - CERVICAL SPINE REASON FOR EXAM: Male, 84 years old. AP and Lateral. Known C7 fx, assess healing. -- Please send images to [facility]. TECHNIQUE: 2 view(s) of the cervical spine were obtained. COMPARISON: None FINDINGS: There are degenerative changes of the anterior atlantoaxial articulation. Normal odontoid process. There is straightening of the normal cervical lordosis. Spondylosis and disc space narrowing at the C5-C6 and C6-C7 levels. Facet joint osteoarthritis. Normal disc space heights. Normal visualized intervertebral neuroforamina. The soft tissue structures are unremarkable. RAD/Cerv Spine 2 or 3 Views IMPRESSION: Degenerative changes as described. Electronically Signed: Jacek Baez MD at 13:54 EDT ,
[2024-06-05] MEDS: Aspirin 81 MG TAB.CHEW PO (08:13)
--- NOTE | 2024-06-05 08:37 | NURSING ---
Called infusion center, they will schedule resident for transfusion tomorrow at 0830. Order faxed to infusion center. Updated resident.
--- NOTE | 2024-06-05 09:10 | CASEMGMT ---
Social Work IDT met with patient, and dtr for care plan meeting. Discussed patient's progress in PT/OT/ST/SN. Educated to [facility] insurance with NRD 06/12 with EDC 06/16 and continued stay is not guaranteed with each review. IDT recommending 27/03 care for safety at DC. Educated to options of nonskilled [facility], [place] or SNF. denied facility option and would like pt to return home. Dtr expressed concerns with . SW reiterated the hiring of aides so is not caring for pt alone. Educated to purchasing home chair or bed alarms or monitors for home. SW provided resources for driving rehab, though dtr stated pt will not be driving again, [place] and nonskilled [facility] to both dtr and . SW educated to family contacting [facility] agencies to inquire about staffing availability and pricing. Requested family follow up with this worker Monday or Monday, prior to insurance review, with decision. Offered ongoing assistance with DC planning. Will continue to follow. MARIA ESTHER Light
[2024-06-05] MEDS: Iron Polysaccharide Complex 150 MG CAPSULE PO (09:54)
[2024-06-05] MEDS: Enoxaparin 30 MG/0.3 ML Syringe SC (09:54)
[2024-06-05] MEDS: Losartan Potassium 100 MG Tablet PO (09:54)
[2024-06-05] MEDS: Memantine Hydrochloride 10 MG Tablet PO ×2 (09:54→21:25)
[2024-06-05] MEDS: amLODIPine 10 MG Tablet PO (09:55)
[2024-06-05] MEDS: Clopidogrel Bisulfate 75 MG Tablet PO (09:55)
[2024-06-05 09:56] VITALS: PULSE 97
[2024-06-05] MEDS: Metoprolol(XL)Succ 25 MG Tablet PO (09:56)
[2024-06-05] MEDS: Senna/Docusate Sodium 1 Tablet PO ×2 (09:56→21:26)
[2024-06-05] MEDS: Menthol/Lanolin/Calamine/Znox 113 GM Tube 1 APPLIC TOPICAL ×2 (10:00→21:24)
[2024-06-05] MEDS: Ensure Plus High Protein 120 ML LIQUID PO ×2 (13:21→21:30)
[2024-06-05 15:05] VITALS: BP 117/51; PULSE 74; RESP 14; TEMP 36.6; O2SAT 97
--- NOTE | 2024-06-05 16:29 | CASEMGMT ---
Social Work- SW met with pt to complete MDS. Pt scored 14/15. Pt was pleasant, talkative, and cooperative. Pt scored 0/2 on PHQ9. DELGADO Hdez
[2024-06-05] MEDS: DOXEPIN HCL 50 MG CAPSULE PO (21:24)
[2024-06-05] MEDS: RIVASTIGMINE TARTRATE 6 MG PO (21:25)
[2024-06-05] MEDS: Atorvastatin Calcium 80 MG Tablet PO (21:25)
[2024-06-05] MEDS: Rivastigmine Tartrate 1.5 MG Capsule 3 MG PO (21:25)
[2024-06-05] MEDS: Mirtazapine 15 MG Tablet 7.5 MG PO (21:26)
--- NOTE | 2024-06-05 22:28 | NURSING ---
Patient with c/o indigestion, shelley bautista given for c/o indigestion.
[2024-06-06] VITALS (9 sets, daily range): BP systolic 100–139; BP diastolic 45–88; PULSE 63–77; RESP 16; TEMP 36.2–36.6; O2SAT 96–100; BMI 24.4
[2024-06-06] MEDS: traMADol 50 MG Tablet PO ×2 (02:49→10:16)
[2024-06-06] MEDS: Gabapentin 100 MG Capsule PO ×3 (05:54→20:28)
[2024-06-06] MEDS: Acetaminophen 500 MG Tablet 1000 MG PO ×3 (05:54→20:33)
[2024-06-06] MEDS: Ensure Plus High Protein 120 ML LIQUID PO ×4 (05:54→20:29)
[2024-06-06] MEDS: Polyethylene Glycol 3350 17 GM PACKET PO (08:08)
[2024-06-06] MEDS: Senna/Docusate Sodium 1 Tablet PO ×2 (08:08→20:33)
[2024-06-06] MEDS: Metoprolol(XL)Succ 25 MG Tablet PO (08:09)
[2024-06-06] MEDS: Menthol/Lanolin/Calamine/Znox 113 GM Tube 1 APPLIC TOPICAL ×2 (08:10→20:27)
[2024-06-06] MEDS: Memantine Hydrochloride 10 MG Tablet PO ×2 (08:10→20:31)
[2024-06-06] MEDS: amLODIPine 10 MG Tablet PO (08:10)
[2024-06-06] MEDS: Aspirin 81 MG TAB.CHEW PO (08:10)
[2024-06-06] MEDS: Clopidogrel Bisulfate 75 MG Tablet PO (08:10)
[2024-06-06] MEDS: Enoxaparin 30 MG/0.3 ML Syringe SC (08:10)
[2024-06-06] MEDS: Losartan Potassium 100 MG Tablet PO (08:10)
[2024-06-06] MEDS: Iron Polysaccharide Complex 150 MG CAPSULE PO (08:10)
--- NOTE | 2024-06-06 08:59 | NURSING ---
Addendum entered by Maritza Peterson 06/06/24 13:39: 1335-back to room from infusion center. Original Note: 0850-Resident taken down to infusion center in WC.
[2024-06-06] MEDS: Furosemide 20 MG/2 ML VIAL IV (11:04)
[2024-06-06] MEDS: DOXEPIN HCL 50 MG CAPSULE PO (20:29)
[2024-06-06] MEDS: RIVASTIGMINE TARTRATE 6 MG PO (20:30)
[2024-06-06] MEDS: Rivastigmine Tartrate 1.5 MG Capsule 3 MG PO (20:30)
[2024-06-06] MEDS: Atorvastatin Calcium 80 MG Tablet PO (20:31)
[2024-06-06] MEDS: Mirtazapine 15 MG Tablet 7.5 MG PO (20:31)
[2024-06-07] MEDS: traMADol 50 MG Tablet PO ×2 (02:57→20:41)
[2024-06-07] MEDS: Acetaminophen 500 MG Tablet 1000 MG PO ×3 (05:55→20:41)
[2024-06-07] MEDS: Ensure Plus High Protein 120 ML LIQUID PO (05:55)
[2024-06-07] MEDS: Gabapentin 100 MG Capsule PO ×3 (05:55→20:49)
[2024-06-07 06:03] LABS: Absolute Lymphocyte Count 1.21 X10^3/uL (0.83-4.51); Absolute Neutrophil Count 4.4 X10^3/uL (2.0-7.7); Basophil# 0.04 X10^3/uL; Basophil% 0.6 % (0-1); Eosinophils% 4.5 % (0-5); Hematocrit 29.6 % (40-54); Hemoglobin 9.7 g/dL (13.0-16.5); Lymphocyte # 1.21 X10^3/ul (0.83-4.51); Lymphocyte % 18.3 % (19-41); Mean Corp Hgb Conc 32.8 g/dL (32-36); Mean Corpuscular Hgb 30.8 pg (27.0-32.0); Mean Platelet Vol. 9.4 fl (6.2-12.0); Monocyte# 0.61 X10^3/uL; Monocyte% 9.2 % (0-10); NRBC Flagged by Analyzer 0 % (0-5); Neutrophil # 4.41 X10^3/uL (2.7-7.7); Neutrophil % 66.9 % (47-70); Platelet Count 270 K/mm3 (150-450); RBC Distribution Width CV 14.4 % (11.6-14.6); RBC Distribution Width SD 49.7 fl (35.1-43.9); Red Blood Count 3.15 M/mm3 (4.6-6.2); White Blood Count 6.6 K/mm3 (4.4-11.0)
[2024-06-07 06:38] LABS: Anion Gap 5 (5-15); BUN 60 mg/dL (7-18); BUN/Creat Ratio 28.3 RATIO (10-20); Calcium,Total 9.3 mg/dL (8.5-10.1); Chloride 107 mmol/L (98-107); Creatinine, Serum 2.12 mg/dL (0.70-1.30); EST Glomerular Filtration Rate 32 mL/min (>60); Est Glom Filt Rate - Afr Amer 39 mL/min (>60); Estimated Creatinine Clearance 29.49 ml/min; Glucose 94 mg/dL (74-106); Potassium 5.3 mmol/L (3.5-5.1); Sodium Level 136 mmol/L (136-145)
--- NOTE | 2024-06-07 09:11 | NURSING ---
Order Runner Note; MDS for 06/06/2024 Complete
[2024-06-07] MEDS: Sodium Polystyrene Sulfonate 15 GM/60 ML UDC 30 GM PO (10:06)
[2024-06-07] MEDS: Enoxaparin 30 MG/0.3 ML Syringe SC (10:13)
[2024-06-07] MEDS: Arthritis Pain Compound 60 CLICK TUBE TOPICAL (12:01)
[2024-06-07 12:04] VITALS: BP 141/66; PULSE 69; RESP 16; TEMP 36.7; O2SAT 93
[2024-06-07] MEDS: Losartan Potassium 100 MG Tablet PO (12:06)
[2024-06-07] MEDS: Aspirin 81 MG TAB.CHEW PO (12:06)
[2024-06-07] MEDS: Menthol/Lanolin/Calamine/Znox 113 GM Tube 1 APPLIC TOPICAL ×2 (12:07→20:49)
[2024-06-07] MEDS: Polyethylene Glycol 3350 17 GM PACKET PO (12:07)
[2024-06-07] MEDS: Iron Polysaccharide Complex 150 MG CAPSULE PO (12:07)
[2024-06-07 12:08] VITALS: PULSE 64
[2024-06-07] MEDS: amLODIPine 10 MG Tablet PO (12:08)
[2024-06-07] MEDS: Metoprolol(XL)Succ 25 MG Tablet PO (12:08)
[2024-06-07] MEDS: Clopidogrel Bisulfate 75 MG Tablet PO (12:08)
[2024-06-07] MEDS: Memantine Hydrochloride 10 MG Tablet PO ×2 (12:08→20:43)
[2024-06-07] MEDS: Senna/Docusate Sodium 1 Tablet PO ×2 (12:08→20:42)
[2024-06-07 14:19] LABS: Hematocrit 34.3 % (40-54)
[2024-06-07] MEDS: LORazepam 0.5 MG Tablet PO ×2 (15:46→20:41)
[2024-06-07] MEDS: Atorvastatin Calcium 80 MG Tablet PO (20:42)
[2024-06-07] MEDS: Mirtazapine 15 MG Tablet 7.5 MG PO (20:43)
[2024-06-07] MEDS: Rivastigmine Tartrate 1.5 MG Capsule 3 MG PO (20:45)
[2024-06-07] MEDS: RIVASTIGMINE TARTRATE 6 MG PO (20:46)
[2024-06-07] MEDS: DOXEPIN HCL 50 MG CAPSULE PO (20:47)
[2024-06-08] MEDS: Acetaminophen 500 MG Tablet 1000 MG PO ×3 (06:04→21:39)
[2024-06-08] MEDS: Gabapentin 100 MG Capsule PO ×3 (06:04→21:39)
[2024-06-08 08:20] LABS: Anion Gap 6 (5-15); BUN 59 mg/dL (7-18); BUN/Creat Ratio 28.1 RATIO (10-20); Calcium,Total 9.4 mg/dL (8.5-10.1); Chloride 107 mmol/L (98-107); EST Glomerular Filtration Rate 32 mL/min (>60); Est Glom Filt Rate - Afr Amer 39 mL/min (>60); Estimated Creatinine Clearance 29.77 ml/min; Glucose 95 mg/dL (74-106); Potassium 4.7 mmol/L (3.5-5.1); Sodium Level 139 mmol/L (136-145)
[2024-06-08] MEDS: oxyCODONE 5 MG Tablet 10 MG PO ×2 (08:59→14:58)
[2024-06-08] MEDS: Clopidogrel Bisulfate 75 MG Tablet PO (09:06)
[2024-06-08] MEDS: Memantine Hydrochloride 10 MG Tablet PO ×2 (09:06→21:41)
[2024-06-08] MEDS: Aspirin 81 MG TAB.CHEW PO (09:06)
[2024-06-08] MEDS: Menthol/Lanolin/Calamine/Znox 113 GM Tube 1 APPLIC TOPICAL ×2 (09:06→21:44)
[2024-06-08] MEDS: Senna/Docusate Sodium 1 Tablet PO ×2 (09:07→21:40)
[2024-06-08] MEDS: Losartan Potassium 100 MG Tablet PO (09:07)
[2024-06-08 09:08] VITALS: BP 136/97; PULSE 64
[2024-06-08] MEDS: amLODIPine 10 MG Tablet PO (09:08)
[2024-06-08] MEDS: Metoprolol(XL)Succ 25 MG Tablet PO (09:08)
[2024-06-08] MEDS: Iron Polysaccharide Complex 150 MG CAPSULE PO (09:08)
[2024-06-08] MEDS: Enoxaparin 30 MG/0.3 ML Syringe SC (09:11)
[2024-06-08] MEDS: Polyethylene Glycol 3350 17 GM PACKET PO (09:11)
[2024-06-08] MEDS: LORazepam 0.5 MG Tablet PO ×2 (14:58→21:39)
[2024-06-08 16:00] VITALS: BP 113/66; PULSE 70; RESP 18; TEMP 36.8; O2SAT 97
[2024-06-08] MEDS: Arthritis Pain Compound 60 CLICK TUBE TOPICAL (21:40)
[2024-06-08] MEDS: Rivastigmine Tartrate 1.5 MG Capsule 3 MG PO (21:41)
[2024-06-08] MEDS: Mirtazapine 15 MG Tablet 7.5 MG PO (21:42)
[2024-06-08] MEDS: RIVASTIGMINE TARTRATE 6 MG PO (21:42)
[2024-06-08] MEDS: Atorvastatin Calcium 80 MG Tablet PO (21:42)
[2024-06-08] MEDS: DOXEPIN HCL 50 MG CAPSULE PO (21:42)
[2024-06-08 21:50] VITALS: BP 106/45; PULSE 63
--- NOTE | 2024-06-08 22:45 | NURSING ---
Gladys Talavera collar on overbed table. Resident swearing and belligerent toward when explained rationale for collar to remain in use at all times. This nurse and a BONE CRUSHER reapplied collar. This nurse able to place finger down collar easily to ensure collar is not too tight. Will continue to monitor.
[2024-06-09] MEDS: Gabapentin 100 MG Capsule PO ×3 (06:06→20:12)
[2024-06-09] MEDS: Acetaminophen 500 MG Tablet 1000 MG PO ×3 (06:06→20:05)
[2024-06-09] MEDS: Enoxaparin 30 MG/0.3 ML Syringe SC (09:36)
[2024-06-09] MEDS: Arthritis Pain Compound 60 CLICK TUBE TOPICAL ×2 (09:36→20:00)
[2024-06-09] MEDS: Memantine Hydrochloride 10 MG Tablet PO ×2 (09:37→20:07)
[2024-06-09] MEDS: Polyethylene Glycol 3350 17 GM PACKET PO (09:37)
[2024-06-09] MEDS: Clopidogrel Bisulfate 75 MG Tablet PO (09:37)
[2024-06-09] MEDS: Aspirin 81 MG TAB.CHEW PO (09:37)
[2024-06-09] MEDS: amLODIPine 10 MG Tablet PO (09:37)
[2024-06-09] MEDS: Iron Polysaccharide Complex 150 MG CAPSULE PO (09:38)
[2024-06-09] MEDS: Losartan Potassium 100 MG Tablet PO (09:39)
[2024-06-09] MEDS: Senna/Docusate Sodium 1 Tablet PO ×2 (09:39→20:05)
[2024-06-09 09:40] VITALS: BP 110/81; PULSE 78
[2024-06-09] MEDS: Menthol/Lanolin/Calamine/Znox 113 GM Tube 1 APPLIC TOPICAL ×2 (09:40→20:03)
[2024-06-09] MEDS: Metoprolol(XL)Succ 25 MG Tablet PO (09:40)
[2024-06-09 09:51] VITALS: BP 110/81; PULSE 78; RESP 16; TEMP 36.1; O2SAT 95
[2024-06-09] MEDS: traMADol 50 MG Tablet PO (11:24)
[2024-06-09] MEDS: LORazepam 0.5 MG Tablet PO (15:30)
[2024-06-09] MEDS: RIVASTIGMINE TARTRATE 6 MG PO (20:05)
[2024-06-09] MEDS: Mirtazapine 15 MG Tablet 7.5 MG PO (20:06)
[2024-06-09] MEDS: DOXEPIN HCL 50 MG CAPSULE PO (20:07)
[2024-06-09] MEDS: Rivastigmine Tartrate 1.5 MG Capsule 3 MG PO (20:07)
[2024-06-09] MEDS: Atorvastatin Calcium 80 MG Tablet PO (20:12)
[2024-06-10] MEDS: Gabapentin 100 MG Capsule PO ×3 (05:19→21:11)
[2024-06-10] MEDS: Acetaminophen 500 MG Tablet 1000 MG PO ×3 (05:20→21:11)
[2024-06-10 06:03] LABS: Hematocrit 29.4 % (40-54); Hemoglobin 9.5 g/dL (13.0-16.5)
[2024-06-10] MEDS: oxyCODONE 5 MG Tablet 10 MG PO ×2 (07:13→19:50)
[2024-06-10 07:57] VITALS: BP 124/57; PULSE 62; RESP 15; TEMP 36.4; O2SAT 95
[2024-06-10 08:00] VITALS: PULSE 62
[2024-06-10] MEDS: Metoprolol(XL)Succ 25 MG Tablet PO (08:00)
[2024-06-10] MEDS: Polyethylene Glycol 3350 17 GM PACKET PO (08:00)
[2024-06-10] MEDS: Enoxaparin 30 MG/0.3 ML Syringe SC (08:00)
[2024-06-10] MEDS: amLODIPine 10 MG Tablet PO (08:00)
[2024-06-10] MEDS: Iron Polysaccharide Complex 150 MG CAPSULE PO (08:00)
[2024-06-10] MEDS: Arthritis Pain Compound 60 CLICK TUBE TOPICAL ×2 (08:01→21:14)
[2024-06-10] MEDS: Aspirin 81 MG TAB.CHEW PO (08:01)
[2024-06-10] MEDS: Clopidogrel Bisulfate 75 MG Tablet PO (08:01)
[2024-06-10] MEDS: Menthol/Lanolin/Calamine/Znox 113 GM Tube 1 APPLIC TOPICAL ×2 (08:01→21:19)
[2024-06-10] MEDS: Memantine Hydrochloride 10 MG Tablet PO ×2 (08:01→21:16)
[2024-06-10] MEDS: Senna/Docusate Sodium 1 Tablet PO ×2 (08:01→21:18)
[2024-06-10] MEDS: Losartan Potassium 100 MG Tablet PO (08:01)
--- NOTE | 2024-06-10 11:12 | NURSING ---
alarm sounding, ran into pt room and saw pt stumble, but pt stayed up on his feet, [place] J collar in place. pt was reaching down to floor to sweet pickle maker his napkin. reminded pt not to do that on his own that he could fall and injure his neck or fracture another bone. pt verbalized understanding. pt up in chair, call light in reach. demonstrated use of call light.
[2024-06-10] MEDS: traMADol 50 MG Tablet PO (13:55)
--- NOTE | 2024-06-10 15:34 | NURSING ---
message left with DR Joseph office regarding influenza & pneumonia vaccine dates if they were administered in his office. awaiting return call.
[2024-06-10] MEDS: LORazepam 0.5 MG Tablet PO ×2 (16:03→21:11)
--- NOTE | 2024-06-10 16:11 | NURSING ---
pt woke up & attempting to get OOB to go home. 1:1 emotional support provided, took pt to BR & then back to chair. Wanting to speak with MD about going home. wants to call pt to see if he can drive himself home tonight. pt redirected but continues to fixate on going home. PRN ativan given
--- NOTE | 2024-06-10 18:54 | NURSING ---
pt with increased confusion, agitation this evening. getting up w/out assist or calling for help. urine dark color, pt c/o feeling like he needs to void but has bush. dr hdez notified new order for urine.
--- NOTE | 2024-06-10 19:18 | NURSING ---
pt continues to remove [place] j collar with much encouragement to leave it on. pt does not realize the seriousness of his cervical fracture. reapplied collar.
[2024-06-10 19:56] VITALS: PULSE 96; RESP 18; O2SAT 74
[2024-06-10] MEDS: Rivastigmine Tartrate 1.5 MG Capsule 3 MG PO (21:11)
[2024-06-10] MEDS: DOXEPIN HCL 50 MG CAPSULE PO (21:16)
[2024-06-10] MEDS: Mirtazapine 15 MG Tablet 7.5 MG PO (21:16)
[2024-06-10] MEDS: Atorvastatin Calcium 80 MG Tablet PO (21:16)
[2024-06-10] MEDS: RIVASTIGMINE TARTRATE 6 MG PO (21:18)
--- NOTE | 2024-06-10 21:22 | NURSING ---
Restless,agitated at times, attempting self transfers, going upstairs, confused, attempting to self remove [place] j-collar despite education and encouragement to leave in place per order, states they said I don't have to keep it on. [place]-j collar repositioned in place at this time, toileted,repositioned, food offered, fluids accepted, declines distraction such as music or television, non-pharmacologic interventions ineffective. PRN Ativan administered at this time as ordered. No distress observed or reported. Call light in reach.
[2024-06-10 21:26] VITALS: BP 151/70; PULSE 69; RESP 18
--- NOTE | 2024-06-10 22:31 | NURSING ---
Awake, restless, attempting to self transfers, I'm going home, repositioned in bed for comfort, 1:1, looking through personal picture book, able to reorient at this time, no distress observed or reported, Call light and personal items within reach.
[2024-06-10 22:57] LABS: Mucous, Urine 0 SEEN /hpf (<or=2+); Squamous Epithelial Cells - UA 0 SEEN /hpf (0-5)
[2024-06-10 23:08] LABS: Color, Urine Yellow (Yellow); Glucose, Dipstick Normal (Normal); Ketone-Dipstick Negative (Negative); Leukocyte Esterase-Dipstick 100 /ul (Negative); Nitrite-Dipstick Negative (Negative); Occult Blood-Urine 250 /ul (Negative); Protein-Dipstick 30 mg/dl (Negative); Urine Bilirubin Dipstick Negative (Negative); Urine Clarity Sl. Cloudy (Clear); Urine Urobilinogen Normal (Normal)
[2024-06-10 23:15] LABS: Bacteria 1+ /hpf (None Seen); Red Blood Cells-Urine 10-25 SEEN /hpf (0-5); White Blood Cells 5-10 SEEN /hpf (0-5); Yeast-Urine RARE /hpf (None Seen)
[2024-06-11 05:50] LABS: Hematocrit 28.6 % (40-54); Hemoglobin 9.3 g/dL (13.0-16.5)
[2024-06-11] MEDS: Acetaminophen 500 MG Tablet 1000 MG PO ×3 (06:28→21:04)
[2024-06-11] MEDS: Gabapentin 100 MG Capsule PO ×3 (06:28→21:03)
--- NOTE | 2024-06-11 07:47 | MDS.RN ---
Information for the MDS was obtained from review of the clinical record, interview of resident, staff, and direct observation of resident?s care.
[2024-06-11 09:23] VITALS: PULSE 87
[2024-06-11] MEDS: Ciprofloxacin 250 MG Tablet PO ×2 (09:23→21:02)
[2024-06-11] MEDS: Metoprolol(XL)Succ 25 MG Tablet PO (09:23)
[2024-06-11] MEDS: Polyethylene Glycol 3350 17 GM PACKET PO (09:23)
[2024-06-11] MEDS: Senna/Docusate Sodium 1 Tablet PO ×2 (09:23→21:04)
[2024-06-11] MEDS: Clopidogrel Bisulfate 75 MG Tablet PO (09:23)
[2024-06-11] MEDS: Enoxaparin 30 MG/0.3 ML Syringe SC (09:24)
[2024-06-11] MEDS: amLODIPine 10 MG Tablet PO (09:24)
[2024-06-11] MEDS: Losartan Potassium 100 MG Tablet PO (09:24)
[2024-06-11] MEDS: Iron Polysaccharide Complex 150 MG CAPSULE PO (09:24)
[2024-06-11] MEDS: Memantine Hydrochloride 10 MG Tablet PO ×2 (09:24→21:03)
[2024-06-11] MEDS: Aspirin 81 MG TAB.CHEW PO (09:24)
[2024-06-11] MEDS: Arthritis Pain Compound 60 CLICK TUBE TOPICAL ×2 (09:31→21:02)
[2024-06-11] MEDS: FLU VACCINE **HIGH DOSE** TV 24-25 180 MCG/0.5 ML SYRINGE IM (09:32)
[2024-06-11] MEDS: Menthol/Lanolin/Calamine/Znox 113 GM Tube 1 APPLIC TOPICAL ×2 (09:38→21:10)
--- NOTE | 2024-06-11 10:11 | NURSING ---
Flu vaccine given in Lt Deltoid. Pt tolerated well
[2024-06-11 12:00] VITALS: BMI 22.5
[2024-06-11 14:26] VITALS: BP 108/44; PULSE 64; RESP 16; TEMP 36.7; O2SAT 95
[2024-06-11] MEDS: oxyCODONE 5 MG Tablet 10 MG PO (16:37)
[2024-06-11] MEDS: LORazepam 0.5 MG Tablet PO ×2 (16:37→21:07)
[2024-06-11] MEDS: Tamsulosin HCl 0.4 MG Capsule PO (17:38)
--- NOTE | 2024-06-11 20:17 | NURSING ---
Addendum entered by Alona Eckert 06/11/24 22:55: Distant supervision given for safety, this nurse accompanied by RN reattempted to apply neck brace and pt was compliant. Pt then transferred x2 assist with walker to bathroom. Pt returned to bed and resting with bed pad alarm in place and functioning. PRN Ativan given along with HS meds with effective result. Original Note: Pt removed his neck brace, this nurse went in to assist pt with putting it back on but pt became agitated and stated Don't tell me what I can and can't do and refused to replace it at this time. Risks explained to pt and education provided on importance of wearing neck brace but pt continues to refuse and becomes agitated. Pt is in bed on his phone at this time with personal alarm in place and functioning.
[2024-06-11] MEDS: DOXEPIN HCL 50 MG CAPSULE PO (21:02)
[2024-06-11] MEDS: Rivastigmine Tartrate 1.5 MG Capsule 3 MG PO (21:03)
[2024-06-11] MEDS: Atorvastatin Calcium 80 MG Tablet PO (21:03)
[2024-06-11] MEDS: RIVASTIGMINE TARTRATE 6 MG PO (21:03)
[2024-06-11] MEDS: Mirtazapine 15 MG Tablet 7.5 MG PO (21:04)
[2024-06-12 05:57] LABS: Hematocrit 28.7 % (40-54); Hemoglobin 9.5 g/dL (13.0-16.5)
[2024-06-12] MEDS: Gabapentin 100 MG Capsule PO ×3 (06:59→21:25)
[2024-06-12] MEDS: Acetaminophen 500 MG Tablet 1000 MG PO ×3 (06:59→21:24)
[2024-06-12] MEDS: oxyCODONE 5 MG Tablet 10 MG PO (10:34)
[2024-06-12] MEDS: Arthritis Pain Compound 60 CLICK TUBE TOPICAL ×2 (10:34→21:25)
[2024-06-12 11:01] VITALS: PULSE 100
[2024-06-12] MEDS: Aspirin 81 MG TAB.CHEW PO (11:01)
[2024-06-12] MEDS: Polyethylene Glycol 3350 17 GM PACKET PO (11:01)
[2024-06-12] MEDS: Memantine Hydrochloride 10 MG Tablet PO ×2 (11:01→21:24)
[2024-06-12] MEDS: Metoprolol(XL)Succ 25 MG Tablet PO (11:01)
[2024-06-12] MEDS: Iron Polysaccharide Complex 150 MG CAPSULE PO (11:01)
[2024-06-12] MEDS: Clopidogrel Bisulfate 75 MG Tablet PO (11:01)
[2024-06-12] MEDS: Senna/Docusate Sodium 1 Tablet PO ×2 (11:01→21:24)
[2024-06-12] MEDS: Ciprofloxacin 250 MG Tablet PO ×2 (11:01→21:25)
[2024-06-12] MEDS: Losartan Potassium 100 MG Tablet PO (11:01)
[2024-06-12] MEDS: amLODIPine 10 MG Tablet PO (11:01)
[2024-06-12] MEDS: Menthol/Lanolin/Calamine/Znox 113 GM Tube 1 APPLIC TOPICAL ×2 (11:02→21:26)
[2024-06-12] MEDS: Enoxaparin 30 MG/0.3 ML Syringe SC (11:02)
[2024-06-12 11:04] VITALS: BP 122/61; PULSE 100; RESP 16; TEMP 36.3; O2SAT 100
[2024-06-12 11:08] VITALS: PULSE 100; RESP 16
[2024-06-12] MEDS: Pneumococcal Vaccine 20 Valent 0.5 ML Syringe IM (11:23)
--- NOTE | 2024-06-12 12:06 | CASEMGMT ---
Social Work Insurance issued LCD 06/14, DC 06/15. SW phoned to notify. Inquired about DC plan as pt remains needing 24/7 hands-on care. stated pt will be returning home and they have [facility] set up to assist at home. to contact [facility] now with DC date and finalize plans. SW offered skilled HHC or DME needs. agreed to skilled HHC; denies DME needs. SW offered to provide list of skilled HHC agencies with quality and resource data via [employer]. declined and prefers [facility]. to transport. SW phoned referral to [facility] for PT/OT/ST/SN. Plan: DC home with 06/15, [facility] PT/OT/ST/SN MARIA ESTHER Light
[2024-06-12] MEDS: Tamsulosin HCl 0.4 MG Capsule PO (16:08)
--- NOTE | 2024-06-12 19:54 | DS.PCM_ITS ---
Providers Date of Admission: 05/30/24 Primary Care Physician: Dr. Geraldo Joseph MD Reason For Visit: TIA/2 units PRBC's Diagnosis Discharge Diagnosis (1) Debility: Status: Acute Code(s): R53.81 - Other malaise (2) Stroke: Status: Acute Code(s): I63.9 - Cerebral infarction, unspecified (3) Left carotid artery stenosis: Status: Acute Code(s): I65.22 - Occlusion and stenosis of left carotid artery (4) Right carotid artery occlusion: Status: Acute Code(s): I65.21 - Occlusion and stenosis of right carotid artery (5) C7 cervical fracture: Status: Acute Code(s): S12.600A - Unspecified displaced fracture of seventh cervical vertebra, initial encounter for closed fracture (6) Essential hypertension: Status: Chronic Code(s): I10 - Essential (primary) hypertension (7) Coronary artery disease: Status: Acute Code(s): I25.10 - Atherosclerotic heart disease of [place] coronary artery without angina pectoris (8) Hyperlipidemia: Status: Chronic Code(s): E78.5 - Hyperlipidemia, unspecified Qualifiers: Hyperlipidemia type: mixed hyperlipidemia Qualified Code(s): E78.2 - Mixed hyperlipidemia (9) Insomnia: Status: Acute Code(s): G47.00 - Insomnia, unspecified (10) Iron deficiency anemia: Status: Acute Code(s): D50.9 - Iron deficiency anemia, unspecified (11) Alzheimer disease: Status: Acute Code(s): G30.9 - Alzheimer's disease, unspecified; F02.80 - Dementia in other diseases classified elsewhere, unspecified severity, without behavioral disturbance, psychotic disturbance, mood disturbance, and anxiety Plan 84 year old male with recent C7 lateral mass fracture hospitalized for stroke, complicated by right carotid artery occlusion, left carotid artery severe stenosis, would benefit from left carotid artery revascularization, but unable due to C7 lateral mass fracture requiring cervical collar, admitted to TCU with debility, here for rehabilitation, strengthening, prior to discharge home with . * Debility - PT/OT. * Cognition - ST. * Pain - Tylenol 1000mg q8, Tramadol 50mg q6 prn, Oxycodone 10mg q4 prn. * Bowel - Miralax 17gm daily, Senna/colace 1 tablet bid, Magnesium citrate 300ml po x 1 prn, Dulcolax 10mg pr x 1 prn. * Adult immunization - Administer pneumonia vaccine, covid vaccine, flu vaccine as appropriate. * DVT prophylaxis - Lovenox 30mg sc daily. * Hyperlipidemia - Atorvastatin 80mg qhs. * Hypertension - Metoprolol succinate 25mg daily, Losartan 100mg daliy, amlodipine 10mg daily. * Stroke - Aspirin 81mg daily, Plavix 75mg daily. * Insomnia - Doxepin 50mg qhs. * Neuropathic pain - Gabapentin 100mg tid. * Iron deficiency anemia - Ferrex 150mg daily. * Alzheimer Disease - Rivastigmine 9mg qhs, Memantine 10mg bid. * Skin irritation - Calmoseptine topical bid. * Severe left carotid artery stenosis - Consider surgery once out of c collar. Medications at Discharge Home Medications doxepin 50 mg capsule 50 mg PO QHS sleep 03/23/20 losartan 50 mg tablet 100 mg PO DAILY BP 11/03/22 memantine 10 mg tablet 10 mg PO BID memory 09/14/23 metoprolol succinate 25 mg tablet,extended release 24 hr (Toprol XL) 25 mg PO DAILY BP #90 tabs 09/22/23 aspirin 81 mg chewable tablet (Aspirin Childrens) 1 tab PO DAILY Heart health 05/19/24 acetaminophen 500 mg tablet 1,000 mg PO Q8 pain 05/26/24 gabapentin 100 mg capsule 100 mg PO TID pain 05/26/24 polysaccharide iron complex 150 mg iron capsule 150 mg PO DAILY supplement 05/26/24 sennosides 8.6 mg-docusate sodium 50 mg tablet (Senna-S) 1 tab-cap PO BID bowels 05/26/24 rivastigmine tartrate 1.5 mg capsule 3 mg (2 x 1.5 mg) PO QHS dementia #0 caps 05/30/24 rivastigmine tartrate 6 mg capsule 6 mg PO QHS dementia #0 caps 05/30/24 amlodipine 10 mg tablet 10 mg PO DAILY 30 days #30 tabs 06/12/24 atorvastatin 80 mg tablet 80 mg PO QHS 30 days #30 tabs 06/12/24 ciprofloxacin HCl 250 mg tablet 250 mg PO BID 3 days #6 tabs 06/12/24 clopidogrel 75 mg tablet 75 mg PO DAILY 30 days #30 tabs 10/09/24 lorazepam 0.5 mg tablet 0.5 mg PO Q4H PRN PRN Anxiety/Restlessness/Sleep 30 days #180 tabs 06/12/24 mirtazapine 15 mg tablet 7.5 mg (1/2 x 15 mg) PO QHS 30 days #15 tabs 06/12/24 oxycodone 5 mg tablet 10 mg (2 x 5 mg) PO Q4H PRN pain (scale score 4-10) 7 days #84 tabs 06/12/24 tamsulosin 0.4 mg capsule 0.4 mg PO DAILY@1730 30 days #30 caps 06/12/24 Hospital Course Operations None Procedures None Summary of Care Provided Minutes Spent on Discharge: 35 Hospital Course: 84 year old male with recent C7 lateral mass fracture hospitalized for stroke, complicated by right carotid artery occlusion, left carotid artery severe stenosis, would benefit from left carotid artery revascularization, but unable due to C7 lateral mass fracture requiring cervical collar, admitted to TCU with debility, here for rehabilitation, strengthening, prior to discharge home with . Discharge home with 06/15/2024, [facility] PT/OT/ST/SN. Physical Exam Const alert General Appearance: cooperative HEENT normocephalic Eyes PERRL and EOMs intact bilaterally Neck supple, no JVD and no carotid bruits Neck Narrative: C-collar. Resp normal respiratory effort, normal air movement and clear to auscultation bilaterally Cardio regular rate and regular rhythm GI normal to inspection, nondistended, normoactive bowel sounds, non-tender and non-distended Extremity normal capillary refill General Extremity: Negative for edema Skin no rashes or lesions noted General Skin Exam: no breakdown Neuro moves all extremities Psych affect normal Appearance: appropriate Medical Records Data Medical Nutrition Assessment Dietitian: Malnutrition Criteria Met Start: 05/31/24 10:19 Freq: Status: Active Protocol: Document 05/31/24 10:19 DAYNE (Rec: 05/31/24 10:19 DAYNE [id number]) Nutrition Malnutrition Evidence of Malnutrition Exists Yes Malnutrition (severe): Acute Illness/Injury Evidenced By Suboptimal Energy Intake ( Severe),Weight Loss (Severe), Physical Changes (Mild) Clinical Problem Acute Disease or Injury Related Malnutrition Etiology related to recent fall and acute illness causing inadequate energy intake Signs/Symptoms as evidenced by unintentional wt loss of 8.9% and 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 Status Active Problem Recommendation Dietitian Recommendations/Changes Will liberalize diet to Regular w/ 8 oz chocolate ensure plus high protein tid w / meals, for increased nutrition if consumed, d/t signs and symptoms of malnutrition. Weight / BMI Weight Weight: 75.432 kg Body Mass Index (BMI) 22.5 ABG / Lab / Microbiology Data 06/12/24 05:11 06/08/24 07:16 Laboratory: Laboratory Results - last 24 hr 06/12/24 05:11: Hgb 9.5 L, Hct 28.7 L Microbiology: Microbiology 06/10/24 22:35 Urine Catheter - Ceron Urine Culture - Final Enterococcus faecalis 06/11/24 22:45 Stool Stool Occult Blood (ROM) - Final 06/11/24 06:25 Nasal Secretion SARS-CoV-2 Antigen (Rapid) - Final 06/05/24 07:30 Stool Stool Occult Blood (ROM) - Final 06/04/24 06:13 Nasal Secretion SARS-CoV-2 Antigen (Rapid) - Final 06/03/24 09:55 Stool Stool Occult Blood (ROM) - Final D/C Instructions Discharge Diet: No restrictions Discharge Activity: Return to Normal Activity, May Not Drive, May Shower and Use Walker Weight Bearing Status: Weight bearing as tolerated Call your doctor if you observe: Fever of 101 or Higher, Inability to urinate, Inability to have a bowel movement, Shortness of breath, Dizziness, Fainting spells, Swelling in the ankles, Chest pain and Uncontrolled pain Additional Instructions: Discharge home with 06/15/2024, [facility] PT/OT/ST/SN. Please Follow Up With: Marcelo Lazo MD When: 4 weeks. Meaningful Use Info Meaningful Use Meaningful Use Diagnoses (Choose all that apply): Ischemic CVA CVA Therapy Assessed for PT,OT and/or ST?: Yes Ischemic Stroke Antithrombotic order at d/c?: Yes Dx of Atrial fib/flutter?: No Statin Dosing Therapy Reference: STATIN DOSE THERAPY REFERENCE: * Patients > 75 years receive moderate or high dose statin therapy. * Patients 75 years or YOUNGER should receive HIGH intensity statin dose unless contraindicated. You will be required to document reason for non-treatment if statin daily dose does not meet guidelines. HIGH DOSE STATIN THERAPY DAILY Atorvastatin > than or = to 40 mg Rosuvastatin > than or = to 20 mg Amlodipine + Atorvastatin > than or = to 2.5/40 mg Ezetimibe + Simvastatin 10/80 mg Simvastatin 80mg Statins at discharge?: Yes Primary Dx Acute Ischemic CVA?: Yes IV thrombolytic ordered during stay?: No Reason IV thrombolytic not ordered: Treatment not Indicated Discharge Plan Admission Admit Date/Time: 05/30/24 12:08 Primary Reason for Your Visit: Debility. Attending Provider: Geraldo Joseph Chi Primary Care Provider: Geraldo Joseph Chi Instructions Additional Instructions / Restrictions: Discharge home with 06/15/2024, [facility] PT/OT/ST/SN. Discharge Orders/Prescriptions Prescriptions: New atorvastatin 80 mg Tablet 80 mg PO QHS 30 Days Qty: 30 0RF amlodipine 10 mg Tablet 10 mg PO DAILY 30 Days Qty: 30 0RF clopidogrel 75 mg Tablet 75 mg PO DAILY 30 Days Qty: 30 0RF ciprofloxacin HCl 250 mg Tablet 250 mg PO BID 3 Days Qty: 6 0RF lorazepam 0.5 mg Tablet 0.5 mg PO Q4H PRN PRN (Reason: Anxiety/Restlessness/Sleep) 30 Days Qty: 180 0RF tamsulosin 0.4 mg Capsule 0.4 mg PO DAILY@1730 30 Days Qty: 30 0RF mirtazapine 15 mg Tablet 7.5 mg PO QHS 30 Days Qty: 15 0RF oxycodone 5 mg Tablet 10 mg PO Q4H PRN (Reason: pain (scale score 4-10)) 7 Days Qty: 84 0RF Continued doxepin 50 mg capsule 50 mg PO QHS memantine 10 mg tablet 10 mg PO BID losartan 50 mg tablet 100 mg PO DAILY polysaccharide iron complex 150 mg iron capsule 150 mg PO DAILY gabapentin 100 mg capsule 100 mg PO TID acetaminophen 500 mg tablet 1,000 mg PO Q8 rivastigmine tartrate 1.5 mg Capsule 3 mg PO QHS Qty: 0 0RF rivastigmine tartrate 6 mg Capsule 6 mg PO QHS Qty: 0 0RF aspirin [Aspirin Childrens] 81 mg tablet,chewable 1 tab PO DAILY metoprolol succinate [Toprol XL] 25 mg tablet extended release 24 hr 25 mg PO DAILY Qty: 90 3RF Discontinued amlodipine 10 mg tablet 10 mg PO DAILY oxycodone 5 mg capsule 10 mg PO Q4H PRN (Reason: pain (scale score 4-5)) clopidogrel 75 mg tablet 75 mg PO DAILY menthol-zinc oxide [Calmoseptine] 0.44-20.6 % ointment 1 applic topical BID enoxaparin [Lovenox] 30 mg/0.3 mL syringe 30 mg subcut DAILY tramadol 50 mg tablet 50 mg PO Q6H PRN (Reason: pain (scale score 1-3)) atorvastatin 80 mg Tablet 80 mg PO QHS Qty: 0 0RF No Action sennosides-docusate sodium [Senna-S] 8.6-50 mg tablet 1 tab-cap PO BID Referrals / Follow Up: Geraldo Joseph Chi, MD [Primary Care Provider] - 06/17/24 1:40 pm (Please discuss no driving at this appointment) Disposition Disposition (needs filled in before D/C Order can be placed): Home Health Service
[2024-06-12] MEDS: Rivastigmine Tartrate 1.5 MG Capsule 3 MG PO (21:24)
[2024-06-12] MEDS: Mirtazapine 15 MG Tablet 7.5 MG PO (21:25)
[2024-06-12] MEDS: Atorvastatin Calcium 80 MG Tablet PO (21:27)
[2024-06-12] MEDS: DOXEPIN HCL 50 MG CAPSULE PO (21:27)
[2024-06-12] MEDS: RIVASTIGMINE TARTRATE 6 MG PO (21:27)
[2024-06-12 21:33] VITALS: BP 128/50; PULSE 66; RESP 16
[2024-06-13] MEDS: Gabapentin 100 MG Capsule PO ×3 (05:01→22:31)
[2024-06-13] MEDS: Acetaminophen 500 MG Tablet 1000 MG PO ×3 (05:01→22:32)
[2024-06-13 09:24] VITALS: BP 125/61; PULSE 66; RESP 16; TEMP 36.6; O2SAT 95
[2024-06-13] MEDS: Enoxaparin 30 MG/0.3 ML Syringe SC (09:25)
[2024-06-13 09:26] VITALS: PULSE 71
[2024-06-13] MEDS: Ciprofloxacin 250 MG Tablet PO ×2 (09:26→22:33)
[2024-06-13] MEDS: Metoprolol(XL)Succ 25 MG Tablet PO (09:26)
[2024-06-13] MEDS: Polyethylene Glycol 3350 17 GM PACKET PO (09:26)
[2024-06-13] MEDS: Losartan Potassium 100 MG Tablet PO (09:26)
[2024-06-13] MEDS: Clopidogrel Bisulfate 75 MG Tablet PO (09:26)
[2024-06-13] MEDS: Iron Polysaccharide Complex 150 MG CAPSULE PO (09:26)
[2024-06-13] MEDS: Senna/Docusate Sodium 1 Tablet PO ×2 (09:26→22:33)
[2024-06-13] MEDS: Aspirin 81 MG TAB.CHEW PO (09:26)
[2024-06-13] MEDS: amLODIPine 10 MG Tablet PO (09:26)
[2024-06-13] MEDS: Arthritis Pain Compound 60 CLICK TUBE TOPICAL ×2 (09:26→22:31)
[2024-06-13] MEDS: Menthol/Lanolin/Calamine/Znox 113 GM Tube 1 APPLIC TOPICAL ×2 (09:27→22:31)
[2024-06-13] MEDS: Memantine Hydrochloride 10 MG Tablet PO ×2 (09:33→22:33)
[2024-06-13] MEDS: Tamsulosin HCl 0.4 MG Capsule PO (16:30)
[2024-06-13] MEDS: Mirtazapine 15 MG Tablet 7.5 MG PO (22:32)
[2024-06-13] MEDS: Rivastigmine Tartrate 1.5 MG Capsule 3 MG PO (22:34)
[2024-06-13] MEDS: RIVASTIGMINE TARTRATE 6 MG PO (22:34)
[2024-06-13] MEDS: Atorvastatin Calcium 80 MG Tablet PO (22:34)
[2024-06-13] MEDS: DOXEPIN HCL 50 MG CAPSULE PO (22:35)
[2024-06-14] MEDS: LORazepam 0.5 MG Tablet PO ×2 (00:19→20:39)
[2024-06-14] MEDS: Acetaminophen 500 MG Tablet 1000 MG PO ×3 (06:10→20:29)
[2024-06-14] MEDS: Gabapentin 100 MG Capsule PO ×3 (06:10→20:29)
--- NOTE | 2024-06-14 06:26 | NURSING ---
Resident intermittently removed [place] J collar and at times refused to have staff reapply. Labile emotions. Resident was pleasant then belligerent and swearing. Attempted to self-transfers several times and gait is unsteady. Was able to rest after he passed a lg bm. Will continue to monitor.
[2024-06-14 08:09] LABS: Absolute Lymphocyte Count 1.26 X10^3/uL (0.83-4.51); Absolute Neutrophil Count 4.4 X10^3/uL (2.0-7.7); Basophil# 0.03 X10^3/uL; Basophil% 0.5 % (0-1); Eosinophils% 6.1 % (0-5); Hematocrit 29.3 % (40-54); Hemoglobin 9.5 g/dL (13.0-16.5); Lymphocyte # 1.26 X10^3/ul (0.83-4.51); Lymphocyte % 19.1 % (19-41); Mean Corp Hgb Conc 32.4 g/dL (32-36); Mean Corpuscular Hgb 31.1 pg (27.0-32.0); Mean Corpuscular Volume 96.1 fL (80-94); Mean Platelet Vol. 9.5 fl (6.2-12.0); Monocyte# 0.47 X10^3/uL; Monocyte% 7.1 % (0-10); NRBC Flagged by Analyzer 0 % (0-5); Neutrophil % 66.9 % (47-70); Platelet Count 223 K/mm3 (150-450); RBC Distribution Width CV 12.5 % (11.6-14.6); RBC Distribution Width SD 44.4 fl (35.1-43.9); Red Blood Count 3.05 M/mm3 (4.6-6.2); White Blood Count 6.6 K/mm3 (4.4-11.0)
[2024-06-14 08:33] LABS: Anion Gap 5 (5-15); BUN 56 mg/dL (7-18); BUN/Creat Ratio 24.2 RATIO (10-20); Calcium,Total 9.5 mg/dL (8.5-10.1); Chloride 110 mmol/L (98-107); Creatinine, Serum 2.31 mg/dL (0.70-1.30); EST Glomerular Filtration Rate 29 mL/min (>60); Est Glom Filt Rate - Afr Amer 35 mL/min (>60); Estimated Creatinine Clearance 26.31 ml/min; Glucose 90 mg/dL (74-106); Sodium Level 140 mmol/L (136-145)
[2024-06-14] MEDS: Aspirin 81 MG TAB.CHEW PO (08:58)
[2024-06-14] MEDS: Arthritis Pain Compound 60 CLICK TUBE TOPICAL ×2 (08:58→20:29)
[2024-06-14] MEDS: Losartan Potassium 100 MG Tablet PO (08:59)
[2024-06-14] MEDS: Ciprofloxacin 250 MG Tablet PO ×2 (08:59→20:31)
[2024-06-14] MEDS: Iron Polysaccharide Complex 150 MG CAPSULE PO (08:59)
[2024-06-14] MEDS: Enoxaparin 30 MG/0.3 ML Syringe SC (08:59)
[2024-06-14] MEDS: Polyethylene Glycol 3350 17 GM PACKET PO (08:59)
[2024-06-14 09:00] VITALS: BP 159/60; PULSE 72
[2024-06-14] MEDS: Clopidogrel Bisulfate 75 MG Tablet PO (09:00)
[2024-06-14] MEDS: Metoprolol(XL)Succ 25 MG Tablet PO (09:00)
[2024-06-14] MEDS: Senna/Docusate Sodium 1 Tablet PO ×2 (09:00→20:30)
[2024-06-14] MEDS: amLODIPine 10 MG Tablet PO (09:00)
[2024-06-14] MEDS: Memantine Hydrochloride 10 MG Tablet PO ×2 (09:00→20:30)
--- NOTE | 2024-06-14 09:41 | CASEMGMT ---
BIMS () and PHQ9 (0) interviews completed on this date for MDS assessment. DELGADO Cooney
[2024-06-14] MEDS: Menthol/Lanolin/Calamine/Znox 113 GM Tube 1 APPLIC TOPICAL ×2 (10:24→20:32)
[2024-06-14 15:39] VITALS: BP 159/60; PULSE 72; RESP 16; TEMP 36.6; O2SAT 97
[2024-06-14 15:42] VITALS: RESP 16; O2SAT 97
[2024-06-14] MEDS: Tamsulosin HCl 0.4 MG Capsule PO (17:38)
[2024-06-14] MEDS: Atorvastatin Calcium 80 MG Tablet PO (20:30)
[2024-06-14] MEDS: Mirtazapine 15 MG Tablet 7.5 MG PO (20:30)
[2024-06-14] MEDS: DOXEPIN HCL 50 MG CAPSULE PO (20:31)
[2024-06-14] MEDS: RIVASTIGMINE TARTRATE 6 MG PO (20:31)
[2024-06-14] MEDS: Rivastigmine Tartrate 1.5 MG Capsule 3 MG PO (20:31)
[2024-06-15] MEDS: Acetaminophen 500 MG Tablet 1000 MG PO (06:36)
[2024-06-15] MEDS: Gabapentin 100 MG Capsule PO (06:36)
[2024-06-15] MEDS: Aspirin 81 MG TAB.CHEW PO (10:03)
[2024-06-15] MEDS: Arthritis Pain Compound 60 CLICK TUBE TOPICAL (10:03)
[2024-06-15] MEDS: Losartan Potassium 100 MG Tablet PO (10:04)
[2024-06-15] MEDS: Enoxaparin 30 MG/0.3 ML Syringe SC (10:04)
[2024-06-15] MEDS: Menthol/Lanolin/Calamine/Znox 113 GM Tube 1 APPLIC TOPICAL (10:04)
[2024-06-15] MEDS: Ciprofloxacin 250 MG Tablet PO (10:04)
[2024-06-15] MEDS: Iron Polysaccharide Complex 150 MG CAPSULE PO (10:05)
[2024-06-15] MEDS: Polyethylene Glycol 3350 17 GM PACKET PO (10:05)
[2024-06-15] MEDS: Clopidogrel Bisulfate 75 MG Tablet PO (10:07)
[2024-06-15] MEDS: Memantine Hydrochloride 10 MG Tablet PO (10:07)
[2024-06-15] MEDS: amLODIPine 10 MG Tablet PO (10:08)
[2024-06-15 10:09] VITALS: BP 140/62; PULSE 83
[2024-06-15] MEDS: Senna/Docusate Sodium 1 Tablet PO (10:09)
[2024-06-15] MEDS: Metoprolol(XL)Succ 25 MG Tablet PO (10:09)
[2024-06-15] MEDS: LORazepam 0.5 MG Tablet PO (11:34)
--- NOTE | 2024-06-15 12:06 | NURSING ---
Patient stated that he was going to cut off the bush catheter when he got home, asked that bush be removed at this time. Bush removed at this time. instructed to bring patient to ED if having issues voiding.
[2024-06-15 12:11] VITALS: BP 140/56; PULSE 83; RESP 16; TEMP 36.1; O2SAT 97
== END 2024-06-15 11:55 | disposition home health service (06) | DRG 57 ==
PROVIDERS: Admitting Provider Family Medicine Geriatric Medicine; PCP Family Medicine Geriatric Medicine; Referring Provider Family Medicine Geriatric Medicine; Visit Provider Family Medicine Geriatric Medicine
DX: I69.328 Other speech and language deficits following cerebral infarction (principal); E44.1 Mild protein-calorie malnutrition; N39.0 Urinary tract infection, site not specified; F02.80 Dementia in other diseases classified elsewhere, unspecified severity, without behavioral disturbance, psychotic disturbance, mood disturbance, and anxiety; N18.31 Chronic kidney disease, stage 3a; D50.9 Iron deficiency anemia, unspecified; I12.9 Hypertensive chronic kidney disease with stage 1 through stage 4 chronic kidney disease, or unspecified chronic kidney disease; I69.392 Facial weakness following cerebral infarction; G30.9 Alzheimer's disease, unspecified; G62.9 Polyneuropathy, unspecified; I25.10 Atherosclerotic heart disease of native coronary artery without angina pectoris; E78.2 Mixed hyperlipidemia; F41.9 Anxiety disorder, unspecified; S12.600D Unspecified displaced fracture of seventh cervical vertebra, subsequent encounter for fracture with routine healing; Z87.891 Personal history of nicotine dependence; Z95.5 Presence of coronary angioplasty implant and graft; G47.00 Insomnia, unspecified; Z79.899 Other long term (current) drug therapy; Z79.82 Long term (current) use of aspirin; Z79.02 Long term (current) use of antithrombotics/antiplatelets; X58.XXXD Exposure to other specified factors, subsequent encounter; Z23 Encounter for immunization; N40.1 Benign prostatic hyperplasia with lower urinary tract symptoms; R33.8 Other retention of urine; Z68.22 Body mass index [BMI] 22.0-22.9, adult
CPT/HCPCS: 36415; 36430; 72040; 80048; 81001; 82274; 85014; 85018; 85025; 86644; 86850; 86900; 86901; 86920; 86922; 87077; 87086; 87088; 87186; 87811; 90480; 90662; 90677; 91322; 92507; 92523; 97110; 97116; 97129; 97130; 97162; 97166; 97530; 97535; 97803; J7040; P9016; A4216; J1940

== ENCOUNTER → 2024-06-17 | Outpatient (CLI) | payer MEDICARE, SELFPAY ==
[2024-06-17 15:04] LABS: Absolute Lymphocyte Count 1.24 X10^3/uL (0.83-4.51); Absolute Neutrophil Count 6.1 X10^3/uL (2.0-7.7); Basophil# 0.06 X10^3/uL; Basophil% 0.7 % (0-1); Eosinophil# 0.31 X10^3/uL; Eosinophils% 3.7 % (0-5); Hematocrit 32.1 % (40-54); Hemoglobin 10.5 g/dL (13.0-16.5); Lymphocyte # 1.24 X10^3/ul (0.83-4.51); Lymphocyte % 14.9 % (19-41); Mean Corp Hgb Conc 32.7 g/dL (32-36); Mean Corpuscular Hgb 30.8 pg (27.0-32.0); Mean Corpuscular Volume 94.1 fL (80-94); Mean Platelet Vol. 9.5 fl (6.2-12.0); Monocyte# 0.62 X10^3/uL; Monocyte% 7.4 % (0-10); NRBC Flagged by Analyzer 0 % (0-5); Neutrophil # 6.08 X10^3/uL (2.7-7.7); Neutrophil % 72.8 % (47-70); Platelet Count 238 K/mm3 (150-450); RBC Distribution Width CV 12.3 % (11.6-14.6); Red Blood Count 3.41 M/mm3 (4.6-6.2); White Blood Count 8.4 K/mm3 (4.4-11.0)
== END | disposition home or self-care (01) ==
LOC: POLAB3 14:50
PROVIDERS: PCP Family Medicine Geriatric Medicine; Visit Provider Family Medicine Geriatric Medicine
DX: I10 Essential (primary) hypertension (principal)
CPT/HCPCS: 36415; 85025

== ENCOUNTER → 2024-06-24 | Outpatient (CLI) | payer MEDICARE, SELFPAY ==
[2024-06-24 17:00] LABS: Absolute Lymphocyte Count 1.26 X10^3/uL (0.83-4.51); Absolute Neutrophil Count 4.1 X10^3/uL (2.0-7.7); Basophil# 0.04 X10^3/uL; Basophil% 0.7 % (0-1); Eosinophil# 0.16 X10^3/uL; Eosinophils% 2.6 % (0-5); Hematocrit 28.3 % (40-54); Hemoglobin 9.5 g/dL (13.0-16.5); Lymphocyte # 1.26 X10^3/ul (0.83-4.51); Lymphocyte % 20.7 % (19-41); Mean Corp Hgb Conc 33.6 g/dL (32-36); Mean Corpuscular Hgb 30.9 pg (27.0-32.0); Mean Corpuscular Volume 92.2 fL (80-94); Mean Platelet Vol. 9.3 fl (6.2-12.0); Monocyte# 0.54 X10^3/uL; Monocyte% 8.9 % (0-10); NRBC Flagged by Analyzer 0 % (0-5); Neutrophil # 4.07 X10^3/uL (2.7-7.7); Neutrophil % 66.9 % (47-70); Platelet Count 209 K/mm3 (150-450); RBC Distribution Width CV 12.3 % (11.6-14.6); RBC Distribution Width SD 41.4 fl (35.1-43.9); Red Blood Count 3.07 M/mm3 (4.6-6.2); White Blood Count 6.1 K/mm3 (4.4-11.0)
[2024-06-24 18:07] LABS: ALB/GLOB Ratio 1.1 RATIO (0.9-2.4); AST(SGOT) 11 U/L (15-37); Alanine Aminotransfer ALT/SGPT 16 U/L (16-61); Albumin, Serum 3.8 g/dL (3.2-5.0); Alkaline Phosphatase 94 U/L (45-117); Anion Gap 7 (5-15); BUN 28 mg/dL (7-18); BUN/Creat Ratio 13.9 RATIO (10-20); Calcium,Total 9.5 mg/dL (8.5-10.1); Chloride 108 mmol/L (98-107); Creatinine, Serum 2.02 mg/dL (0.70-1.30); EST Glomerular Filtration Rate 34 mL/min (>60); Est Glom Filt Rate - Afr Amer 41 mL/min (>60); Globulin 3.6 g/dL (2.2-4.2); Glucose 104 mg/dL (74-106); Magnesium 2.4 mg/dL (1.6-2.6); Phosphorus 3.6 mg/dL (2.5-4.9); Potassium 4.3 mmol/L (3.5-5.1); Protein, Total 7.4 g/dL (6.4-8.2); Sodium Level 140 mmol/L (136-145); Thyroid Stim Hormone (TSH) 0.396 uIU/mL (0.358-3.740)
== END | disposition home or self-care (01) ==
LOC: POLAB3 16:48
PROVIDERS: PCP Family Medicine Geriatric Medicine; Visit Provider Family Medicine Geriatric Medicine
DX: I10 Essential (primary) hypertension (principal); G30.9 Alzheimer's disease, unspecified; E78.5 Hyperlipidemia, unspecified
CPT/HCPCS: 36415; 80053; 83735; 84100; 84443; 85025

== ENCOUNTER → 2024-07-17 | Outpatient (CLI) | payer MEDICARE, SELFPAY | END | disposition home or self-care (01) | LOC: POLAB3 16:48 | PROVIDERS: PCP Family Medicine Geriatric Medicine; Visit Provider Family Medicine Geriatric Medicine | DX: N39.0 Urinary tract infection, site not specified (principal) | CPT/HCPCS: 87077; 87086; 87088; 87186 ==

== ENCOUNTER → 2024-09-30 | Outpatient (CLI) | payer MEDICARE, SELFPAY ==
[2024-09-30 15:26] LABS: Absolute Lymphocyte Count 1.48 X10^3/uL (0.83-4.51); Basophil# 0.06 X10^3/uL; Eosinophils% 3.2 % (0-5); Hematocrit 28.7 % (40-54); Hemoglobin 9.4 g/dL (13.0-16.5); Lymphocyte # 1.48 X10^3/ul (0.83-4.51); Lymphocyte % 23.9 % (19-41); Mean Corp Hgb Conc 32.8 g/dL (32-36); Mean Corpuscular Hgb 31.2 pg (27.0-32.0); Mean Corpuscular Volume 95.3 fL (80-94); Mean Platelet Vol. 9.8 fl (6.2-12.0); Monocyte# 0.41 X10^3/uL; Monocyte% 6.6 % (0-10); NRBC Flagged by Analyzer 0 % (0-5); Neutrophil # 4.02 X10^3/uL (2.7-7.7); Neutrophil % 65.1 % (47-70); Platelet Count 251 K/mm3 (150-450); RBC Distribution Width CV 12.4 % (11.6-14.6); RBC Distribution Width SD 42.9 fl (35.1-43.9); Red Blood Count 3.01 M/mm3 (4.6-6.2); White Blood Count 6.2 K/mm3 (4.4-11.0)
[2024-09-30 15:59] LABS: Vitamin D,25 Hydroxy 98.5 ng/mL
[2024-09-30 16:08] LABS: ALB/GLOB Ratio 0.9 RATIO (0.9-2.4); AST(SGOT) 19 U/L (15-37); Alanine Aminotransfer ALT/SGPT 24 U/L (16-61); Albumin, Serum 3.4 g/dL (3.2-5.0); Alkaline Phosphatase 78 U/L (45-117); Anion Gap 4 (5-15); BUN 17 mg/dL (7-18); BUN/Creat Ratio 8.6 RATIO (10-20); Calcium,Total 8.9 mg/dL (8.5-10.1); Chloride 110 mmol/L (98-107); Creatinine, Serum 1.97 mg/dL (0.70-1.30); EST Glomerular Filtration Rate 35 mL/min (>60); Est Glom Filt Rate - Afr Amer 42 mL/min (>60); Globulin 3.6 g/dL (2.2-4.2); Glucose 96 mg/dL (74-106); Potassium 4.7 mmol/L (3.5-5.1); Sodium Level 140 mmol/L (136-145)
== END | disposition home or self-care (01) ==
PROVIDERS: PCP Family Medicine Geriatric Medicine; Referring Provider Internal Medicine Nephrology; Visit Provider Family Medicine Geriatric Medicine
DX: I10 Essential (primary) hypertension (principal); E55.9 Vitamin D deficiency, unspecified
CPT/HCPCS: 36415; 80053; 82306; 84443; 85025

== ENCOUNTER → 2024-12-20 | Outpatient (CLI) | payer MEDICARE, SELFPAY ==
[2024-12-20 16:52] LABS: Hemoglobin 10.1 g/dL (13.0-16.5); Mean Corp Hgb Conc 33.7 g/dL (32-36); Mean Corpuscular Hgb 31.9 pg (27.0-32.0); Mean Corpuscular Volume 94.6 fL (80-94); Mean Platelet Vol. 9.6 fl (6.2-12.0); Platelet Count 278 K/mm3 (150-450); Red Blood Count 3.17 M/mm3 (4.6-6.2); White Blood Count 8.3 K/mm3 (4.4-11.0)
[2024-12-20 18:02] LABS: Albumin, Serum 4.4 g/dL (3.4-4.8); Anion Gap 12 (5-15); BUN 22 mg/dL (4-19); BUN/Creat Ratio 8.3 RATIO (10-20); Calcium,Total 9.6 mg/dL (7.6-11.0); Carbon Dioxide 22.2 mmol/L (21.0-32.0); Chloride 103 mmol/L (98-108); Creatinine, Serum 2.65 mg/dL (0.70-1.20); EST Glomerular Filtration Rate 23 (>60); Glucose 93 mg/dL (70-99); Potassium 4.8 mmol/L (3.3-5.1); Sodium Level 138 mmol/L (133-145)
== END | disposition home or self-care (01) ==
LOC: LAB 15:36
PROVIDERS: PCP Family Medicine Geriatric Medicine; Referring Provider Internal Medicine Nephrology; Visit Provider Internal Medicine Nephrology
DX: N18.32 Chronic kidney disease, stage 3b (principal); D50.9 Iron deficiency anemia, unspecified
CPT/HCPCS: 36415; 80069; 85027

== ENCOUNTER → 2025-04-17 | Outpatient (CLI) | payer MEDICARE, SELFPAY ==
[2025-04-17 11:06] LABS: Hematocrit 27.6 % (40-54); Hemoglobin 9.1 g/dL (13.0-16.5); Immature Granulocytes Count 0.020 X10^3/uL (0.0-0.0); Mean Corp Hgb Conc 33.0 g/dL (32-36); Mean Corpuscular Volume 96.5 fL (80-94); Mean Platelet Vol. 9.4 fl (6.2-12.0); NRBC Flagged by Analyzer 0 % (0-5); Platelet Count 231 K/mm3 (150-450); RBC Distribution Width CV 12.0 % (11.6-14.6); RBC Distribution Width SD 42.1 fl (35.1-43.9); Red Blood Count 2.86 M/mm3 (4.6-6.2); White Blood Count 6.9 K/mm3 (4.4-11.0)
[2025-04-17 11:58] LABS: AST(SGOT) 17 U/L (<=37); Alanine Aminotransfer ALT/SGPT 15 U/L (<=46); Albumin, Serum 4.2 g/dL (3.4-4.8); Alkaline Phosphatase 79 U/L (40-129); Anion Gap 13 (5-15); BUN 49 mg/dL (4-19); BUN/Creat Ratio 19.2 RATIO (10-20); Calcium,Total 9.6 mg/dL (7.6-11.0); Carbon Dioxide 18.4 mmol/L (21.0-32.0); Chloride 107 mmol/L (98-108); Globulin 2.3 g/dL (2.2-4.2); Glucose 94 mg/dL (70-99); Potassium 5.3 mmol/L (3.3-5.1); Vitamin D,25 Hydroxy 98.1 ng/mL (30-100)
== END | disposition home or self-care (01) ==
LOC: LAB 10:21
PROVIDERS: PCP Family Medicine Geriatric Medicine; Referring Provider Family Medicine Geriatric Medicine; Visit Provider Family Medicine Geriatric Medicine
DX: I10 Essential (primary) hypertension (principal); E55.9 Vitamin D deficiency, unspecified
CPT/HCPCS: 36415; 80053; 82306; 84443; 85025

== ENCOUNTER → 2025-08-14 | Outpatient (CLI) | payer MEDICARE, SELFPAY ==
[2025-08-14 16:07] LABS: PTHIN 73 pg/mL (11-61)
[2025-08-14 16:20] LABS: AST(SGOT) 18 U/L (<=37); Alanine Aminotransfer ALT/SGPT 17 U/L (<=46); Albumin, Serum 4.1 g/dL (3.4-4.8); Alkaline Phosphatase 73 U/L (40-129); Anion Gap 12 (5-15); BUN 19 mg/dL (4-19); BUN/Creat Ratio 8.3 RATIO (10-20); Calcium,Total 8.9 mg/dL (7.6-11.0); Carbon Dioxide 20.0 mmol/L (21.0-32.0); Chloride 108 mmol/L (98-108); Ferritin 638 ng/mL (37-417); Globulin 2.3 g/dL (2.2-4.2); Glucose 89 mg/dL (70-99); Iron 96 ug/dL (65-175); Iron Binding Capacity,Unsat 104 ug/dL (228-428); Potassium 5.1 mmol/L (3.3-5.1)
[2025-08-14 18:28] LABS: CPK Total, Creatine Kinase 124 U/L (24-195)
[2025-08-14 19:42] LABS: Iron Binding Capacity,Total 200 ug/dL (250-450)
[2025-08-16 15:08] LABS: Folate, Hemolysate Test 406.0 ng/mL (Not Estab.); Folate, RBC (Hct) Test 28.0 % (37.5-51.0); Folates, RBC Test 1450 ng/mL (>498)
== END | disposition home or self-care (01) ==
LOC: LAB 14:27
PROVIDERS: PCP Family Medicine Geriatric Medicine; Referring Provider Internal Medicine Nephrology; Visit Provider Internal Medicine Nephrology
DX: I12.9 Hypertensive chronic kidney disease with stage 1 through stage 4 chronic kidney disease, or unspecified chronic kidney disease (principal); N18.32 Chronic kidney disease, stage 3b; N25.81 Secondary hyperparathyroidism of renal origin; D64.9 Anemia, unspecified
CPT/HCPCS: 36415; 80053; 82550; 82728; 82747; 83540; 83550; 83970; 85014